=== PATIENT | female | born 1965 | race Caucasian/White ===

== ENCOUNTER → 2016-03-16 | Outpatient (REF) | payer MEDICARE, OTHER ==
[~2016-03-16] MED LIST: CIPR500T3 PO; PERC5TAB6 PO; TAMS0.4C2 PO
[2016-03-16 12:08] LABS: CONTROL LINE INT CTR LINE PRESENT; HIV SCRN NEGATIVE (NEGATIVE); HIV SCRN1 NEGATIVE (NEGATIVE)
== END ==
LOC: M SFHCLERA 10:07
PROVIDERS: ATTEND Physician Assistant
DX: D69.6 Thrombocytopenia, unspecified (principal)

== ENCOUNTER → 2016-05-01 | Outpatient (REF) | payer MEDICARE, OTHER ==
[2016-05-01 11:25] LABS: INR 1.13
[2016-05-01 11:29] LABS: ANION GAP 9 MEQ/L (8-16); BLOOD UREA NITROGEN 9 MG/DL (7-18); CALCIUM LEVEL 8.9 MG/DL (8.5-10.1); CARBON DIOXIDE LEVEL 28 MEQ/L (21-32); CHLORIDE LEVEL 107 MEQ/L (98-107); CREATININE FOR GFR 0.74 MG/DL (0.55-1.02); GLOMERULAR FILTRATION RATE > 60.0 (>51); GLUCOSE, FASTING 94 MG/DL (70-105); MEAN CORPUSCULAR HEMOGLOBIN 31.3 pg (27.0-33.0); MEAN CORPUSCULAR VOLUME 91.9 fl (80.0-96.0); RED CELL DISTRIBUTION WIDTH 12.9 % (11.5-14.5); SODIUM LEVEL 144 MEQ/L (136-145); WHITE BLOOD COUNT 4.4 K/mm3 (4.0-10.0)
== END ==
LOC: M LABSMT 08:30
PROVIDERS: ATTEND Nurse Practitioner Women's Health
DX: Z01.818 Encounter for other preprocedural examination (principal); N13.2 Hydronephrosis with renal and ureteral calculous obstruction; Z79.01 Long term (current) use of anticoagulants

== ENCOUNTER → 2016-07-30 | Outpatient (REF) | payer MEDICARE, OTHER ==
[2016-07-30 18:00] LABS: FOLATE > 24.0 NG/ML; VITAMIN B12 LEVEL 466 PG/ML
[2016-07-30 19:01] LABS: REASON FOR REVIEW COMPREHENSIVE REVIEW
[2016-08-01 10:46] LABS: HEPATITIS B SURFACE ANTIBODY NEGATIVE (POSITIVE)
== END ==
LOC: M LAB REF 16:52
PROVIDERS: ATTEND Internal Medicine Medical Oncology
DX: D69.6 Thrombocytopenia, unspecified (principal)

== ENCOUNTER → 2016-08-20 | Outpatient (CLI) | payer MEDICARE ==
[~2016-08-20] MED LIST changes: +ISOVUE-370 76% 100ML VIAL (Q9967) As Ordered ONE
--- NOTE | 2016-08-20 12:13 | REP ---
Clinical: Splenomegaly. Technique: Axial precontrast and contrast enhanced images of the abdomen using 100 ml Isovue 370 intravenous contrast material with coronal and sagittal re-formations. Comparison: 01/02/2016, 12/13/2015. Findings: Lung bases are clear. Visualized heart and pericardium normal. The liver and spleen are upper limits of normal in size but without focal hepatic or splenic lesion identified. The gallbladder is moderately distended and includes small gallstones without wall thickening or pericholecystic fluid to suggest acute cholecystitis. Pancreas and bilateral adrenal glands are normal. The kidneys demonstrate bilateral nonobstructing calculi measuring up to 5 mm without perinephric stranding, hydroureteronephrosis or obstructing ureteral calculi. Visualized enteric system without obstruction or acute inflammatory process. No ascites. Small fat containing periumbilical hernia noted. No free air. No intraperitoneal or retroperitoneal adenopathy. Atherosclerotic changes of the aorta noted without aneurysm. Musculoskeletal structures without focal osseous abnormality. Impression: 1. Liver and spleen are upper limits of normal in size without focal hepatic or splenic lesion identified. 2. Cholelithiasis without CT evidence for acute cholecystitis. 3. Bilateral nephrolithiasis up to 5 mm. Signed by Man Gross MD 08/20/2016 09:04 A
== END ==
LOC: M RAD 08:17
PROVIDERS: ATTEND Internal Medicine Medical Oncology
DX: R16.1 Splenomegaly, not elsewhere classified (principal); K80.10 Calculus of gallbladder with chronic cholecystitis without obstruction; N20.0 Calculus of kidney
CPT/HCPCS: 74170; Q9967

== ENCOUNTER → 2017-12-31 | Outpatient (REF) | payer MEDICARE, OTHER ==
[2017-12-31 11:20] LABS: HEMATOCRIT 35.8 % (36.0-47.0); MEAN CORPUSCULAR HEMOGLOBIN 31.9 pg (27.0-33.0); MEAN CORPUSCULAR HGB CONC 33.5 g/dl (32.0-36.5); MEAN CORPUSCULAR VOLUME 95.2 fl (80.0-96.0); RED BLOOD COUNT 3.76 10^6/uL (4.00-5.40); RED CELL DISTRIBUTION WIDTH 13.2 % (11.5-14.5); WHITE BLOOD COUNT 5.6 10^3/uL (4.0-10.0)
[2017-12-31 11:47] LABS: ESTIMATED AVERAGE GLUCOSE 123 MG/DL (60-110); HEMOGLOBIN A1c 5.9 %
[2017-12-31 11:49] LABS: PLATELET COUNT, AUTOMATED 102 10^3/uL (150-450); POS COUNT POS FLAG
[2017-12-31 13:07] LABS: ALBUMIN 3.5 GM/DL (3.2-5.2); ALKALINE PHOSPHATASE 98 U/L (45-117); ALT/SGPT 53 U/L (12-78); ANION GAP 11 MEQ/L (8-16); AST/SGOT 61 U/L (7-37); BILIRUBIN,TOTAL 0.6 MG/DL (0.2-1.0); BLOOD UREA NITROGEN 9 MG/DL (7-18); CALCIUM LEVEL 8.6 MG/DL (8.5-10.1); CARBON DIOXIDE LEVEL 24 MEQ/L (21-32); CHLORIDE LEVEL 107 MEQ/L (98-107); CHOLESTEROL LEVEL 162 MG/DL (<200); CHOLESTEROL RISK RATIO 5.586 (<5); CREATININE FOR GFR 0.82 MG/DL (0.55-1.30); GLOMERULAR FILTRATION RATE > 60.0 (>51); GLUCOSE, FASTING 86 MG/DL (70-100); HDL CHOLESTEROL 29 MG/DL (>40); LDL CHOLESTEROL 84 MG/DL (<100); NON-HDL-C 133 MG/DL; POTASSIUM SERUM 4.3 MEQ/L (3.5-5.1); SODIUM LEVEL 142 MEQ/L (136-145); TOTAL 25(OH) VITAMIN D 46.4 NG/ML (30.0-100.0); TOTAL PROTEIN 7.4 GM/DL (6.4-8.2); TRIGLYCERIDES LEVEL 247 MG/DL (<150)
== END ==
LOC: M SFHCLERA 09:18
DX: E78.2 Mixed hyperlipidemia (principal); E11.9 Type 2 diabetes mellitus without complications; D69.6 Thrombocytopenia, unspecified; E55.9 Vitamin D deficiency, unspecified; E66.9 Obesity, unspecified; Z68.30 Body mass index [BMI] 30.0-30.9, adult; Z23 Encounter for immunization
CPT/HCPCS: 80053

== ENCOUNTER → 2018-01-08 | Outpatient (CLI) | payer MEDICARE | LOC: M WHC 13:54 | DX: Z12.31 Encounter for screening mammogram for malignant neoplasm of breast (principal); Z80.3 Family history of malignant neoplasm of breast | CPT/HCPCS: 77067 ==

== ENCOUNTER 2018-10-15 17:52 | Emergency (ER) | payer MEDICARE, OTHER ==
[~2018-10-15] VITALS: Ht 160 cm; Wt 77.3 kg
[~2018-10-15 17:52] MED LIST changes: -ISOVUE-370 76% 100ML VIAL (Q9967) As Ordered ONE; +PERC5TAB12 PO; -PERC5TAB6 PO
[2018-10-15] MEDS ORDERED: CALC-190 PO (17:59)
[2018-10-15] MEDS ORDERED: MULTCAP PO (17:59)
[2018-10-15] MEDS ORDERED: ZINC1TAB2 PO (17:59)
[2018-10-15] MEDS ORDERED: VITA500C24 PO (17:59)
[2018-10-15] MEDS ORDERED: CHOL100029 PO (17:59)
[2018-10-15] MEDS ORDERED: METF500T13 PO (17:59)
[2018-10-15] MEDS ORDERED: ATOR1TAB21 PO (17:59)
[2018-10-15] MEDS ORDERED: GLIM1TAB PO (17:59)
[2018-10-15 18:57] LABS: BASO % 0.2 % (0.0-1.0); EOS # 0.1 10^3/uL (0.0-0.50); EOS % 2.7 % (0.0-3.0); HEMATOCRIT 34.9 % (36.0-47.0); LYMPH # 1.9 10^3/uL (1.5-4.5); LYMPH % 35.9 % (24.0-44.0); MEAN CORPUSCULAR HEMOGLOBIN 32.4 pg (27.0-33.0); MEAN CORPUSCULAR HGB CONC 34.4 g/dl (32.0-36.5); MEAN CORPUSCULAR VOLUME 94.3 fl (80.0-96.0); MONO # 0.3 10^3/uL (0.0-0.8); NEUTROPHILS # 2.8 10^3/uL (1.8-7.7); WHITE BLOOD COUNT 5.2 10^3/uL (4.0-10.0)
[2018-10-15 19:03] LABS: PLATELET COUNT, AUTOMATED 77 10^3/uL (150-450)
[2018-10-15 19:21] LABS: ALBUMIN 3.5 GM/DL (3.2-5.2); ALT/SGPT 51 U/L (12-78); BILIRUBIN,DIRECT 0.2 MG/DL (0.0-0.2); BILIRUBIN,TOTAL 0.7 MG/DL (0.2-1.0); BLOOD UREA NITROGEN 10 MG/DL (7-18); CALCIUM LEVEL 9.3 MG/DL (8.5-10.1); CARBON DIOXIDE LEVEL 26 MEQ/L (21-32); CHLORIDE LEVEL 107 MEQ/L (98-107); CREATININE FOR GFR 0.78 MG/DL (0.55-1.30); GLOMERULAR FILTRATION RATE > 60.0 (>51); GLUCOSE, FASTING 77 MG/DL (70-100); LIPASE 325 U/L (73-393); POTASSIUM SERUM 3.8 MEQ/L (3.5-5.1); SODIUM LEVEL 142 MEQ/L (136-145); TOTAL PROTEIN 7.4 GM/DL (6.4-8.2)
[2018-10-15] MEDS ORDERED: ONDANSETRON 4 MG ORAL DISINTEGRATING TAB (Q0162 PER 1MG) PO ONE (20:00)
--- NOTE | 2018-10-15 21:05 | REPVR ---
EXAM: CT Abdomen and Pelvis Without Contrast EXAM DATE/TIME: 10/15/2018 8:01 PM CLINICAL HISTORY: 53 years old, female; Abdominal pain; Flank; Right; Additional info: R flank pain, hematuria, HX stones TECHNIQUE: Imaging protocol: Computed tomography images of the abdomen and pelvis without contrast. Radiation optimization: All CT scans at this facility use at least one of these dose optimization techniques: automated exposure control; mA and/or kV adjustment per patient size (includes targeted exams where dose is matched to clinical indication); or iterative reconstruction. COMPARISON: CT ABD PELVIS W/O CONTRAST 01/02/2016 5:31 PM FINDINGS: Liver: Examination of the liver demonstrates a lobular surface contour, and enlargement of the left and caudate lobes, findings consistent with cirrhosis. Gallbladder and bile ducts: There are gallstones present. No evidence of cholecystitis demonstrated. Pancreas: Normal. No ductal dilation. Spleen: There is mild splenomegaly with a maximum span of 14 centimeters. No focal abnormalities demonstrated. Adrenals: Normal. No mass. Kidneys and ureters: Bilateral nonobstructive renal calculi measure up to 5 mm in the lower pole of the right kidney. There is an obstructive renal calculus demonstrated in the right renal pelvis associated with moderate dilatation of the renal pelvis and calyces. Also noted is increased thickening of the wall of the right renal pelvis, findings which can be associated with infection. No urinoma. There are several obstructive calculi measuring up to 6 mm extending craniocaudad for 10 mm located in the distal left ureter resulting in moderate proximal hydroureteronephrosis. There is no significant periureteral and perinephric stranding. No urinoma demonstrated. Stomach and bowel: Normal. No obstruction. No mucosal thickening. Appendix: No evidence of appendicitis. Intraperitoneal space: Normal. No free air. No significant fluid collection. Vasculature: Enlarged main portal vein measures 1.7 cm. Findings consistent with portal hypertension. The aorta demonstrates mild atherosclerotic calcification. Lymph nodes: Normal. No enlarged lymph nodes. Bladder: Mild thickening of the bladder wall likely related to incomplete distention although changes related to chronic bladder outlet obstruction not excluded. This study should also be excluded clinically. Reproductive: Unremarkable as visualized. Bones/joints: Age-indeterminate compression deformity of L2. Mild central spinal stenosis L4-5. Soft tissues: Unremarkable. IMPRESSION: 1. Examination of the liver demonstrates a lobular surface contour, and enlargement of the left and caudate lobes, findings consistent with cirrhosis. 2. There is mild splenomegaly with a maximum span of 14 centimeters. No focal abnormalities demonstrated. 3. There are gallstones present. No evidence of cholecystitis demonstrated. 4. There is an obstructive renal calculus demonstrated in the right renal pelvis associated with moderate dilatation of the renal pelvis and calyces. Also noted is increased thickening of the wall of the right renal pelvis, a finding which can be associated with infection. No urinoma. 5. There are several obstructive calculi measuring up to 6 mm located in the distal left ureter resulting in moderate proximal hydroureteronephrosis. There is no significant periureteral and perinephric stranding. No urinoma demonstrated. 6. Mild thickening of the bladder wall likely related to incomplete distention although changes related to chronic bladder outlet obstruction not excluded. This study should also be excluded clinically. Electronically signed by: Jesus Brenner On 10/15/2018 21:05:02 PM
[2018-10-15 22:14] VITALS: BP 129/60
[2018-10-15] MEDS ORDERED: CIPROFLOXACIN 500 MG TAB PO ONE ×2 (22:15→23:00)
--- NOTE | 2018-10-16 10:53 | ED PDOC ---
Post-Departure Follow-Up [facility] faxed formal report of ct abd/p for fu Dana Jurado MD Oct 16, 2018 10:53
[2018-11-06] MEDS ORDERED: COLA100C5 PO (13:14)
[2018-11-06] MEDS ORDERED: LORA-243 PO (13:14)
[2018-11-06] MEDS ORDERED: OXYC1TAB23 PO (13:14)
[2018-11-06] MEDS ORDERED: DITR5TAB PO (13:14)
== END 2018-10-15 22:20 | disposition home or self-care (01) ==
LOC: M ED 17:52
DX: N13.2 Hydronephrosis with renal and ureteral calculous obstruction (principal); E78.5 Hyperlipidemia, unspecified; E11.9 Type 2 diabetes mellitus without complications; R16.1 Splenomegaly, not elsewhere classified; F17.200 Nicotine dependence, unspecified, uncomplicated; Z79.84 Long term (current) use of oral hypoglycemic drugs; Z87.442 Personal history of urinary calculi; Z90.710 Acquired absence of both cervix and uterus
CPT/HCPCS: 74176; 80048; 80076; 81001; 83690; 85025; 85049; 85055; 87086; 99284; Q0162

== ENCOUNTER 2018-10-16 14:26 | Day surgery (SDC) | payer MEDICARE ==
[~2018-10-16] VITALS: Ht 160 cm; Wt 78.8 kg
[~2018-10-16 14:26] MED LIST changes: +ATOR1TAB21; +CALC-190 PO; +GLIM1TAB; +METF500T13; +MULTCAP PO; +VITA500C24 PO; +VITAD1000T PO; +ZINC1TAB2 PO
[2018-10-16] MEDS ORDERED: PROPOFOL 200 MG/20 ML VIAL As Ordered ONE (18:11)
[2018-10-16] MEDS ORDERED: MIDAZOLAM INJ 2 MG/2 ML VIAL (J2250) As Ordered ONE (18:11)
[2018-10-16] MEDS ORDERED: LIDOCAINE 2% INJ 100 MG/5 ML SDV (FOR ANES.) As Ordered ONE (18:12)
[2018-10-16] MEDS ORDERED: CONRAY-60 60% 50ML VIAL (Q9961) As Ordered ONE (18:14)
[2018-10-16] MEDS ORDERED: LIDOCAINE 2% 5ML JELLY UROJET As Ordered ONE (18:29)
[2018-10-16] MEDS ORDERED: ONDANSETRON 4MG/2ML VIAL (J2405) As Ordered ONE (18:30)
[2018-10-16] MEDS ORDERED: fentaNYL 100 MCG/2 ML INJECTION (J3010) As Ordered ONE (18:52)
--- NOTE | 2018-10-16 19:44 | REP ---
HISTORY: Placement of double pigtail stent. Five spot views of the abdomen and pelvis were obtained in my [place] using a portable C-Arm device during bilateral renal stent placement. Stents are seen in the renal collecting system bilaterally, the proximal portion of which is in the renal pelvis and the distal portion of which is in the urinary bladder. 28 seconds of fluoroscopy time was provided Dr. Roger Chang for the procedure. Electronically Signed by Sai Jean DO 10/16/2018 07:48 P
[2018-10-16 20:00] VITALS: BP 143/68
--- NOTE | 2018-10-19 10:51 | RO ---
DATE OF PROCEDURE: 10/16/2018 PREPROCEDURE DIAGNOSIS: Bilateral obstructing ureteral stones. POSTPROCEDURE DIAGNOSIS: Bilateral obstructing ureteral stones. PROCEDURE: Cystoscopy, bilateral retrograde pyelogram with intraoperative interpretation of images, bilateral ureteral stent placement. SURGEON: Dr. Roger Chang SENIOR ELECTRICAL PROJECT MANAGER: None. ANESTHESIA: Monitored anesthesia care (MAC). OPERATIVE INDICATIONS: This is a 53-year-old female who on CT scan yesterday was found to have a partially obstructing 1.2 cm right ureteropelvic junction stone, as well as obstructing distal left ureteral stone measuring up to 8 mm in size. She was brought to the operating room today for the above listed procedure. DESCRIPTION OF PROCEDURE: The patient was brought to the operating room and MAC anesthesia was administered. Prophylactic antibiotics were infused. She was then placed in the dorsal lithotomy position and prepped and draped in the usual sterile fashion. A rigid cystoscope was inserted into the urethral meatus and advanced into the bladder. A #5-[place] open-ended ureteral catheter was then advanced up the right collecting system and pass the ureteropelvic junction stone. At this point, a retrograde pyelogram was performed. It was notable for mild to moderate right hydronephrosis. No extravasation. I then advanced a wire up the right collecting system and removed the open-ended ureteral catheter. I then advanced a #7-[place] x 22-32 cm JJ ureteral stent up to the right collecting system. The wire was removed, and there were adequate curls of the stent in the right renal pelvis and in the bladder. I then advanced a #5-[place] open-ended ureteral catheter up the left collecting system. There was some difficulty getting it past the distal stones, but I was able to get it passed using the wire. Once the ureteral catheter was in the left renal pelvis, a retrograde pyelogram was performed, notable for mild to moderate left hydronephrosis. No extravasation. I then advanced the wire up, and then I removed the ureteral catheter. I then advanced a #7-[place] x 22-32 cm JJ ureteral stent into the left collecting system. The wire was removed, and there were adequate curls of the stent in the left renal pelvis and in the bladder. The bladder was then emptied of all fluids, and this marked the conclusion of the procedure. The patient was then taken out of the dorsal lithotomy position, awakened from anesthesia, and transported to the recovery room in stable condition. Estimated blood loss: 5 mL. Complications: None. Specimens: None. PLAN: We will have the patient followup in the clinic, and at that point, will get her set up for bilateral ureteroscopy with laser lithotripsy.
== END 2018-10-16 20:01 | disposition home or self-care (01) ==
LOC: M SDC 14:26
PROVIDERS: ATTEND Urology
DX: N20.0 Calculus of kidney (principal); E11.9 Type 2 diabetes mellitus without complications; Z79.84 Long term (current) use of oral hypoglycemic drugs; Z79.899 Other long term (current) drug therapy
CPT/HCPCS: 52332; 74420; C2617; J0690; J2250; J2405; J3010; Q9961

== ENCOUNTER → 2018-11-18 | Outpatient (REF) | payer MEDICARE, OTHER ==
[~2018-11-18] MED LIST changes: -ATOR1TAB21; +ATOR1TAB21 PO; +CHOL100029 PO; +COLA100C5 PO; +DITR5TAB PO; -GLIM1TAB; +GLIM1TAB PO; +LORA-243 PO; -METF500T13; +METF500T13 PO; +OXYC1TAB23 PO; -VITAD1000T PO
[2018-11-18 17:13] LABS: HEMOGLOBIN A1c 5.3 %
== END ==
LOC: M SFHCLERA 11:31
PROVIDERS: ATTEND Family Medicine
DX: Z01.818 Encounter for other preprocedural examination (principal)

== ENCOUNTER → 2018-11-20 | Outpatient (CLI) | payer MEDICARE, OTHER ==
[~2018-11-20] MED LIST changes: -GLIM1TAB PO; +GLIM1TAB4 PO
--- NOTE | 2018-11-20 12:56 | REP ---
PA and lateral chest: Comparison is 04/07/2013. The lung bhandari are clear. The cardiac size is normal. The facundo, mediastinum, and skeletal structures are unremarkable. Impression: Negative PA and lateral chest. There is no interval change. Electronically Signed by Bryan Greenwood MD 11/20/2018 12:48 P
== END ==
LOC: M LRY 11:30
PROVIDERS: ATTEND Nurse Practitioner Family
DX: Z01.818 Encounter for other preprocedural examination (principal); N20.0 Calculus of kidney; R79.1 Abnormal coagulation profile
CPT/HCPCS: 71046; 80048; 81001; 85027; 85049; 85055; 85610; 85730; 87086; 93005; G0463

== ENCOUNTER → 2018-11-20 | Outpatient (REF) | payer MEDICARE, OTHER ==
[~2018-11-20] MED LIST changes: +GLIM1TAB PO; -GLIM1TAB4 PO
[2018-11-20 15:44] LABS: HEMATOCRIT 35.7 % (36.0-47.0); HEMOGLOBIN 11.8 g/dl (12.0-15.5); MEAN CORPUSCULAR HEMOGLOBIN 31.9 pg (27.0-33.0); MEAN CORPUSCULAR HGB CONC 33.1 g/dl (32.0-36.5); MEAN CORPUSCULAR VOLUME 96.5 fl (80.0-96.0); WHITE BLOOD COUNT 5.6 10^3/uL (4.0-10.0)
[2018-11-20 15:47] LABS: APPEARANCE, URINE CLOUDY (CLEAR); BACTERIA, URINE AUTO NEGATIVE (NEGATIVE); BILIRUBIN, URINE AUTO NEGATIVE (NEGATIVE); BLOOD, URINE BLOOD 3+ (NEGATIVE); COLOR, URINE RED (YELLOW); GLUCOSE, URINE (UA) AUTO NEGATIVE (NEGATIVE); KETONE, URINE AUTO NEGATIVE (NEGATIVE); LEUKOCYTE ESTERASE, URINE AUTO 2+ (NEGATIVE); MUCUS, URINE SMALL (NEGATIVE); NITRITE, URINE AUTO NEGATIVE (NEGATIVE); PROTEIN, URINE AUTO 3+ mg/dL (NEGATIVE); RBC, URINE AUTO TNTC /HPF (0-3); SPECIFIC GRAVITY URINE AUTO 1.016 (1.002-1.035); SQUAMOUS EPITHELIAL CELL UR AU 5 /HPF (0-6); UROBILINOGEN, URINE AUTO 0.2 mg/dL (0.0-2.0); WBC, URINE AUTO TNTC /HPF (0-3)
[2018-11-20 15:48] LABS: BLOOD UREA NITROGEN 11 MG/DL (7-18); CALCIUM LEVEL 9.3 MG/DL (8.5-10.1); CARBON DIOXIDE LEVEL 30 MEQ/L (21-32); CHLORIDE LEVEL 104 MEQ/L (98-107); GLOMERULAR FILTRATION RATE > 60.0 (>51); GLUCOSE, FASTING 66 MG/DL (70-100); POTASSIUM SERUM 4.3 MEQ/L (3.5-5.1); SODIUM LEVEL 141 MEQ/L (136-145)
[2018-11-20 15:53] LABS: PLATELET COUNT, AUTOMATED 94 10^3/uL (150-450)
[2018-11-20 15:57] LABS: INR 1.19; PROTHROMBIN TIME 14.8 SECONDS (11.8-14.0)
== END ==
LOC: M LABSMT 11:20
PROVIDERS: ATTEND Nurse Practitioner Family
DX: Z01.818 Encounter for other preprocedural examination (principal); N20.0 Calculus of kidney; D69.6 Thrombocytopenia, unspecified

== ENCOUNTER → 2018-12-29 | Outpatient (REF) | payer MEDICARE, OTHER ==
[~2018-12-29] MED LIST changes: -GLIM1TAB PO; +GLIM1TAB2 PO
== END ==
LOC: M LABSMT 17:32
PROVIDERS: ATTEND Urology
DX: Z01.818 Encounter for other preprocedural examination (principal); N20.0 Calculus of kidney; N39.0 Urinary tract infection, site not specified

== ENCOUNTER 2019-01-02 06:09 | Day surgery (SDC) | payer MEDICARE ==
[~2019-01-02] VITALS: Ht 160 cm; Wt 74.8 kg
[2019-01-02] MEDS ORDERED: CONRAY-60 60% 50ML VIAL (Q9961) As Ordered ONE (06:58)
[2019-01-02] MEDS ORDERED: LR 1,000 ML IV ONE (07:00)
[2019-01-02] MEDS ORDERED: ceFAZolin SOD 2 GM in IV 1 EA IV ONE (07:00)
[2019-01-02] MEDS ORDERED: dexameTHASONE 4 MG/ML 1ML VIAL (J1100) As Ordered ONE (07:17)
[2019-01-02] MEDS ORDERED: PROPOFOL 200 MG/20 ML VIAL As Ordered ONE (07:17)
[2019-01-02] MEDS ORDERED: MIDAZOLAM INJ 2 MG/2 ML VIAL (J2250) As Ordered ONE (07:17)
[2019-01-02] MEDS ORDERED: fentaNYL 100 MCG/2 ML INJECTION (J3010) As Ordered ONE (07:17)
[2019-01-02] MEDS ORDERED: LIDOCAINE 2% INJ 100 MG/5 ML SDV (FOR ANES.) As Ordered ONE (07:17)
[2019-01-02] MEDS ORDERED: ONDANSETRON 4MG/2ML VIAL (J2405) As Ordered ONE ×2 (07:18→10:36)
[2019-01-02] MEDS ORDERED: oxyBUTYnin 5 MG TAB PO PRN (10:15)
[2019-01-02] MEDS ORDERED: PERCOCET 5MG/325MG TAB PO PRN (10:15)
[2019-01-02] MEDS ORDERED: ONDANSETRON 4MG/2ML VIAL (J2405) IV PRN (11:00)
[2019-01-02] MEDS ORDERED: METOCLOPRAMIDE INJ 10MG/2ML VIAL (J2765) IV PRN (11:00)
[2019-01-02] MEDS ORDERED: LR 1,000 ML IV SCH (11:00)
[2019-01-02] MEDS ORDERED: PROMETHAZINE INJ 25 MG/ML VIAL (J2550) IV PRN (11:00)
[2019-01-02] MEDS ORDERED: fentaNYL 100 MCG/2 ML INJECTION (J3010) IV PRN (11:00)
--- NOTE | 2019-01-02 12:04 | RO ---
DATE OF PROCEDURE: 01/02/2019 PREPROCEDURE DIAGNOSIS: Bilateral kidney stones. POSTPROCEDURE DIAGNOSIS: Bilateral kidney stones. PROCEDURE: Cystoscopy, bilateral ureteroscopy with laser lithotripsy and basket extraction of stones, bilateral retrograde pyelograms with intraoperative interpretation of images, bilateral ureteral stent exchange. SURGEON: Dr. Roger Chang. AIRCRAFT MAINTENANCE SUPERVISOR: None. ANESTHESIA: General. OPERATIVE INDICATIONS: This is a 53-year-old female who was brought to the operating room about 2 months ago for bilateral ureteral stent placement for obstructing mid left ureteral stones as well as an obstructing right ureteropelvic junction stone. She was brought to the operating today for treatment of her stones. DESCRIPTION OF PROCEDURE: The patient brought to the operative room and general anesthesia was induced. Prophylactic antibiotics infused. She was then placed in the dorsal lithotomy position and prepped and draped in the usual sterile fashion. A rigid cystoscope was then inserted into the urethral meatus and advanced into the bladder. Once inside the bladder, the previously placed stent on the left side was grasped and withdrawn until the distal end was seen protruding from the urethral meatus. I then advanced the guidewire up the stent and then removed the stent. I then utilized the wire to advance a ureteral access sheath up the left collecting system to the mid ureter. I then went up the access sheath with a flexible ureteroscope and within the mid ureter, two stones were seen. Both were about 8 mm in size. They were both fragmented into smaller pieces using the Excalibur laser fiber. All the fragments were then removed using a basket. I then examined the more proximal ureter and no additional stones sere seen. The kidneys were thoroughly examined and within the lower pole luis, two small stones each measuring 3-4 mm size were seen. They were both passed to the basket and withdrawn. A retrograde pyelogram was then performed and was notable for mild left hydronephrosis with no extravasation. I then withdrew the ureteroscope along with access sheath and no additional stones were seen within the ureter. I then utilized a wire to place the 6-Argentine x 22-32 cm JJ ureteral stent up the left collecting system. I then withdrew the previous placed right ureteral stent until the distal end was seen protruding beneath the urethral meatus. I advanced a guidewire up the right collecting system. I then removed the stent. I then advanced the access sheath over the wire. I went up the access sheath with a flexible ureteroscope and at the level of the right ureteropelvic junction, an approximately 1.2 cm stone was seen. This stone was fragmented into smaller pieces using the Excalibur laser fiber. Then a few fragments were removed. Due to the size of the stone, the decision was made to dust the remainder of the stone with the smaller pieces left to pass. Once done dusting the stone, I examined the rest of the kidney and no stones greater than 1 or 2 mm remained. At this point, a retrograde pyelogram was then performed and was notable for mild right hydronephrosis with no extravasation. I then withdrew the ureteroscope along with access sheath and no additional stones were seen within the ureter. I then utilized the wire to advanced a 6-Argentine x 22-32 cm JJ ureteral stent into the right collecting system. The wire was removed and there was adequate curl of the stent in the right renal pelvis and in the bladder. The bladder was then emptied of all fluid, and this marked the conclusion of the procedure. The patient was then taken out of the dorsal lithotomy position, awakened from anesthesia, and transported to the recovery room in stable condition. ESTIMATED BLOOD LOSS: 10 mL. COMPLICATIONS: None. SPECIMENS: Kidney stone fragments. PLAN: I will have the patient followup in the clinic in approximately 3-4 weeks with imaging prior to assess for residual stone burden. Assuming there is no large residual stones, particularly on the right, her stents will be removed at that time. RUBY
--- NOTE | 2019-01-02 12:42 | REP ---
RETROGRADE PYELOGRAM: FIVE VIEWS. HISTORY: Nephrolithiasis. 32 seconds of fluoroscopy time is reported. FINDINGS: A sequence of five last image hold fluoroscopically obtained spot radiographs of the abdomen document bilateral ureteral cannulation, contrast injection, and stent placement. Electronically Signed by Frandy Schwartz MD 01/02/2019 01:56 P
[2019-01-02 12:50] VITALS: BP 131/69
== END 2019-01-02 12:50 | disposition home or self-care (01) ==
LOC: M SDC 06:09
PROVIDERS: ATTEND Urology
DX: N20.0 Calculus of kidney (principal); E11.9 Type 2 diabetes mellitus without complications; E78.5 Hyperlipidemia, unspecified; Z79.899 Other long term (current) drug therapy; F17.218 Nicotine dependence, cigarettes, with other nicotine-induced disorders
CPT/HCPCS: 52356; 74420; 82360; 88300; C1769; C1894; C2617; J0690; J1100; J2250; J2405; J2765; J3010; Q9961

== ENCOUNTER → 2019-01-26 | Outpatient (CLI) | payer MEDICARE ==
--- NOTE | 2019-01-26 11:18 | REPPI ---
Clinical: Nephrolithiasis. Technique: Single supine view of the abdomen and pelvis. Findings: Bilateral ureteral stents in satisfactory position. Multiple small calcifications in the right upper quadrant measuring up to 3 mm may represent renal stones verses gallstones. Subtle calcifications overlying the left renal pelvis may represent small residual left renal calculi. No obvious ureteral calcifications or bladder calcifications identified. Bowel gas pattern is nonspecific. Skeletal structures are intact. Impression: Possible renal calcifications. Electronically Signed by Man Gross MD 01/26/2019 11:09 A
== END ==
LOC: M PLALAB 10:39
PROVIDERS: ATTEND Urology
DX: N20.0 Calculus of kidney (principal)

== ENCOUNTER 2020-03-15 21:01 | Emergency (ER) | payer MEDICARE, OTHER ==
[~2020-03-15] VITALS: Ht 160 cm; Wt 84.0 kg
[~2020-03-15 21:01] MED LIST changes: -GLIM1TAB2 PO; +GLIM1TAB4 PO
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
--- OUTSIDE RECORDS SUMMARY | 2020-03-15 21:10 | CCD ---
Author Author [facility] Organization [facility] Address Unknown Phone Unavailable Care Team Providers Care Radiology Administrator Name Role Phone Syeda Mares Unavailable PROBLEMS Type Condition ICD9-CM Code XOM43-TZ Code Onset Dates Condition S tatus SNOMED Code Notes Problem Type 2 diabetes mellitus without complication E11.9 Active 09505813 Problem Lumbar degenerative disc disease M51.36 Active 52912991 Problem Vitamin D deficiency E55.9 Active 70238118 Problem Tobacco abuse Z72.0 Active 14911063 Problem Mixed hyperlipidemia E78.2 Active 501267970 Problem Degenerative cervical disc M50.30 Active 65300 002 Problem Chronic pain G89.29 Active 05086242 Problem Hematuria R31.9 Active 40953341 Problem Thrombocytopenia D69.6 Active 016482087 Problem 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 Ac tive 90764796 Problem Anemia, unspecified type D64.9 Active 4243087 00 Problem Kidney stone N20.0 Active 83204785 Problem Ureteral stone with hydronephrosis N13.2 Activ e 335301725 Problem Psoriasis L40.9 Active 3674173 Problem History of renal calculi Z87.442 Active 8650610 08 Problem Elevated protime R79.1 Active 937152876 Problem Bilateral kidney stones N20.0 Active 11495864 Problem Preop testing Z01.818 Active 499203619 Problem UTI (urinary tract infection) N39.0 Active 68 884395 ALLERGIES Allergen (clinical drug ingredient) Drug/Non Drug Allergy do cumented on EMR Reaction Allergy Type Onset Date Status Seasonal itchy eyes, sneezing Non Drug Allergy Active ENCOUNTERS from 1965 to 2020-02-06 Encounter Location Date Provider Diagnosis [facility] [address] [address] [place] [address] Jan, Syeda Mares Type 2 diabetes mellitus without complic ation E11.9 ; Annual physical exam Z00.00 ; Encounter for immunization Z23 ; Mixed hyperlipidemia E78.2 ; Vitamin D deficiency E55.9 ; Screening mammogram, encounter for Z12.31 and Need for shingles vaccine Z23 IMMUNIZATIONS Vaccine Route Administration Date Status Influenza [...] Education Language: Question Answer Notes Languages spoken: Faroese Nondenominational: Question Answer Notes Nondenominational 33 None Drug and Alcohol Question Answer Notes Total Score: 0 Interpretation: No problems reported BMI Care Goal Follow-Up Question Answer Notes Above Normal BMI Follow-Up Dietary management educatio n, guidance, and counseling, Dietary needs education, Exercise promotion: strength training Tobacco Use: Question Answer Notes Are you a: former smoker August 31 2019 REASON FOR REFERRAL No Information VITAL SIGNS Weight 184.2 lbs Jan, Height 63 in Jan, BMI 32.63 kg/m2 Jan, MEDICATIONS Medication SIG (Take, Route, Frequency, Duration) Notes Start Da te End Date Status Vitamin C 500 MG 1 tablet OTC Orally Once a day Active FreeStyle Test Oxford Lite test strip use 1 test stri p In Vitro to test blood sugar twice daily (Dx: 250.00) for 30 day(s) June, Active Diflucan 150mg (1 tablet) 150 MG 1 tablet Orally Once a day for 1 day(s) Sep, Not-Taking Hydrocodone-Acetaminophen 5-325 MG 1tab Orally once daily Not-Taking Metformin HCl 500 MG 2 tablets Orally Twice a day for 90 days Active Amaryl 1 mg 1 tablet with breakfast or t he first main meal of the day Orally Once a day Not-Taking Lidocaine HCl Jelly ALF 2 % 5 ML1 application to affec janay area as needed Intravesically TIME AT CYSTOSCOPY for 1 dose(s) Sep, Not-Taking Vitamin D 1000 UNIT 3 tablets Orally Once a day Active Triamcinolone Acetonide 0.1 % 1 application Externally Twice a day for 14 days Jan, Active Atorvastatin Calcium 20 MG 1 tablet Orally Once a day for 90 days Active Embrace Blood Glucose Test - as directed (E11.9) In Vitro for 99 months Feb, Active BuPROPion HCl ER (SR) 150 MG 1 [...] MDD 4 for 7 day(s) Nov, Not-Taking Colace _ 2 capsule Orally Once a day Active Percocet 5-325 MG 1 tablet Orally every 6 hrs as needed for pain (MDD 4) Nov, Not-Taking Lyrica 150 MG 1 capsule Orally three times daily (Dr Kulkarni) Not-Taking Amaryl 1 MG 1 tablet with breakfast or t he first main meal of the day Orally Once a day for 90 days Active Triamcinolone Acetonide 0.1 % apply in thin layer to a ffected areas on lower legs Externally Twice a day x 14 days. Do not use for longer than 14 days continuously. for 30 day(s) Feb, Not- Taking Clotrimazole 1 % 1 application to affected [...] OTC Orally daily Active Lidocaine HCl Jelly ALF 2 % 5 ML1 application to affec janay area as needed Intravesically TIME AT CYSTOSCOPY for 1 dose(s) Sep, Not-Taking Cipro 500 MG 1 tablet Orally Twice a day for 3 days Sep Not-Taking Caltrate 600+D 600-400 MG-UNIT 1 tablet OTC Orally Once a day Active PROCEDURES from 1965 to 2020-02-06 Procedure Date Ordered Result Body Site Immunization: Flublok Quadrivalent (18 years & older) 0.5mL IM (Influenza) 2020-02-02 N/A Immunization: Shingrix 50mcg/0.5mL IM (Zoster) 2020-02-02 N /A RESULTS No Results REASON FOR VISIT annual wellness exam MEDICAL (GENERAL) HISTORY Type Description Date Medical [...] History Unspecified urinary calculus Surgical History Hysterectomy 1980 Surgical History Carpal tunnel 2006 Surgical History [...] Treatment Notes Treatm ent Clinical Notes Jan, Type 2 diabetes mellitus without complication (I CD-10 - E11.9) For your diabetes continue to follow low fat, low cholesterol, no added salt diet. Exercise at least 150min/week. Your eye screening is due, plans to schedule prior to near future. Your blood pressure is stable. Goal for Hemoglobin A1C is 7-7.5%. Labs ordered, pending disposition. Jan, Annual physical exam (ICD-10 - Z00.00) Jaciel appears to be doing well at this time. She is stable on current med regimen. Recommended screenings are UTD, mammo order given today. Labs ordered, pending disposition. Diet/lifestyle recommendations as above. Jan, Encounter for immunization (ICD-10 - Z23) Patient Educated with: FLU Vaccine, Inactivated [id number] (FLU Vaccine, Inactivated [id number]) Jan, Mixed hyperlipidemia (ICD-10 - E78.2) see notes above Jan, Vitamin D deficiency (ICD-10 - E55.9) see notes above Jan, Screening mammogram, encounter for (ICD-10 - Z12 .31) ordered Jan, Need for shingles vaccine (ICD-10 - Z23) Patient Educated with: Zoster (Recombinant) [id number] (Zoster (Recombinant) [id number].pdf) PLAN OF TREATMENT Treatment Notes Assessment Notes Clinical Notes Type 2 diabetes mellitus without complication For your diabetes continue to follow low fat, low cholesterol, no added salt diet. Exercise at least 150min/week. Your eye screening is due, plans to schedule prior to near future. Your blood pressure is stable. Goal for Hemoglobin A1C is 7-7.5%. Labs ordered, pending disposition. Annual physical exam Jaciel appears to b e doing well at this time. She is stable on current med regimen. Recommended screenings are UTD, mammo order given today. Labs ordered, pending disposition. Diet/lifestyle recommendations as above. Encounter for immunization Patient Educated with: FLU Vaccine, Inactivated [id number] (FLU Vaccine, Inactivated [id number]) Mixed hyperlipidemia see notes above Vitamin D deficiency see notes above Screening mammogram, encounter for order ed Need for shingles vaccine Patient Educated with: Maria Del Rosario nelson (Recombinant) [id number] (Zoster (Recombinant) [id number].pdf) Future Test Test Name Order Date HEMOGLOBIN A1c [id number] Comprehensive Metabolic Profile (CMP) [id number] LIPID PANEL (CARDIAC RISK) 32400110 VITAMIN D 25-HYDROXY 30765941 CBC with Differential 43181853 [facility] Vikas Screening Bilateral (Ultrasound if Indicated ) (3D Mammo) 65887416 Next Appt Details 1 Year (pending labs) Reason: Insurance Providers Payer Name Payer Address Payer Phone Insured Name Patient Relati onship to Insured Coverage Start Date Coverage End Date MEDICARE COMPLETE [facility] [address] [address] [facility] [phone] JACIEL FOX self
--- OUTSIDE RECORDS SUMMARY | 2020-03-15 21:10 | CCD ---
Author Author [facility] Organization [facility] Address Unknown Phone Unavailable Support Name Relationship Address Phone RE Next Of Kin Unknown Unavailable UE Next Of Kin Unknown Unavailable [place] [address] DISABLED Next Of Kin Unknown [place] [address] MICH FOX Next Of Kin [address] [facility] [address] [place], [place] [id number] [place] [address] Re-disclosure Warning The records that you are about to access may contain information from federally-assisted alcohol or drug abuse programs. If such information is present, then the following federally mandated warning applies: This information has been disclosed to you from records protected by federal confidentiality rules (42 CFR part 2). The federal rules prohibit you from making any further disclosure of this information unless further disclosure is expressly permitted by the written consent of the person to whom it pertains or as otherwise permitted by 42 CFR part 2. A general authorization for the release of medical or other information is NOT sufficient for this purpose. The Federal rules restrict any use of the information to criminally investigate or prosecute any alcohol or drug abuse patient.The records that you are about to access may contain highly sensitive health information, the redisclosure of which is protected by Article 27-F of the [facility] Public Health law. If you continue you may have access to information: Regarding HIV / AIDS; Provided by facilities licensed or operated by the [facility] Office of Mental Health; or Provided by the [facility] Office for People With Developmental Disabilities. If such information is present, then the following [facility] mandated warning applies: This information has been disclosed to you from confidential records which are protected by state law. State law prohibits you from making any further disclosure of this information without the specific written consent of the person to whom it pertains, or as otherwise permitted by law. Any unauthorized further disclosure in violation of state law may result in a fine or chcf sentence or both. A general authorization for the release of medical or other information is NOT sufficient authorization for further disc losure. Allergies and Adverse Reactions Type Description Substance Reaction Status Data Source(s ) Seasonal Seasonal Seasonal itchy eyes, sneezing Active eCW 1 ([facility]) Seasonal Seasonal Seasonal itchy eyes, sneezing Active eCW 1 ([facility]) Family History Family Member Name Family Member Gender Family Member Status Date o f Status Description Data Source(s) Unknown Unknown Problem MEDENT ([facility], ) Unknown Unknown Problem MEDENT ([facility], ) Unknown Unknown Problem MEDENT ([facility], ) Unknown Unknown Problem MEDENT ([facility], ) Unknown Unknown Problem MEDENT ([facility], ) Unknown Unknown Problem MEDENT ([facility], ) Unknown Unknown Problem MEDENT ([facility], ) Encounters Encounter Providers Location Date Indications Data Source(s ) Unknown [address] [facility] [address] 02/12/2020 12:00:00 AM EST eCW1 ([facility]) Outpatient [address] [facility] [address] 02/02/2020 12:00:00 AM EST eCW1 ([facility]) Unknown [address] [facility] [address] [address] 01/28/2020 12:00:00 AM EST eCW1 ([facility]) Unknown [address] [facility] [address] [address] 08/05/2019 12:00:00 AM EDT eCW1 ([facility]) [facility] Urology [address] [facility] [address] [address] 07/27/2019 12:00:00 AM EDT eCW1 ([facility]) [facility] Urology [address] [facility] [address] [address] 07/27/2019 12:00:00 AM EDT eCW1 ([facility]) [facility] [place] [address] [facility] [address] 06/30/2019 12:00:00 AM EDT eCW1 ([facility]) [facility] Urology Center [address] [place] [address] 02/12/2019 12:00:00 AM EST eCW1 ([facility]) [facility] Urology [address] [place] [address] 02/10/2019 12:00:00 AM EST eCW1 ([facility]) [facility] [place] [address] [place] [address] 02/03/2019 12:00:00 AM EST eCW1 ([facility]) [facility] Urology [address] [place] [address] 01/26/2019 12:00:00 AM EST eCW1 ([facility]) [facility] Urology Center [address] [place] [address] 01/21/2019 12:00:00 AM EST eCW1 ([facility]) Immunizations Vaccine Date Status Description Data Source(s) influenza, recombinant, quadrIvalent,injectable, prese rvative free 02/02/2020 11:44:00 AM EST completed eCW1 ([facility]) influenza, recombinant, quadrIvalent,injectable, prese rvative free 02/02/2020 11:44:00 AM EST completed eCW1 ([facility]) Zoster 50mcg/0.5mL (Shingrix) 02/02/2020 11:43:00 AM EST completed eCW1 ([facility]) Zoster 50mcg/0.5mL (Shingrix) 02/02/2020 11:43:00 AM EST completed eCW1 ([facility]) pneumococcal polysaccharide PPV23 02/03/2019 05:04:00 PM EST comple janay eCW1 ([facility]) pneumococcal polysaccharide PPV23 02/03/2019 05:04:00 PM EST comple janay eCW1 ([facility]) pneumococcal polysaccharide PPV23 02/03/2019 05:04:00 PM EST comple janay eCW1 ([facility]) pneumococcal polysaccharide PPV23 02/03/2019 05:04:00 PM EST comple janay eCW1 ([facility]) pneumococcal polysaccharide PPV23 02/03/2019 05:04:00 PM EST comple janay eCW1 ([facility]) influenza, recombinant, quadrIvalent,injectable, prese rvative free 02/03/2019 05:03:00 PM EST completed eCW1 ([facility]) influenza, recombinant, quadrIvalent,injectable, prese rvative free 02/03/2019 05:03:00 PM EST completed eCW1 ([facility]) influenza, recombinant, quadrIvalent,injectable, prese rvative free 02/03/2019 05:03:00 PM EST completed eCW1 ([facility]) influenza, recombinant, quadrIvalent,injectable, prese rvative free 02/03/2019 05:03:00 PM EST completed eCW1 ([facility]) influenza, recombinant, quadrIvalent,injectable, prese rvative free 02/03/2019 05:03:00 PM EST completed eCW1 ([facility]) Medications Medication Brand Name Start Date Product Form Dose Route Admi nistrative Instructions Pharmacy Instructions Status Indications Reaction Description Data Source(s) 12 HR Bupropion Hydrochloride 150 MG Ext ended Release Oral Tablet BuPROPion HCl ER (SR) 150 MG BuPROPion HCl ER (SR) 150 MG 02/03/2019 12:00:00 AM EST active 1 tablet daily x 3 days, the n 1 tablet twice daily eCW1 ([facility]) Triamcinolone Acetonide 1 MG/ML Topical Cream Triamcin olone Acetonide 0.1 % Triamcinolone Acetonide 0.1 % 02/03/2019 12:00:00 AM EST active 1 application eCW1 ([facility]) 12 HR Bupropion Hydrochloride 150 MG Ext ended Release Oral Tablet BuPROPion HCl ER (SR) 150 MG BuPROPion HCl ER (SR) 150 MG 02/03/2019 12:00:00 AM EST active BuPROPion HCl ER (SR) 150 MG eCW1 ([facility]) Triamcinolone Acetonide 1 MG/ML Topical Cream Triamcin olone Acetonide 0.1 % Triamcinolone Acetonide 0.1 % 02/03/2019 12:00:00 AM EST 1.0 {appli cation} active Triamcinolone Acetonide 0 .1 % eCW1 ([facility]) Triamcinolone Acetonide 1 MG/ML Topical Cream Triamcin olone Acetonide 0.1 % Triamcinolone Acetonide 0.1 % 02/03/2019 12:00:00 AM EST active 1 application eCW1 ([facility]) Triamcinolone Acetonide 1 MG/ML Topical Cream Triamcin olone Acetonide 0.1 % Triamcinolone Acetonide 0.1 % 02/03/2019 12:00:00 AM EST 1.0 {appli cation} active Triamcinolone Acetonide 0 .1 % eCW1 ([facility]) 12 HR Bupropion Hydrochloride 150 MG Ext ended Release Oral Tablet BuPROPion HCl ER (SR) 150 MG BuPROPion HCl ER (SR) 150 MG 02/03/2019 12:00:00 AM EST suspended BuPROPion HCl ER (SR) 150 MG eCW1 ([facility]) 12 HR Bupropion Hydrochloride 150 MG Ext ended Release Oral Tablet BuPROPion HCl ER (SR) 150 MG BuPROPion HCl ER (SR) 150 MG 02/03/2019 12:00:00 AM EST suspended BuPROPion HCl ER (SR) 150 MG eCW1 ([facility]) Triamcinolone Acetonide 1 MG/ML Topical Cream Triamcin olone Acetonide 0.1 % Triamcinolone Acetonide 0.1 % 02/03/2019 12:00:00 AM EST 1.0 {appli cation} active Triamcinolone Acetonide 0 .1 % eCW1 ([facility]) 12 HR Bupropion Hydrochloride 150 MG Ext ended Release Oral Tablet BuPROPion HCl ER (SR) 150 MG BuPROPion HCl ER (SR) 150 MG 02/03/2019 12:00:00 AM EST active BuPROPion HCl ER (SR) 150 MG eCW1 ([facility]) Triamcinolone Acetonide 1 MG/ML Topical Cream Triamcin olone Acetonide 0.1 % Triamcinolone Acetonide 0.1 % 02/03/2019 12:00:00 AM EST 1.0 {appli cation} active Triamcinolone Acetonide 0 .1 % eCW1 ([facility]) Insurance Providers Payer name Policy type / Coverage type Policy ID Covered constitution party ID Covered constitution party's relationship to murphy Policy Murphy Plan Information [facility] [id number] SP [id number] MEDICARE COMPLETE [id number] SP [id number] 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 SP NOT FOR TODAY'S VISIT MEDICARE COMPLETE [id number] SP [id number] [id number] S [id number] MEDICARE COMPLETE [id number] SP [id number] ANSI-Commercial [id number] ANSI-Medicare Part B [id number] ANSI-Commercial [id number] ANSI-Medicare Part B [id number] ANSI-Commercial [id number] ANSI-Medicare Part B [id number] ANSI-Commercial [id number] ANSI-Medicare Part B [id number] MEDICARE COMPLETE [id number] SP [id number] MEDICARE COMPLETE [id number] SP [id number] MEDICARE COMPLETE [id number] SP [id number] MEDICARE COMPLETE [id number] SP [id number] [facility] Medicare Commercial Self Medicare [facility] Medicare Primary Self Chart[employer] Commercial Self MEDICARE [id number] SP [id number] A CHARTIS W/C [id number] SP [phone] 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 [id number] SP [id number] 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 [id number] SP [id number] SELF PAY UNAVAILABLE SP UNAVAILA BLE [id number] Problems, Conditions, and Diagnoses Code Display Name Description Problem Type Effective Dates Data Source(s) L40.9 2504909 Psoriasis Problem 02/03/2019 12:00:00 AM ES T eCW1 ([facility]) L40.9 8272259 Psoriasis Problem 02/03/2019 12:00:00 AM ES T eCW1 ([facility]) Surgeries/Procedures Procedure Description Date Indications Data Source(s) Immunization: Flublok Quadrivalent (18 years & older) 0.5mL IM (Influenza) 02/02/2020 12:00:00 AM EST eCW1 ([facility]) RIV4 VACC RECOMBINANT DNA IM 02/03/2019 12:00:00 AM ES T eCW1 ([facility]) Administration of influenza virus vaccine 02/03/2019 1 2:00:00 AM EST eCW1 ([facility]) Pneumococcal Adult 0.5mL (Pneumovax 23) 02/03/2019 12: 00:00 AM EST eCW1 ([facility]) Administration of pneumococcal vaccine 02/03/2019 12:0 0:00 AM EST eCW1 ([facility]) Office Visit, Est Pt., Level 2 FC 02/03/2019 12:00:00 AM EST eCW1 ([facility]) Office Visit, Est Pt., Level 4 PC 02/03/2019 12:00:00 AM EST eCW1 ([facility]) CYSTOSCOPY AND TREATMENT 01/26/2019 12:00:00 AM EST eCW1 ([facility]) Social History Code Duration Value Status Description Data Source(s ) Smoking 02/02/2020 12:00:00 AM EST Former Smoker completed Former Smoker eCW1 ([facility]) Smoking 02/02/2020 12:00:00 AM EST Former Smoker completed Former Smoker eCW1 ([facility]) Smoking 02/03/2019 12:00:00 AM EST Current Smoker completed Curre nt Smoker eCW1 ([facility]) Smoking 02/03/2019 12:00:00 AM EST Current Smoker completed Curre nt Smoker eCW1 ([facility]) Vital Signs ID Date Data Source UNK Name Value Range Interpretation Code Description Data Source(s) Body mass index (BMI) [Ratio] 32.63 kg/m2 32.63 kg/m2 eCW1 ([facility]) Body height 63 [in_i] 63 [in_i] eCW1 ([facility]) Body weight 184.2 [lb_av] 184.2 [lb_av] eCW1 ([facility]) Diastolic blood pressure 61 mm[Hg] 61 mm[Hg] eCW1 ([facility]) Systolic blood pressure 135 mm[Hg] 135 mm[Hg] e CW1 ([facility]) Body temperature 97.5 [degF] 97.5 [degF] eCW1 ( [facility]) Respiratory rate 18 /min 18 /min eCW1 ([facility]) Heart rate 71 /min 71 /min eCW1 ([facility]) Body mass index (BMI) [Ratio] 29.58 kg/m2 29.58 kg/m2 W1 ([facility]) Body height 63 [in_us] 63 [in_us] eCW1 ([facility]) Body weight Measured 167 [lb_av] 167 [lb_av] eC W1 ([facility]) Diastolic blood pressure 66 mm[Hg] 66 mm[Hg] eCW1 ([facility]) Systolic blood pressure 122 mm[Hg] 122 mm[Hg] e CW1 ([facility]) Body temperature 97.2 [degF] 97.2 [degF] eCW1 ( [facility]) Respiratory rate 18 /min 18 /min eCW1 ([facility]) Heart rate 85 /min 85 /min eCW1 ([facility]) Body mass index (BMI) [Ratio] 29.37 kg/m2 29.37 kg/m2 eCW1 ([facility]) Body height 63 [in_us] 63 [in_us] eCW1 ([facility]) Body weight Measured 165.8 [lb_av] 165.8 [lb_av ] eCW1 ([facility]) Patient Treatment Plan of Care Planned Activity Planned Date Details Description Data Source (s) 12 HR Bupropion Hydrochloride 150 MG Extended Release Oral Tablet 02/03/2019 12:00:00 AM EST eCW1 ([facility]) Triamcinolone Acetonide 1 MG/ML Topical Cream 02/03/2019 12:00:00 A M EST eCW1 ([facility]) Triamcinolone Acetonide 1 MG/ML Topical Cream 02/03/2019 12:00:00 A M EST eCW1 ([facility]) 12 HR Bupropion Hydrochloride 150 MG Extended Release Oral Tablet 02/03/2019 12:00:00 AM EST eCW1 ([facility]) Triamcinolone Acetonide 1 MG/ML Topical Cream 02/03/2019 12:00:00 A M EST eCW1 ([facility]) 12 HR Bupropion Hydrochloride 150 MG Extended Release Oral Tablet 02/03/2019 12:00:00 AM EST eCW1 ([facility]) Triamcinolone Acetonide 1 MG/ML Topical Cream 02/03/2019 12:00:00 A M EST eCW1 ([facility]) Triamcinolone Acetonide 1 MG/ML Topical Cream 02/03/2019 12:00:00 A Mile ACEVEDO eCW1 ([facility])
--- OUTSIDE RECORDS SUMMARY | 2020-03-15 21:10 | CCD ---
Author Author [facility] ems Organization [facility] ems Address Unknown Phone Unavailable Care Team Providers Care Pipe Cutter Name Role Phone Syeda Mares Unavailable PROBLEMS Type Condition ICD9-CM Code RSA18-TQ Code Onset Dates Condition S tatus SNOMED Code Notes Problem Type 2 diabetes mellitus without complication E11.9 Active 91682221 Problem Lumbar degenerative disc disease M51.36 Active 42385297 Problem Vitamin D deficiency E55.9 Active 03617360 Problem Tobacco abuse Z72.0 Active 70038755 Problem Mixed hyperlipidemia E78.2 Active 940942301 Problem Degenerative cervical disc M50.30 Active 54386 002 Problem Chronic pain G89.29 Active 50993150 Problem Hematuria R31.9 Active 16971997 Problem Thrombocytopenia D69.6 Active 598830642 Problem 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 Ac tive 37199341 Problem Anemia, unspecified type D64.9 Active 6291241 00 Problem Kidney stone N20.0 Active 50212549 Problem Ureteral stone with hydronephrosis N13.2 Activ e 780564408 Problem Psoriasis L40.9 Active 4656776 Problem History of renal calculi Z87.442 Active 7671672 08 Problem Elevated protime R79.1 Active 535454399 Problem Bilateral kidney stones N20.0 Active 70340855 Problem Preop testing Z01.818 Active 206255572 Problem UTI (urinary tract infection) N39.0 Active 68 861001 ALLERGIES Allergen (clinical drug ingredient) Drug/Non Drug Allergy do cumented on EMR Reaction Allergy Type Onset Date Status Seasonal itchy eyes, sneezing Non Drug Allergy Active ENCOUNTERS from 1965 to 2020-01-30 Encounter Location Date Provider Diagnosis [facility] Joaquín [address] [place] [address] Jan, Syeda Mares IMMUNIZATIONS Vaccine Route Administration Date Status Influenza (18 yrs & older) Flublok IM Intramuscular Feb 03, 2019 Administered Influenza (18 yrs & older) Flublok IM Intramuscular Dec 31, 2017 Administered Pneumococcal Adult 0.5mL (Pneumovax 23) IM Intramuscular Feb 03, 2019 Administered Influenza (6mo & up) Fluzone IM Intramuscular Feb 01, 2016 Ad ministered Influenza (6mo & up) Fluzone Unknown May 30, 2015 Ref used Influenza (6mo & up) Fluzone Unknown May 16, 2015 Ref used Influenza (6mo & up) Fluzone IM Intramuscular Feb 15, 2014 Ad ministered Influenza (6mo & up) Fluzone IM Intramuscular Jan 11, 2012 Ad ministered SOCIAL HISTORY Tobacco Use: Social History Observation Description Date Details (start date - stop date) Current Smoker Sex Assigned At : Social History Observation Description Sex Assigned At Unknown Audit Question Answer Notes Total Score: 0 Interpretation: Alcohol Education Language: Question Answer Notes Languages spoken: Nepali Islam: Question Answer Notes Islam 33 None Drug and Alcohol Question Answer Notes Total Score: 0 Interpretation: No problems reported BMI Care Goal Follow-Up Question Answer Notes Above Normal BMI Follow-Up Dietary management educatio n, guidance, and counseling, Dietary needs education, Exercise promotion: strength training Tobacco Use: Question Answer Notes Are you a: current smoker 3/4 pack a day Smoking Cessation Information Given 11/20/2018 Patient counseled on the dangers of tobacco use and urged to quit: 02/01/2016 How many cigarettes a day do you smoke? 11-20 Are you interested in quitting? Not ready to quit Counseled the patient on smoking effects, education provided 11/20/2018 REASON FOR REFERRAL No Information VITAL SIGNS No information MEDICATIONS Medication SIG (Take, Route, Frequency, Duration) Notes Start Da te End Date Status Lidocaine HCl Jelly RESIDENTIAL 2 % 5 ML1 application to affec janay area as needed Intravesically TIME AT CYSTOSCOPY for 1 dose(s) Sep, Not-Taking Alcohol Prep Pad 70 % use 1 pad topically when stephanie ting blood glucose twice daily (Dx: 250.00) June, Active Cipro 500 MG 1 tablet Orally Twice a day for 3 days Sep Not-Taking Fenofibrate Micronized 67 MG 1 capsule with a meal Ora lly Once a day for high TG's for 90 day(s) Sep, Not-Taking Lidocaine HCl Jelly RESIDENTIAL 2 % 5 ML1 application to affec janay area as needed Intravesically TIME AT CYSTOSCOPY for 1 dose(s) Sep, Not-Taking Multivitamins 1 tab OTC Orally daily Active Diflucan 150mg (1 tablet) 150 MG 1 tablet Orally Once a day for 1 day(s) Sep, Not-Taking Caltrate 600+D 600-400 MG-UNIT 1 tablet OTC Orally Once a day Active Vitamin C 500 MG 1 tablet OTC Orally Once a day Active Lyrica 150 MG 1 capsule Orally three times daily (Dr Kulkarni) Not-Taking Claritin 10 MG 1 tablet OTC generic Orally Once a day Active Zinc 50 MG 1 capsule OTC Orally Once a day Active Amaryl 1 mg 1 tablet with breakfast or t he first main meal of the day Orally Once a day Active Triamcinolone Acetonide 0.1 % apply in thin layer to a ffected areas on lower legs Externally Twice a day x 14 days. Do not use for longer than 14 days continuously. for 30 day(s) Feb, Not- Taking Atorvastatin Calcium 20 MG 1 tablet Orally Once a day for 90 days Active Hydrocodone-Acetaminophen 5-325 MG 1tab Orally once daily Not-Taking Miralax 17 grams orally once daily for 30 day(s) Oct Not-Taking Vitamin D 1000 UNIT 3 tablets Orally Once a day Active Triamcinolone Acetonide 0.1 % 1 application Externally Twice a day for 14 days Jan, Active Hydrocodone-Acetaminophen 5-325 MG 1 tablet as needed Orally every 6 hrs, MDD 4 for 7 day(s) Nov, Not-Taking FreeStyle Lancets lancets use 1 lancet subcutaneously to test blood sugar twice daily (Dx: 250.00) June, Active BuPROPion HCl ER (SR) 150 MG 1 tablet daily x 3 days, then 1 tablet twice daily Orally twice daily for 90 day(s) Jan, Active FreeStyle Test Wilton Lite test strip use 1 test stri p In Vitro to test blood sugar twice daily (Dx: 250.00) for 30 day(s) June, Active Clotrimazole 1 % 1 application to affected ar ea vaginally Twice a day for 7 day(s) Sep, Not-Taking Colace _ 2 capsule Orally Once a day Active Metformin HCl 500 MG 2 tablets Orally Twice a day for 90 days Active Amaryl 1 MG 1 tablet with breakfast or t he first main meal of the day Orally Once a day for 90 days Active Embrace Blood Glucose Test - as directed (E11.9) In Vitro for 99 months Feb, Active Percocet 5-325 MG 1 tablet Orally every 6 hrs as needed for pain (MDD 4) Nov, Not-Taking Oxybutynin Chloride 5 MG 1 tablet Orally every 8 hour s as needed for bladder spasms or urinary frequency Sep, Not- Taking PROCEDURES No Information RESULTS No Results REASON FOR VISIT REFILL MEDICAL (GENERAL) HISTORY Type Description Date Medical [...] No Information FUNCTIONAL STATUS No Information ASSESSMENTS No Information PLAN OF TREATMENT Medication Medication Name Sig Start Date Stop Date Metformin HCl 500 MG 2 tablets Orally Twice a day for 90 days Amaryl 1 MG 1 tablet with breakfast or t he first main meal of the day Orally Once a day for 90 days Amaryl 1 mg 1 tablet with breakfast or t he first main meal of the day Orally Once a day Atorvastatin Calcium 20 MG 1 tablet Orally Once a day for 90 day s BuPROPion HCl ER (SR) 150 MG 1 tablet daily x 3 days, then 1 tablet twice daily Orally twice daily for 90 day(s) Jan, Triamcinolone Acetonide 0.1 % 1 application Externally Twice a day for 14 days Jan, Next Appt Details Provider Name:Syeda Mares, 10:30:00 AM, [address] [place], [address], Insurance Providers Payer Name Payer Address Payer Phone Insured Name Patient Relati onship to Insured Coverage Start Date Coverage End Date MEDICARE COMPLETE [facility] [address] [address] [facility] [address] JACIEL FOX self
[2020-03-15] MEDS ORDERED: ACETAMINOPHEN TAB 650MG DOSE (2X325MG) PO ONE (23:30)
--- OUTSIDE RECORDS SUMMARY | 2020-03-15 23:30 | CCD ---
Author Author [facility] Organization [facility] Address Unknown Phone Unavailable Support Name Relationship Address Phone RE Next Of Kin Unknown Unavailable UE Next Of Kin Unknown Unavailable [place] [address] DISABLED Next Of Kin Unknown NINO [place] [address] MICH FOX Next Of Kin [address] [facility] [address] [place], [place] [id number] [place] [address] [phone] Re-disclosure Warning The records that you are [...] is protected by Article 27-F of the [facility] Public Health law. If you continue you may have access to information: Regarding HIV / AIDS; Provided by facilities licensed or operated by the [facility] Office of Mental Health; or Provided by the [facility] Office for People With Developmental Disabilities. If such information is present, then the following [facility] mandated warning applies: This information [...] Seasonal itchy eyes, sneezing Active eCW 1 ([facility]) Seasonal Seasonal Seasonal itchy eyes, sneezing Active eCW 1 ([facility]) Family History Family Member Name Family Member Gender Family Member Status Date o f Status Description Data Source(s) Unknown Unknown Problem MEDENT ([facility], ) Unknown Unknown Problem MEDENT ([facility], ) Unknown Unknown Problem MEDENT ([facility], ) Unknown Unknown Problem MEDENT ([facility], ) Unknown Unknown Problem MEDENT ([facility], ) Unknown Unknown Problem MEDENT ([facility], ) Unknown Unknown Problem MEDENT ([facility], ) Encounters Encounter Providers Location Date Indications Data Source(s ) Unknown [address] [facility] [id number] 02/12/2020 12:00:00 AM EST eCW1 ([facility]) Outpatient [address] [facility] [address] 02/02/2020 12:00:00 AM EST eCW1 ([facility]) Unknown [address] [facility] [place] [address] 01/28/2020 12:00:00 AM EST eCW1 ([facility]) Unknown [address] [facility] [place] [address] 08/05/2019 12:00:00 AM EDT eCW1 ([facility]) [facility] [address] [facility] [address] 07/27/2019 12:00:00 AM EDT eCW1 ([facility]) [facility] [address] [facility] [address] 07/27/2019 12:00:00 AM EDT eCW1 ([facility]) [facility] [place] [address] [facility] [address] 06/30/2019 12:00:00 AM EDT eCW1 ([facility]) [facility] [address] [place] [address] 02/12/2019 12:00:00 AM EST eCW1 ([facility]) [facility] [address] [place] [address] 02/10/2019 12:00:00 AM EST eCW1 ([facility]) [facility] [place] [address] [place] [address] 02/03/2019 12:00:00 AM EST eCW1 ([facility]) [facility] [address] [place] [address] 01/26/2019 12:00:00 AM EST eCW1 ([facility]) [facility] [address] [place] [address] 01/21/2019 12:00:00 AM EST eCW1 ([facility]) Immunizations Vaccine Date Status Description Data Source(s) influenza, recombinant, quadrIvalent,injectable, prese rvative free 02/02/2020 11:44:00 AM EST completed eCW1 ([facility]) influenza, recombinant, quadrIvalent,injectable, prese rvative free 02/02/2020 11:44:00 AM EST completed eCW1 ([facility]) Zoster 50mcg/0.5mL (Shingrix) 02/02/2020 11:43:00 AM EST completed eCW1 ([facility]) Zoster 50mcg/0.5mL (Shingrix) 02/02/2020 11:43:00 AM EST completed eCW1 ([facility]) pneumococcal polysaccharide PPV23 02/03/2019 05:04:00 PM EST comple janay eCW1 ([facility]) pneumococcal polysaccharide PPV23 02/03/2019 05:04:00 PM EST comple janay eCW1 ([facility]) pneumococcal polysaccharide PPV23 02/03/2019 05:04:00 PM EST comple janay eCW1 ([facility]) pneumococcal polysaccharide PPV23 02/03/2019 05:04:00 PM EST comple janay eCW1 ([facility]) pneumococcal polysaccharide PPV23 02/03/2019 05:04:00 PM EST comple janay eCW1 ([facility]) influenza, recombinant, quadrIvalent,injectable, prese rvative free 02/03/2019 05:03:00 PM EST completed eCW1 ([facility]) influenza, recombinant, quadrIvalent,injectable, prese rvative free 02/03/2019 05:03:00 PM EST completed eCW1 ([facility]) influenza, recombinant, quadrIvalent,injectable, prese rvative free 02/03/2019 05:03:00 PM EST completed eCW1 ([facility]) influenza, recombinant, quadrIvalent,injectable, prese rvative free 02/03/2019 05:03:00 PM EST completed eCW1 ([facility]) influenza, recombinant, quadrIvalent,injectable, prese rvative free 02/03/2019 05:03:00 PM EST completed eCW1 ([facility]) Medications Medication Brand Name Start [...] the n 1 tablet twice daily eCW1 ([facility]) Triamcinolone Acetonide 1 MG/ML Topical Cream Triamcin olone Acetonide 0.1 % Triamcinolone Acetonide 0.1 % 02/03/2019 12:00:00 AM EST active 1 application eCW1 ([facility]) 12 HR Bupropion Hydrochloride 150 MG Ext ended Release Oral Tablet BuPROPion HCl ER (SR) 150 MG BuPROPion HCl ER (SR) 150 MG 02/03/2019 12:00:00 AM EST active BuPROPion HCl ER (SR) 150 MG eCW1 ([facility]) Triamcinolone Acetonide 1 MG/ML Topical Cream Triamcin olone Acetonide 0.1 % Triamcinolone Acetonide 0.1 % 02/03/2019 12:00:00 AM EST 1.0 {appli cation} active Triamcinolone Acetonide 0 .1 % eCW1 ([facility]) Triamcinolone Acetonide 1 MG/ML Topical Cream Triamcin olone Acetonide 0.1 % Triamcinolone Acetonide 0.1 % 02/03/2019 12:00:00 AM EST active 1 application eCW1 ([facility]) Triamcinolone Acetonide 1 MG/ML Topical Cream Triamcin olone Acetonide 0.1 % Triamcinolone Acetonide 0.1 % 02/03/2019 12:00:00 AM EST 1.0 {appli cation} active Triamcinolone Acetonide 0 .1 % eCW1 ([facility]) 12 HR Bupropion Hydrochloride 150 MG Ext ended Release Oral Tablet BuPROPion HCl ER (SR) 150 MG BuPROPion HCl ER (SR) 150 MG 02/03/2019 12:00:00 AM EST suspended BuPROPion HCl ER (SR) 150 MG eCW1 ([facility]) 12 HR Bupropion Hydrochloride 150 MG Ext ended Release Oral Tablet BuPROPion HCl ER (SR) 150 MG BuPROPion HCl ER (SR) 150 MG 02/03/2019 12:00:00 AM EST suspended BuPROPion HCl ER (SR) 150 MG eCW1 ([facility]) Triamcinolone Acetonide 1 MG/ML Topical Cream Triamcin olone Acetonide 0.1 % Triamcinolone Acetonide 0.1 % 02/03/2019 12:00:00 AM EST 1.0 {appli cation} active Triamcinolone Acetonide 0 .1 % eCW1 ([facility]) 12 HR Bupropion Hydrochloride 150 MG Ext ended Release Oral Tablet BuPROPion HCl ER (SR) 150 MG BuPROPion HCl ER (SR) 150 MG 02/03/2019 12:00:00 AM EST active BuPROPion HCl ER (SR) 150 MG eCW1 ([facility]) Triamcinolone Acetonide 1 MG/ML Topical Cream Triamcin olone Acetonide 0.1 % Triamcinolone Acetonide 0.1 % 02/03/2019 12:00:00 AM EST 1.0 {appli cation} active Triamcinolone Acetonide 0 .1 % eCW1 ([facility]) Insurance Providers Payer name Policy type / Coverage type Policy ID Covered constitution party ID Covered constitution party's relationship to murphy Policy Murphy Plan Information [facility] [id number] SP [id number] MEDICARE COMPLETE [id number] SP [id number] 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 SP NOT FOR TODAY'S VISIT MEDICARE COMPLETE [id number] SP [id number] [facility] [id number] S [id number] MEDICARE COMPLETE [id number] SP [id number] ANSI-Commercial [id number] ANSI-Medicare Part B [id number] ANSI-Commercial [id number] ANSI-Medicare Part B [id number] ANSI-Commercial [id number] ANSI-Medicare Part B [id number] ANSI-Commercial [id number] ANSI-Medicare Part B [id number] MEDICARE COMPLETE [id number] SP [id number] MEDICARE COMPLETE [id number] SP [id number] MEDICARE COMPLETE [id number] SP [id number] MEDICARE COMPLETE [id number] SP [id number] [facility] Medicare Commercial Self Medicare [place] Medicare Primary Self [employer] Commercial Self MEDICARE [id number] SP [id number] A CHARTIS W/C [id number] SP [phone] 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 [id number] SP [id number] 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 [id number] SP [id number] SELF PAY UNAVAILABLE SP UNAVAILA BLE [id number] Problems, Conditions, and Diagnoses Code Display Name Description Problem Type Effective Dates Data Source(s) L40.9 4979949 Psoriasis Problem 02/03/2019 12:00:00 AM ES T eCW1 ([facility]) L40.9 5701828 Psoriasis Problem 02/03/2019 12:00:00 AM ES T eCW1 ([facility]) Surgeries/Procedures Procedure Description Date Indications Data Source(s) Immunization: Flublok Quadrivalent (18 years & older) 0.5mL IM (Influenza) 02/02/2020 12:00:00 AM EST eCW1 ([facility]) RIV4 VACC RECOMBINANT DNA IM 02/03/2019 12:00:00 AM ES T eCW1 ([facility]) Administration of influenza virus vaccine 02/03/2019 1 2:00:00 AM EST eCW1 ([facility]) Pneumococcal Adult 0.5mL (Pneumovax 23) 02/03/2019 12: 00:00 AM EST eCW1 ([facility]) Administration of pneumococcal vaccine 02/03/2019 12:0 0:00 AM EST eCW1 ([facility]) Office Visit, Est Pt., Level 2 FC 02/03/2019 12:00:00 AM EST eCW1 ([facility]) Office Visit, Est Pt., Level 4 PC 02/03/2019 12:00:00 AM EST eCW1 ([facility]) CYSTOSCOPY AND TREATMENT 01/26/2019 12:00:00 AM EST eCW1 ([facility]) Social History Code Duration Value Status Description Data Source(s ) Smoking 02/02/2020 12:00:00 AM EST Former Smoker completed Former Smoker eCW1 ([facility]) Smoking 02/02/2020 12:00:00 AM EST Former Smoker completed Former Smoker eCW1 ([facility]) Smoking 02/03/2019 12:00:00 AM EST Current Smoker completed Curre nt Smoker eCW1 ([facility]) Smoking 02/03/2019 12:00:00 AM EST Current Smoker completed Curre nt Smoker eCW1 ([facility]) Vital Signs ID Date Data Source UNK Name Value Range Interpretation Code Description Data Source(s) Body mass index (BMI) [Ratio] 32.63 kg/m2 32.63 kg/m2 eCW1 ([facility]) Body height 63 [in_i] 63 [in_i] eCW1 ([facility]) Body weight 184.2 [lb_av] 184.2 [lb_av] eCW1 ([facility]) Diastolic blood pressure 61 mm[Hg] 61 mm[Hg] eCW1 ([facility]) Systolic blood pressure 135 mm[Hg] 135 mm[Hg] e CW1 ([facility]) Body temperature 97.5 [degF] 97.5 [degF] eCW1 ( [facility]) Respiratory rate 18 /min 18 /min eCW1 ([facility]) Heart rate 71 /min 71 /min eCW1 ([facility]) Body mass index (BMI) [Ratio] 29.58 kg/m2 29.58 kg/m2 W1 ([facility]) Body height 63 [in_us] 63 [in_us] eCW1 ([facility]) Body weight Measured 167 [lb_av] 167 [lb_av] eC W1 ([facility]) Diastolic blood pressure 66 mm[Hg] 66 mm[Hg] eCW1 ([facility]) Systolic blood pressure 122 mm[Hg] 122 mm[Hg] e CW1 ([facility]) Body temperature 97.2 [degF] 97.2 [degF] eCW1 ( [facility]) Respiratory rate 18 /min 18 /min eCW1 ([facility]) Heart rate 85 /min 85 /min eCW1 ([facility]) Body mass index (BMI) [Ratio] 29.37 kg/m2 29.37 kg/m2 eCW1 ([facility]) Body height 63 [in_us] 63 [in_us] eCW1 ([facility]) Body weight Measured 165.8 [lb_av] 165.8 [lb_av ] eCW1 ([facility]) Patient Treatment Plan of Care Planned Activity Planned Date Details Description Data Source (s) 12 HR Bupropion Hydrochloride 150 MG Extended Release Oral Tablet 02/03/2019 12:00:00 AM EST eCW1 ([facility]) Triamcinolone Acetonide 1 MG/ML Topical Cream 02/03/2019 12:00:00 A M EST eCW1 ([facility]) Triamcinolone Acetonide 1 MG/ML Topical Cream 02/03/2019 12:00:00 A M EST eCW1 ([facility]) 12 HR Bupropion Hydrochloride 150 MG Extended Release Oral Tablet 02/03/2019 12:00:00 AM EST eCW1 ([facility]) Triamcinolone Acetonide 1 MG/ML Topical Cream 02/03/2019 12:00:00 A M EST eCW1 ([facility]) 12 HR Bupropion Hydrochloride 150 MG Extended Release Oral Tablet 02/03/2019 12:00:00 AM EST eCW1 ([facility]) Triamcinolone Acetonide 1 MG/ML Topical Cream 02/03/2019 12:00:00 A M EST eCW1 ([facility]) Triamcinolone Acetonide 1 MG/ML Topical Cream 02/03/2019 12:00:00 A Mile ACEVEDO eCW1 ([facility])
[2020-03-16 00:01] LABS: PARTIAL THROMBOPLASTIN TIME 33.2 SECONDS (24.2-38.5)
[2020-03-16 00:04] LABS: D-DIMER QUANT 371.51 ng/ml (<500)
[2020-03-16 00:08] LABS: BASO % 0.3 % (0.0-1.0); EOS % 1.3 % (0.0-3.0); HEMATOCRIT 33.4 % (36.0-47.0); HEMOGLOBIN 11.1 g/dl (12.0-15.5); LYMPH # 1.3 10^3/uL (1.5-5.0); LYMPH % 41.5 % (24.0-44.0); MEAN CORPUSCULAR HEMOGLOBIN 29.8 pg (27.0-33.0); MEAN CORPUSCULAR HGB CONC 33.2 g/dl (32.0-36.5); MEAN CORPUSCULAR VOLUME 89.8 fl (80.0-96.0); MONO # 0.3 10^3/uL (0.0-0.8); MONO % 10.6 % (0.0-5.0); NEUTROPHILS # 1.4 10^3/uL (1.5-8.5); NEUTROPHILS % 45.7 % (36.0-66.0); RED BLOOD COUNT 3.72 10^6/uL (4.00-5.40); WHITE BLOOD COUNT 3.1 10^3/uL (4.0-10.0)
[2020-03-16 00:21] LABS: ALBUMIN 3.3 GM/DL (3.2-5.2); ALT/SGPT 59 U/L (12-78); BILIRUBIN,TOTAL 0.8 MG/DL (0.2-1.0); BLOOD UREA NITROGEN 9 MG/DL (7-18); CALCIUM LEVEL 9.1 MG/DL (8.5-10.1); CARBON DIOXIDE LEVEL 28 MEQ/L (21-32); CHLORIDE LEVEL 103 MEQ/L (98-107); CK-MB VALUE MASS < 1.0 NG/ML (<3.6); CPK CREATINE PHOSPHOKINASE 90 U/L (26-192); FERRITIN 148 NG/ML (8-252); GLOMERULAR FILTRATION RATE > 60.0 (>51); GLUCOSE, FASTING 120 MG/DL (70-100); LDH LACTATE DEHYDROGENASE 237 U/L (84-246); MB/CK RELATIVE INDEX 1.11 (< OR =4); POTASSIUM SERUM 4.1 MEQ/L (3.5-5.1); SODIUM LEVEL 135 MEQ/L (136-145); TOTAL PROTEIN 7.5 GM/DL (6.4-8.2); TROPONIN I < 0.02 NG/ML (< 0.10)
[2020-03-16 00:44] LABS: INR 1.07; PROTHROMBIN TIME 14.1 SECONDS (12.5-14.3)
[2020-03-16 00:49] LABS: PLATELET COUNT, AUTOMATED 57 10^3/uL (150-450)
--- NOTE | 2020-03-16 01:23 | REPVR ---
PROCEDURE INFORMATION: Exam: XR Chest, 1 View Exam date and time: 03/15/2020 11:44 PM Age: 54 years old Clinical indication: Cough TECHNIQUE: Imaging protocol: XR of the chest Views: 1 view. COMPARISON: CR ABDOMEN FLAT/UPRIGHT, PA CHEST 04/21/2015 4:59 PM FINDINGS: Lungs: Degree of lung inflation is normal. No evidence of pulmonary edema. No focal consolidation or parenchymal lung mass. Pleural space: No pleural effusion or pneumothorax. Heart/Mediastinum: Cardiac silhouette appears normal. No adenopathy or hilar mass. Bones/joints: Osseous structures show no concerning abnormality. IMPRESSION: No acute or focal cardiopulmonary process. Electronically signed by: Marlon Chatman On 03/16/2020 01:23:49 AM
[2020-03-16 02:30] VITALS: BP 114/70
== END 2020-03-16 02:42 | disposition home or self-care (01) ==
LOC: M ED 21:01
DX: U07.1 COVID-19 (principal); R50.9 Fever, unspecified; E11.9 Type 2 diabetes mellitus without complications; Z79.84 Long term (current) use of oral hypoglycemic drugs; Z79.899 Other long term (current) drug therapy

== ENCOUNTER → 2020-04-16 | Outpatient (CLI) | payer SELFPAY | LOC: M LABSMTC 09:29 | PROVIDERS: ATTEND Pediatrics | DX: Z20.822 Contact with and (suspected) exposure to COVID-19 (principal) ==

== ENCOUNTER → 2020-11-24 | Outpatient (REF) ==
[2020-11-24 14:16] LABS: PLATELET COUNT, AUTOMATED 66 10^3/uL (150-450)
== END ==
LOC: M LAB REF 14:08
PROVIDERS: ATTEND Nurse Practitioner Family
DX: D69.6 Thrombocytopenia, unspecified (principal)

== ENCOUNTER → 2021-02-02 | Outpatient (REF) | LOC: M LABSMTC 10:10 | PROVIDERS: ATTEND Pediatrics | DX: Z20.822 Contact with and (suspected) exposure to COVID-19 (principal) ==

== ENCOUNTER → 2021-03-06 | Outpatient (REF) | payer MEDICARE ==
[2021-03-07 13:32] LABS: APPEARANCE, URINE CLOUDY (CLEAR); BACTERIA, URINE AUTO 3+ (NEGATIVE); BILIRUBIN, URINE AUTO NEGATIVE (NEGATIVE); BLOOD, URINE BLOOD 3+ (NEGATIVE); CALCIUM OXALATE CRYSTALS LARGE; COLOR, URINE AMBER (YELLOW); GLUCOSE, URINE (UA) AUTO 3+ mg/dL (NEGATIVE); KETONE, URINE AUTO NEGATIVE (NEGATIVE); LEUKOCYTE ESTERASE, URINE AUTO 3+ (NEGATIVE); MUCUS, URINE SMALL (NEGATIVE); NITRITE, URINE AUTO NEGATIVE (NEGATIVE); PROTEIN, URINE AUTO 2+ mg/dL (NEGATIVE); RBC, URINE AUTO TNTC /HPF (0-3); SPECIFIC GRAVITY URINE AUTO 1.014 (1.002-1.035); SQUAMOUS EPITHELIAL CELL UR AU 2 /HPF (0-6); WBC, URINE AUTO TNTC /HPF (0-3)
== END ==
LOC: M SMT 12:57
PROVIDERS: ATTEND Nurse Practitioner Women's Health
DX: R30.0 Dysuria (principal)

== ENCOUNTER → 2021-04-01 | Outpatient (CLI) | payer MEDICARE ==
[~2021-04-01] MED LIST changes: +D31000TA2 PO; +VITMTA PO
== END ==
LOC: M LABSMTC 09:45
PROVIDERS: ATTEND Anesthesiology
DX: Z01.818 Encounter for other preprocedural examination (principal); Z11.52 Encounter for screening for COVID-19

== ENCOUNTER 2021-04-06 07:50 | Day surgery (SDC) | payer MEDICARE ==
[~2021-04-06] VITALS: Ht 160 cm; Wt 84.8 kg
[~2021-04-06 07:50] MED LIST changes: +LR 1,000 ML IV ONE; +ceFAZolin SOD 2 GM in IV 1 EA IV ONE
[2021-04-06] MEDS ORDERED: propofoL 200 MG/20 ML VIAL As Ordered ONE (08:37)
[2021-04-06] MEDS ORDERED: KETOROLAC 60MG 2ML VIAL As Ordered ONE (08:37)
[2021-04-06] MEDS ORDERED: LIDOCAINE 2% 100MG/5ML SDV (FOR ANES.) As Ordered ONE (08:37)
[2021-04-06] MEDS ORDERED: fentaNYL 100 MCG/2 ML INJECTION As Ordered ONE (08:38)
[2021-04-06] MEDS ORDERED: MIDAZOLAM INJ 2MG/2ML VIAL (J2250 PER 1MG) As Ordered ONE (08:38)
[2021-04-06] MEDS ORDERED: PERC5TAB12 PO (09:23)
[2021-04-06] MEDS ORDERED: FLOM0.4C39 PO (09:23)
[2021-04-06] MEDS ORDERED: PHENYLephrine 500MCG 5ML (100MCG/ML) SYRINGE As Ordered ONE (09:52)
[2021-04-06 10:15] VITALS: BP 133/86
== END 2021-04-06 10:35 | disposition home or self-care (01) ==
LOC: M SDC 07:50
PROVIDERS: ATTEND Urology
DX: N20.0 Calculus of kidney (principal); Z87.440 Personal history of urinary (tract) infections; R31.9 Hematuria, unspecified; E78.00 Pure hypercholesterolemia, unspecified; R94.31 Abnormal electrocardiogram [ECG] [EKG]; R01.1 Cardiac murmur, unspecified; E11.9 Type 2 diabetes mellitus without complications; D64.9 Anemia, unspecified; D75.9 Disease of blood and blood-forming organs, unspecified; M19.90 Unspecified osteoarthritis, unspecified site; M51.9 Unspecified thoracic, thoracolumbar and lumbosacral intervertebral disc disorder; J30.1 Allergic rhinitis due to pollen; Z79.899 Other long term (current) drug therapy; Z79.84 Long term (current) use of oral hypoglycemic drugs; Z87.891 Personal history of nicotine dependence
CPT/HCPCS: 50590; 74018; 93005; J0690; J1885; J2250; J2370; J3010

== ENCOUNTER → 2021-04-27 | Outpatient (REF) | payer MEDICARE ==
[~2021-04-27] MED LIST changes: -D31000TA2 PO; +FLOM0.4C39 PO; -LR 1,000 ML IV ONE; +VITA100093 PO; -ceFAZolin SOD 2 GM in IV 1 EA IV ONE
[2021-04-27 14:02] LABS: APPEARANCE, URINE CLOUDY (CLEAR); BACTERIA, URINE AUTO 3+ (NEGATIVE); BILIRUBIN, URINE AUTO NEGATIVE (NEGATIVE); BLOOD, URINE BLOOD 3+ (NEGATIVE); CALCIUM OXALATE CRYSTALS LARGE; COLOR, URINE AMBER (YELLOW); GLUCOSE, URINE (UA) AUTO 1+ mg/dL (NEGATIVE); KETONE, URINE AUTO NEGATIVE (NEGATIVE); LEUKOCYTE ESTERASE, URINE AUTO 3+ (NEGATIVE); NITRITE, URINE AUTO NEGATIVE (NEGATIVE); PROTEIN, URINE AUTO 1+ mg/dL (NEGATIVE); RBC, URINE AUTO TNTC /HPF (0-3); SPECIFIC GRAVITY URINE AUTO 1.016 (1.002-1.035); SQUAMOUS EPITHELIAL CELL UR AU 1 /HPF (0-6); WBC, URINE AUTO TNTC /HPF (0-3)
== END ==
LOC: M SMT 13:01
PROVIDERS: ATTEND Nurse Practitioner Women's Health
DX: N20.0 Calculus of kidney (principal)

== ENCOUNTER → 2021-05-24 | Outpatient (CLI) | payer MEDICARE ==
[~2021-05-24] MED LIST changes: +FERR325T3 PO; +LIDOCAINE 1% MDV 20ML VIAL As Ordered ONE; +NITR100C2 PO
[2021-05-24 12:59] LABS: BASO % 0.3 % (0.0-1.0); EOS # 0.1 10^3/uL (0.0-0.5); EOS % 3.1 % (0.0-3.0); HEMATOCRIT 33.5 % (36.0-47.0); HEMOGLOBIN 11.2 g/dl (12.0-15.5); LYMPH # 1.3 10^3/uL (1.5-5.0); LYMPH % 34.5 % (24.0-44.0); MEAN CORPUSCULAR HEMOGLOBIN 31.2 pg (27.0-33.0); MEAN CORPUSCULAR HGB CONC 33.4 g/dl (32.0-36.5); MEAN CORPUSCULAR VOLUME 93.3 fl (80.0-96.0); MONO # 0.3 10^3/uL (0.0-0.8); MONO % 7.6 % (2.0-8.0); NEUTROPHILS # 2.1 10^3/uL (1.5-8.5); NEUTROPHILS % 54.2 % (36.0-66.0); PLATELET COUNT, AUTOMATED 64 10^3/uL (150-450); RED BLOOD COUNT 3.59 10^6/uL (4.00-5.40); WHITE BLOOD COUNT 3.8 10^3/uL (4.0-10.0)
[2021-05-24 14:00] VITALS: BP 148/83
== END ==
LOC: M IRPRO 12:04
PROVIDERS: ATTEND Specialist
DX: D61.818 Other pancytopenia (principal)

== ENCOUNTER → 2021-07-10 | Outpatient (CLI) | payer MEDICARE ==
[~2021-07-10] MED LIST changes: +METH4TAB8 PO
[2021-07-10 11:46] VITALS: BP 172/84
[2021-07-10 12:10] LABS: BASO % 0.3 % (0.0-1.0); EOS % 0.8 % (0.0-3.0); HEMATOCRIT 29.9 % (36.0-47.0); HEMOGLOBIN 9.9 g/dl (12.0-15.5); LYMPH # 0.8 10^3/uL (1.5-5.0); MEAN CORPUSCULAR HEMOGLOBIN 32.2 pg (27.0-33.0); MEAN CORPUSCULAR HGB CONC 33.1 g/dl (32.0-36.5); MEAN CORPUSCULAR VOLUME 97.4 fl (80.0-96.0); MONO # 0.1 10^3/uL (0.0-0.8); MONO % 3.5 % (2.0-8.0); NEUTROPHILS % 75.1 % (36.0-66.0); RED BLOOD COUNT 3.07 10^6/uL (4.00-5.40)
[2021-07-10 12:12] LABS: PLATELET COUNT, AUTOMATED 60 10^3/uL (150-450)
== END ==
LOC: M IRPRO 10:52
PROVIDERS: ATTEND Internal Medicine Hematology & Oncology
DX: D61.818 Other pancytopenia (principal)

== ENCOUNTER 2021-08-11 10:00 | Inpatient (IN) | payer MEDICARE ==
[~2021-08-11] VITALS: Ht 160 cm; Wt 84.7 kg
[2021-08-11] MEDS: FERROUS SULFATE 325MG TAB PO SCH (09:00)
[2021-08-11] MEDS: ASCORBIC ACID 500 MG TAB PO SCH (09:00)
[2021-08-11] MEDS: LORATADINE 10 MG TAB PO SCH (09:00)
[2021-08-11] MEDS: ATORVASTATIN 20 MG TAB PO SCH (09:00)
[~2021-08-11 10:00] MED LIST changes: +CLOB5CR TOP; -LIDOCAINE 1% MDV 20ML VIAL As Ordered ONE
[2021-08-11] MEDS ORDERED: NS 500 ML IV ONE ×2 (10:40→11:45)
[2021-08-11] MEDS ORDERED: ACETAMINOPHEN 325 MG TAB PO ONE (10:50)
[2021-08-11 11:00] LABS: BASO % 0.2 % (0.0-1.0); HEMATOCRIT 32.5 % (36.0-47.0); HEMOGLOBIN 11.2 g/dl (12.0-15.5); LYMPH # 0.5 10^3/uL (1.5-5.0); LYMPH % 8.7 % (24.0-44.0); MEAN CORPUSCULAR HEMOGLOBIN 31.8 pg (27.0-33.0); MEAN CORPUSCULAR HGB CONC 34.5 g/dl (32.0-36.5); MEAN CORPUSCULAR VOLUME 92.3 fl (80.0-96.0); MONO # 0.3 10^3/uL (0.0-0.8); MONO % 4.4 % (2.0-8.0); NEUTROPHILS # 5.1 10^3/uL (1.5-8.5); NEUTROPHILS % 86.2 % (36.0-66.0); RED BLOOD COUNT 3.52 10^6/uL (4.00-5.40); WHITE BLOOD COUNT 5.9 10^3/uL (4.0-10.0)
[2021-08-11 11:02] LABS: PLATELET COUNT, AUTOMATED 52 10^3/uL (150-450)
[2021-08-11 11:09] LABS: INR 1.41; PROTHROMBIN TIME 17.7 SECONDS (12.7-14.5)
[2021-08-11] MEDS ORDERED: cefTRIAXone SOD 2 GM in D5W MINI-BAG PLUS 50 ML IV ONE (11:15)
[2021-08-11 11:24] LABS: OSMOLALITY SERUM 283 MOSM/KG (275-295)
[2021-08-11 11:33] LABS: ACETAMINOPHEN LEVEL < 2.0 UG/ML (10.0-30.0); ALBUMIN 2.8 GM/DL (3.2-5.2); ALT/SGPT 32 U/L (12-78); BILIRUBIN,DIRECT 1.6 MG/DL (0.0-0.2); BILIRUBIN,TOTAL 2.8 MG/DL (0.2-1.0); BLOOD UREA NITROGEN 26 MG/DL (7-18); CALCIUM LEVEL 8.3 MG/DL (8.5-10.1); CARBON DIOXIDE LEVEL 23 MEQ/L (21-32); CHLORIDE LEVEL 98 MEQ/L (98-107); CREATININE FOR GFR 1.46 MG/DL (0.55-1.30); ETHYL ALCOHOL (ETHANOL) 0.004 % (0.000-0.010); GLOMERULAR FILTRATION RATE 39.2 (>51); GLUCOSE, FASTING 187 MG/DL (70-100); POTASSIUM SERUM 3.7 MEQ/L (3.5-5.1); SALICYLATE LEVEL < 1.7 MG/DL (5.0-30.0); SODIUM LEVEL 133 MEQ/L (136-145); TOTAL PROTEIN 7.3 GM/DL (6.4-8.2)
[2021-08-11 11:39] LABS: AMPHETAMINES LEVEL URINE NEGATIVE (NEGATIVE); BARBITURATES URINE NEGATIVE (NEGATIVE); BENZODIAZEPINES URINE NEGATIVE (NEGATIVE); CANNABINOIDS URINE NEGATIVE (NEGATIVE); COCAINE METABOLITE URINE NEGATIVE (NEGATIVE); METHADONE URINE NEGATIVE (NEGATIVE); OPIATES URINE NEGATIVE (NEGATIVE); PHENCYCLIDINE URINE NEGATIVE (NEGATIVE)
[2021-08-11] MEDS ORDERED: NS 1,000 ML IV SCH (11:45)
[2021-08-11 11:46] LABS: CK-MB VALUE MASS < 1.0 NG/ML (<3.6); CPK CREATINE PHOSPHOKINASE 217 U/L (26-192); MB/CK RELATIVE INDEX 0.46 (< OR =4)
[2021-08-11] MEDS ORDERED: ISOVUE-370 76% 100ML VIAL As Ordered ONE (12:17)
[2021-08-11] MEDS ORDERED: FERR1TAB8 PO (13:47)
[2021-08-11] MEDS ORDERED: HOME MED LIST COMPLETE! XX SCH (13:50)
[2021-08-11] MEDS ORDERED: GLUCAGON INJ 1MG VIAL SC PRN (15:40)
[2021-08-11] MEDS ORDERED: GLUCOSE 4GM CHEW TABLET PO PRN (15:40)
[2021-08-11] MEDS ORDERED: DEXTROSE 50% 50 ML SYRINGE IV PRN (15:40)
[2021-08-11] MEDS: ACETAMINOPHEN TAB 650MG DOSE (2X325MG) PO PRN ×2 (16:04→23:51)
[2021-08-11] MEDS: MAG SULF 1GM/100ML (MAG RUN) 1 GM in IV 1 EA IV SCH ×2 (16:27→17:59)
[2021-08-11] MEDS: NS 1,000 ML IV SCH ×2 (16:28→20:38)
[2021-08-11] MEDS: INSULIN LISPRO (NovoLOG) PER UNIT SC SCH ×2 (18:09→20:32)
[2021-08-11] MEDS: valACYclovir HCL 500 MG TAB PO SCH ×2 (18:16→20:22)
[2021-08-11 18:30] VITALS: BP 113/56
[2021-08-11 20:00] VITALS: BP 136/68
[2021-08-11] MEDS: DOCUSATE SODIUM 100MG CAPSULE PO SCH (20:22)
[2021-08-11] MEDS: CLOBETASOL PROP 0.05% OINT 30 GM TOP SCH (20:23)
[2021-08-12] VITALS (7 sets, daily range): BP systolic 104–145; BP diastolic 58–71
[2021-08-12 05:17] LABS: HEMOGLOBIN 10.1 g/dl (12.0-15.5); MEAN CORPUSCULAR HEMOGLOBIN 31.3 pg (27.0-33.0); MEAN CORPUSCULAR HGB CONC 33.7 g/dl (32.0-36.5); MEAN CORPUSCULAR VOLUME 92.9 fl (80.0-96.0); RED BLOOD COUNT 3.23 10^6/uL (4.00-5.40); WHITE BLOOD COUNT 4.5 10^3/uL (4.0-10.0)
[2021-08-12 05:18] LABS: PLATELET COUNT, AUTOMATED 47 10^3/uL (150-450)
[2021-08-12 05:52] LABS: ALBUMIN 2.2 GM/DL (3.2-5.2); CALCIUM LEVEL 7.2 MG/DL (8.5-10.1); CREATININE FOR GFR 1.14 MG/DL (0.55-1.30); GLOMERULAR FILTRATION RATE 52.1 (>51); MAGNESIUM LEVEL 1.8 MG/DL (1.8-2.4); POTASSIUM SERUM 3.7 MEQ/L (3.5-5.1); TOTAL PROTEIN 6.4 GM/DL (6.4-8.2)
[2021-08-12] MEDS: INSULIN LISPRO (NovoLOG) PER UNIT SC SCH ×4 (07:30→20:07)
[2021-08-12] MEDS: NS 1,000 ML IV SCH ×2 (07:51→16:03)
[2021-08-12 07:59] LABS: C REACTIVE PROTEIN QUANTITATIV 16.3 MG/DL (0.00-0.30)
[2021-08-12] MEDS ORDERED: ISOVUE-370 76% 100ML VIAL As Ordered ONE (08:52)
[2021-08-12] MEDS: DOCUSATE SODIUM 100MG CAPSULE PO SCH ×2 (09:44→20:07)
[2021-08-12] MEDS: valACYclovir HCL 500 MG TAB PO SCH ×3 (09:44→20:06)
[2021-08-12] MEDS: LORATADINE 10 MG TAB PO SCH (09:44)
[2021-08-12] MEDS: ATORVASTATIN 20 MG TAB PO SCH (09:45)
[2021-08-12] MEDS: CLOBETASOL PROP 0.05% OINT 30 GM TOP SCH ×2 (09:45→20:08)
[2021-08-12] MEDS: ACETAMINOPHEN TAB 650MG DOSE (2X325MG) PO PRN ×2 (09:45→20:07)
[2021-08-12] MEDS: ASCORBIC ACID 500 MG TAB PO SCH (09:45)
[2021-08-12] MEDS: PIPERACILLIN/TAZOBACTAM SOD 3.375 GM in D5W MINI-BAG PLUS 50 ML IV SCH ×3 (11:32→23:45)
[2021-08-12] MEDS ORDERED: cefTRIAXone SOD 1 GM in D5W MINI-BAG PLUS 50 ML IV SCH (12:00)
[2021-08-13 03:58] VITALS: BP 125/68
[2021-08-13 05:40] LABS: HEMATOCRIT 29.7 % (36.0-47.0); HEMOGLOBIN 9.9 g/dl (12.0-15.5); MEAN CORPUSCULAR HEMOGLOBIN 31.2 pg (27.0-33.0); MEAN CORPUSCULAR HGB CONC 33.3 g/dl (32.0-36.5); MEAN CORPUSCULAR VOLUME 93.7 fl (80.0-96.0); RED BLOOD COUNT 3.17 10^6/uL (4.00-5.40); WHITE BLOOD COUNT 3.3 10^3/uL (4.0-10.0)
[2021-08-13 05:48] LABS: PLATELET COUNT, AUTOMATED 45 10^3/uL (150-450)
[2021-08-13] MEDS: PIPERACILLIN/TAZOBACTAM SOD 3.375 GM in D5W MINI-BAG PLUS 50 ML IV SCH ×4 (05:52→22:11)
[2021-08-13 06:01] LABS: ALT/SGPT 35 U/L (12-78); BILIRUBIN,TOTAL 1.9 MG/DL (0.2-1.0); BLOOD UREA NITROGEN 24 MG/DL (7-18); CALCIUM LEVEL 7.2 MG/DL (8.5-10.1); CARBON DIOXIDE LEVEL 25 MEQ/L (21-32); CHLORIDE LEVEL 107 MEQ/L (98-107); CREATININE FOR GFR 0.97 MG/DL (0.55-1.30); GLOMERULAR FILTRATION RATE > 60.0 (>51); GLUCOSE, FASTING 88 MG/DL (70-100); POTASSIUM SERUM 3.6 MEQ/L (3.5-5.1); SODIUM LEVEL 138 MEQ/L (136-145)
[2021-08-13 07:27] VITALS: BP 122/62
[2021-08-13] MEDS: INSULIN LISPRO (NovoLOG) PER UNIT SC SCH ×4 (07:30→20:47)
[2021-08-13] MEDS: ASCORBIC ACID 500 MG TAB PO SCH (09:23)
[2021-08-13] MEDS: ATORVASTATIN 20 MG TAB PO SCH (09:24)
[2021-08-13] MEDS: valACYclovir HCL 500 MG TAB PO SCH ×3 (09:24→20:41)
[2021-08-13] MEDS: CLOBETASOL PROP 0.05% OINT 30 GM TOP SCH ×2 (09:24→20:48)
[2021-08-13] MEDS: LORATADINE 10 MG TAB PO SCH (09:24)
[2021-08-13 11:33] VITALS: BP 118/61
[2021-08-13] MEDS: ACETAMINOPHEN TAB 650MG DOSE (2X325MG) PO PRN ×2 (12:00→20:45)
[2021-08-13 15:56] VITALS: BP 130/58
[2021-08-13 19:44] VITALS: BP 112/60
[2021-08-14 03:52] VITALS: BP 101/53
[2021-08-14] MEDS: PIPERACILLIN/TAZOBACTAM SOD 3.375 GM in D5W MINI-BAG PLUS 50 ML IV SCH (04:25)
[2021-08-14 05:49] LABS: HEMATOCRIT 27.8 % (36.0-47.0); HEMOGLOBIN 9.3 g/dl (12.0-15.5); MEAN CORPUSCULAR HEMOGLOBIN 31.4 pg (27.0-33.0); MEAN CORPUSCULAR HGB CONC 33.5 g/dl (32.0-36.5); MEAN CORPUSCULAR VOLUME 93.9 fl (80.0-96.0); RED BLOOD COUNT 2.96 10^6/uL (4.00-5.40); WHITE BLOOD COUNT 3.7 10^3/uL (4.0-10.0)
[2021-08-14 05:50] LABS: PLATELET COUNT, AUTOMATED 52 10^3/uL (150-450)
[2021-08-14 06:15] LABS: ALT/SGPT 39 U/L (12-78); BILIRUBIN,TOTAL 1.8 MG/DL (0.2-1.0); BLOOD UREA NITROGEN 18 MG/DL (7-18); CALCIUM LEVEL 7.6 MG/DL (8.5-10.1); CARBON DIOXIDE LEVEL 24 MEQ/L (21-32); CHLORIDE LEVEL 106 MEQ/L (98-107); CREATININE FOR GFR 0.91 MG/DL (0.55-1.30); GLOMERULAR FILTRATION RATE > 60.0 (>51); GLUCOSE, FASTING 88 MG/DL (70-100); MAGNESIUM LEVEL 1.8 MG/DL (1.8-2.4); POTASSIUM SERUM 3.3 MEQ/L (3.5-5.1); SODIUM LEVEL 140 MEQ/L (136-145); TOTAL PROTEIN 5.9 GM/DL (6.4-8.2)
[2021-08-14] MEDS ORDERED: POTASSIUM CHLORIDE 10MEQ SR TABLET PO ONE (07:00)
[2021-08-14 07:22] VITALS: BP 118/60
[2021-08-14] MEDS: INSULIN LISPRO (NovoLOG) PER UNIT SC SCH ×4 (07:30→20:03)
[2021-08-14] MEDS: ACETAMINOPHEN TAB 650MG DOSE (2X325MG) PO PRN (07:40)
[2021-08-14] MEDS: valACYclovir HCL 500 MG TAB PO SCH ×3 (07:40→20:03)
[2021-08-14] MEDS: ATORVASTATIN 20 MG TAB PO SCH (07:40)
[2021-08-14] MEDS: ASCORBIC ACID 500 MG TAB PO SCH (07:40)
[2021-08-14] MEDS: LORATADINE 10 MG TAB PO SCH (07:40)
[2021-08-14] MEDS: CLOBETASOL PROP 0.05% OINT 30 GM TOP SCH ×2 (07:42→20:03)
[2021-08-14] MEDS ORDERED: MAG SULF 1GM/100ML (MAG RUN) 1 GM in IV 1 EA IV ONE (09:00)
[2021-08-14] MEDS: CEFDINIR 300 MG CAP (OMNICEF) PO SCH ×2 (09:24→20:03)
[2021-08-14] MEDS: metroNIDAZOLE (FLAGYL) 500MG TABLET PO SCH ×3 (09:24→21:32)
[2021-08-14] MEDS: FERROUS SULFATE 325MG TAB PO SCH (09:24)
[2021-08-14] MEDS ORDERED: PILL CUTTER 1 EACH XX PRN (10:10)
[2021-08-14] MEDS: traMADol 50 MG TAB PO PRN ×2 (12:12→20:05)
[2021-08-14] MEDS: LACTOBACILLUS ACIDOPHILUS CAP (BACID) PO SCH (16:35)
[2021-08-14 16:55] VITALS: BP 113/61
[2021-08-14 20:00] VITALS: BP 113/59
[2021-08-14 21:59] VITALS: BP 133/73
[2021-08-15] MEDS: metroNIDAZOLE (FLAGYL) 500MG TABLET PO SCH (05:11)
[2021-08-15 05:44] VITALS: BP 111/57
[2021-08-15 06:15] LABS: HEMOGLOBIN 9.2 g/dl (12.0-15.5); MEAN CORPUSCULAR HEMOGLOBIN 31.1 pg (27.0-33.0); MEAN CORPUSCULAR HGB CONC 32.9 g/dl (32.0-36.5); MEAN CORPUSCULAR VOLUME 94.6 fl (80.0-96.0); RED BLOOD COUNT 2.96 10^6/uL (4.00-5.40)
[2021-08-15 06:18] LABS: PLATELET COUNT, AUTOMATED 57 10^3/uL (150-450)
[2021-08-15 06:44] LABS: ALBUMIN 2.2 GM/DL (3.2-5.2); ALT/SGPT 42 U/L (12-78); BILIRUBIN,TOTAL 1.5 MG/DL (0.2-1.0); BLOOD UREA NITROGEN 12 MG/DL (7-18); CALCIUM LEVEL 7.9 MG/DL (8.5-10.1); CARBON DIOXIDE LEVEL 24 MEQ/L (21-32); CHLORIDE LEVEL 107 MEQ/L (98-107); CREATININE FOR GFR 0.74 MG/DL (0.55-1.30); GLOMERULAR FILTRATION RATE > 60.0 (>51); GLUCOSE, FASTING 90 MG/DL (70-100); MAGNESIUM LEVEL 1.7 MG/DL (1.8-2.4); POTASSIUM SERUM 3.3 MEQ/L (3.5-5.1); SODIUM LEVEL 140 MEQ/L (136-145)
[2021-08-15] MEDS ORDERED: MAG SULF 1GM/100ML (MAG RUN) 1 GM in IV 1 EA IV ONE (07:15)
[2021-08-15] MEDS ORDERED: POTASSIUM CHLORIDE 10MEQ SR TABLET PO ONE (07:15)
[2021-08-15] MEDS: INSULIN LISPRO (NovoLOG) PER UNIT SC SCH ×2 (07:30→11:47)
[2021-08-15] MEDS: CEFDINIR 300 MG CAP (OMNICEF) PO SCH (08:03)
[2021-08-15] MEDS: LORATADINE 10 MG TAB PO SCH (08:03)
[2021-08-15] MEDS: LACTOBACILLUS ACIDOPHILUS CAP (BACID) PO SCH (08:03)
[2021-08-15] MEDS: ASCORBIC ACID 500 MG TAB PO SCH (08:03)
[2021-08-15] MEDS: valACYclovir HCL 500 MG TAB PO SCH (08:03)
[2021-08-15] MEDS: CLOBETASOL PROP 0.05% OINT 30 GM TOP SCH (08:04)
[2021-08-15] MEDS: ATORVASTATIN 20 MG TAB PO SCH (08:04)
[2021-08-15] MEDS ORDERED: VALA500T5 PO ×2 (09:45→11:06)
[2021-08-15] MEDS ORDERED: METR-265 PO (09:45)
[2021-08-15] MEDS ORDERED: CEFD300CAP PO (09:45)
[2021-08-15] MEDS ORDERED: RISATAB3 PO (09:45)
[2021-08-15 10:00] VITALS: BP 125/65
[2021-08-15] MEDS ORDERED: VALT1TAB PO (11:12)
[2021-08-15] MEDS ORDERED: POTA-151 PO (13:55)
== END 2021-08-15 12:05 | disposition home or self-care (01) | DRG 871 ==
LOC: M ED 10:00 → M ED INP 14:14 → ENRESERV 16:44 → M PCU 18:27 → M MSPAV 08-14 21:51
PROVIDERS: ADMIT Internal Medicine; ATTEND Internal Medicine
DX: A41.9 Sepsis, unspecified organism (principal); G93.41 Metabolic encephalopathy; E87.2 Acidosis; E72.20 Disorder of urea cycle metabolism, unspecified; N39.0 Urinary tract infection, site not specified; N17.9 Acute kidney failure, unspecified; E87.1 Hypo-osmolality and hyponatremia; D61.818 Other pancytopenia; K74.60 Unspecified cirrhosis of liver; E11.9 Type 2 diabetes mellitus without complications; M06.9 Rheumatoid arthritis, unspecified; E78.5 Hyperlipidemia, unspecified; L40.9 Psoriasis, unspecified; E83.42 Hypomagnesemia; R65.20 Severe sepsis without septic shock; K52.9 Noninfective gastroenteritis and colitis, unspecified; E87.6 Hypokalemia; B96.20 Unspecified Escherichia coli [E. coli] as the cause of diseases classified elsewhere; R16.1 Splenomegaly, not elsewhere classified; B02.9 Zoster without complications; Z79.899 Other long term (current) drug therapy; Z87.891 Personal history of nicotine dependence

== ENCOUNTER → 2021-08-30 | Outpatient (REF) | payer MEDICARE ==
[~2021-08-30] MED LIST changes: +CEFD300CAP PO; +FERR1TAB8 PO; +METR-265 PO; +POTA-151 PO; +RISATAB3 PO; +VALA500T5 PO; +VALT1TAB PO
[2021-08-30 18:42] LABS: APPEARANCE, URINE CLOUDY (CLEAR); BACTERIA, URINE AUTO NEGATIVE (NEGATIVE); BILIRUBIN, URINE AUTO NEGATIVE (NEGATIVE); BLOOD, URINE BLOOD NEGATIVE (NEGATIVE); CALCIUM OXALATE CRYSTALS LARGE; COLOR, URINE YELLOW (YELLOW); GLUCOSE, URINE (UA) AUTO 1+ mg/dL (NEGATIVE); KETONE, URINE AUTO NEGATIVE (NEGATIVE); LEUKOCYTE ESTERASE, URINE AUTO TRACE (NEGATIVE); NITRITE, URINE AUTO NEGATIVE (NEGATIVE); PROTEIN, URINE AUTO 1+ mg/dL (NEGATIVE); RBC, URINE AUTO 3 /HPF (0-3); SPECIFIC GRAVITY URINE AUTO 1.016 (1.002-1.035); SQUAMOUS EPITHELIAL CELL UR AU 1 /HPF (0-6); UROBILINOGEN, URINE AUTO 0.2 mg/dL (0.0-2.0); WBC, URINE AUTO 6 /HPF (0-3)
== END ==
LOC: M SMT 16:51
PROVIDERS: ATTEND Nurse Practitioner Women's Health
DX: N39.0 Urinary tract infection, site not specified (principal)

== ENCOUNTER → 2021-10-26 | Outpatient (REF) | payer MEDICARE ==
[~2021-10-26] MED LIST changes: +NITR-67
== END ==
LOC: M SFHCDERM 17:26
PROVIDERS: ATTEND Nurse Practitioner Family
DX: C44.319 Basal cell carcinoma of skin of other parts of face (principal)

== ENCOUNTER 2021-10-30 20:33 | Emergency (ER) | payer MEDICARE ==
[~2021-10-30] VITALS: Ht 160 cm; Wt 81.4 kg
[2021-10-30] MEDS ORDERED: NS 1,000 ML IV ONE ×2 (20:50→22:25)
[2021-10-30] MEDS ORDERED: PANTOPRAZOLE 40MG VIAL IV ONE ×2 (20:55→21:05)
[2021-10-30] MEDS ORDERED: cefTRIAXone SOD 1 GM in D5W MINI-BAG PLUS 50 ML IV ONE (21:05)
[2021-10-30 22:01] LABS: BASO % 0.2 % (0.0-1.0); EOS # 0.1 10^3/uL (0.0-0.5); EOS % 0.9 % (0.0-3.0); HEMATOCRIT 26.1 % (36.0-47.0); HEMOGLOBIN 8.7 g/dl (12.0-15.5); LYMPH # 2.3 10^3/uL (1.5-5.0); LYMPH % 22.4 % (24.0-44.0); MEAN CORPUSCULAR HEMOGLOBIN 32.8 pg (27.0-33.0); MEAN CORPUSCULAR HGB CONC 33.3 g/dl (32.0-36.5); MEAN CORPUSCULAR VOLUME 98.5 fl (80.0-96.0); MONO # 0.6 10^3/uL (0.0-0.8); MONO % 5.7 % (2.0-8.0); NEUTROPHILS # 7.3 10^3/uL (1.5-8.5); NEUTROPHILS % 70.5 % (36.0-66.0); RED BLOOD COUNT 2.65 10^6/uL (4.00-5.40); WHITE BLOOD COUNT 10.3 10^3/uL (4.0-10.0)
[2021-10-30 22:03] LABS: PLATELET COUNT, AUTOMATED 77 10^3/uL (150-450)
[2021-10-30 22:16] LABS: INR 1.51; PROTHROMBIN TIME 18.6 SECONDS (12.7-14.5)
[2021-10-30 22:17] LABS: PARTIAL THROMBOPLASTIN TIME 33.9 SECONDS (25.9-37.0)
[2021-10-30 22:28] LABS: ALBUMIN 2.4 GM/DL (3.2-5.2); ALT/SGPT 36 U/L (12-78); BILIRUBIN,DIRECT 0.7 MG/DL (0.0-0.2); BLOOD UREA NITROGEN 46 MG/DL (7-18); CALCIUM LEVEL 9.2 MG/DL (8.5-10.1); CARBON DIOXIDE LEVEL 24 MEQ/L (21-32); CHLORIDE LEVEL 103 MEQ/L (98-107); CREATININE FOR GFR 1.18 MG/DL (0.55-1.30); ETHYL ALCOHOL (ETHANOL) < 0.003 % (0.000-0.010); GLOMERULAR FILTRATION RATE 50.1 (>51); GLUCOSE, FASTING 198 MG/DL (70-100); LIPASE 175 U/L (73-393); POTASSIUM SERUM 5.6 MEQ/L (3.5-5.1); SODIUM LEVEL 138 MEQ/L (136-145); TOTAL PROTEIN 6.3 GM/DL (6.4-8.2)
[2021-10-30 22:29] LABS: RSV AMPLIFICATION NEGATIVE (NEGATIVE)
[2021-10-30 22:35] LABS: CK-MB VALUE MASS 2.6 NG/ML (<3.6); MB/CK RELATIVE INDEX 2.17 (< OR =4)
[2021-10-30 23:40] VITALS: BP 116/59
[2021-10-30 23:55] VITALS: BP 121/57
[2021-10-31 00:55] VITALS: BP 131/54
== END 2021-10-31 01:12 | disposition short-term general hospital (02) ==
LOC: M ED 20:33 → EDBD 20:33 → M ED 10-31 01:12
DX: K92.2 Gastrointestinal hemorrhage, unspecified (principal); D62 Acute posthemorrhagic anemia; R00.0 Tachycardia, unspecified; I45.10 Unspecified right bundle-branch block; I44.4 Left anterior fascicular block; E11.9 Type 2 diabetes mellitus without complications; M06.9 Rheumatoid arthritis, unspecified; Z87.891 Personal history of nicotine dependence; Z87.442 Personal history of urinary calculi; Z79.4 Long term (current) use of insulin; Z79.899 Other long term (current) drug therapy
CPT/HCPCS: 36430; 71045; 80053; 82077; 82248; 82550; 82553; 83605; 83690; 84484; 85025; 85049; 85055; 85610; 85730; 86850; 86900; 86901; 86920; 87631; 93005; 96365; 96375; 99285; C9113; J0696; P9016

== ENCOUNTER → 2021-11-05 | Outpatient (CLI) | payer MEDICARE ==
[2021-11-05 09:39] LABS: BASO % 0.3 % (0.0-1.0); EOS # 0.1 10^3/uL (0.0-0.5); EOS % 3.9 % (0.0-3.0); HEMATOCRIT 28.4 % (36.0-47.0); HEMOGLOBIN 9.6 g/dl (12.0-15.5); LYMPH # 1.2 10^3/uL (1.5-5.0); LYMPH % 34.5 % (24.0-44.0); MEAN CORPUSCULAR HGB CONC 33.8 g/dl (32.0-36.5); MEAN CORPUSCULAR VOLUME 94.7 fl (80.0-96.0); MONO # 0.2 10^3/uL (0.0-0.8); MONO % 6.3 % (2.0-8.0); NEUTROPHILS # 1.8 10^3/uL (1.5-8.5); WHITE BLOOD COUNT 3.3 10^3/uL (4.0-10.0)
[2021-11-05 09:51] LABS: PLATELET COUNT, AUTOMATED 61 10^3/uL (150-450)
[2021-11-05 10:10] LABS: BLOOD UREA NITROGEN 9 MG/DL (7-18); CALCIUM LEVEL 8.6 MG/DL (8.5-10.1); CARBON DIOXIDE LEVEL 29 MEQ/L (21-32); CHLORIDE LEVEL 107 MEQ/L (98-107); CREATININE FOR GFR 0.77 MG/DL (0.55-1.30); GLOMERULAR FILTRATION RATE > 60.0 (>51); GLUCOSE, FASTING 80 MG/DL (70-100); MAGNESIUM LEVEL 1.1 MG/DL (1.8-2.4); POTASSIUM SERUM 3.8 MEQ/L (3.5-5.1); SODIUM LEVEL 139 MEQ/L (136-145)
[2021-11-05 10:26] LABS: HEMOGLOBIN A1c 6.3 %
== END ==
LOC: M LAB 08:42
PROVIDERS: ATTEND Student in an Organized Health Care Education/Training Program
DX: D61.818 Other pancytopenia (principal); E83.42 Hypomagnesemia; E87.6 Hypokalemia; E11.9 Type 2 diabetes mellitus without complications

== ENCOUNTER → 2021-11-05 | Outpatient (CLI) | payer MEDICARE ==
[2021-11-05 09:49] LABS: INR 1.16; PROTHROMBIN TIME 15.2 SECONDS (12.7-14.5)
[2021-11-05 10:21] LABS: ALBUMIN 2.8 GM/DL (3.2-5.2); BILIRUBIN,DIRECT 0.5 MG/DL (0.0-0.2); BILIRUBIN,TOTAL 1.3 MG/DL (0.2-1.0); PERCENT SATURATION 15.4 % (13.2-45.0); TOTAL PROTEIN 6.8 GM/DL (6.4-8.2)
[2021-11-09 14:08] LABS: ANCA-ATYPICAL <1:20 titer (Neg:<1:20); ANTI-MITOCHONDRIAL ANTIBODY 64.3 Units (0.0-20.0); ANTINUCLEAR ANTIBODIES DIRECT Negative (Negative); CYTOPLASMIC NEUTROP AB ANCA-C 1:40 titer (Neg:<1:20); LIVER-KIDNEY MICROSOMAL ABY <20.1 Units (0.0-20.0); PERINUCLEAR AB ANCA-P <1:20 titer (Neg:<1:20)
== END ==
LOC: M LAB 08:47
PROVIDERS: ATTEND Internal Medicine Gastroenterology
DX: K74.60 Unspecified cirrhosis of liver (principal); Z79.899 Other long term (current) drug therapy

== ENCOUNTER → 2021-11-05 | Outpatient (CLI) | payer MEDICARE | LOC: M LABSMTC 09:33 | PROVIDERS: ATTEND Anesthesiology | DX: Z01.818 Encounter for other preprocedural examination (principal); Z11.52 Encounter for screening for COVID-19 ==

== ENCOUNTER → 2021-11-05 | Outpatient (CLI) | payer MEDICARE | LOC: M LAB 08:50 | PROVIDERS: ATTEND Nurse Practitioner Family | DX: L40.9 Psoriasis, unspecified (principal) ==

== ENCOUNTER → 2021-12-07 | Outpatient (REF) | payer MEDICARE ==
[2021-12-07 19:27] LABS: APPEARANCE, URINE MANUAL HAZY (CLEAR); COLOR, URINE MANUAL YELLOW (YELLOW); GLUCOSE, URINE (UA) MANUAL 2+(250 MG/DL) mg/dL (NEGATIVE); PROTEIN, URINE MANUAL NEGATIVE (NEGATIVE); SPECIFIC GRAVITY,URINE MANUAL 1.015 (1.002-1.035)
[2021-12-07 19:28] LABS: BILIRUBIN, URINE MANUAL NEGATIVE (NEGATIVE); BLOOD URINE MANUAL TRACE (NEGATIVE); KETONE, URINE MANUAL NEGATIVE (NEGATIVE); LEUKOCYTE ESTERASE, URINE MAN NEGATIVE (NEGATIVE); NITRITE, URINE MANUAL NEGATIVE (NEGATIVE); UROBILINOGEN, URINE MANUAL 1 MG mg/dl (NORMAL)
[2021-12-07 20:05] LABS: RBC, URINE 0-1 /hpf (0-3); SQUAMOUS EPITHELIAL CELL URINE SMALL AMOUNT /hpf (SMALL AMT); TRANSITIONAL EPI CELLS, URINE SMALL AMOUNT /hpf; WBC, URINE 0-1 /hpf (0-3)
[2021-12-07 20:06] LABS: AMORPHOUS SEDIMENT, URINE LARGE AMOUNT (NEGATIVE); BACTERIA, URINE SMALL AMOUNT
== END ==
LOC: M LAB REF 17:06
PROVIDERS: ATTEND Student in an Organized Health Care Education/Training Program
DX: R82.90 Unspecified abnormal findings in urine (principal)

== ENCOUNTER → 2021-12-18 | Outpatient (CLI) | payer MEDICARE ==
[2021-12-18 09:18] LABS: BASO % 0.3 % (0.0-1.0); EOS # 0.1 10^3/uL (0.0-0.5); EOS % 4.3 % (0.0-3.0); HEMATOCRIT 34.1 % (36.0-47.0); HEMOGLOBIN 11.1 g/dl (12.0-15.5); LYMPH % 33.8 % (24.0-44.0); MEAN CORPUSCULAR HEMOGLOBIN 31.5 pg (27.0-33.0); MEAN CORPUSCULAR HGB CONC 32.6 g/dl (32.0-36.5); MEAN CORPUSCULAR VOLUME 96.9 fl (80.0-96.0); MONO # 0.2 10^3/uL (0.0-0.8); NEUTROPHILS # 1.6 10^3/uL (1.5-8.5); NEUTROPHILS % 54.6 % (36.0-66.0); RED BLOOD COUNT 3.52 10^6/uL (4.00-5.40)
[2021-12-18 09:20] LABS: PLATELET COUNT, AUTOMATED 64 10^3/uL (150-450)
[2021-12-18 10:00] LABS: FREE T4 1.2 NG/DL (0.76-1.46); THYROID STIMULATING HORMONE 2.73 uIU/ML (0.358-3.740)
== END ==
LOC: M LAB 08:53
PROVIDERS: ATTEND Student in an Organized Health Care Education/Training Program
DX: D64.9 Anemia, unspecified (principal); L65.9 Nonscarring hair loss, unspecified

== ENCOUNTER → 2022-02-08 | Outpatient (CLI) | payer MEDICARE ==
[~2022-02-08] MED LIST changes: +AMLO1TAB24 PO; +BACTDSTA PO; +MAGN400T2 PO; -NITR-67; +NITR-67 PO; +PANT20TA6 PO; +TACR0.1O TOP; +ZINC100T3 PO
[2022-02-08 09:59] LABS: BASO % 0.4 % (0.0-1.0); EOS # 0.1 10^3/uL (0.0-0.5); EOS % 2.8 % (0.0-3.0); HEMATOCRIT 34.5 % (36.0-47.0); HEMOGLOBIN 11.3 g/dl (12.0-15.5); LYMPH # 0.8 10^3/uL (1.5-5.0); LYMPH % 31.1 % (24.0-44.0); MEAN CORPUSCULAR HEMOGLOBIN 31.5 pg (27.0-33.0); MEAN CORPUSCULAR HGB CONC 32.8 g/dl (32.0-36.5); MEAN CORPUSCULAR VOLUME 96.1 fl (80.0-96.0); MONO # 0.2 10^3/uL (0.0-0.8); MONO % 9.1 % (2.0-8.0); NEUTROPHILS # 1.4 10^3/uL (1.5-8.5); NEUTROPHILS % 56.6 % (36.0-66.0); RED BLOOD COUNT 3.59 10^6/uL (4.00-5.40); WHITE BLOOD COUNT 2.5 10^3/uL (4.0-10.0)
[2022-02-08 10:05] LABS: PLATELET COUNT, AUTOMATED 52 10^3/uL (150-450)
[2022-02-08 10:40] LABS: HEMOGLOBIN A1c 6.7 % (4.0-6.0)
== END ==
LOC: M LABSMTC 09:24
PROVIDERS: ATTEND Anesthesiology
DX: Z01.812 Encounter for preprocedural laboratory examination (principal); E11.9 Type 2 diabetes mellitus without complications; D64.9 Anemia, unspecified; Z11.52 Encounter for screening for COVID-19

== ENCOUNTER 2022-02-13 07:04 | Day surgery (SDC) | payer MEDICARE ==
[~2022-02-13] VITALS: Ht 160 cm; Wt 81.6 kg
[~2022-02-13 07:04] MED LIST changes: +NS 1,000 ML IV ONE
[2022-02-13] MEDS ORDERED: propofoL 200 MG/20 ML VIAL As Ordered ONE (08:45)
[2022-02-13 09:19] VITALS: BP 157/79
== END 2022-02-13 09:47 | disposition home or self-care (01) ==
LOC: M OPP 07:04
PROVIDERS: ATTEND Internal Medicine Gastroenterology
DX: K52.89 Other specified noninfective gastroenteritis and colitis (principal); K63.89 Other specified diseases of intestine; Z53.8 Procedure and treatment not carried out for other reasons; R93.3 Abnormal findings on diagnostic imaging of other parts of digestive tract; K31.811 Angiodysplasia of stomach and duodenum with bleeding; K76.6 Portal hypertension; K31.89 Other diseases of stomach and duodenum; I85.01 Esophageal varices with bleeding; Z79.02 Long term (current) use of antithrombotics/antiplatelets; Z79.84 Long term (current) use of oral hypoglycemic drugs; Z79.899 Other long term (current) drug therapy; D69.6 Thrombocytopenia, unspecified; E11.9 Type 2 diabetes mellitus without complications; I10 Essential (primary) hypertension; E78.00 Pure hypercholesterolemia, unspecified; K74.60 Unspecified cirrhosis of liver; Z80.1 Family history of malignant neoplasm of trachea, bronchus and lung; Z80.3 Family history of malignant neoplasm of breast; Z80.52 Family history of malignant neoplasm of bladder; Z80.7 Family history of other malignant neoplasms of lymphoid, hematopoietic and related tissues; Z80.8 Family history of malignant neoplasm of other organs or systems; Z86.14 Personal history of Methicillin resistant Staphylococcus aureus infection; Z87.891 Personal history of nicotine dependence

== ENCOUNTER → 2022-03-19 | Outpatient (REF) | payer MEDICARE ==
[~2022-03-19] MED LIST changes: -NS 1,000 ML IV ONE
== END ==
LOC: M SFHCDERM 17:14
PROVIDERS: ATTEND Nurse Practitioner Family
DX: L03.116 Cellulitis of left lower limb (principal)

== ENCOUNTER → 2022-04-06 | Outpatient (REF) | payer MEDICARE | LOC: M LAB REF 14:12 | PROVIDERS: ATTEND Nurse Practitioner Family | DX: L40.0 Psoriasis vulgaris (principal) ==

== ENCOUNTER → 2022-04-18 | Outpatient (REF) | payer MEDICARE | LOC: M SFHCDERM 17:12 | PROVIDERS: ATTEND Physician Assistant | DX: L03.116 Cellulitis of left lower limb (principal) ==

== ENCOUNTER → 2022-04-26 | Outpatient (CLI) | payer MEDICARE | LOC: M WHC 12:07 | PROVIDERS: ATTEND Nurse Practitioner | DX: Z12.31 Encounter for screening mammogram for malignant neoplasm of breast (principal) ==

== ENCOUNTER → 2022-05-04 | Outpatient (REF) | payer MEDICARE | LOC: M SFHCDERM 17:15 | PROVIDERS: ATTEND Nurse Practitioner Family | DX: L03.116 Cellulitis of left lower limb (principal) ==

== ENCOUNTER → 2022-05-14 | Outpatient (REF) | payer MEDICARE | LOC: M SFHCWOUN 18:07 | PROVIDERS: ATTEND Surgery | DX: L97.822 Non-pressure chronic ulcer of other part of left lower leg with fat layer exposed (principal) ==

== ENCOUNTER → 2022-05-24 | Outpatient (REF) | payer MEDICARE ==
[~2022-05-24] MED LIST changes: +ASCO500T PO; +CALC-356 PO; +OXYC-517 PO; +PRED20TA PO; +ZINC50TA14 PO
[2022-05-26 11:08] LABS: ANTINUCLEAR ANTIBODIES DIRECT Negative (Negative)
== END ==
LOC: M SFHCWOUN 17:19
PROVIDERS: ATTEND Surgery
DX: L97.822 Non-pressure chronic ulcer of other part of left lower leg with fat layer exposed (principal); L97.812 Non-pressure chronic ulcer of other part of right lower leg with fat layer exposed

== ENCOUNTER → 2022-05-25 | Outpatient (CLI) | payer MEDICARE | LOC: M LAB 12:19 | PROVIDERS: ATTEND Surgery | DX: L97.822 Non-pressure chronic ulcer of other part of left lower leg with fat layer exposed (principal) ==

== ENCOUNTER → 2022-06-01 | Outpatient (REF) | payer MEDICARE | LOC: M SFHCDERM 12:21 | PROVIDERS: ATTEND Dermatology | DX: L88 Pyoderma gangrenosum (principal); L97.812 Non-pressure chronic ulcer of other part of right lower leg with fat layer exposed; L97.822 Non-pressure chronic ulcer of other part of left lower leg with fat layer exposed ==

== ENCOUNTER → 2022-06-01 | Outpatient (CLI) | payer MEDICARE ==
[2022-06-01 14:24] LABS: BASO % 0.1 % (0.0-1.0); EOS % 0.1 % (0.0-3.0); HEMATOCRIT 30.8 % (36.0-47.0); HEMOGLOBIN 10.3 g/dl (12.0-15.5); LYMPH % 9.7 % (24.0-44.0); MEAN CORPUSCULAR HEMOGLOBIN 32.4 pg (27.0-33.0); MEAN CORPUSCULAR HGB CONC 33.4 g/dl (32.0-36.5); MEAN CORPUSCULAR VOLUME 96.9 fl (80.0-96.0); MONO # 0.3 10^3/uL (0.0-0.8); MONO % 3.2 % (2.0-8.0); NEUTROPHILS # 8.5 10^3/uL (1.5-8.5); NEUTROPHILS % 86.3 % (36.0-66.0); PLATELET COUNT, AUTOMATED 102 10^3/uL (150-450); RED BLOOD COUNT 3.18 10^6/uL (4.00-5.40); WHITE BLOOD COUNT 9.9 10^3/uL (4.0-10.0)
[2022-06-01 14:40] LABS: RHEUMATOID FACTOR QUANT < 3.5 IU/ML (<14)
[2022-06-01 14:52] LABS: HEPATITIS B SURFACE ANTIGEN NEGATIVE (NEGATIVE)
[2022-06-01 15:13] LABS: HEPATITIS C VIRUS ABY INDEX 0.1 INDEX (<0.8)
[2022-06-01 15:14] LABS: HEPATITIS B CORE ANTIBODY IGM NEGATIVE (NEGATIVE)
[2022-06-01 15:38] LABS: ALBUMIN 2.7 G/DL (3.2-5.2); ALKALINE PHOSPHATASE 99 U/L (46-116); ALT/SGPT 41 U/L (7.0-40); AST/SGOT 60 U/L (<34); BILIRUBIN,TOTAL 1.2 MG/DL (0.3-1.2); BLOOD UREA NITROGEN 18 MG/DL (9-23); CALCIUM LEVEL 7.7 MG/DL (8.5-10.1); CARBON DIOXIDE LEVEL 26 MMOL/L (20-31); CHLORIDE LEVEL 104 MMOL/L (98-107); CREATININE FOR GFR 0.66 MG/DL (0.55-1.30); GLOMERULAR FILTRATION RATE > 60.0 (>51); GLUCOSE, FASTING 196 MG/DL (60-100); SODIUM LEVEL 139 MMOL/L (136-145); TOTAL PROTEIN 6.8 G/DL (5.7-8.2)
== END ==
LOC: M LAB 12:40
PROVIDERS: ATTEND Dermatology
DX: L88 Pyoderma gangrenosum (principal); L97.812 Non-pressure chronic ulcer of other part of right lower leg with fat layer exposed; L97.822 Non-pressure chronic ulcer of other part of left lower leg with fat layer exposed

== ENCOUNTER → 2022-06-06 | Outpatient (CLI) | payer MEDICARE ==
[2022-06-06 11:27] LABS: BASO % 0.1 % (0.0-1.0); EOS # 0.1 10^3/uL (0.0-0.5); EOS % 1.1 % (0.0-3.0); HEMATOCRIT 34.5 % (36.0-47.0); HEMOGLOBIN 11.2 g/dl (12.0-15.5); LYMPH # 1.1 10^3/uL (1.5-5.0); MEAN CORPUSCULAR HEMOGLOBIN 31.9 pg (27.0-33.0); MEAN CORPUSCULAR HGB CONC 32.5 g/dl (32.0-36.5); MEAN CORPUSCULAR VOLUME 98.3 fl (80.0-96.0); MONO # 0.7 10^3/uL (0.0-0.8); MONO % 7.4 % (2.0-8.0); NEUTROPHILS # 6.8 10^3/uL (1.5-8.5); NEUTROPHILS % 77.9 % (36.0-66.0); RED BLOOD COUNT 3.51 10^6/uL (4.00-5.40); WHITE BLOOD COUNT 8.8 10^3/uL (4.0-10.0)
[2022-06-06 11:31] LABS: PLATELET COUNT, AUTOMATED 83 10^3/uL (150-450)
== END ==
LOC: M LAB 10:26
PROVIDERS: ATTEND Dermatology
DX: L88 Pyoderma gangrenosum (principal); L97.822 Non-pressure chronic ulcer of other part of left lower leg with fat layer exposed; L97.812 Non-pressure chronic ulcer of other part of right lower leg with fat layer exposed; Z87.891 Personal history of nicotine dependence
CPT/HCPCS: 36415; 85025; 85049; 85055; G0463

== ENCOUNTER → 2022-06-07 | Outpatient (REF) | payer MEDICARE | LOC: M SFHCDERM 12:24 | PROVIDERS: ATTEND Dermatology | DX: L88 Pyoderma gangrenosum (principal) ==

== ENCOUNTER → 2022-06-12 | Outpatient (REF) | payer MEDICARE | LOC: M SFHCDERM 17:09 | PROVIDERS: ATTEND Dermatology | DX: L88 Pyoderma gangrenosum (principal) ==

== ENCOUNTER → 2022-06-25 | Outpatient (CLI) | payer MEDICARE ==
[2022-06-25 11:58] LABS: HEMOGLOBIN A1c 6.8 % (4.0-6.0)
[2022-06-25 12:05] LABS: BLOOD UREA NITROGEN 20 MG/DL (9-23); CALCIUM LEVEL 8.7 MG/DL (8.5-10.1); CARBON DIOXIDE LEVEL 37 MMOL/L (20-31); CHLORIDE LEVEL 97 MMOL/L (98-107); CREATININE FOR GFR 0.85 MG/DL (0.55-1.30); GLOMERULAR FILTRATION RATE > 60.0 (>51); GLUCOSE, FASTING 151 MG/DL (60-100); POTASSIUM SERUM 3.2 MMOL/L (3.5-5.1); SODIUM LEVEL 140 MMOL/L (136-145)
== END ==
LOC: M LAB 10:29
PROVIDERS: ATTEND Student in an Organized Health Care Education/Training Program
DX: R60.0 Localized edema (principal); E11.9 Type 2 diabetes mellitus without complications

== ENCOUNTER → 2022-06-25 | Outpatient (CLI) | payer MEDICARE | LOC: M RAD 10:25 | PROVIDERS: ATTEND Surgery | DX: L97.822 Non-pressure chronic ulcer of other part of left lower leg with fat layer exposed (principal); L97.812 Non-pressure chronic ulcer of other part of right lower leg with fat layer exposed ==

== ENCOUNTER → 2022-07-05 | Outpatient (REF) | payer MEDICARE ==
[~2022-07-05] MED LIST changes: +FURO20TA2 PO; +FURO40TA2 PO; +LEVO1TAB39 PO; +POTA-298 PO; +PROA1AER2 INH
== END ==
LOC: M SFHCDERM 18:01
PROVIDERS: ATTEND Dermatology
DX: L08.0 Pyoderma (principal)

== ENCOUNTER → 2022-07-11 | Outpatient (CLI) | payer MEDICARE ==
[~2022-07-11] MED LIST changes: -FURO20TA2 PO; -FURO40TA2 PO; -LEVO1TAB39 PO; -POTA-298 PO; -PROA1AER2 INH
[2022-07-11 12:24] LABS: BLOOD UREA NITROGEN 14 MG/DL (9-23); CALCIUM LEVEL 7.8 MG/DL (8.5-10.1); CARBON DIOXIDE LEVEL 32 MMOL/L (20-31); CHLORIDE LEVEL 98 MMOL/L (98-107); CREATININE FOR GFR 0.75 MG/DL (0.55-1.30); GLOMERULAR FILTRATION RATE > 60.0 (>51); GLUCOSE, FASTING 346 MG/DL (60-100); POTASSIUM SERUM 3.3 MMOL/L (3.5-5.1); SODIUM LEVEL 137 MMOL/L (136-145)
== END ==
LOC: M CARPUL 10:41
PROVIDERS: ATTEND Student in an Organized Health Care Education/Training Program
DX: R60.0 Localized edema (principal); L08.0 Pyoderma

== ENCOUNTER → 2022-08-07 | Outpatient (CLI) | payer MEDICARE ==
[~2022-08-07] MED LIST changes: +FURO20TA2 PO; +FURO40TA2 PO; +LEVO1TAB39 PO; +POTA-298 PO; +PROA1AER2 INH
[2022-08-07 15:19] LABS: BLOOD UREA NITROGEN 11 MG/DL (9-23); CARBON DIOXIDE LEVEL 28 MMOL/L (20-31); CHLORIDE LEVEL 99 MMOL/L (98-107); CREATININE FOR GFR 0.72 MG/DL (0.55-1.30); GLOMERULAR FILTRATION RATE > 60.0 (>51); GLUCOSE, FASTING 357 MG/DL (60-100); POTASSIUM SERUM 3.5 MMOL/L (3.5-5.1); SODIUM LEVEL 136 MMOL/L (136-145)
== END ==
LOC: M LAB 13:44
PROVIDERS: ATTEND Student in an Organized Health Care Education/Training Program
DX: E87.6 Hypokalemia (principal)

== ENCOUNTER 2022-09-24 18:00 | Emergency (ER) | payer MEDICARE ==
[~2022-09-24] VITALS: Ht 160 cm; Wt 82.9 kg
[2022-09-24 21:54] VITALS: BP 172/84; TEMP 98.1; O2SAT 95
== END 2022-09-24 22:10 | disposition left against medical advice (07) ==
LOC: M ED 18:00
DX: Z53.21 Procedure and treatment not carried out due to patient leaving prior to being seen by health care provider (principal)

== ENCOUNTER → 2022-10-15 | Outpatient (CLI) | payer MEDICARE ==
[~2022-10-15] MED LIST changes: +FERR325T19 PO
[2022-10-15 08:33] LABS: BLOOD UREA NITROGEN 11 MG/DL (9-23); CALCIUM LEVEL 9.2 MG/DL (8.5-10.1); CARBON DIOXIDE LEVEL 28 MMOL/L (20-31); CHLORIDE LEVEL 104 MMOL/L (98-107); CREATININE FOR GFR 0.76 MG/DL (0.55-1.30); GLOMERULAR FILTRATION RATE > 60.0 (>51); GLUCOSE, FASTING 110 MG/DL (60-100); POTASSIUM SERUM 3.6 MMOL/L (3.5-5.1); SODIUM LEVEL 141 MMOL/L (136-145)
== END ==
LOC: M LAB 07:19
PROVIDERS: ATTEND Student in an Organized Health Care Education/Training Program
DX: E11.9 Type 2 diabetes mellitus without complications (principal)

== ENCOUNTER 2022-10-25 06:35 | Day surgery (SDC) | payer MEDICARE ==
[~2022-10-25] VITALS: Ht 160 cm; Wt 81.7 kg
[~2022-10-25 06:35] MED LIST changes: +NS 1,000 ML IV ONE
[2022-10-25] MEDS ORDERED: fentaNYL 100 MCG/2 ML INJECTION As Ordered ONE (07:30)
[2022-10-25] MEDS ORDERED: propofoL 200 MG/20 ML VIAL As Ordered ONE ×3 (07:30→08:01)
[2022-10-25 08:12] VITALS: TEMP 97.6
[2022-10-25 08:26] VITALS: BP 127/85; O2SAT 94
== END 2022-10-25 08:26 | disposition home or self-care (01) ==
LOC: M OPP 06:35
PROVIDERS: ATTEND Internal Medicine Gastroenterology
DX: D12.5 Benign neoplasm of sigmoid colon (principal); K64.8 Other hemorrhoids; K63.89 Other specified diseases of intestine; K74.60 Unspecified cirrhosis of liver; K31.89 Other diseases of stomach and duodenum; K76.6 Portal hypertension; I85.10 Secondary esophageal varices without bleeding; Z79.02 Long term (current) use of antithrombotics/antiplatelets; Z79.52 Long term (current) use of systemic steroids; Z79.84 Long term (current) use of oral hypoglycemic drugs; Z79.899 Other long term (current) drug therapy; Z79.891 Long term (current) use of opiate analgesic
CPT/HCPCS: 43235; 45380; 45385; 88305; J3010

== ENCOUNTER → 2022-11-02 | Outpatient (REF) | payer MEDICARE ==
[~2022-11-02] MED LIST changes: +MUPI2OI TOP; -NS 1,000 ML IV ONE
== END ==
LOC: M SFHCDERM 12:55
PROVIDERS: ATTEND Nurse Practitioner Family
DX: L08.0 Pyoderma (principal)

== ENCOUNTER 2022-11-07 14:36 | Inpatient (IN) | payer MEDICARE ==
[~2022-11-07] VITALS: Ht 160 cm; Wt 83.1 kg
[~2022-11-07 14:36] MED LIST changes: -MUPI2OI TOP
[2022-11-07] MEDS ORDERED: LEVO1TAB39 PO (14:45)
[2022-11-07 16:02] LABS: HEMATOCRIT 36.1 % (36.0-47.0); HEMOGLOBIN 12.2 g/dl (12.0-15.5); MEAN CORPUSCULAR HEMOGLOBIN 30.1 pg (27.0-33.0); MEAN CORPUSCULAR HGB CONC 33.8 g/dl (32.0-36.5); MEAN CORPUSCULAR VOLUME 89.1 fl (80.0-96.0); RED BLOOD COUNT 4.05 10^6/uL (4.00-5.40); WHITE BLOOD COUNT 3.9 10^3/uL (4.0-10.0)
[2022-11-07 16:03] LABS: BASO % 0.3 % (0.0-1.0); EOS # 0.1 10^3/uL (0.0-0.5); EOS % 1.5 % (0.0-3.0); LYMPH # 0.9 10^3/uL (1.5-5.0); LYMPH % 22.7 % (24.0-44.0); MONO # 0.4 10^3/uL (0.0-0.8); MONO % 9.3 % (2.0-8.0); NEUTROPHILS # 2.6 10^3/uL (1.5-8.5); NEUTROPHILS % 65.9 % (36.0-66.0)
[2022-11-07] MEDS ORDERED: ONDANSETRON 4MG 2ML VIAL IV ONE (16:10)
[2022-11-07 16:22] LABS: PLATELET COUNT, AUTOMATED 70 10^3/uL (150-450)
[2022-11-07 16:31] LABS: ALBUMIN 2.8 G/DL (3.2-5.2); ALKALINE PHOSPHATASE 103 U/L (46-116); ALT/SGPT 25 U/L (7.0-40); AST/SGOT 40 U/L (<34); BILIRUBIN,DIRECT 0.9 MG/DL (<0.4); BILIRUBIN,TOTAL 1.8 MG/DL (0.3-1.2); BLOOD UREA NITROGEN 15 MG/DL (9-23); CALCIUM LEVEL 8.2 MG/DL (8.5-10.1); CARBON DIOXIDE LEVEL 27 MMOL/L (20-31); CHLORIDE LEVEL 96 MMOL/L (98-107); CREATININE FOR GFR 0.93 MG/DL (0.55-1.30); GLOMERULAR FILTRATION RATE > 60.0 (>51); GLUCOSE, FASTING 292 MG/DL (60-100); POTASSIUM SERUM 3.2 MMOL/L (3.5-5.1); SODIUM LEVEL 137 MMOL/L (136-145); TOTAL PROTEIN 7.4 G/DL (5.7-8.2)
[2022-11-07 16:40] LABS: ERYTHROCYTE SEDIMENTATION RATE 56 mm/hr (0-30)
[2022-11-07] MEDS ORDERED: POTASSIUM CHLORIDE 10MEQ SR TABLET PO ONE (16:40)
[2022-11-07] MEDS: MORPHINE 4 MG/ML 1ML VIAL IV PRN (17:16)
[2022-11-07] MEDS ORDERED: MED REC IN PROGRESS XX SCH ×2 (17:50→18:50)
[2022-11-07] MEDS ORDERED: NS 2,450 ML in IV 1 EA IV ONE (18:05)
[2022-11-07] MEDS ORDERED: NS 1,000 ML IV SCH (18:35)
[2022-11-07] MEDS ORDERED: GLUCOSE 4GM CHEW TABLET PO PRN (18:40)
[2022-11-07] MEDS ORDERED: ISOVUE-370 76% 100ML VIAL As Ordered ONE (18:40)
[2022-11-07] MEDS ORDERED: GLUCAGON INJ 1MG VIAL SC PRN (18:40)
[2022-11-07] MEDS ORDERED: DEXTROSE 50% 50ML SYRINGE IV PRN (18:40)
[2022-11-07] MEDS: PIPERACILLIN/TAZOBACTAM SOD 3.375 GM in D5W MINI-BAG PLUS 50 ML IV SCH (19:19)
[2022-11-07] MEDS ORDERED: MUPI2OI TOP (20:12)
[2022-11-07] MEDS ORDERED: OXYC-517 PO (20:12)
[2022-11-07] MEDS: INSULIN LISPRO (NovoLOG) PER UNIT SC SCH (21:00)
[2022-11-07] MEDS ORDERED: CLINDAMYCIN 900 MG in IV 1 EA IV SCH (21:00)
[2022-11-07] MEDS ORDERED: HOME MED LIST COMPLETE! XX SCH (21:25)
[2022-11-07] MEDS ORDERED: ALBUTEROL 90 MCG/ACT 8GM HFA INHALER INH PRN (21:30)
[2022-11-07] MEDS: CLINDAMYCIN 900 MG in IV 1 EA IV SCH (22:07)
[2022-11-07] MEDS: SILVER SULFADIAZINE 1% CR 50 GM JAR TOP SCH (22:19)
[2022-11-08] MEDS: PIPERACILLIN/TAZOBACTAM SOD 3.375 GM in D5W MINI-BAG PLUS 50 ML IV SCH ×4 (00:53→18:48)
[2022-11-08] MEDS: MORPHINE 4 MG/ML 1ML VIAL IV PRN (00:54)
[2022-11-08] MEDS ORDERED: VANCOMYCIN HCL 1,000 MG, VIAL MATE ADAPTER 1 EACH in D5W 250 ML IV ONE (02:00)
[2022-11-08 02:27] VITALS: BP 147/88; TEMP 97.7; O2SAT 96
[2022-11-08] MEDS: PERCOCET 5MG/325MG TAB PO PRN ×3 (02:46→21:07)
[2022-11-08] MEDS ORDERED: VANCOMYCIN HCL 750 MG, VIAL MATE ADAPTER 1 EACH in D5W 250 ML IV ONE (03:00)
[2022-11-08 03:22] LABS: HEMATOCRIT 32.3 % (36.0-47.0); MEAN CORPUSCULAR HEMOGLOBIN 30.6 pg (27.0-33.0); MEAN CORPUSCULAR HGB CONC 34.1 g/dl (32.0-36.5); MEAN CORPUSCULAR VOLUME 89.7 fl (80.0-96.0); WHITE BLOOD COUNT 4.2 10^3/uL (4.0-10.0)
[2022-11-08 03:49] LABS: PLATELET COUNT, AUTOMATED 59 10^3/uL (150-450)
[2022-11-08 04:07] LABS: ALBUMIN 2.6 G/DL (3.2-5.2); ALKALINE PHOSPHATASE 90 U/L (46-116); ALT/SGPT 22 U/L (7.0-40); AST/SGOT 36 U/L (<34); BILIRUBIN,TOTAL 1.6 MG/DL (0.3-1.2); BLOOD UREA NITROGEN 12 MG/DL (9-23); CALCIUM LEVEL 7.2 MG/DL (8.5-10.1); CARBON DIOXIDE LEVEL 26 MMOL/L (20-31); CHLORIDE LEVEL 101 MMOL/L (98-107); CREATININE FOR GFR 0.98 MG/DL (0.55-1.30); GLOMERULAR FILTRATION RATE > 60.0 (>51); GLUCOSE, FASTING 135 MG/DL (60-100); POTASSIUM SERUM 3.2 MMOL/L (3.5-5.1); SODIUM LEVEL 140 MMOL/L (136-145); TOTAL PROTEIN 6.7 G/DL (5.7-8.2)
[2022-11-08] MEDS: MORPHINE 2 MG/ML 1ML VIAL IV PRN ×4 (05:34→18:53)
[2022-11-08] MEDS: CLINDAMYCIN 900 MG in IV 1 EA IV SCH (05:34)
[2022-11-08 08:00] VITALS: BP 109/60; TEMP 97.2; O2SAT 93
[2022-11-08] MEDS: amLODIPine 5 MG TAB PO SCH (08:06)
[2022-11-08] MEDS: INSULIN LISPRO (NovoLOG) PER UNIT SC SCH ×4 (08:19→20:58)
[2022-11-08] MEDS: POTASSIUM CHLORIDE 10MEQ SR TABLET PO SCH (08:19)
[2022-11-08] MEDS: PANTOPRAZOLE 20 MG TAB PO SCH (08:19)
[2022-11-08] MEDS: DOCUSATE SODIUM 100MG CAPSULE PO SCH ×2 (08:20→21:04)
[2022-11-08] MEDS: LORATADINE 10 MG TAB PO SCH (08:20)
[2022-11-08] MEDS: SILVER SULFADIAZINE 1% CR 50 GM JAR TOP SCH (08:21)
[2022-11-08] MEDS: KCL 10MEQ/100ML SWI (KRUN) 10 MEQ in IV 1 EA IV SCH ×2 (08:21→15:59)
[2022-11-08 08:57] LABS: PROCALCITONIN 0.25 ng/ml
[2022-11-08] MEDS ORDERED: MAGNESIUM OXIDE 400MG TAB (MAG-OX) PO SCH (09:00)
[2022-11-08 09:10] LABS: MAGNESIUM LEVEL 0.8 MG/DL (1.8-2.4)
[2022-11-08] MEDS: MAG SULF 1GM/100ML (MAG RUN) 1 GM in IV 1 EA IV SCH ×4 (09:53→18:48)
[2022-11-08] MEDS ORDERED: VANCOMYCIN HCL 1,000 MG, VIAL MATE ADAPTER 1 EACH in D5W 250 ML IV SCH (10:00)
[2022-11-08 12:00] VITALS: BP 137/64; TEMP 97.6; O2SAT 94
[2022-11-08] MEDS ORDERED: KCL 10MEQ IN STERILE WATER 100ML As Ordered ONE (15:52)
[2022-11-08 16:00] VITALS: BP 133/67; TEMP 97.9; O2SAT 96
[2022-11-08] MEDS ORDERED: MAGNESIUM SULFATE 1GM/100ML D5W BAG (10MG/ML) As Ordered ONE ×2 (17:33→18:42)
[2022-11-08] MEDS: MUPIROCIN 2% OINT 22 GM TUBE TOP SCH (17:47)
[2022-11-08] MEDS ORDERED: methylPREDNISolone 125MG 2ML VIAL IV ONE (19:45)
[2022-11-08 20:11] VITALS: BP 109/64; TEMP 98.3; O2SAT 95
[2022-11-08] MEDS: ATORVASTATIN 20 MG TAB PO SCH (21:04)
[2022-11-08] MEDS: MAGNESIUM OXIDE 400MG TAB (MAG-OX) PO SCH (21:04)
[2022-11-09 00:07] VITALS: BP 136/86; TEMP 97.8; O2SAT 94
[2022-11-09] MEDS: MORPHINE 2 MG/ML 1ML VIAL IV PRN ×3 (00:34→21:30)
[2022-11-09] MEDS: PIPERACILLIN/TAZOBACTAM SOD 3.375 GM in D5W MINI-BAG PLUS 50 ML IV SCH ×4 (00:49→18:35)
[2022-11-09 04:08] VITALS: BP 132/82; TEMP 97.4; O2SAT 94
[2022-11-09] MEDS: PERCOCET 5MG/325MG TAB PO PRN ×2 (06:02→12:15)
[2022-11-09 06:10] LABS: EOS % 0.3 % (0.0-3.0); HEMATOCRIT 31.5 % (36.0-47.0); LYMPH # 0.4 10^3/uL (1.5-5.0); MEAN CORPUSCULAR HEMOGLOBIN 30.8 pg (27.0-33.0); MEAN CORPUSCULAR HGB CONC 34.9 g/dl (32.0-36.5); MEAN CORPUSCULAR VOLUME 88.2 fl (80.0-96.0); MONO # 0.1 10^3/uL (0.0-0.8); MONO % 2.4 % (2.0-8.0); NEUTROPHILS # 2.8 10^3/uL (1.5-8.5); NEUTROPHILS % 83.7 % (36.0-66.0); RED BLOOD COUNT 3.57 10^6/uL (4.00-5.40); WHITE BLOOD COUNT 3.4 10^3/uL (4.0-10.0)
[2022-11-09 06:11] LABS: PLATELET COUNT, AUTOMATED 48 10^3/uL (150-450)
[2022-11-09 06:31] LABS: BLOOD UREA NITROGEN 10 MG/DL (9-23); CALCIUM LEVEL 7.7 MG/DL (8.5-10.1); CARBON DIOXIDE LEVEL 28 MMOL/L (20-31); CHLORIDE LEVEL 100 MMOL/L (98-107); CREATININE FOR GFR 0.78 MG/DL (0.55-1.30); GLOMERULAR FILTRATION RATE > 60.0 (>51); GLUCOSE, FASTING 320 MG/DL (60-100); MAGNESIUM LEVEL 1.6 MG/DL (1.8-2.4); POTASSIUM SERUM 3.6 MMOL/L (3.5-5.1); SODIUM LEVEL 135 MMOL/L (136-145)
[2022-11-09] MEDS: MAG SULF 1GM/100ML (MAG RUN) 1 GM in IV 1 EA IV SCH ×2 (07:57→09:27)
[2022-11-09] MEDS: MAGNESIUM OXIDE 400MG TAB (MAG-OX) PO SCH ×2 (07:58→21:27)
[2022-11-09] MEDS: INSULIN LISPRO (NovoLOG) PER UNIT SC SCH ×4 (07:58→21:26)
[2022-11-09] MEDS: PANTOPRAZOLE 20 MG TAB PO SCH (07:59)
[2022-11-09] MEDS: LORATADINE 10 MG TAB PO SCH (07:59)
[2022-11-09] MEDS: POTASSIUM CHLORIDE 10MEQ SR TABLET PO SCH (07:59)
[2022-11-09] MEDS: DOCUSATE SODIUM 100MG CAPSULE PO SCH ×2 (07:59→21:27)
[2022-11-09] MEDS: MUPIROCIN 2% OINT 22 GM TUBE TOP SCH (08:00)
[2022-11-09] MEDS: amLODIPine 5 MG TAB PO SCH (08:02)
[2022-11-09 08:15] VITALS: BP 155/83; TEMP 98.2; O2SAT 93
[2022-11-09 11:47] VITALS: BP 138/76; TEMP 98.5; O2SAT 97
[2022-11-09] MEDS: FUROSEMIDE 40 MG TAB PO SCH (12:15)
[2022-11-09] MEDS: predniSONE 20 MG TAB PO SCH (12:15)
[2022-11-09 16:09] VITALS: BP 148/70; TEMP 98.1; O2SAT 95
[2022-11-09 20:00] VITALS: BP 137/72; TEMP 98.3; O2SAT 97
[2022-11-09] MEDS: ATORVASTATIN 20 MG TAB PO SCH (21:27)
[2022-11-10] VITALS: BP 122/58; TEMP 97.7; O2SAT 99
[2022-11-10] MEDS: PIPERACILLIN/TAZOBACTAM SOD 3.375 GM in D5W MINI-BAG PLUS 50 ML IV SCH ×2 (00:41→06:50)
[2022-11-10 04:00] VITALS: BP 120/67; TEMP 98.3; O2SAT 96
[2022-11-10 06:38] LABS: EOS % 0.8 % (0.0-3.0); HEMATOCRIT 28.7 % (36.0-47.0); HEMOGLOBIN 9.9 g/dl (12.0-15.5); LYMPH # 0.7 10^3/uL (1.5-5.0); LYMPH % 14.1 % (24.0-44.0); MEAN CORPUSCULAR HEMOGLOBIN 30.7 pg (27.0-33.0); MEAN CORPUSCULAR HGB CONC 34.5 g/dl (32.0-36.5); MEAN CORPUSCULAR VOLUME 89.1 fl (80.0-96.0); MONO # 0.4 10^3/uL (0.0-0.8); MONO % 7.2 % (2.0-8.0); NEUTROPHILS % 77.5 % (36.0-66.0); RED BLOOD COUNT 3.22 10^6/uL (4.00-5.40); WHITE BLOOD COUNT 5.1 10^3/uL (4.0-10.0)
[2022-11-10 06:39] LABS: PLATELET COUNT, AUTOMATED 48 10^3/uL (150-450)
[2022-11-10 07:16] LABS: BLOOD UREA NITROGEN 13 MG/DL (9-23); CALCIUM LEVEL 7.3 MG/DL (8.5-10.1); CARBON DIOXIDE LEVEL 29 MMOL/L (20-31); CHLORIDE LEVEL 103 MMOL/L (98-107); CREATININE FOR GFR 0.73 MG/DL (0.55-1.30); GLOMERULAR FILTRATION RATE > 60.0 (>51); GLUCOSE, FASTING 282 MG/DL (60-100); POTASSIUM SERUM 3.4 MMOL/L (3.5-5.1); SODIUM LEVEL 138 MMOL/L (136-145)
[2022-11-10] MEDS ORDERED: POTASSIUM CHLORIDE 10MEQ SR TABLET PO ONE ×2 (07:40→09:00)
[2022-11-10 07:42] LABS: MAGNESIUM LEVEL 1.5 MG/DL (1.8-2.4)
[2022-11-10 08:03] VITALS: BP 127/65; TEMP 97.5; O2SAT 98
[2022-11-10] MEDS: INSULIN LISPRO (NovoLOG) PER UNIT SC SCH ×5 (08:37→20:44)
[2022-11-10] MEDS: POTASSIUM CHLORIDE 10MEQ SR TABLET PO SCH (08:38)
[2022-11-10] MEDS: PANTOPRAZOLE 20 MG TAB PO SCH (08:38)
[2022-11-10] MEDS: LORATADINE 10 MG TAB PO SCH (08:38)
[2022-11-10] MEDS: predniSONE 20 MG TAB PO SCH (08:38)
[2022-11-10] MEDS: FUROSEMIDE 40 MG TAB PO SCH (08:39)
[2022-11-10] MEDS: DOCUSATE SODIUM 100MG CAPSULE PO SCH ×2 (08:39→20:44)
[2022-11-10] MEDS: MAGNESIUM OXIDE 400MG TAB (MAG-OX) PO SCH ×2 (08:39→20:44)
[2022-11-10] MEDS: amLODIPine 5 MG TAB PO SCH ×2 (08:39→08:42)
[2022-11-10] MEDS: MUPIROCIN 2% OINT 22 GM TUBE TOP SCH (08:40)
[2022-11-10 10:48] LABS: HEMOGLOBIN A1c 6.6 % (4.0-6.0)
[2022-11-10] MEDS: MAG SULF 1GM/100ML (MAG RUN) 1 GM in IV 1 EA IV SCH ×2 (11:21→13:56)
[2022-11-10] MEDS: LevoFLOXacin 750 MG TABLET PO SCH (11:21)
[2022-11-10 15:33] VITALS: BP 149/72; TEMP 97.2; O2SAT 96
[2022-11-10] MEDS: PERCOCET 5MG/325MG TAB PO PRN ×2 (17:27→23:22)
[2022-11-10 19:33] VITALS: BP 142/73; TEMP 98.6; O2SAT 95
[2022-11-10] MEDS: LEVEMIR (INSULIN DETEMIR) 1 UNITS/0.01ML SC SCH (20:43)
[2022-11-10] MEDS: ATORVASTATIN 20 MG TAB PO SCH (20:44)
[2022-11-11] MEDS: PERCOCET 5MG/325MG TAB PO PRN ×5 (04:02→23:59)
[2022-11-11 04:08] VITALS: BP 136/73; TEMP 97.7; O2SAT 95
[2022-11-11] MEDS: LevoFLOXacin 750 MG TABLET PO SCH (05:31)
[2022-11-11] MEDS: INSULIN LISPRO (NovoLOG) PER UNIT SC SCH ×5 (07:30→21:47)
[2022-11-11 08:43] LABS: BASO % 0.1 % (0.0-1.0); EOS # 0.2 10^3/uL (0.0-0.5); EOS % 3.2 % (0.0-3.0); HEMATOCRIT 32.2 % (36.0-47.0); LYMPH # 2.2 10^3/uL (1.5-5.0); LYMPH % 29.9 % (24.0-44.0); MEAN CORPUSCULAR HEMOGLOBIN 30.5 pg (27.0-33.0); MEAN CORPUSCULAR HGB CONC 34.2 g/dl (32.0-36.5); MEAN CORPUSCULAR VOLUME 89.2 fl (80.0-96.0); MONO # 0.7 10^3/uL (0.0-0.8); MONO % 9.1 % (2.0-8.0); NEUTROPHILS # 4.3 10^3/uL (1.5-8.5); NEUTROPHILS % 57.3 % (36.0-66.0); RED BLOOD COUNT 3.61 10^6/uL (4.00-5.40); WHITE BLOOD COUNT 7.5 10^3/uL (4.0-10.0)
[2022-11-11 08:45] LABS: PLATELET COUNT, AUTOMATED 73 10^3/uL (150-450)
[2022-11-11 09:06] LABS: BLOOD UREA NITROGEN 10 MG/DL (9-23); CALCIUM LEVEL 7.5 MG/DL (8.5-10.1); CARBON DIOXIDE LEVEL 32 MMOL/L (20-31); CHLORIDE LEVEL 101 MMOL/L (98-107); GLOMERULAR FILTRATION RATE > 60.0 (>51); GLUCOSE, FASTING 79 MG/DL (60-100); MAGNESIUM LEVEL 1.4 MG/DL (1.8-2.4); POTASSIUM SERUM 3.1 MMOL/L (3.5-5.1); SODIUM LEVEL 140 MMOL/L (136-145)
[2022-11-11] MEDS: DOCUSATE SODIUM 100MG CAPSULE PO SCH ×2 (09:07→21:46)
[2022-11-11] MEDS: MAGNESIUM OXIDE 400MG TAB (MAG-OX) PO SCH ×2 (09:09→21:46)
[2022-11-11] MEDS: PANTOPRAZOLE 20 MG TAB PO SCH (09:09)
[2022-11-11] MEDS: POTASSIUM CHLORIDE 10MEQ SR TABLET PO SCH (09:11)
[2022-11-11] MEDS: FUROSEMIDE 40 MG TAB PO SCH (09:11)
[2022-11-11] MEDS: LORATADINE 10 MG TAB PO SCH (09:12)
[2022-11-11] MEDS: amLODIPine 5 MG TAB PO SCH (09:12)
[2022-11-11] MEDS: predniSONE 20 MG TAB PO SCH (09:21)
[2022-11-11] MEDS: MUPIROCIN 2% OINT 22 GM TUBE TOP SCH (09:21)
[2022-11-11 11:43] VITALS: BP 119/66; TEMP 97.6; O2SAT 93
[2022-11-11] MEDS ORDERED: LIDOCAINE 4% CREAM 5GM (LMX4) TOP PRN (11:55)
[2022-11-11] MEDS: MAG SULF 1GM/100ML (MAG RUN) 1 GM in IV 1 EA IV SCH ×3 (12:23→14:36)
[2022-11-11] MEDS: KCL 10MEQ/100ML SWI (KRUN) 10 MEQ in IV 1 EA IV SCH ×4 (15:49→19:32)
[2022-11-11 19:08] VITALS: BP 125/69; TEMP 98.2; O2SAT 96
[2022-11-11] MEDS: ATORVASTATIN 20 MG TAB PO SCH (21:46)
[2022-11-11] MEDS: LEVEMIR (INSULIN DETEMIR) 1 UNITS/0.01ML SC SCH (21:47)
[2022-11-12 03:42] VITALS: BP 138/73; TEMP 97.2; O2SAT 97
[2022-11-12 05:35] LABS: BASO % 0.4 % (0.0-1.0); EOS # 0.2 10^3/uL (0.0-0.5); EOS % 3.1 % (0.0-3.0); HEMATOCRIT 30.4 % (36.0-47.0); HEMOGLOBIN 10.3 g/dl (12.0-15.5); LYMPH # 1.5 10^3/uL (1.5-5.0); LYMPH % 28.3 % (24.0-44.0); MEAN CORPUSCULAR HEMOGLOBIN 30.3 pg (27.0-33.0); MEAN CORPUSCULAR HGB CONC 33.9 g/dl (32.0-36.5); MEAN CORPUSCULAR VOLUME 89.4 fl (80.0-96.0); MONO # 0.5 10^3/uL (0.0-0.8); MONO % 9.4 % (2.0-8.0); NEUTROPHILS # 3.2 10^3/uL (1.5-8.5); NEUTROPHILS % 58.2 % (36.0-66.0); WHITE BLOOD COUNT 5.4 10^3/uL (4.0-10.0)
[2022-11-12 05:36] LABS: PLATELET COUNT, AUTOMATED 61 10^3/uL (150-450)
[2022-11-12 05:57] LABS: BLOOD UREA NITROGEN 13 MG/DL (9-23); CALCIUM LEVEL 7.6 MG/DL (8.5-10.1); CARBON DIOXIDE LEVEL 30 MMOL/L (20-31); CHLORIDE LEVEL 99 MMOL/L (98-107); CREATININE FOR GFR 0.69 MG/DL (0.55-1.30); GLOMERULAR FILTRATION RATE > 60.0 (>51); GLUCOSE, FASTING 217 MG/DL (60-100); POTASSIUM SERUM 3.5 MMOL/L (3.5-5.1); SODIUM LEVEL 135 MMOL/L (136-145)
[2022-11-12] MEDS: LevoFLOXacin 750 MG TABLET PO SCH (06:02)
[2022-11-12] MEDS: PERCOCET 5MG/325MG TAB PO PRN ×2 (06:02→12:23)
[2022-11-12 07:18] VITALS: BP 143/72; TEMP 97.8; O2SAT 93
[2022-11-12 07:36] LABS: MAGNESIUM LEVEL 1.5 MG/DL (1.8-2.4)
[2022-11-12] MEDS: INSULIN LISPRO (NovoLOG) PER UNIT SC SCH ×2 (08:14→12:23)
[2022-11-12] MEDS: predniSONE 20 MG TAB PO SCH (08:14)
[2022-11-12] MEDS: POTASSIUM CHLORIDE 10MEQ SR TABLET PO SCH (08:14)
[2022-11-12 08:15] VITALS: BP 143/72
[2022-11-12] MEDS: MAGNESIUM OXIDE 400MG TAB (MAG-OX) PO SCH (08:15)
[2022-11-12] MEDS: DOCUSATE SODIUM 100MG CAPSULE PO SCH (08:15)
[2022-11-12] MEDS: PANTOPRAZOLE 20 MG TAB PO SCH (08:15)
[2022-11-12] MEDS: amLODIPine 5 MG TAB PO SCH (08:15)
[2022-11-12] MEDS: LORATADINE 10 MG TAB PO SCH (08:15)
[2022-11-12] MEDS: MUPIROCIN 2% OINT 22 GM TUBE TOP SCH (08:15)
[2022-11-12] MEDS: FUROSEMIDE 40 MG TAB PO SCH (08:15)
[2022-11-12] MEDS: MAG SULF 1GM/100ML (MAG RUN) 1 GM in IV 1 EA IV SCH ×3 (08:30→11:12)
[2022-11-12] MEDS ORDERED: PERCOCET PO ×2 (11:25→12:27)
[2022-11-12] MEDS ORDERED: ALCO1MED31 TP (11:25)
[2022-11-12] MEDS ORDERED: MAGN400T2 PO (11:25)
[2022-11-12] MEDS ORDERED: GLUC1TES2 XX (11:25)
[2022-11-12] MEDS ORDERED: PRED20TA PO ×2 (11:25→12:27)
[2022-11-12] MEDS ORDERED: INSU1MIS20 SC (11:25)
[2022-11-12] MEDS ORDERED: INSUDET SC (11:25)
[2022-11-12] MEDS ORDERED: LEVO1TAB40 PO (11:25)
[2022-11-12] MEDS ORDERED: LANC30MI XX (11:25)
[2022-11-12] MEDS ORDERED: PEN1MIS21 SC ×2 (11:25→12:27)
[2022-11-12] MEDS ORDERED: FURO40TA2 PO ×2 (11:25→12:27)
[2022-11-12] MEDS ORDERED: LANTINJ4 SC (12:27)
[2022-11-12] MEDS ORDERED: MUPI2OI TOP (12:33)
[2022-11-12] MEDS ORDERED: LIDO5OIN19 TOP (12:33)
[2022-11-14] MEDS ORDERED: GLUC1TES2 XX (06:28)
== END 2022-11-12 17:42 | disposition home health service (06) | DRG 872 ==
LOC: M ED 14:36 → M ED INP 18:10 → EEVIPCON 18:10 → ENRESERV 11-08 01:21 → M PCU 11-08 02:20
PROVIDERS: ADMIT Internal Medicine; ATTEND Internal Medicine
DX: A41.9 Sepsis, unspecified organism (principal); L97.229 Non-pressure chronic ulcer of left calf with unspecified severity; I85.10 Secondary esophageal varices without bleeding; D61.818 Other pancytopenia; L03.116 Cellulitis of left lower limb; I50.32 Chronic diastolic (congestive) heart failure; F19.20 Other psychoactive substance dependence, uncomplicated; E87.20 Acidosis, unspecified; E78.5 Hyperlipidemia, unspecified; E11.9 Type 2 diabetes mellitus without complications; I11.0 Hypertensive heart disease with heart failure; E87.6 Hypokalemia; I87.2 Venous insufficiency (chronic) (peripheral); R16.1 Splenomegaly, not elsewhere classified; I89.0 Lymphedema, not elsewhere classified; K74.3 Primary biliary cirrhosis; E83.42 Hypomagnesemia; K21.9 Gastro-esophageal reflux disease without esophagitis; Z79.52 Long term (current) use of systemic steroids; L40.8 Other psoriasis; Z79.899 Other long term (current) drug therapy; D69.6 Thrombocytopenia, unspecified

== ENCOUNTER → 2022-11-28 | Outpatient (CLI) | payer MEDICARE ==
[~2022-11-28] MED LIST changes: +ALCO1MED31 TP; +GLUC1TES2 XX; +INSU1MIS20 SC; +INSUDET SC; +LANC30MI XX; +LANTINJ4 SC; +LEVO1TAB40 PO; +LIDO5OIN19 TOP; +MUPI2OI TOP; +PEN1MIS21 SC; +PERCOCET PO
== END ==
LOC: M RAD 08:42
PROVIDERS: ATTEND Internal Medicine Gastroenterology
DX: K80.20 Calculus of gallbladder without cholecystitis without obstruction (principal); K74.3 Primary biliary cirrhosis; K76.6 Portal hypertension

== ENCOUNTER → 2022-12-05 | Outpatient (REF) | payer MEDICARE ==
[~2022-12-05] MED LIST changes: +PEN-308 SC; -PEN1MIS21 SC
== END ==
LOC: M SFHCDERM 17:55 → EEVIPCON 17:55
PROVIDERS: ATTEND Dermatology
DX: L08.0 Pyoderma (principal)

== ENCOUNTER → 2022-12-11 | Outpatient (CLI) | payer MEDICARE ==
[2022-12-11 16:33] LABS: EOS % 0.1 % (0.0-3.0); HEMATOCRIT 36.1 % (36.0-47.0); HEMOGLOBIN 11.6 g/dl (12.0-15.5); LYMPH # 0.5 10^3/uL (1.5-5.0); LYMPH % 5.4 % (24.0-44.0); MEAN CORPUSCULAR HGB CONC 32.1 g/dl (32.0-36.5); MEAN CORPUSCULAR VOLUME 93.3 fl (80.0-96.0); MONO # 0.2 10^3/uL (0.0-0.8); MONO % 2.5 % (2.0-8.0); NEUTROPHILS # 8.1 10^3/uL (1.5-8.5); NEUTROPHILS % 91.5 % (36.0-66.0); PLATELET COUNT, AUTOMATED 61 10^3/uL (150-450); RED BLOOD COUNT 3.87 10^6/uL (4.00-5.40); WHITE BLOOD COUNT 8.9 10^3/uL (4.0-10.0)
[2022-12-11 17:08] LABS: ALBUMIN 2.8 G/DL (3.2-5.2); ALKALINE PHOSPHATASE 100 U/L (46-116); ALT/SGPT 53 U/L (7.0-40); AST/SGOT 52 U/L (<34); BILIRUBIN,TOTAL 1.9 MG/DL (0.3-1.2); BLOOD UREA NITROGEN 23 MG/DL (9-23); CALCIUM LEVEL 8.8 MG/DL (8.5-10.1); CARBON DIOXIDE LEVEL 29 MMOL/L (20-31); CHLORIDE LEVEL 95 MMOL/L (98-107); CREATININE FOR GFR 0.89 MG/DL (0.55-1.30); GLOMERULAR FILTRATION RATE > 60.0 (>51); GLUCOSE, FASTING 495 MG/DL (60-100); SODIUM LEVEL 135 MMOL/L (136-145)
== END ==
LOC: M LAB 16:00
PROVIDERS: ATTEND Dermatology
DX: L08.0 Pyoderma (principal)

== ENCOUNTER → 2022-12-26 | Outpatient (REF) | payer MEDICARE | LOC: M SFHCDERM 07:10 | PROVIDERS: ATTEND Dermatology | DX: Z53.9 Procedure and treatment not carried out, unspecified reason (principal); L08.0 Pyoderma ==

== ENCOUNTER → 2023-01-01 | Outpatient (CLI) | payer MEDICARE ==
[~2023-01-01] MED LIST changes: +BACI1CAP PO; +LACT10SO3 PO; +LINE1TAB6 PO; +SENO8.6T10 PO; +TEMO0.0517 TOP; +ZYVO1TAB PO
[2023-01-01 08:50] LABS: INR 1.42; PROTHROMBIN TIME 16.9 SECONDS (12.5-14.5)
[2023-01-01 09:04] LABS: ALBUMIN 2.6 G/DL (3.2-5.2); BILIRUBIN,DIRECT 0.8 MG/DL (<0.4); BILIRUBIN,TOTAL 1.8 MG/DL (0.3-1.2); TOTAL PROTEIN 6.1 G/DL (5.7-8.2)
== END ==
LOC: M LAB 07:34
PROVIDERS: ATTEND Internal Medicine Gastroenterology
DX: K76.6 Portal hypertension (principal); L08.0 Pyoderma; K74.60 Unspecified cirrhosis of liver

== ENCOUNTER → 2023-01-01 | Outpatient (CLI) | payer MEDICARE ==
[2023-01-01 09:03] LABS: RHEUMATOID FACTOR QUANT < 3.5 IU/ML (<14)
[2023-01-01 09:37] LABS: HEPATITIS C VIRUS ABY INDEX 0.08 INDEX (<0.8)
[2023-01-01 09:38] LABS: HEPATITIS B CORE ANTIBODY IGM NEGATIVE (NEGATIVE)
[2023-01-08 18:09] LABS: ANA (HEP2) Negative (.)
== END ==
LOC: M LAB 07:32
PROVIDERS: ATTEND Dermatology
DX: L08.0 Pyoderma (principal)

== ENCOUNTER 2023-01-07 07:51 | Inpatient (IN) | payer MEDICARE ==
[~2023-01-07] VITALS: Ht 160 cm; Wt 96.8 kg
[~2023-01-07 07:51] MED LIST changes: -BACI1CAP PO; -LACT10SO3 PO; -LINE1TAB6 PO; -SENO8.6T10 PO; -TEMO0.0517 TOP; -ZYVO1TAB PO
[2023-01-07] MEDS ORDERED: ACETAMINOPHEN TAB 650MG DOSE (2X325MG) PO ONE (08:15)
[2023-01-07] MEDS ORDERED: NS 500 ML IV ONE (08:35)
[2023-01-07 08:46] LABS: BASO % 0.2 % (0.0-1.0); EOS % 0.1 % (0.0-3.0); HEMATOCRIT 30.6 % (36.0-47.0); HEMOGLOBIN 9.7 g/dl (12.0-15.5); LYMPH # 1.5 10^3/uL (1.5-5.0); LYMPH % 7.3 % (24.0-44.0); MEAN CORPUSCULAR HGB CONC 31.7 g/dl (32.0-36.5); MEAN CORPUSCULAR VOLUME 91.6 fl (80.0-96.0); MONO # 1.3 10^3/uL (0.0-0.8); MONO % 6.3 % (2.0-8.0); NEUTROPHILS # 17.9 10^3/uL (1.5-8.5); NEUTROPHILS % 85.1 % (36.0-66.0); PLATELET COUNT, AUTOMATED 172 10^3/uL (150-450); RED BLOOD COUNT 3.34 10^6/uL (4.00-5.40); WHITE BLOOD COUNT 21.1 10^3/uL (4.0-10.0)
[2023-01-07] MEDS ORDERED: PIPERACILLIN/TAZOBACTAM SOD 4.5 GM in D5W MINI-BAG PLUS 50 ML IV ONE (08:50)
[2023-01-07] MEDS ORDERED: NS 2,100 ML in IV 1 EA IV ONE (08:50)
[2023-01-07 09:10] LABS: CPK CREATINE PHOSPHOKINASE 74 U/L (34-145)
[2023-01-07] MEDS ORDERED: MED REC IN PROGRESS XX SCH (09:10)
[2023-01-07 09:13] LABS: ALBUMIN 2.5 G/DL (3.2-5.2); ALKALINE PHOSPHATASE 106 U/L (46-116); ALT/SGPT 51 U/L (7.0-40); AST/SGOT 35 U/L (<34); BILIRUBIN,DIRECT 1.4 MG/DL (<0.4); BILIRUBIN,TOTAL 2.9 MG/DL (0.3-1.2); BLOOD UREA NITROGEN 20 MG/DL (9-23); CALCIUM LEVEL 7.8 MG/DL (8.5-10.1); CARBON DIOXIDE LEVEL 22 MMOL/L (20-31); CHLORIDE LEVEL 98 MMOL/L (98-107); CK-MB VALUE MASS < 1.0 NG/ML (<3.6); CREATININE FOR GFR 0.97 MG/DL (0.55-1.30); GLOMERULAR FILTRATION RATE > 60.0 (>51); GLUCOSE, FASTING 115 MG/DL (60-100); MAGNESIUM LEVEL 1.2 MG/DL (1.8-2.4); MB/CK RELATIVE INDEX 1.35 (< OR =4); POTASSIUM SERUM 3.8 MMOL/L (3.5-5.1); SODIUM LEVEL 137 MMOL/L (136-145); THYROID STIMULATING HORMONE 1.105 uIU/ML (0.55-4.78); TOTAL PROTEIN 6.9 G/DL (5.7-8.2)
[2023-01-07 09:14] LABS: AMYLASE 245 U/L (30-118)
[2023-01-07 09:14] LABS: ABG BASE EXCESS 1.3 (-2.0-2.0); ABG O2 SATURATION 97.1 % (95.0-99.0); ABG PARTIAL PRESSURE O2 89.7 mmHg (75.0-100.0); ABG STANDARD HCO3 25.6 MMOL/L. (22.0-26.0); ABG TOTAL CO2 23.9 MMOL/L (22.0-29.0); ABG pH (ARTERIAL) 7.549 UNITS (7.350-7.450)
[2023-01-07 09:21] LABS: INR 1.77
[2023-01-07 09:26] LABS: PROCALCITONIN 0.45 ng/ml
[2023-01-07] MEDS ORDERED: ISOVUE-370 76% 100ML VIAL As Ordered ONE ×2 (09:32→09:48)
[2023-01-07 10:14] LABS: CK-MB VALUE MASS < 1.0 NG/ML (<3.6)
[2023-01-07 10:15] LABS: CPK CREATINE PHOSPHOKINASE 66 U/L (34-145); MB/CK RELATIVE INDEX 1.51 (< OR =4)
[2023-01-07] MEDS ORDERED: ONDANSETRON 4MG 2ML VIAL IV PRN (11:20)
[2023-01-07] MEDS ORDERED: NS 1,000 ML IV SCH (11:20)
[2023-01-07] MEDS ORDERED: TEMO0.0517 TOP (11:20)
[2023-01-07] MEDS ORDERED: HOME MED LIST COMPLETE! XX SCH (11:45)
[2023-01-07] MEDS: MAG SULF 1GM/100ML (MAG RUN) 1 GM in IV 1 EA IV SCH ×2 (13:36→16:17)
[2023-01-07] MEDS ORDERED: GLUCAGON INJ 1MG VIAL SC PRN (14:15)
[2023-01-07] MEDS ORDERED: DEXTROSE 50% 50ML SYRINGE IV PRN (14:15)
[2023-01-07] MEDS ORDERED: PERCOCET 5MG/325MG TAB PO PRN (14:15)
[2023-01-07] MEDS ORDERED: GLUCOSE 4GM CHEW TABLET PO PRN (14:15)
[2023-01-07 15:45] VITALS: BP 143/67; TEMP 99; O2SAT 94
[2023-01-07 16:33] LABS: CK-MB VALUE MASS < 1.0 NG/ML (<3.6); CPK CREATINE PHOSPHOKINASE 88 U/L (34-145); MB/CK RELATIVE INDEX 1.13 (< OR =4)
[2023-01-07] MEDS: INSULIN LISPRO (NovoLOG) PER UNIT SC SCH ×2 (17:30→22:21)
[2023-01-07] MEDS: PIPERACILLIN/TAZOBACTAM SOD 4.5 GM in D5W MINI-BAG PLUS 50 ML IV SCH ×2 (17:44→22:21)
[2023-01-07] MEDS ORDERED: LR 1,000 ML IV SCH (20:15)
[2023-01-07] MEDS ORDERED: IPRATROPIUM 0.5MG/ALBUTEROL 2.5MG INH SOL UD 3ML (DUONEB) NEB PRN (20:15)
[2023-01-07] MEDS ORDERED: ACETAMINOPHEN *IV* 1,000 MG in IV 1 EA IV ONE (20:35)
[2023-01-07 20:51] VITALS: TEMP 103.5; O2SAT 90
[2023-01-07] MEDS ORDERED: ATORVASTATIN 20 MG TAB PO SCH (21:00)
[2023-01-07] MEDS: PANTOPRAZOLE 40MG VIAL IV SCH (22:21)
[2023-01-07] MEDS: LEVEMIR (INSULIN DETEMIR) 1 UNITS/0.01ML SC SCH (22:21)
[2023-01-07 22:24] VITALS: TEMP 101
[2023-01-07] MEDS: guaiFENesin ER TABLET 600 MG TAB PO SCH (22:32)
[2023-01-07] MEDS: CLOBETASOL PROP 0.05% OINT 30 GM TOP SCH (22:32)
[2023-01-07] MEDS: DOCUSATE SODIUM 100MG CAPSULE PO SCH (22:32)
[2023-01-07] MEDS: MAGNESIUM OXIDE 400MG TAB (MAG-OX) PO SCH (22:32)
[2023-01-08] MEDS ORDERED: VANCOMYCIN HCL 750 MG, VIAL MATE ADAPTER 1 EACH in D5W 250 ML IV ONE ×3
[2023-01-08] MEDS ORDERED: VANCOMYCIN HCL 1,000 MG, VIAL MATE ADAPTER 1 EACH in D5W 250 ML IV ONE ×3
[2023-01-08] MEDS ORDERED: IPRATROPIUM 0.5MG/ALBUTEROL 2.5MG INH SOL UD 3ML (DUONEB) NEB SCH (02:00)
[2023-01-08] MEDS: PIPERACILLIN/TAZOBACTAM SOD 4.5 GM in D5W MINI-BAG PLUS 50 ML IV SCH ×3 (04:36→16:00)
[2023-01-08 06:32] LABS: HEMATOCRIT 25.3 % (36.0-47.0); MEAN CORPUSCULAR HGB CONC 31.6 g/dl (32.0-36.5); MEAN CORPUSCULAR VOLUME 91.7 fl (80.0-96.0); RED BLOOD COUNT 2.76 10^6/uL (4.00-5.40); WHITE BLOOD COUNT 10.2 10^3/uL (4.0-10.0)
[2023-01-08 06:37] LABS: PLATELET COUNT, AUTOMATED 73 10^3/uL (150-450)
[2023-01-08 06:57] LABS: ALBUMIN 1.9 G/DL (3.2-5.2); ALKALINE PHOSPHATASE 80 U/L (46-116); ALT/SGPT 36 U/L (7.0-40); AST/SGOT 38 U/L (<34); BILIRUBIN,TOTAL 2.3 MG/DL (0.3-1.2); BLOOD UREA NITROGEN 18 MG/DL (9-23); CALCIUM LEVEL 6.6 MG/DL (8.5-10.1); CARBON DIOXIDE LEVEL 27 MMOL/L (20-31); CHLORIDE LEVEL 103 MMOL/L (98-107); CREATININE FOR GFR 0.93 MG/DL (0.55-1.30); GLOMERULAR FILTRATION RATE > 60.0 (>51); GLUCOSE, FASTING 140 MG/DL (60-100); POTASSIUM SERUM 3.7 MMOL/L (3.5-5.1); SODIUM LEVEL 139 MMOL/L (136-145); TOTAL PROTEIN 5.5 G/DL (5.7-8.2)
[2023-01-08 07:30] LABS: EOSINOPHILS 1 % (0-3); LYMPHOCYTES 7 % (16-44); MONOCYTES 4 % (0-5); NEUTROPHILS 86 % (28-66); PLATELET ESTIMATE DECREASED (NORMAL); POLYCHROMASIA 1+
[2023-01-08] MEDS ORDERED: LEVALBUTEROL 1.25MG 0.5ML CONCENTRATE NEB NEB ONE (07:30)
[2023-01-08] MEDS: INSULIN LISPRO (NovoLOG) PER UNIT SC SCH ×4 (07:30→22:25)
[2023-01-08 07:31] LABS: ANISOCYTOSIS 2+; POIKILOCYTOSIS 1+
[2023-01-08 07:35] LABS: ABG BASE EXCESS 1.1 (-2.0-2.0); ABG HCO3 23.8 MMOL/L (22.0-26.0); ABG O2 SATURATION 95.6 % (95.0-99.0); ABG PARTIAL PRESSURE CO2 30.5 mmHg (35.0-45.0); ABG PARTIAL PRESSURE O2 77.4 mmHg (75.0-100.0); ABG STANDARD HCO3 25.4 MMOL/L. (22.0-26.0); ABG TOTAL CO2 24.7 MMOL/L (22.0-29.0)
[2023-01-08] MEDS: IPRATROPIUM 0.02% SOLN 0.5MG 2.5ML NEB INH SCH ×4 (08:00→23:59)
[2023-01-08] MEDS: LEVALBUTEROL 1.25MG 0.5ML CONCENTRATE NEB INH SCH ×3 (08:00→20:57)
[2023-01-08] MEDS: guaiFENesin ER TABLET 600 MG TAB PO SCH ×2 (09:00→21:00)
[2023-01-08] MEDS ORDERED: LORATADINE 10 MG TAB PO SCH (09:00)
[2023-01-08] MEDS ORDERED: MULTIVITAMINS/MINERALS THERAP 1 TAB PO SCH (09:00)
[2023-01-08] MEDS ORDERED: POTASSIUM CHLORIDE 10MEQ SR TABLET PO SCH (09:00)
[2023-01-08] MEDS ORDERED: VITAMIN D 1,000 INTERNATIONAL UNITS TABLET PO SCH (09:00)
[2023-01-08] MEDS ORDERED: VANCOMYCIN HCL 1,000 MG, VIAL MATE ADAPTER 1 EACH in D5W 250 ML IV SCH (09:00)
[2023-01-08] MEDS: DOCUSATE SODIUM 100MG CAPSULE PO SCH ×2 (09:00→21:00)
[2023-01-08] MEDS ORDERED: ASCORBIC ACID 500 MG TAB PO SCH (09:00)
[2023-01-08] MEDS: MAGNESIUM OXIDE 400MG TAB (MAG-OX) PO SCH (09:00)
[2023-01-08] MEDS ORDERED: amLODIPine 5 MG TAB PO SCH (09:00)
[2023-01-08 09:15] LABS: PROCALCITONIN 1.16 ng/ml
[2023-01-08] MEDS: PANTOPRAZOLE 40MG VIAL IV SCH ×2 (10:13→22:19)
[2023-01-08] MEDS: CLOBETASOL PROP 0.05% OINT 30 GM TOP SCH ×2 (10:22→22:25)
[2023-01-08] MEDS: D5W/0.45% SODIUM CHLORIDE 1,000 ML IV SCH (14:00)
[2023-01-08] MEDS ORDERED: LACTULOSE 20GM/30ML SYRUP UDC PR ONE (15:00)
[2023-01-08] MEDS ORDERED: cefTRIAXone SOD 2GM VIAL IM SCH ×2 (19:05→21:00)
[2023-01-08 20:45] VITALS: BP 124/74; TEMP 100.4; O2SAT 95
[2023-01-08] MEDS ORDERED: LIDOCAINE 1% MDV 20ML VIAL IM ONE (21:00)
[2023-01-08] MEDS: LEVEMIR (INSULIN DETEMIR) 1 UNITS/0.01ML SC SCH (23:43)
[2023-01-09] VITALS (14 sets, daily range): BP systolic 127–159; BP diastolic 72–89; TEMP 97.9–99.5; O2SAT 90–96
[2023-01-09] MEDS: LEVALBUTEROL 1.25MG 0.5ML CONCENTRATE NEB INH SCH ×7 (04:48→23:18)
[2023-01-09] MEDS: IPRATROPIUM 0.02% SOLN 0.5MG 2.5ML NEB INH SCH ×6 (04:48→23:18)
[2023-01-09 05:03] LABS: ABG BASE EXCESS 2.5 (-2.0-2.0); ABG HCO3 24.7 MMOL/L (22.0-26.0); ABG O2 SATURATION 99.4 % (95.0-99.0); ABG PARTIAL PRESSURE CO2 28.5 mmHg (35.0-45.0); ABG PARTIAL PRESSURE O2 213.9 mmHg (75.0-100.0); ABG STANDARD HCO3 26.7 MMOL/L. (22.0-26.0); ABG TOTAL CO2 25.5 MMOL/L (22.0-29.0); ABG pH (ARTERIAL) 7.555 UNITS (7.350-7.450)
[2023-01-09 05:50] LABS: BASO % 0.1 % (0.0-1.0); EOS % 0.3 % (0.0-3.0); HEMATOCRIT 23.3 % (36.0-47.0); HEMOGLOBIN 7.4 g/dl (12.0-15.5); LYMPH # 0.8 10^3/uL (1.5-5.0); MEAN CORPUSCULAR HEMOGLOBIN 29.2 pg (27.0-33.0); MEAN CORPUSCULAR HGB CONC 31.8 g/dl (32.0-36.5); MEAN CORPUSCULAR VOLUME 92.1 fl (80.0-96.0); MONO # 0.4 10^3/uL (0.0-0.8); MONO % 4.1 % (2.0-8.0); NEUTROPHILS # 8.5 10^3/uL (1.5-8.5); RED BLOOD COUNT 2.53 10^6/uL (4.00-5.40); WHITE BLOOD COUNT 9.8 10^3/uL (4.0-10.0)
[2023-01-09] MEDS: D5W/0.45% SODIUM CHLORIDE 1,000 ML IV SCH (05:59)
[2023-01-09 06:02] LABS: PLATELET COUNT, AUTOMATED 66 10^3/uL (150-450)
[2023-01-09 06:09] LABS: ALBUMIN 1.7 G/DL (3.2-5.2); ALKALINE PHOSPHATASE 83 U/L (46-116); ALT/SGPT 35 U/L (7.0-40); AST/SGOT 48 U/L (<34); BILIRUBIN,TOTAL 2.2 MG/DL (0.3-1.2); BLOOD UREA NITROGEN 17 MG/DL (9-23); CALCIUM LEVEL 6.6 MG/DL (8.5-10.1); CARBON DIOXIDE LEVEL 26 MMOL/L (20-31); CHLORIDE LEVEL 105 MMOL/L (98-107); CREATININE FOR GFR 0.97 MG/DL (0.55-1.30); GLOMERULAR FILTRATION RATE > 60.0 (>51); GLUCOSE, FASTING 87 MG/DL (60-100); POTASSIUM SERUM 3.3 MMOL/L (3.5-5.1); SODIUM LEVEL 140 MMOL/L (136-145); TOTAL PROTEIN 5.3 G/DL (5.7-8.2)
[2023-01-09] MEDS ORDERED: NS 1,000 ML IV ONE (07:15)
[2023-01-09] MEDS: DOCUSATE SODIUM 100MG CAPSULE PO SCH ×2 (08:17→21:57)
[2023-01-09] MEDS: guaiFENesin ER TABLET 600 MG TAB PO SCH ×2 (08:18→21:57)
[2023-01-09] MEDS: FERROUS SULFATE 325MG TAB PO SCH (08:18)
[2023-01-09] MEDS: PANTOPRAZOLE 40MG VIAL IV SCH ×2 (08:34→21:55)
[2023-01-09] MEDS ORDERED: LACTULOSE 20GM/30ML SYRUP UDC PR SCH (09:00)
[2023-01-09] MEDS ORDERED: cefTRIAXone SOD 2GM VIAL IM ONE ×2 (09:00→11:00)
[2023-01-09 09:42] LABS: HEMATOCRIT 22.4 % (36.0-47.0); HEMOGLOBIN 7.2 g/dl (12.0-15.5)
[2023-01-09] MEDS ORDERED: LIDOCAINE 1% SDV 5ML VIAL DILUENT ONE (11:00)
[2023-01-09 13:34] LABS: HEMATOCRIT 24.5 % (36.0-47.0); HEMOGLOBIN 7.8 g/dl (12.0-15.5)
[2023-01-09] MEDS: PIPERACILLIN/TAZOBACTAM SOD 4.5 GM in D5W MINI-BAG PLUS 50 ML IV SCH ×2 (16:46→21:56)
[2023-01-09] MEDS: VANCOMYCIN HCL 1,000 MG, VIAL MATE ADAPTER 1 EACH in D5W 250 ML IV SCH (17:35)
[2023-01-09] MEDS ORDERED: POTASSIUM CHLORIDE 10MEQ SR TABLET PO ONE (17:55)
[2023-01-09 18:49] LABS: HEMATOCRIT 24.2 % (36.0-47.0); HEMOGLOBIN 7.6 g/dl (12.0-15.5)
[2023-01-09] MEDS: LEVEMIR (INSULIN DETEMIR) 1 UNITS/0.01ML SC SCH (21:55)
[2023-01-10 00:09] VITALS: BP 157/83; TEMP 98.8; O2SAT 91
[2023-01-10] MEDS: D5W/0.45% SODIUM CHLORIDE 1,000 ML IV SCH (00:30)
[2023-01-10 01:57] LABS: HEMATOCRIT 27.5 % (36.0-47.0); HEMOGLOBIN 9.2 g/dl (12.0-15.5)
[2023-01-10] MEDS: LEVALBUTEROL 1.25MG 0.5ML CONCENTRATE NEB INH SCH ×5 (02:55→20:01)
[2023-01-10] MEDS: IPRATROPIUM 0.02% SOLN 0.5MG 2.5ML NEB INH SCH ×5 (02:55→20:01)
[2023-01-10] MEDS: VANCOMYCIN HCL 1,000 MG, VIAL MATE ADAPTER 1 EACH in D5W 250 ML IV SCH ×2 (05:10→17:28)
[2023-01-10] MEDS: PIPERACILLIN/TAZOBACTAM SOD 4.5 GM in D5W MINI-BAG PLUS 50 ML IV SCH ×4 (05:10→21:30)
[2023-01-10 06:11] LABS: BASO % 0.1 % (0.0-1.0); EOS % 0.3 % (0.0-3.0); HEMATOCRIT 29.3 % (36.0-47.0); HEMOGLOBIN 9.4 g/dl (12.0-15.5); LYMPH # 0.9 10^3/uL (1.5-5.0); LYMPH % 6.6 % (24.0-44.0); MEAN CORPUSCULAR HEMOGLOBIN 28.7 pg (27.0-33.0); MEAN CORPUSCULAR HGB CONC 32.1 g/dl (32.0-36.5); MEAN CORPUSCULAR VOLUME 89.6 fl (80.0-96.0); MONO # 0.5 10^3/uL (0.0-0.8); MONO % 3.2 % (2.0-8.0); NEUTROPHILS # 12.6 10^3/uL (1.5-8.5); RED BLOOD COUNT 3.27 10^6/uL (4.00-5.40); WHITE BLOOD COUNT 14.2 10^3/uL (4.0-10.0)
[2023-01-10 06:15] VITALS: BP 159/81; TEMP 98.8; O2SAT 92
[2023-01-10 06:16] LABS: PLATELET COUNT, AUTOMATED 83 10^3/uL (150-450)
[2023-01-10 06:48] LABS: ALBUMIN 1.8 G/DL (3.2-5.2); ALKALINE PHOSPHATASE 101 U/L (46-116); ALT/SGPT 39 U/L (7.0-40); AST/SGOT 51 U/L (<34); BILIRUBIN,TOTAL 4.8 MG/DL (0.3-1.2); BLOOD UREA NITROGEN 18 MG/DL (9-23); CALCIUM LEVEL 6.6 MG/DL (8.5-10.1); CARBON DIOXIDE LEVEL 24 MMOL/L (20-31); CHLORIDE LEVEL 102 MMOL/L (98-107); CREATININE FOR GFR 0.94 MG/DL (0.55-1.30); GLOMERULAR FILTRATION RATE > 60.0 (>51); GLUCOSE, FASTING 183 MG/DL (60-100); POTASSIUM SERUM 3.4 MMOL/L (3.5-5.1); SODIUM LEVEL 135 MMOL/L (136-145); TOTAL PROTEIN 5.8 G/DL (5.7-8.2)
[2023-01-10] MEDS ORDERED: POTASSIUM CHLORIDE 10MEQ SR TABLET PO SCH (09:00)
[2023-01-10] MEDS ORDERED: LACTULOSE 20GM/30ML SYRUP UDC PO SCH (09:00)
[2023-01-10 09:25] VITALS: BP 140/62; TEMP 98.1; O2SAT 91
[2023-01-10] MEDS: DOCUSATE SODIUM 100MG CAPSULE PO SCH ×2 (10:19→21:31)
[2023-01-10] MEDS: guaiFENesin ER TABLET 600 MG TAB PO SCH ×2 (10:19→21:31)
[2023-01-10] MEDS: PANTOPRAZOLE 40MG VIAL IV SCH ×2 (10:23→21:30)
[2023-01-10] MEDS ORDERED: LIDOCAINE 1% MDV 20ML VIAL As Ordered ONE (11:41)
[2023-01-10 12:07] LABS: HEPATITIS B CORE ANTIBODY IGM NEGATIVE (NEGATIVE); HEPATITIS C VIRUS ABY INDEX 0.11 INDEX (<0.8)
[2023-01-10 14:00] VITALS: BP 156/79; TEMP 98.6; O2SAT 94
[2023-01-10] MEDS: LACTULOSE 20GM/30ML SYRUP UDC PO SCH ×3 (14:29→15:38)
[2023-01-10 15:13] LABS: INR 1.85; PROTHROMBIN TIME 20.7 SECONDS (12.5-14.5)
[2023-01-10 16:33] VITALS: BP 149/83
[2023-01-10] MEDS: SODIUM CHLORIDE 0.9% INJ 10 ML SYR IV SCH (18:46)
[2023-01-10 20:55] VITALS: BP 150/83; TEMP 97.3; O2SAT 90
[2023-01-10] MEDS: LEVEMIR (INSULIN DETEMIR) 1 UNITS/0.01ML SC SCH (21:30)
[2023-01-11] MEDS: IPRATROPIUM 0.02% SOLN 0.5MG 2.5ML NEB INH SCH ×7 (00:09→23:33)
[2023-01-11] MEDS: LEVALBUTEROL 1.25MG 0.5ML CONCENTRATE NEB INH SCH ×7 (00:09→23:33)
[2023-01-11] MEDS: PIPERACILLIN/TAZOBACTAM SOD 4.5 GM in D5W MINI-BAG PLUS 50 ML IV SCH (03:52)
[2023-01-11] MEDS: VANCOMYCIN HCL 1,000 MG, VIAL MATE ADAPTER 1 EACH in D5W 250 ML IV SCH (05:07)
[2023-01-11] MEDS: SODIUM CHLORIDE 0.9% INJ 10 ML SYR IV SCH ×2 (05:08→18:04)
[2023-01-11 05:32] LABS: BASO % 0.1 % (0.0-1.0); EOS # 0.1 10^3/uL (0.0-0.5); EOS % 0.6 % (0.0-3.0); HEMATOCRIT 25.5 % (36.0-47.0); HEMOGLOBIN 8.5 g/dl (12.0-15.5); LYMPH # 1.1 10^3/uL (1.5-5.0); LYMPH % 7.7 % (24.0-44.0); MEAN CORPUSCULAR HEMOGLOBIN 29.2 pg (27.0-33.0); MEAN CORPUSCULAR HGB CONC 33.3 g/dl (32.0-36.5); MEAN CORPUSCULAR VOLUME 87.6 fl (80.0-96.0); MONO # 0.6 10^3/uL (0.0-0.8); MONO % 4.3 % (2.0-8.0); NEUTROPHILS # 12.1 10^3/uL (1.5-8.5); NEUTROPHILS % 86.4 % (36.0-66.0); RED BLOOD COUNT 2.91 10^6/uL (4.00-5.40)
[2023-01-11 05:34] LABS: PLATELET COUNT, AUTOMATED 72 10^3/uL (150-450)
[2023-01-11 06:03] LABS: ALBUMIN 1.5 G/DL (3.2-5.2); ALKALINE PHOSPHATASE 120 U/L (46-116); ALT/SGPT 37 U/L (7.0-40); AST/SGOT 59 U/L (<34); BILIRUBIN,TOTAL 4.5 MG/DL (0.3-1.2); BLOOD UREA NITROGEN 18 MG/DL (9-23); CALCIUM LEVEL 6.9 MG/DL (8.5-10.1); CARBON DIOXIDE LEVEL 24 MMOL/L (20-31); CHLORIDE LEVEL 101 MMOL/L (98-107); CREATININE FOR GFR 0.91 MG/DL (0.55-1.30); GLOMERULAR FILTRATION RATE > 60.0 (>51); GLUCOSE, FASTING 112 MG/DL (60-100); POTASSIUM SERUM 3.3 MMOL/L (3.5-5.1); SODIUM LEVEL 134 MMOL/L (136-145); TOTAL PROTEIN 5.4 G/DL (5.7-8.2)
[2023-01-11 06:35] VITALS: BP 145/83; TEMP 99; O2SAT 92
[2023-01-11] MEDS ORDERED: ZYVO1TAB PO (07:30)
[2023-01-11] MEDS ORDERED: POTA-298 PO (07:33)
[2023-01-11] MEDS ORDERED: LACT10SO3 PO (07:33)
[2023-01-11] MEDS ORDERED: SENO8.6T10 PO (07:33)
[2023-01-11] MEDS ORDERED: LEVO1TAB40 PO (07:33)
[2023-01-11] MEDS ORDERED: BACI1CAP PO (07:33)
[2023-01-11] MEDS ORDERED: FERR325T3 PO (07:33)
[2023-01-11 07:58] VITALS: BP 139/82; TEMP 99; O2SAT 93
[2023-01-11] MEDS: LevoFLOXacin 750 MG TABLET PO SCH (08:54)
[2023-01-11] MEDS: guaiFENesin ER TABLET 600 MG TAB PO SCH ×2 (08:55→20:58)
[2023-01-11] MEDS: DOCUSATE SODIUM 100MG CAPSULE PO SCH ×2 (08:58→20:58)
[2023-01-11] MEDS: POTASSIUM CHLORIDE 10MEQ SR TABLET PO SCH ×2 (09:03→20:59)
[2023-01-11] MEDS: PANTOPRAZOLE 40MG VIAL IV SCH ×2 (09:31→20:58)
[2023-01-11] MEDS: LACTULOSE 20GM/30ML SYRUP UDC PO SCH ×3 (10:00→10:59)
[2023-01-11] MEDS: FERROUS SULFATE 325MG TAB PO SCH (10:56)
[2023-01-11] MEDS ORDERED: LACTULOSE 20GM/30ML SYRUP UDC PO ONE (15:00)
[2023-01-11 16:09] LABS: BODY FLUID CULTURE Not indicated. (.); LEGIONELLA ANTIGEN URINE Negative (Negative); ORGANISM ID Not indicated. (.); SPECIMEN SOURCE Urine (.); URINE STREP PNEUMONIAE ANTIGEN Negative (Negative)
[2023-01-11] MEDS: LEVEMIR (INSULIN DETEMIR) 1 UNITS/0.01ML SC SCH (20:58)
[2023-01-11] MEDS: LINEZOLID 600MG TABLET (ZYVOX) PO SCH (20:58)
[2023-01-11 22:00] VITALS: BP 144/81; TEMP 98.6; O2SAT 92
[2023-01-12] MEDS: IPRATROPIUM 0.02% SOLN 0.5MG 2.5ML NEB INH SCH ×2 (03:32→07:39)
[2023-01-12] MEDS: LEVALBUTEROL 1.25MG 0.5ML CONCENTRATE NEB INH SCH ×2 (03:32→07:39)
[2023-01-12 06:00] VITALS: BP 142/80; TEMP 97.7; O2SAT 90
[2023-01-12] MEDS: SODIUM CHLORIDE 0.9% INJ 10 ML SYR IV SCH ×2 (06:10→17:16)
[2023-01-12] MEDS: LevoFLOXacin 750 MG TABLET PO SCH (06:10)
[2023-01-12 07:02] LABS: BASO % 0.2 % (0.0-1.0); EOS # 0.1 10^3/uL (0.0-0.5); EOS % 0.8 % (0.0-3.0); HEMATOCRIT 24.9 % (36.0-47.0); HEMOGLOBIN 8.1 g/dl (12.0-15.5); LYMPH # 0.8 10^3/uL (1.5-5.0); LYMPH % 7.4 % (24.0-44.0); MEAN CORPUSCULAR HEMOGLOBIN 28.7 pg (27.0-33.0); MEAN CORPUSCULAR HGB CONC 32.5 g/dl (32.0-36.5); MEAN CORPUSCULAR VOLUME 88.3 fl (80.0-96.0); MONO # 0.6 10^3/uL (0.0-0.8); MONO % 4.9 % (2.0-8.0); NEUTROPHILS # 9.6 10^3/uL (1.5-8.5); NEUTROPHILS % 85.3 % (36.0-66.0); RED BLOOD COUNT 2.82 10^6/uL (4.00-5.40); WHITE BLOOD COUNT 11.2 10^3/uL (4.0-10.0)
[2023-01-12 07:06] LABS: PLATELET COUNT, AUTOMATED 65 10^3/uL (150-450)
[2023-01-12 07:30] LABS: ALBUMIN 1.4 G/DL (3.2-5.2); ALKALINE PHOSPHATASE 129 U/L (46-116); ALT/SGPT 34 U/L (7.0-40); AST/SGOT 66 U/L (<34); BILIRUBIN,TOTAL 4.2 MG/DL (0.3-1.2); BLOOD UREA NITROGEN 21 MG/DL (9-23); CALCIUM LEVEL 7.6 MG/DL (8.5-10.1); CARBON DIOXIDE LEVEL 22 MMOL/L (20-31); CHLORIDE LEVEL 102 MMOL/L (98-107); CREATININE FOR GFR 0.83 MG/DL (0.55-1.30); GLOMERULAR FILTRATION RATE > 60.0 (>51); GLUCOSE, FASTING 101 MG/DL (60-100); POTASSIUM SERUM 3.7 MMOL/L (3.5-5.1); SODIUM LEVEL 132 MMOL/L (136-145); TOTAL PROTEIN 5.4 G/DL (5.7-8.2)
[2023-01-12] MEDS: LINEZOLID 600MG TABLET (ZYVOX) PO SCH ×2 (09:16→20:41)
[2023-01-12] MEDS: guaiFENesin ER TABLET 600 MG TAB PO SCH ×2 (09:17→20:40)
[2023-01-12] MEDS: DOCUSATE SODIUM 100MG CAPSULE PO SCH ×2 (09:17→20:41)
[2023-01-12] MEDS: POTASSIUM CHLORIDE 10MEQ SR TABLET PO SCH ×2 (09:18→20:41)
[2023-01-12] MEDS: PANTOPRAZOLE 40MG VIAL IV SCH ×2 (09:18→20:41)
[2023-01-12] MEDS ORDERED: LEVALBUTEROL 1.25MG 0.5ML CONCENTRATE NEB INH PRN (10:30)
[2023-01-12] MEDS ORDERED: DIGOXIN 0.25 MG TAB PO ONE (12:00)
[2023-01-12 14:00] VITALS: BP 135/72; TEMP 97.9; O2SAT 91
[2023-01-12] MEDS: LEVEMIR (INSULIN DETEMIR) 1 UNITS/0.01ML SC SCH (20:41)
[2023-01-12 21:40] VITALS: BP 134/76; TEMP 98.6; O2SAT 90
[2023-01-13] MEDS: LevoFLOXacin 750 MG TABLET PO SCH (05:07)
[2023-01-13] MEDS: SODIUM CHLORIDE 0.9% INJ 10 ML SYR IV SCH ×2 (05:11→18:30)
[2023-01-13 05:35] LABS: BASO % 0.2 % (0.0-1.0); EOS # 0.1 10^3/uL (0.0-0.5); EOS % 0.8 % (0.0-3.0); HEMOGLOBIN 8.3 g/dl (12.0-15.5); LYMPH # 1.1 10^3/uL (1.5-5.0); MEAN CORPUSCULAR HGB CONC 31.9 g/dl (32.0-36.5); MEAN CORPUSCULAR VOLUME 90.9 fl (80.0-96.0); MONO # 0.5 10^3/uL (0.0-0.8); NEUTROPHILS # 11.2 10^3/uL (1.5-8.5); NEUTROPHILS % 85.6 % (36.0-66.0); RED BLOOD COUNT 2.86 10^6/uL (4.00-5.40); WHITE BLOOD COUNT 13.1 10^3/uL (4.0-10.0)
[2023-01-13 05:41] LABS: PLATELET COUNT, AUTOMATED 73 10^3/uL (150-450)
[2023-01-13 05:47] VITALS: BP 130/70; TEMP 97.9; O2SAT 93
[2023-01-13 06:09] LABS: ALBUMIN 1.4 G/DL (3.2-5.2); ALKALINE PHOSPHATASE 165 U/L (46-116); ALT/SGPT 40 U/L (7.0-40); AST/SGOT 82 U/L (<34); BILIRUBIN,TOTAL 3.7 MG/DL (0.3-1.2); BLOOD UREA NITROGEN 23 MG/DL (9-23); CALCIUM LEVEL 7.9 MG/DL (8.5-10.1); CARBON DIOXIDE LEVEL 22 MMOL/L (20-31); CHLORIDE LEVEL 106 MMOL/L (98-107); GLOMERULAR FILTRATION RATE > 60.0 (>51); GLUCOSE, FASTING 138 MG/DL (60-100); POTASSIUM SERUM 4.2 MMOL/L (3.5-5.1); SODIUM LEVEL 136 MMOL/L (136-145); TOTAL PROTEIN 5.8 G/DL (5.7-8.2)
[2023-01-13] MEDS: POTASSIUM CHLORIDE 10MEQ SR TABLET PO SCH ×2 (08:02→21:28)
[2023-01-13] MEDS: PANTOPRAZOLE 40MG VIAL IV SCH ×2 (08:02→21:29)
[2023-01-13] MEDS: DOCUSATE SODIUM 100MG CAPSULE PO SCH ×2 (08:03→21:28)
[2023-01-13] MEDS: guaiFENesin ER TABLET 600 MG TAB PO SCH ×2 (08:03→21:28)
[2023-01-13] MEDS: LINEZOLID 600MG TABLET (ZYVOX) PO SCH ×2 (08:03→21:28)
[2023-01-13] MEDS ORDERED: FUROSEMIDE 40MG/4ML VIAL IV ONE (09:25)
[2023-01-13 09:36] LABS: ERYTHROCYTE SEDIMENTATION RATE 63 mm/hr (0-30)
[2023-01-13 09:52] LABS: PROCALCITONIN 0.51 ng/ml
[2023-01-13] MEDS: LACTULOSE 20GM/30ML SYRUP UDC PO SCH ×2 (10:43→11:40)
[2023-01-13] MEDS: MIDODRINE 5 MG TAB PO SCH ×2 (11:27→16:00)
[2023-01-13] MEDS: LIDOCAINE 5% (LIDODERM) PATCH TD SCH ×2 (11:45)
[2023-01-13] MEDS ORDERED: KETOROLAC 30 MG/ML 1ML VIAL IV ONE (12:00)
[2023-01-13 14:00] VITALS: BP 120/67; TEMP 97.2; O2SAT 94
[2023-01-13 16:00] VITALS: BP 133/69
[2023-01-13] MEDS: INSULIN LISPRO (NovoLOG) PER UNIT SC SCH (21:00)
[2023-01-13 21:13] VITALS: BP 118/61; TEMP 97.5; O2SAT 96
[2023-01-13] MEDS: LEVEMIR (INSULIN DETEMIR) 1 UNITS/0.01ML SC SCH (21:29)
[2023-01-14] MEDS: SODIUM CHLORIDE 0.9% INJ 10 ML SYR IV SCH ×2 (05:02→17:00)
[2023-01-14] MEDS: LevoFLOXacin 750 MG TABLET PO SCH (05:02)
[2023-01-14 05:31] LABS: BASO % 0.1 % (0.0-1.0); EOS # 0.1 10^3/uL (0.0-0.5); HEMATOCRIT 26.8 % (36.0-47.0); HEMOGLOBIN 8.6 g/dl (12.0-15.5); LYMPH # 1.1 10^3/uL (1.5-5.0); LYMPH % 11.2 % (24.0-44.0); MEAN CORPUSCULAR HEMOGLOBIN 29.5 pg (27.0-33.0); MEAN CORPUSCULAR HGB CONC 32.1 g/dl (32.0-36.5); MEAN CORPUSCULAR VOLUME 91.8 fl (80.0-96.0); MONO # 0.4 10^3/uL (0.0-0.8); MONO % 3.7 % (2.0-8.0); NEUTROPHILS # 8.1 10^3/uL (1.5-8.5); RED BLOOD COUNT 2.92 10^6/uL (4.00-5.40); WHITE BLOOD COUNT 9.7 10^3/uL (4.0-10.0)
[2023-01-14 05:32] LABS: PLATELET COUNT, AUTOMATED 71 10^3/uL (150-450)
[2023-01-14 05:45] LABS: ERYTHROCYTE SEDIMENTATION RATE 83 mm/hr (0-30)
[2023-01-14 05:54] LABS: ALBUMIN 1.4 G/DL (3.2-5.2); ALKALINE PHOSPHATASE 166 U/L (46-116); ALT/SGPT 39 U/L (7.0-40); AST/SGOT 76 U/L (<34); BILIRUBIN,TOTAL 3.5 MG/DL (0.3-1.2); BLOOD UREA NITROGEN 24 MG/DL (9-23); CALCIUM LEVEL 8.2 MG/DL (8.5-10.1); CARBON DIOXIDE LEVEL 21 MMOL/L (20-31); CHLORIDE LEVEL 107 MMOL/L (98-107); CREATININE FOR GFR 0.91 MG/DL (0.55-1.30); GLOMERULAR FILTRATION RATE > 60.0 (>51); GLUCOSE, FASTING 53 MG/DL (60-100); POTASSIUM SERUM 4.5 MMOL/L (3.5-5.1); SODIUM LEVEL 136 MMOL/L (136-145); TOTAL PROTEIN 5.9 G/DL (5.7-8.2)
[2023-01-14 06:00] VITALS: BP 123/64; TEMP 97.9; O2SAT 92
[2023-01-14 06:06] LABS: PROCALCITONIN 0.48 ng/ml
[2023-01-14] MEDS: MIDODRINE 5 MG TAB PO SCH ×3 (08:57→17:04)
[2023-01-14] MEDS: PANTOPRAZOLE 40MG VIAL IV SCH ×2 (08:57→20:30)
[2023-01-14] MEDS: DOCUSATE SODIUM 100MG CAPSULE PO SCH ×2 (08:58→20:32)
[2023-01-14] MEDS: FERROUS SULFATE 325MG TAB PO SCH (08:58)
[2023-01-14] MEDS: guaiFENesin ER TABLET 600 MG TAB PO SCH ×2 (08:58→20:31)
[2023-01-14] MEDS: POTASSIUM CHLORIDE 10MEQ SR TABLET PO SCH ×2 (08:58→20:31)
[2023-01-14] MEDS: LINEZOLID 600MG TABLET (ZYVOX) PO SCH ×2 (08:59→20:31)
[2023-01-14] MEDS: LIDOCAINE 5% (LIDODERM) PATCH TD SCH ×2 (09:00)
[2023-01-14] MEDS ORDERED: LACTULOSE 20GM/30ML SYRUP UDC PO SCH (09:00)
[2023-01-14 14:00] VITALS: BP 123/82; TEMP 97; O2SAT 94
[2023-01-14 16:30] VITALS: BP 126/61
[2023-01-14] MEDS: LEVEMIR (INSULIN DETEMIR) 1 UNITS/0.01ML SC SCH (20:31)
[2023-01-14] MEDS: INSULIN LISPRO (NovoLOG) PER UNIT SC SCH (21:00)
[2023-01-14 21:40] VITALS: BP 141/70; TEMP 97.2; O2SAT 91
[2023-01-15] MEDS: LevoFLOXacin 750 MG TABLET PO SCH (05:10)
[2023-01-15] MEDS ORDERED: SODIUM CHLORIDE 0.9% INJ 10 ML SYR IV PRN (05:10)
[2023-01-15] MEDS: SODIUM CHLORIDE 0.9% INJ 10 ML SYR IV SCH ×2 (05:13→16:16)
[2023-01-15 05:58] VITALS: BP 122/58; TEMP 96.6; O2SAT 89
[2023-01-15 08:00] VITALS: BP 116/65; TEMP 97.2; O2SAT 90
[2023-01-15] MEDS: LIDOCAINE 5% (LIDODERM) PATCH TD SCH ×2 (09:00→09:36)
[2023-01-15] MEDS: POTASSIUM CHLORIDE 10MEQ SR TABLET PO SCH ×2 (09:00→20:43)
[2023-01-15] MEDS: LINEZOLID 600MG TABLET (ZYVOX) PO SCH ×2 (09:28→20:43)
[2023-01-15] MEDS: guaiFENesin ER TABLET 600 MG TAB PO SCH ×2 (09:29→20:43)
[2023-01-15] MEDS: DOCUSATE SODIUM 100MG CAPSULE PO SCH ×2 (09:31→20:43)
[2023-01-15] MEDS: MIDODRINE 5 MG TAB PO SCH ×3 (09:32→16:16)
[2023-01-15] MEDS: CLOBETASOL PROP 0.05% OINT 30 GM TOP SCH ×2 (09:34→20:42)
[2023-01-15] MEDS: PANTOPRAZOLE 40MG VIAL IV SCH ×2 (10:39→20:42)
[2023-01-15 12:55] VITALS: BP 143/72
[2023-01-15 14:00] VITALS: BP 119/57; TEMP 97.7; O2SAT 94
[2023-01-15 20:07] VITALS: BP 142/66; TEMP 97.5; O2SAT 92
[2023-01-15] MEDS: INSULIN LISPRO (NovoLOG) PER UNIT SC SCH (20:26)
[2023-01-15] MEDS: LEVEMIR (INSULIN DETEMIR) 1 UNITS/0.01ML SC SCH (20:42)
[2023-01-16 05:00] VITALS: BP 145/68; TEMP 97.2; O2SAT 91
[2023-01-16] MEDS: LevoFLOXacin 750 MG TABLET PO SCH (05:33)
[2023-01-16] MEDS: SODIUM CHLORIDE 0.9% INJ 10 ML SYR IV SCH (05:33)
[2023-01-16] MEDS: MIDODRINE 5 MG TAB PO SCH ×2 (08:00→13:19)
[2023-01-16] MEDS: LIDOCAINE 5% (LIDODERM) PATCH TD SCH ×2 (09:00→09:04)
[2023-01-16] MEDS: PANTOPRAZOLE 40MG VIAL IV SCH (09:04)
[2023-01-16] MEDS: LINEZOLID 600MG TABLET (ZYVOX) PO SCH (09:05)
[2023-01-16] MEDS: DOCUSATE SODIUM 100MG CAPSULE PO SCH (09:05)
[2023-01-16] MEDS: guaiFENesin ER TABLET 600 MG TAB PO SCH (09:05)
[2023-01-16] MEDS: POTASSIUM CHLORIDE 10MEQ SR TABLET PO SCH (09:05)
[2023-01-16] MEDS: CLOBETASOL PROP 0.05% OINT 30 GM TOP SCH (09:05)
[2023-01-16] MEDS: FERROUS SULFATE 325MG TAB PO SCH (09:12)
[2023-01-16 10:16] LABS: HEMATOCRIT 26.7 % (36.0-47.0); HEMOGLOBIN 8.3 g/dl (12.0-15.5)
[2023-01-16] MEDS ORDERED: LEVO1TAB40 PO (13:16)
[2023-01-16] MEDS ORDERED: LINE1TAB6 PO (13:19)
== END 2023-01-16 14:55 | disposition home or self-care (01) | DRG 871 ==
LOC: M ED 07:51 → M ED INP 11:15 → M MS5PR 15:30
PROVIDERS: ADMIT General Practice; ATTEND Student in an Organized Health Care Education/Training Program
PROC: 30233N1 Transfusion of Nonautologous Red Blood Cells into Peripheral Vein, Percutaneous Approach (ICD-10-PCS; principal; 2023-01-09)
PROC: 02HV33Z Insertion of Infusion Device into Superior Vena Cava, Percutaneous Approach (ICD-10-PCS; 2023-01-10)
DX: A41.9 Sepsis, unspecified organism (principal); G93.41 Metabolic encephalopathy; J15.69 Pneumonia due to other Gram-negative bacteria; J69.0 Pneumonitis due to inhalation of food and vomit; I50.33 Acute on chronic diastolic (congestive) heart failure; J96.01 Acute respiratory failure with hypoxia; N34.0 Urethral abscess; D62 Acute posthemorrhagic anemia; E87.20 Acidosis, unspecified; R18.8 Other ascites; J44.1 Chronic obstructive pulmonary disease with (acute) exacerbation; J44.0 Chronic obstructive pulmonary disease with (acute) lower respiratory infection; L88 Pyoderma gangrenosum; D61.818 Other pancytopenia; I11.0 Hypertensive heart disease with heart failure; K74.60 Unspecified cirrhosis of liver; I16.0 Hypertensive urgency; K74.3 Primary biliary cirrhosis; L40.9 Psoriasis, unspecified; E78.5 Hyperlipidemia, unspecified; L08.9 Local infection of the skin and subcutaneous tissue, unspecified; N95.0 Postmenopausal bleeding; K76.82 Hepatic encephalopathy; E11.649 Type 2 diabetes mellitus with hypoglycemia without coma; R13.10 Dysphagia, unspecified; N93.9 Abnormal uterine and vaginal bleeding, unspecified; B96.29 Other Escherichia coli [E. coli] as the cause of diseases classified elsewhere; Z79.52 Long term (current) use of systemic steroids; B95.62 Methicillin resistant Staphylococcus aureus infection as the cause of diseases classified elsewhere; Z79.899 Other long term (current) drug therapy; Z79.4 Long term (current) use of insulin; R19.7 Diarrhea, unspecified

== ENCOUNTER → 2023-01-23 | Outpatient (CLI) | payer MEDICARE ==
[~2023-01-23] MED LIST changes: +BACI1CAP PO; +BACI1CAP4 PO; +LACT10SO3 PO; +LACT20EL PO; +LINE1TAB6 PO; +RISA150S2 SQ; +SENO8.6T10 PO; +TEMO0.0517 TOP; +ZYVO1TAB PO
[2023-01-23 17:38] LABS: BLOOD UREA NITROGEN 42 MG/DL (9-23); CALCIUM LEVEL 7.9 MG/DL (8.5-10.1); CARBON DIOXIDE LEVEL 14 MMOL/L (20-31); CHLORIDE LEVEL 107 MMOL/L (98-107); CREATININE FOR GFR 0.98 MG/DL (0.55-1.30); GLOMERULAR FILTRATION RATE > 60.0 (>51); GLUCOSE, FASTING 161 MG/DL (60-100); POTASSIUM SERUM 4.6 MMOL/L (3.5-5.1); SODIUM LEVEL 138 MMOL/L (136-145)
[2023-01-23 17:55] LABS: HEMATOCRIT 28.4 % (36.0-47.0); HEMOGLOBIN 8.7 g/dl (12.0-15.5); MEAN CORPUSCULAR HEMOGLOBIN 29.8 pg (27.0-33.0); MEAN CORPUSCULAR HGB CONC 30.6 g/dl (32.0-36.5); MEAN CORPUSCULAR VOLUME 97.3 fl (80.0-96.0); RED BLOOD COUNT 2.92 10^6/uL (4.00-5.40); WHITE BLOOD COUNT 11.7 10^3/uL (4.0-10.0)
[2023-01-23 18:11] LABS: PLATELET COUNT, AUTOMATED 67 10^3/uL (150-450)
[2023-01-23 18:47] LABS: APPEARANCE, URINE CLOUDY (CLEAR); BACTERIA, URINE AUTO 1+ (NEGATIVE); BILIRUBIN, URINE AUTO NEGATIVE (NEGATIVE); BLOOD, URINE BLOOD 2+ (NEGATIVE); CALCIUM OXALATE CRYSTALS MODERATE; COLOR, URINE YELLOW (YELLOW); GLUCOSE, URINE (UA) AUTO NEGATIVE (NEGATIVE); KETONE, URINE AUTO NEGATIVE (NEGATIVE); LEUKOCYTE ESTERASE, URINE AUTO 2+ (NEGATIVE); MUCUS, URINE SMALL (NEGATIVE); NITRITE, URINE AUTO NEGATIVE (NEGATIVE); PROTEIN, URINE AUTO 1+ mg/dL (NEGATIVE); RBC, URINE AUTO 38 /HPF (0-3); SPECIFIC GRAVITY URINE AUTO 1.013 (1.002-1.035); SQUAMOUS EPITHELIAL CELL UR AU 8 /HPF (0-6); UROBILINOGEN, URINE AUTO 0.2 mg/dL (0.0-2.0); WBC, URINE AUTO 72 /HPF (0-3)
== END ==
LOC: M PLALAB 15:28
PROVIDERS: ATTEND Specialist
DX: Z01.818 Encounter for other preprocedural examination (principal); N36.2 Urethral caruncle; Z79.899 Other long term (current) drug therapy

== ENCOUNTER → 2023-01-24 | Outpatient (REF) | payer MEDICARE | LOC: M SFHCDERM 17:38 | PROVIDERS: ATTEND Dermatology | DX: L08.0 Pyoderma (principal) ==

== ENCOUNTER 2023-01-25 10:28 | Inpatient (IN) | payer MEDICARE ==
[~2023-01-25] VITALS: Ht 160 cm; Wt 92.5 kg
[~2023-01-25 10:28] MED LIST changes: -BACI1CAP4 PO; -LACT20EL PO
[2023-01-25 12:34] LABS: VENOUS BASE EXCESS -9.4 (-2.0-2.0); VENOUS HCO3 16.5 MMOL/L (23.0-27.0); VENOUS O2 SATURATION 77.5 % (60.0-80.0); VENOUS PARTIAL PRESSURE CO2 35.7 mmHg (38.0-50.0); VENOUS PARTIAL PRESSURE O2 46.9 mmHg (30.0-50.0); VENOUS PH 7.282 UNITS (7.330-7.430); VENOUS STANDARD HCO3 16.6 MMOL/L; VENOUS TOTAL CO2 17.6 MMOL/L (24.0-28.0)
[2023-01-25 13:04] LABS: BASO % 0.1 % (0.0-1.0); EOS # 0.1 10^3/uL (0.0-0.5); EOS % 0.8 % (0.0-3.0); HEMATOCRIT 26.2 % (36.0-47.0); HEMOGLOBIN 8.2 g/dl (12.0-15.5); LYMPH # 1.6 10^3/uL (1.5-5.0); LYMPH % 12.2 % (24.0-44.0); MEAN CORPUSCULAR HEMOGLOBIN 29.6 pg (27.0-33.0); MEAN CORPUSCULAR HGB CONC 31.3 g/dl (32.0-36.5); MEAN CORPUSCULAR VOLUME 94.6 fl (80.0-96.0); MONO # 0.9 10^3/uL (0.0-0.8); MONO % 6.8 % (2.0-8.0); NEUTROPHILS # 10.6 10^3/uL (1.5-8.5); NEUTROPHILS % 79.6 % (36.0-66.0); RED BLOOD COUNT 2.77 10^6/uL (4.00-5.40); WHITE BLOOD COUNT 13.3 10^3/uL (4.0-10.0)
[2023-01-25 13:09] LABS: PLATELET COUNT, AUTOMATED 50 10^3/uL (150-450)
[2023-01-25 13:13] LABS: INR 2.18; PROTHROMBIN TIME 23.5 SECONDS (12.5-14.5)
[2023-01-25 13:21] LABS: BILIRUBIN,DIRECT 1.2 MG/DL (<0.4); CALCIUM LEVEL 8.1 MG/DL (8.5-10.1); CREATININE FOR GFR 1.05 MG/DL (0.55-1.30); GLOMERULAR FILTRATION RATE 57.1 (>51); POTASSIUM SERUM 4.1 MMOL/L (3.5-5.1); TOTAL PROTEIN 6.3 G/DL (5.7-8.2)
[2023-01-25 13:22] LABS: THYROXINE (T4) 4.6 UG/DL (4.5-10.9)
[2023-01-25 13:23] LABS: THYROID STIMULATING HORMONE 5.621 uIU/ML (0.55-4.78)
[2023-01-25] MEDS ORDERED: NS 2,520 ML in IV 1 EA IV ONE (13:25)
[2023-01-25] MEDS ORDERED: cefTRIAXone SOD 2 GM in D5W MINI-BAG PLUS 50 ML IV ONE (13:45)
[2023-01-25 13:52] LABS: ABG BASE EXCESS -9.3 (-2.0-2.0); ABG HCO3 15.2 MMOL/L (22.0-26.0); ABG O2 SATURATION 95.4 % (95.0-99.0); ABG PARTIAL PRESSURE CO2 28.1 mmHg (35.0-45.0); ABG PARTIAL PRESSURE O2 87.4 mmHg (75.0-100.0); ABG STANDARD HCO3 16.8 MMOL/L. (22.0-26.0)
[2023-01-25] MEDS ORDERED: ISOVUE-370 76% 100ML VIAL As Ordered ONE (14:29)
[2023-01-25] MEDS ORDERED: SODIUM BICARBONATE 325 MG TAB PO ONE (16:30)
[2023-01-25] MEDS ORDERED: MED REC IN PROGRESS XX SCH ×2 (16:50→18:30)
[2023-01-25] MEDS ORDERED: BACI1CAP4 PO (18:10)
[2023-01-25] MEDS ORDERED: FURO40TA2 PO (18:12)
[2023-01-25] MEDS ORDERED: LACT20EL PO (18:14)
[2023-01-25] MEDS ORDERED: LINE1TAB6 PO (18:17)
[2023-01-25] MEDS ORDERED: MAGN400T2 PO (18:18)
[2023-01-25] MEDS ORDERED: PERC5TAB12 PO (18:20)
[2023-01-25 18:27] VITALS: BP 139/76; TEMP 96; O2SAT 97
[2023-01-25 18:43] VITALS: BP 140/60; TEMP 97.6; O2SAT 96
[2023-01-25 18:48] LABS: CALCIUM LEVEL 7.2 MG/DL (8.5-10.1); CREATININE FOR GFR 1.01 MG/DL (0.55-1.30); GLOMERULAR FILTRATION RATE 59.7 (>51); POTASSIUM SERUM 3.8 MMOL/L (3.5-5.1)
[2023-01-25 18:50] LABS: FERRITIN 617.5 NG/ML (7.3-270.7)
[2023-01-25] MEDS ORDERED: HOME MED LIST COMPLETE! XX SCH (19:55)
[2023-01-25] MEDS: LACTULOSE 20GM/30ML SYRUP UDC PO SCH (21:24)
[2023-01-25 21:35] VITALS: BP 140/68; TEMP 97.3; O2SAT 95
[2023-01-25] MEDS ORDERED: GLUCOSE 4GM CHEW TABLET PO PRN (23:35)
[2023-01-25] MEDS ORDERED: GLUCAGON INJ 1MG VIAL SC PRN (23:35)
[2023-01-25] MEDS ORDERED: DEXTROSE 50% 50ML SYRINGE IV PRN (23:35)
[2023-01-26] MEDS ORDERED: KETOROLAC 30 MG/ML 1ML VIAL IV ONE
[2023-01-26] MEDS: FUROSEMIDE 40MG/4ML VIAL IV SCH ×2 (01:13→09:24)
[2023-01-26] MEDS: ATORVASTATIN 20 MG TAB PO SCH ×2 (01:13→19:51)
[2023-01-26] MEDS: MAGNESIUM OXIDE 400MG TAB (MAG-OX) PO SCH ×3 (01:13→19:51)
[2023-01-26 06:00] VITALS: BP 153/69; TEMP 97.4; O2SAT 95
[2023-01-26 07:03] LABS: EOS # 0.2 10^3/uL (0.0-0.5); EOS % 2.4 % (0.0-3.0); HEMATOCRIT 24.7 % (36.0-47.0); HEMOGLOBIN 7.8 g/dl (12.0-15.5); LYMPH # 1.5 10^3/uL (1.5-5.0); MEAN CORPUSCULAR HEMOGLOBIN 29.3 pg (27.0-33.0); MEAN CORPUSCULAR HGB CONC 31.6 g/dl (32.0-36.5); MEAN CORPUSCULAR VOLUME 92.9 fl (80.0-96.0); MONO # 0.6 10^3/uL (0.0-0.8); MONO % 6.6 % (2.0-8.0); NEUTROPHILS # 6.6 10^3/uL (1.5-8.5); NEUTROPHILS % 73.8 % (36.0-66.0); RED BLOOD COUNT 2.66 10^6/uL (4.00-5.40)
[2023-01-26 07:28] LABS: CALCIUM LEVEL 7.5 MG/DL (8.5-10.1); CREATININE FOR GFR 1.07 MG/DL (0.55-1.30); GLOMERULAR FILTRATION RATE 55.9 (>51); POTASSIUM SERUM 3.2 MMOL/L (3.5-5.1)
[2023-01-26] MEDS: INSULIN LISPRO (NovoLOG) PER UNIT SC SCH ×4 (07:30→21:00)
[2023-01-26 07:51] LABS: PLATELET COUNT, AUTOMATED 33 10^3/uL (150-450)
[2023-01-26] MEDS ORDERED: SODIUM BICARBONATE 325 MG TAB PO SCH (09:00)
[2023-01-26] MEDS ORDERED: ENOXAPARIN 40MG/0.4ML SYRINGE (J1650 PER 10MG) SC SCH (09:00)
[2023-01-26] MEDS ORDERED: PANTOPRAZOLE 20 MG TAB PO SCH (09:00)
[2023-01-26] MEDS ORDERED: POTASSIUM CHLORIDE 10MEQ SR TABLET PO SCH (09:00)
[2023-01-26] MEDS: POTASSIUM CHLORIDE 10MEQ SR TABLET PO SCH ×2 (09:22→19:51)
[2023-01-26] MEDS: LACTULOSE 20GM/30ML SYRUP UDC PO SCH (09:23)
[2023-01-26] MEDS: FAMOTIDINE 40MG/5ML ORAL SUSPENSON 50ML BOTTLE PO SCH ×2 (10:00→19:52)
[2023-01-26 14:19] LABS: IONIZED CALCIUM 4.4 MG/DL (4.5-5.3)
[2023-01-26 14:23] LABS: HEMATOCRIT 26.3 % (36.0-47.0); HEMOGLOBIN 8.4 g/dl (12.0-15.5)
[2023-01-26 14:57] LABS: CALCIUM LEVEL 7.4 MG/DL (8.5-10.1); CREATININE FOR GFR 1.09 MG/DL (0.55-1.30); GLOMERULAR FILTRATION RATE 54.7 (>51); MAGNESIUM LEVEL 1.4 MG/DL (1.8-2.4); POTASSIUM SERUM 3.5 MMOL/L (3.5-5.1)
[2023-01-26 15:06] VITALS: BP 142/68; TEMP 97.7; O2SAT 99
[2023-01-26] MEDS: cefTRIAXone SOD 2 GM in D5W MINI-BAG PLUS 50 ML IV SCH (15:40)
[2023-01-26] MEDS ORDERED: POTASSIUM CHLORIDE 10MEQ SR TABLET PO ONE (15:45)
[2023-01-26] MEDS ORDERED: NS 1,000 ML IV ONE ×3 (15:50→18:55)
[2023-01-26] MEDS ORDERED: CALCIUM GLUCONATE 1,000 MG in D5W MINI-BAG PLUS 100 ML IV ONE ×2 (16:00→18:45)
[2023-01-26] MEDS ORDERED: MAG SULF 1GM/100ML (MAG RUN) 1 GM in IV 1 EA IV ONE (16:00)
[2023-01-26] MEDS: SODIUM BICARBONATE 325 MG TAB PO SCH ×2 (16:51→19:52)
[2023-01-26 17:07] LABS: IONIZED CALCIUM 4.4 MG/DL (4.5-5.3)
[2023-01-26 17:26] LABS: HEMOGLOBIN A1c 6.6 % (4.0-6.0)
[2023-01-26 18:00] VITALS: BP 139/67; TEMP 97.5; O2SAT 95
[2023-01-26] MEDS ORDERED: THIAMINE 200MG 2ML VIAL IV ONE (18:00)
[2023-01-26 18:31] VITALS: BP 136/67; TEMP 97.5; O2SAT 95
[2023-01-26] MEDS: CALCIUM/VITAMIN D 500 MG TAB PO SCH (19:52)
[2023-01-26 20:02] LABS: CALCIUM LEVEL 7.3 MG/DL (8.5-10.1); CREATININE FOR GFR 1.06 MG/DL (0.55-1.30); GLOMERULAR FILTRATION RATE 56.5 (>51); MAGNESIUM LEVEL 1.4 MG/DL (1.8-2.4); POTASSIUM SERUM 3.3 MMOL/L (3.5-5.1)
[2023-01-26 22:00] VITALS: BP 118/70; TEMP 97.3; O2SAT 94
[2023-01-27] VITALS (23 sets, daily range): BP systolic 113–146; BP diastolic 55–80; TEMP 97.2–98.1; O2SAT 92–96
[2023-01-27] MEDS: LACTULOSE 20GM/30ML SYRUP UDC PO SCH ×2 (06:13→20:26)
[2023-01-27 06:56] LABS: EOS # 0.2 10^3/uL (0.0-0.5); EOS % 2.7 % (0.0-3.0); HEMATOCRIT 22.5 % (36.0-47.0); HEMOGLOBIN 7.2 g/dl (12.0-15.5); LYMPH # 1.4 10^3/uL (1.5-5.0); LYMPH % 17.8 % (24.0-44.0); MEAN CORPUSCULAR HEMOGLOBIN 29.4 pg (27.0-33.0); MEAN CORPUSCULAR VOLUME 91.8 fl (80.0-96.0); MONO # 0.5 10^3/uL (0.0-0.8); MONO % 6.8 % (2.0-8.0); NEUTROPHILS # 5.5 10^3/uL (1.5-8.5); NEUTROPHILS % 72.4 % (36.0-66.0); RED BLOOD COUNT 2.45 10^6/uL (4.00-5.40); WHITE BLOOD COUNT 7.6 10^3/uL (4.0-10.0)
[2023-01-27 07:00] LABS: PLATELET COUNT, AUTOMATED 21 10^3/uL (150-450)
[2023-01-27 07:13] LABS: BLOOD UREA NITROGEN 34 MG/DL (9-23); CALCIUM LEVEL 7.5 MG/DL (8.5-10.1); CARBON DIOXIDE LEVEL 19 MMOL/L (20-31); CHLORIDE LEVEL 112 MMOL/L (98-107); CREATININE FOR GFR 0.97 MG/DL (0.55-1.30); GLOMERULAR FILTRATION RATE > 60.0 (>51); GLUCOSE, FASTING 86 MG/DL (60-100); POTASSIUM SERUM 3.6 MMOL/L (3.5-5.1); SODIUM LEVEL 142 MMOL/L (136-145)
[2023-01-27] MEDS ORDERED: NS 1,000 ML IV ONE (07:15)
[2023-01-27] MEDS: INSULIN LISPRO (NovoLOG) PER UNIT SC SCH ×4 (07:30→20:27)
[2023-01-27] MEDS: MAGNESIUM OXIDE 400MG TAB (MAG-OX) PO SCH ×2 (08:15→20:25)
[2023-01-27] MEDS: SODIUM BICARBONATE 325 MG TAB PO SCH ×4 (08:15→20:25)
[2023-01-27] MEDS: THIAMINE 100 MG TAB PO SCH (08:16)
[2023-01-27] MEDS: POTASSIUM CHLORIDE 10MEQ SR TABLET PO SCH ×2 (08:16→20:26)
[2023-01-27] MEDS: CALCIUM/VITAMIN D 500 MG TAB PO SCH ×3 (08:17→20:26)
[2023-01-27] MEDS: FAMOTIDINE 40MG/5ML ORAL SUSPENSON 50ML BOTTLE PO SCH ×2 (08:17→20:25)
[2023-01-27] MEDS: cefTRIAXone SOD 2 GM in D5W MINI-BAG PLUS 50 ML IV SCH (14:57)
[2023-01-27] MEDS: ATORVASTATIN 20 MG TAB PO SCH (20:26)
[2023-01-27] MEDS: NYSTATIN 100,000 UNITS/GM TOPICAL PWD 15GM TOP SCH (21:00)
[2023-01-28] VITALS (16 sets, daily range): BP systolic 14–148; BP diastolic 55–77; TEMP 96.4–98.1; O2SAT 92–96
[2023-01-28 00:14] LABS: EOS # 0.2 10^3/uL (0.0-0.5); EOS % 2.2 % (0.0-3.0); HEMATOCRIT 26.9 % (36.0-47.0); LYMPH # 1.6 10^3/uL (1.5-5.0); LYMPH % 16.7 % (24.0-44.0); MEAN CORPUSCULAR HEMOGLOBIN 30.2 pg (27.0-33.0); MEAN CORPUSCULAR HGB CONC 33.5 g/dl (32.0-36.5); MEAN CORPUSCULAR VOLUME 90.3 fl (80.0-96.0); MONO # 0.7 10^3/uL (0.0-0.8); MONO % 7.5 % (2.0-8.0); NEUTROPHILS # 6.9 10^3/uL (1.5-8.5); NEUTROPHILS % 73.2 % (36.0-66.0); RED BLOOD COUNT 2.98 10^6/uL (4.00-5.40); WHITE BLOOD COUNT 9.4 10^3/uL (4.0-10.0)
[2023-01-28 00:35] LABS: PLATELET COUNT, AUTOMATED 30 10^3/uL (150-450)
[2023-01-28 04:02] LABS: BASO % 0.1 % (0.0-1.0); EOS # 0.1 10^3/uL (0.0-0.5); EOS % 1.9 % (0.0-3.0); HEMATOCRIT 25.5 % (36.0-47.0); HEMOGLOBIN 8.5 g/dl (12.0-15.5); LYMPH # 1.2 10^3/uL (1.5-5.0); LYMPH % 16.8 % (24.0-44.0); MEAN CORPUSCULAR HEMOGLOBIN 29.7 pg (27.0-33.0); MEAN CORPUSCULAR HGB CONC 33.3 g/dl (32.0-36.5); MEAN CORPUSCULAR VOLUME 89.2 fl (80.0-96.0); MONO # 0.5 10^3/uL (0.0-0.8); MONO % 7.4 % (2.0-8.0); NEUTROPHILS # 5.3 10^3/uL (1.5-8.5); NEUTROPHILS % 73.4 % (36.0-66.0); RED BLOOD COUNT 2.86 10^6/uL (4.00-5.40); WHITE BLOOD COUNT 7.3 10^3/uL (4.0-10.0)
[2023-01-28 04:16] LABS: PLATELET COUNT, AUTOMATED 24 10^3/uL (150-450)
[2023-01-28 04:27] LABS: BLOOD UREA NITROGEN 27 MG/DL (9-23); CALCIUM LEVEL 8.2 MG/DL (8.5-10.1); CARBON DIOXIDE LEVEL 20 MMOL/L (20-31); CHLORIDE LEVEL 112 MMOL/L (98-107); CREATININE FOR GFR 0.86 MG/DL (0.55-1.30); GLOMERULAR FILTRATION RATE > 60.0 (>51); GLUCOSE, FASTING 118 MG/DL (60-100); POTASSIUM SERUM 4.3 MMOL/L (3.5-5.1); SODIUM LEVEL 142 MMOL/L (136-145)
[2023-01-28] MEDS ORDERED: FUROSEMIDE 40MG/4ML VIAL IV ONE ×2 (07:20→12:00)
[2023-01-28] MEDS ORDERED: metOLazone 5 MG TAB PO ONE (07:25)
[2023-01-28] MEDS: SODIUM BICARBONATE 325 MG TAB PO SCH ×4 (08:10→20:48)
[2023-01-28] MEDS: MAGNESIUM OXIDE 400MG TAB (MAG-OX) PO SCH ×2 (08:10→20:49)
[2023-01-28] MEDS: CALCIUM/VITAMIN D 500 MG TAB PO SCH ×3 (08:10→20:49)
[2023-01-28] MEDS: THIAMINE 100 MG TAB PO SCH (08:11)
[2023-01-28] MEDS: POTASSIUM CHLORIDE 10MEQ SR TABLET PO SCH ×2 (08:11→20:48)
[2023-01-28] MEDS: INSULIN LISPRO (NovoLOG) PER UNIT SC SCH ×4 (08:12→20:50)
[2023-01-28] MEDS: NYSTATIN 100,000 UNITS/GM TOPICAL PWD 15GM TOP SCH ×2 (08:12→20:51)
[2023-01-28] MEDS: FAMOTIDINE 40MG/5ML ORAL SUSPENSON 50ML BOTTLE PO SCH ×2 (08:12→20:49)
[2023-01-28] MEDS: LACTULOSE 20GM/30ML SYRUP UDC PO SCH ×2 (08:12→20:50)
[2023-01-28] MEDS: PHYTONADIONE 5 MG TAB PO SCH (09:39)
[2023-01-28] MEDS: cefTRIAXone SOD 2 GM in D5W MINI-BAG PLUS 50 ML IV SCH (12:26)
[2023-01-28 12:29] LABS: MEAN CORPUSCULAR HEMOGLOBIN 29.7 pg (27.0-33.0); MEAN CORPUSCULAR HGB CONC 33.3 g/dl (32.0-36.5); MEAN CORPUSCULAR VOLUME 89.1 fl (80.0-96.0); RED BLOOD COUNT 3.03 10^6/uL (4.00-5.40); WHITE BLOOD COUNT 9.6 10^3/uL (4.0-10.0)
[2023-01-28 12:30] LABS: PLATELET COUNT, AUTOMATED 37 10^3/uL (150-450)
[2023-01-28] MEDS: ATORVASTATIN 20 MG TAB PO SCH (20:49)
[2023-01-28 22:27] LABS: HEMATOCRIT 25.2 % (36.0-47.0); HEMOGLOBIN 8.5 g/dl (12.0-15.5); MEAN CORPUSCULAR HEMOGLOBIN 29.7 pg (27.0-33.0); MEAN CORPUSCULAR HGB CONC 33.7 g/dl (32.0-36.5); MEAN CORPUSCULAR VOLUME 88.1 fl (80.0-96.0); RED BLOOD COUNT 2.86 10^6/uL (4.00-5.40); WHITE BLOOD COUNT 7.4 10^3/uL (4.0-10.0)
[2023-01-28 22:30] LABS: PLATELET COUNT, AUTOMATED 24 10^3/uL (150-450)
[2023-01-28 22:39] LABS: INR 1.87; PARTIAL THROMBOPLASTIN TIME 31.7 SECONDS (24.8-34.2); PROTHROMBIN TIME 20.9 SECONDS (12.5-14.5)
[2023-01-29 05:20] VITALS: BP 138/65; TEMP 95.2; O2SAT 93
[2023-01-29 07:14] LABS: EOS # 0.2 10^3/uL (0.0-0.5); EOS % 2.7 % (0.0-3.0); HEMATOCRIT 27.7 % (36.0-47.0); HEMOGLOBIN 9.2 g/dl (12.0-15.5); LYMPH # 1.1 10^3/uL (1.5-5.0); LYMPH % 18.4 % (24.0-44.0); MEAN CORPUSCULAR HEMOGLOBIN 29.9 pg (27.0-33.0); MEAN CORPUSCULAR HGB CONC 33.2 g/dl (32.0-36.5); MEAN CORPUSCULAR VOLUME 89.9 fl (80.0-96.0); MONO # 0.6 10^3/uL (0.0-0.8); MONO % 10.8 % (2.0-8.0); NEUTROPHILS % 67.9 % (36.0-66.0); RED BLOOD COUNT 3.08 10^6/uL (4.00-5.40); WHITE BLOOD COUNT 5.9 10^3/uL (4.0-10.0)
[2023-01-29 07:15] LABS: PLATELET COUNT, AUTOMATED 22 10^3/uL (150-450)
[2023-01-29 07:24] LABS: INR 1.73; PROTHROMBIN TIME 19.6 SECONDS (12.5-14.5)
[2023-01-29] MEDS: INSULIN LISPRO (NovoLOG) PER UNIT SC SCH ×4 (07:38→21:00)
[2023-01-29] MEDS: LACTULOSE 20GM/30ML SYRUP UDC PO SCH ×2 (07:39→19:56)
[2023-01-29] MEDS: FAMOTIDINE 40MG/5ML ORAL SUSPENSON 50ML BOTTLE PO SCH ×2 (07:39→19:55)
[2023-01-29] MEDS: SODIUM BICARBONATE 325 MG TAB PO SCH ×2 (07:40→13:24)
[2023-01-29] MEDS: POTASSIUM CHLORIDE 10MEQ SR TABLET PO SCH ×2 (07:40→19:54)
[2023-01-29] MEDS: PHYTONADIONE 5 MG TAB PO SCH (07:40)
[2023-01-29] MEDS: CALCIUM/VITAMIN D 500 MG TAB PO SCH ×3 (07:40→19:55)
[2023-01-29] MEDS: NYSTATIN 100,000 UNITS/GM TOPICAL PWD 15GM TOP SCH ×2 (07:41→19:56)
[2023-01-29] MEDS: THIAMINE 100 MG TAB PO SCH (07:41)
[2023-01-29] MEDS: MAGNESIUM OXIDE 400MG TAB (MAG-OX) PO SCH ×2 (07:41→19:54)
[2023-01-29 08:00] VITALS: BP 136/65; TEMP 97.7; O2SAT 92
[2023-01-29] MEDS: FUROSEMIDE 40MG/4ML VIAL IV SCH ×2 (09:26→14:36)
[2023-01-29 10:04] LABS: ALBUMIN 2.5 G/DL (3.2-5.2); ALKALINE PHOSPHATASE 90 U/L (46-116); ALT/SGPT 24 U/L (7.0-40); AST/SGOT 31 U/L (<34); BILIRUBIN,TOTAL 1.6 MG/DL (0.3-1.2); BLOOD UREA NITROGEN 22 MG/DL (9-23); CALCIUM LEVEL 8.4 MG/DL (8.5-10.1); CARBON DIOXIDE LEVEL 23 MMOL/L (20-31); CHLORIDE LEVEL 107 MMOL/L (98-107); CREATININE FOR GFR 0.83 MG/DL (0.55-1.30); GLOMERULAR FILTRATION RATE > 60.0 (>51); GLUCOSE, FASTING 122 MG/DL (60-100); POTASSIUM SERUM 3.5 MMOL/L (3.5-5.1); SODIUM LEVEL 140 MMOL/L (136-145); TOTAL PROTEIN 5.4 G/DL (5.7-8.2)
[2023-01-29 10:16] VITALS: BP 127/70; TEMP 98; O2SAT 92
[2023-01-29] MEDS ORDERED: LIDOCAINE 1% MDV 20ML VIAL As Ordered ONE (10:57)
[2023-01-29 14:00] VITALS: BP 134/60; TEMP 97.7; O2SAT 94
[2023-01-29] MEDS: cefTRIAXone SOD 2 GM in D5W MINI-BAG PLUS 50 ML IV SCH (14:37)
[2023-01-29] MEDS: FUROSEMIDE injection 250 MG in D5W 225 ML IV SCH (18:17)
[2023-01-29] MEDS: ATORVASTATIN 20 MG TAB PO SCH (19:56)
[2023-01-29 20:00] VITALS: BP 134/61; TEMP 96.6; O2SAT 95
[2023-01-29] MEDS ORDERED: SODIUM BICARBONATE 325 MG TAB PO SCH (21:00)
[2023-01-30 05:34] VITALS: BP 129/61; TEMP 94.3; O2SAT 94
[2023-01-30 05:51] LABS: EOS # 0.2 10^3/uL (0.0-0.5); EOS % 2.6 % (0.0-3.0); HEMATOCRIT 27.1 % (36.0-47.0); HEMOGLOBIN 9.1 g/dl (12.0-15.5); LYMPH # 1.2 10^3/uL (1.5-5.0); LYMPH % 17.9 % (24.0-44.0); MEAN CORPUSCULAR HEMOGLOBIN 29.4 pg (27.0-33.0); MEAN CORPUSCULAR HGB CONC 33.6 g/dl (32.0-36.5); MEAN CORPUSCULAR VOLUME 87.4 fl (80.0-96.0); MONO % 15.1 % (2.0-8.0); NEUTROPHILS # 4.1 10^3/uL (1.5-8.5); NEUTROPHILS % 64.1 % (36.0-66.0); WHITE BLOOD COUNT 6.5 10^3/uL (4.0-10.0)
[2023-01-30 06:04] LABS: PLATELET COUNT, AUTOMATED 21 10^3/uL (150-450)
[2023-01-30 06:14] LABS: INR 1.59; PROTHROMBIN TIME 18.4 SECONDS (12.5-14.5)
[2023-01-30 06:37] LABS: BLOOD UREA NITROGEN 18 MG/DL (9-23); CARBON DIOXIDE LEVEL 32 MMOL/L (20-31); CHLORIDE LEVEL 98 MMOL/L (98-107); CREATININE FOR GFR 0.82 MG/DL (0.55-1.30); GLOMERULAR FILTRATION RATE > 60.0 (>51); GLUCOSE, FASTING 147 MG/DL (60-100); POTASSIUM SERUM 2.8 MMOL/L (3.5-5.1); SODIUM LEVEL 139 MMOL/L (136-145)
[2023-01-30] MEDS ORDERED: POTASSIUM CHLORIDE 10MEQ SR TABLET PO ONE ×2 (06:45→14:45)
[2023-01-30 07:00] LABS: MAGNESIUM LEVEL 1.3 MG/DL (1.8-2.4)
[2023-01-30] MEDS: KCL 10MEQ/100ML SWI (KRUN) 100 ML IV SCH ×4 (07:05→11:45)
[2023-01-30] MEDS: FAMOTIDINE 40MG/5ML ORAL SUSPENSON 50ML BOTTLE PO SCH ×2 (08:45→21:23)
[2023-01-30] MEDS: THIAMINE 100 MG TAB PO SCH (08:45)
[2023-01-30] MEDS: LACTULOSE 20GM/30ML SYRUP UDC PO SCH ×2 (08:45→21:23)
[2023-01-30] MEDS: CALCIUM/VITAMIN D 500 MG TAB PO SCH ×3 (08:45→21:24)
[2023-01-30] MEDS: PHYTONADIONE 5 MG TAB PO SCH (08:45)
[2023-01-30] MEDS: MAGNESIUM OXIDE 400MG TAB (MAG-OX) PO SCH ×2 (08:46→21:24)
[2023-01-30] MEDS: INSULIN LISPRO (NovoLOG) PER UNIT SC SCH ×4 (08:46→21:00)
[2023-01-30] MEDS ORDERED: POTASSIUM CHLORIDE 10MEQ SR TABLET PO SCH ×2 (09:00→21:00)
[2023-01-30] MEDS: NYSTATIN 100,000 UNITS/GM TOPICAL PWD 15GM TOP SCH ×2 (10:09→21:24)
[2023-01-30] MEDS: MAG SULF 1GM/100ML (MAG RUN) 1 GM in IV 1 EA IV SCH ×3 (13:13→16:35)
[2023-01-30 14:00] VITALS: BP 119/67; TEMP 97.9; O2SAT 97
[2023-01-30] MEDS: KCL 10MEQ/100ML SWI (KRUN) 10 MEQ in IV 1 EA IV SCH ×2 (18:28→19:57)
[2023-01-30] MEDS ORDERED: KCL 10MEQ/100ML SWI (KRUN) 10 MEQ in IV 1 EA IV SCH (20:00)
[2023-01-30 20:24] VITALS: BP 124/68; TEMP 96.8; O2SAT 90
[2023-01-30] MEDS: ATORVASTATIN 20 MG TAB PO SCH (21:24)
[2023-01-30 23:36] VITALS: BP 108/67
[2023-01-30] MEDS: FUROSEMIDE injection 250 MG in D5W 225 ML IV SCH (23:36)
[2023-01-31 02:00] VITALS: BP 123/70; TEMP 96.6; O2SAT 96
[2023-01-31 05:24] VITALS: BP 148/76; TEMP 97.9; O2SAT 98
[2023-01-31 06:16] LABS: BASO % 0.1 % (0.0-1.0); EOS # 0.3 10^3/uL (0.0-0.5); EOS % 3.3 % (0.0-3.0); HEMATOCRIT 27.5 % (36.0-47.0); HEMOGLOBIN 9.5 g/dl (12.0-15.5); LYMPH # 1.6 10^3/uL (1.5-5.0); LYMPH % 18.5 % (24.0-44.0); MEAN CORPUSCULAR HEMOGLOBIN 30.4 pg (27.0-33.0); MEAN CORPUSCULAR HGB CONC 34.5 g/dl (32.0-36.5); MEAN CORPUSCULAR VOLUME 88.1 fl (80.0-96.0); MONO # 1.4 10^3/uL (0.0-0.8); MONO % 15.4 % (2.0-8.0); NEUTROPHILS # 5.4 10^3/uL (1.5-8.5); NEUTROPHILS % 61.5 % (36.0-66.0); RED BLOOD COUNT 3.12 10^6/uL (4.00-5.40); WHITE BLOOD COUNT 8.8 10^3/uL (4.0-10.0)
[2023-01-31 06:21] LABS: PLATELET COUNT, AUTOMATED 26 10^3/uL (150-450)
[2023-01-31 06:28] LABS: INR 1.48; PROTHROMBIN TIME 17.4 SECONDS (12.5-14.5)
[2023-01-31 07:00] LABS: BLOOD UREA NITROGEN 16 MG/DL (9-23); CALCIUM LEVEL 9.3 MG/DL (8.5-10.1); CARBON DIOXIDE LEVEL 35 MMOL/L (20-31); CHLORIDE LEVEL 94 MMOL/L (98-107); GLOMERULAR FILTRATION RATE > 60.0 (>51); GLUCOSE, FASTING 156 MG/DL (60-100); MAGNESIUM LEVEL 1.5 MG/DL (1.8-2.4); POTASSIUM SERUM 2.9 MMOL/L (3.5-5.1); SODIUM LEVEL 135 MMOL/L (136-145)
[2023-01-31 07:40] VITALS: BP 144/75; TEMP 97.9; O2SAT 96
[2023-01-31] MEDS: THIAMINE 100 MG TAB PO SCH (08:39)
[2023-01-31] MEDS: MAGNESIUM OXIDE 400MG TAB (MAG-OX) PO SCH ×2 (08:39→21:28)
[2023-01-31] MEDS: INSULIN LISPRO (NovoLOG) PER UNIT SC SCH ×4 (08:39→21:00)
[2023-01-31] MEDS: CALCIUM/VITAMIN D 500 MG TAB PO SCH ×3 (08:40→21:28)
[2023-01-31] MEDS: SPIRONOLACTONE 25 MG TAB PO SCH ×2 (08:40→16:37)
[2023-01-31] MEDS: CEFDINIR 300 MG CAP (OMNICEF) PO SCH ×2 (08:40→21:28)
[2023-01-31] MEDS: LACTULOSE 20GM/30ML SYRUP UDC PO SCH ×2 (08:41→21:00)
[2023-01-31] MEDS: FAMOTIDINE 40MG/5ML ORAL SUSPENSON 50ML BOTTLE PO SCH ×2 (08:41→21:27)
[2023-01-31] MEDS: MAG SULF 1GM/100ML (MAG RUN) 1 GM in IV 1 EA IV SCH ×2 (08:43→10:32)
[2023-01-31] MEDS: POTASSIUM CHLORIDE 10MEQ SR TABLET PO SCH ×3 (08:43→21:27)
[2023-01-31] MEDS: NYSTATIN 100,000 UNITS/GM TOPICAL PWD 15GM TOP SCH ×2 (08:45→21:33)
[2023-01-31] MEDS: FLUCONAZOLE 50MG TABLET PO SCH (09:00)
[2023-01-31] MEDS: KCL 10MEQ/100ML SWI (KRUN) 10 MEQ in IV 1 EA IV SCH ×4 (12:03→15:00)
[2023-01-31] MEDS: PHYTONADIONE 5 MG TAB PO SCH (12:04)
[2023-01-31] MEDS ORDERED: POTASSIUM CHLORIDE 10MEQ SR TABLET PO ONE (13:00)
[2023-01-31] MEDS: CLOTRIMAZOLE 1% TOPICAL CREAM 30GM TOP SCH ×2 (13:38→21:33)
[2023-01-31 13:47] VITALS: BP 117/58; TEMP 97.7; O2SAT 97
[2023-01-31 16:29] LABS: MAGNESIUM LEVEL 1.6 MG/DL (1.8-2.4); POTASSIUM SERUM 3.8 MMOL/L (3.5-5.1)
[2023-01-31] MEDS ORDERED: KCL 10MEQ/100ML SWI (KRUN) 10 MEQ in IV 1 EA IV SCH (16:30)
[2023-01-31 19:56] VITALS: BP 139/65; TEMP 97.9; O2SAT 95
[2023-01-31] MEDS: ATORVASTATIN 20 MG TAB PO SCH (21:28)
[2023-01-31] MEDS: FUROSEMIDE injection 250 MG in D5W 225 ML IV SCH (23:48)
[2023-01-31 23:51] VITALS: BP 122/64
[2023-02-01 02:00] VITALS: BP 124/64; TEMP 98.2; O2SAT 94
[2023-02-01 05:21] VITALS: BP 124/62; TEMP 97.2; O2SAT 92
[2023-02-01 05:38] LABS: BASO % 0.2 % (0.0-1.0); EOS # 0.3 10^3/uL (0.0-0.5); EOS % 2.8 % (0.0-3.0); HEMATOCRIT 25.3 % (36.0-47.0); HEMOGLOBIN 8.5 g/dl (12.0-15.5); LYMPH # 1.7 10^3/uL (1.5-5.0); LYMPH % 17.9 % (24.0-44.0); MEAN CORPUSCULAR HGB CONC 33.6 g/dl (32.0-36.5); MEAN CORPUSCULAR VOLUME 89.4 fl (80.0-96.0); MONO # 1.4 10^3/uL (0.0-0.8); MONO % 14.9 % (2.0-8.0); NEUTROPHILS # 5.7 10^3/uL (1.5-8.5); NEUTROPHILS % 61.4 % (36.0-66.0); RED BLOOD COUNT 2.83 10^6/uL (4.00-5.40); WHITE BLOOD COUNT 9.3 10^3/uL (4.0-10.0)
[2023-02-01 05:41] LABS: PLATELET COUNT, AUTOMATED 34 10^3/uL (150-450)
[2023-02-01 05:54] LABS: INR 1.57; PROTHROMBIN TIME 18.2 SECONDS (12.5-14.5)
[2023-02-01 06:05] LABS: BLOOD UREA NITROGEN 12 MG/DL (9-23); CALCIUM LEVEL 9.2 MG/DL (8.5-10.1); CARBON DIOXIDE LEVEL 36 MMOL/L (20-31); CHLORIDE LEVEL 95 MMOL/L (98-107); CREATININE FOR GFR 0.76 MG/DL (0.55-1.30); GLOMERULAR FILTRATION RATE > 60.0 (>51); GLUCOSE, FASTING 182 MG/DL (60-100); MAGNESIUM LEVEL 1.4 MG/DL (1.8-2.4); POTASSIUM SERUM 3.8 MMOL/L (3.5-5.1); SODIUM LEVEL 134 MMOL/L (136-145)
[2023-02-01] MEDS: LACTULOSE 20GM/30ML SYRUP UDC PO SCH ×2 (09:14→20:25)
[2023-02-01] MEDS: FAMOTIDINE 40MG/5ML ORAL SUSPENSON 50ML BOTTLE PO SCH ×2 (09:14→21:34)
[2023-02-01] MEDS: INSULIN LISPRO (NovoLOG) PER UNIT SC SCH ×4 (09:15→21:34)
[2023-02-01] MEDS: CEFDINIR 300 MG CAP (OMNICEF) PO SCH ×2 (09:15→21:35)
[2023-02-01] MEDS: PHYTONADIONE 5 MG TAB PO SCH (09:15)
[2023-02-01] MEDS: POTASSIUM CHLORIDE 10MEQ SR TABLET PO SCH ×3 (09:16→21:35)
[2023-02-01] MEDS: THIAMINE 100 MG TAB PO SCH (09:16)
[2023-02-01] MEDS: SPIRONOLACTONE 25 MG TAB PO SCH ×2 (09:16→15:45)
[2023-02-01] MEDS: CALCIUM/VITAMIN D 500 MG TAB PO SCH ×3 (09:17→21:35)
[2023-02-01] MEDS: MAGNESIUM OXIDE 400MG TAB (MAG-OX) PO SCH ×3 (09:17→21:35)
[2023-02-01] MEDS: CLOTRIMAZOLE 1% TOPICAL CREAM 30GM TOP SCH ×2 (09:18→21:36)
[2023-02-01] MEDS: MAG SULF 1GM/100ML (MAG RUN) 1 GM in IV 1 EA IV SCH ×5 (09:18→20:45)
[2023-02-01] MEDS: NYSTATIN 100,000 UNITS/GM TOPICAL PWD 15GM TOP SCH ×2 (09:19→21:36)
[2023-02-01] MEDS: KCL 10MEQ/100ML SWI (KRUN) 10 MEQ in IV 1 EA IV SCH ×2 (12:56→15:44)
[2023-02-01 13:50] VITALS: BP 124/62; TEMP 97.2; O2SAT 94
[2023-02-01 14:05] VITALS: BP 122/90; TEMP 97.9; O2SAT 93
[2023-02-01 14:15] VITALS: BP 128/85; TEMP 98.1; O2SAT 93
[2023-02-01] MEDS: FUROSEMIDE injection 250 MG in D5W 225 ML IV SCH (15:46)
[2023-02-01 17:51] LABS: MAGNESIUM LEVEL 1.6 MG/DL (1.8-2.4); POTASSIUM SERUM 3.7 MMOL/L (3.5-5.1)
[2023-02-01] MEDS: ATORVASTATIN 20 MG TAB PO SCH (21:35)
[2023-02-01 22:00] VITALS: BP 129/65; TEMP 97.9; O2SAT 95
[2023-02-02 01:47] VITALS: BP 128/64; TEMP 98.2; O2SAT 92
[2023-02-02 01:48] VITALS: BP 128/64; TEMP 98.2; O2SAT 92
[2023-02-02 02:29] VITALS: BP 127/63; TEMP 98.2; O2SAT 94
[2023-02-02 06:00] VITALS: BP 126/62; TEMP 98.4; O2SAT 92
[2023-02-02 07:58] LABS: ALBUMIN 2.7 G/DL (3.2-5.2); BLOOD UREA NITROGEN 11 MG/DL (9-23); CALCIUM LEVEL 9.8 MG/DL (8.5-10.1); CARBON DIOXIDE LEVEL 38 MMOL/L (20-31); CHLORIDE LEVEL 92 MMOL/L (98-107); CREATININE FOR GFR 0.79 MG/DL (0.55-1.30); GLOMERULAR FILTRATION RATE > 60.0 (>51); GLUCOSE, FASTING 165 MG/DL (60-100); MAGNESIUM LEVEL 1.6 MG/DL (1.8-2.4); POTASSIUM SERUM 3.8 MMOL/L (3.5-5.1); SODIUM LEVEL 135 MMOL/L (136-145)
[2023-02-02 07:59] LABS: BASO % 0.4 % (0.0-1.0); EOS # 0.3 10^3/uL (0.0-0.5); HEMATOCRIT 24.3 % (36.0-47.0); HEMOGLOBIN 7.8 g/dl (12.0-15.5); LYMPH # 1.6 10^3/uL (1.5-5.0); LYMPH % 19.2 % (24.0-44.0); MEAN CORPUSCULAR HEMOGLOBIN 28.9 pg (27.0-33.0); MEAN CORPUSCULAR HGB CONC 32.1 g/dl (32.0-36.5); MONO # 1.2 10^3/uL (0.0-0.8); NEUTROPHILS # 5.1 10^3/uL (1.5-8.5); NEUTROPHILS % 60.7 % (36.0-66.0); WHITE BLOOD COUNT 8.4 10^3/uL (4.0-10.0)
[2023-02-02 08:04] LABS: PLATELET COUNT, AUTOMATED 45 10^3/uL (150-450)
[2023-02-02] MEDS: INSULIN LISPRO (NovoLOG) PER UNIT SC SCH ×4 (08:16→20:25)
[2023-02-02] MEDS: CALCIUM/VITAMIN D 500 MG TAB PO SCH ×3 (08:16→20:25)
[2023-02-02] MEDS: MAGNESIUM OXIDE 400MG TAB (MAG-OX) PO SCH ×3 (08:17→20:25)
[2023-02-02] MEDS: SPIRONOLACTONE 25 MG TAB PO SCH ×2 (08:17→18:08)
[2023-02-02] MEDS: THIAMINE 100 MG TAB PO SCH (08:17)
[2023-02-02] MEDS: LACTULOSE 20GM/30ML SYRUP UDC PO SCH ×2 (08:17→20:25)
[2023-02-02] MEDS: CEFDINIR 300 MG CAP (OMNICEF) PO SCH ×2 (08:17→20:25)
[2023-02-02] MEDS: PHYTONADIONE 5 MG TAB PO SCH (08:17)
[2023-02-02] MEDS: POTASSIUM CHLORIDE 10MEQ SR TABLET PO SCH ×3 (08:17→20:25)
[2023-02-02] MEDS: FAMOTIDINE 40MG/5ML ORAL SUSPENSON 50ML BOTTLE PO SCH ×2 (08:18→20:25)
[2023-02-02] MEDS: NYSTATIN 100,000 UNITS/GM TOPICAL PWD 15GM TOP SCH ×2 (08:19→20:26)
[2023-02-02] MEDS: CLOTRIMAZOLE 1% TOPICAL CREAM 30GM TOP SCH ×2 (08:19→20:26)
[2023-02-02 08:20] LABS: INR 1.51; PROTHROMBIN TIME 17.7 SECONDS (12.5-14.5)
[2023-02-02] MEDS: MAG SULF 1GM/100ML (MAG RUN) 1 GM in IV 1 EA IV SCH ×2 (09:34→09:37)
[2023-02-02 14:00] VITALS: BP 125/58; TEMP 98.6; O2SAT 86
[2023-02-02] MEDS: FUROSEMIDE injection 250 MG in D5W 225 ML IV SCH (18:07)
[2023-02-02] MEDS: ATORVASTATIN 20 MG TAB PO SCH (20:24)
[2023-02-02 22:00] VITALS: BP 104/53; TEMP 98.4; O2SAT 93
[2023-02-03] MEDS: FUROSEMIDE 40MG/4ML VIAL IV SCH ×4 (00:30→19:47)
[2023-02-03] MEDS: SODIUM CHLORIDE 0.9% INJ 10 ML SYR IV SCH ×2 (05:33→17:45)
[2023-02-03 06:00] VITALS: BP 107/54; TEMP 98.4; O2SAT 94
[2023-02-03 07:49] LABS: BASO % 0.1 % (0.0-1.0); EOS # 0.2 10^3/uL (0.0-0.5); EOS % 2.8 % (0.0-3.0); HEMATOCRIT 23.9 % (36.0-47.0); HEMOGLOBIN 7.7 g/dl (12.0-15.5); LYMPH # 1.4 10^3/uL (1.5-5.0); MEAN CORPUSCULAR HEMOGLOBIN 29.8 pg (27.0-33.0); MEAN CORPUSCULAR HGB CONC 32.2 g/dl (32.0-36.5); MEAN CORPUSCULAR VOLUME 92.6 fl (80.0-96.0); MONO # 0.9 10^3/uL (0.0-0.8); MONO % 12.7 % (2.0-8.0); NEUTROPHILS # 4.3 10^3/uL (1.5-8.5); NEUTROPHILS % 62.1 % (36.0-66.0); RED BLOOD COUNT 2.58 10^6/uL (4.00-5.40); WHITE BLOOD COUNT 6.9 10^3/uL (4.0-10.0)
[2023-02-03 07:52] LABS: PLATELET COUNT, AUTOMATED 50 10^3/uL (150-450)
[2023-02-03 08:02] LABS: BLOOD UREA NITROGEN 12 MG/DL (9-23); CALCIUM LEVEL 9.6 MG/DL (8.5-10.1); CARBON DIOXIDE LEVEL 38 MMOL/L (20-31); CHLORIDE LEVEL 93 MMOL/L (98-107); CREATININE FOR GFR 0.86 MG/DL (0.55-1.30); GLOMERULAR FILTRATION RATE > 60.0 (>51); GLUCOSE, FASTING 157 MG/DL (60-100); MAGNESIUM LEVEL 1.5 MG/DL (1.8-2.4); SODIUM LEVEL 135 MMOL/L (136-145)
[2023-02-03] MEDS: INSULIN LISPRO (NovoLOG) PER UNIT SC SCH ×4 (08:19→20:14)
[2023-02-03] MEDS: FLUCONAZOLE 50MG TABLET PO SCH (08:20)
[2023-02-03] MEDS: POTASSIUM CHLORIDE 10MEQ SR TABLET PO SCH ×2 (08:20→20:15)
[2023-02-03] MEDS: FAMOTIDINE 40MG/5ML ORAL SUSPENSON 50ML BOTTLE PO SCH ×2 (08:20→20:11)
[2023-02-03] MEDS: MAGNESIUM OXIDE 400MG TAB (MAG-OX) PO SCH ×3 (08:21→20:14)
[2023-02-03] MEDS: PHYTONADIONE 5 MG TAB PO SCH (08:21)
[2023-02-03] MEDS: SPIRONOLACTONE 25 MG TAB PO SCH ×2 (08:21→17:44)
[2023-02-03] MEDS: CALCIUM/VITAMIN D 500 MG TAB PO SCH ×3 (08:22→20:15)
[2023-02-03] MEDS: CEFDINIR 300 MG CAP (OMNICEF) PO SCH ×2 (08:22→20:14)
[2023-02-03] MEDS: THIAMINE 100 MG TAB PO SCH (08:22)
[2023-02-03] MEDS: LACTULOSE 20GM/30ML SYRUP UDC PO SCH ×2 (08:22→20:11)
[2023-02-03] MEDS: CLOTRIMAZOLE 1% TOPICAL CREAM 30GM TOP SCH ×2 (08:23→20:16)
[2023-02-03] MEDS: NYSTATIN 100,000 UNITS/GM TOPICAL PWD 15GM TOP SCH ×2 (08:24→20:15)
[2023-02-03] MEDS: MAG SULF 1GM/100ML (MAG RUN) 1 GM in IV 1 EA IV SCH ×3 (10:28→12:39)
[2023-02-03] MEDS: LEVEMIR (INSULIN DETEMIR) 1 UNITS/0.01ML SC SCH (13:23)
[2023-02-03 15:09] VITALS: BP 124/64; TEMP 98.4; O2SAT 92
[2023-02-03 15:37] VITALS: BP 126/64; TEMP 98.2
[2023-02-03 16:09] VITALS: BP 125/65; TEMP 98.4; O2SAT 1
[2023-02-03 17:06] VITALS: BP 123/63; TEMP 98.1; O2SAT 92
[2023-02-03] MEDS: ATORVASTATIN 20 MG TAB PO SCH (20:14)
[2023-02-03 22:00] VITALS: BP 133/61; TEMP 98.6; O2SAT 91
[2023-02-04] MEDS: FUROSEMIDE 40MG/4ML VIAL IV SCH ×4 (02:50→20:41)
[2023-02-04] MEDS: SODIUM CHLORIDE 0.9% INJ 10 ML SYR IV SCH ×2 (06:15→17:04)
[2023-02-04 06:20] VITALS: BP 124/58; TEMP 97.9; O2SAT 95
[2023-02-04 06:50] LABS: BASO % 0.1 % (0.0-1.0); EOS # 0.2 10^3/uL (0.0-0.5); EOS % 2.8 % (0.0-3.0); HEMATOCRIT 28.6 % (36.0-47.0); HEMOGLOBIN 9.3 g/dl (12.0-15.5); LYMPH # 1.5 10^3/uL (1.5-5.0); LYMPH % 20.7 % (24.0-44.0); MEAN CORPUSCULAR HEMOGLOBIN 29.2 pg (27.0-33.0); MEAN CORPUSCULAR HGB CONC 32.5 g/dl (32.0-36.5); MEAN CORPUSCULAR VOLUME 89.7 fl (80.0-96.0); MONO # 0.8 10^3/uL (0.0-0.8); MONO % 10.4 % (2.0-8.0); NEUTROPHILS # 4.9 10^3/uL (1.5-8.5); NEUTROPHILS % 65.3 % (36.0-66.0); RED BLOOD COUNT 3.19 10^6/uL (4.00-5.40); WHITE BLOOD COUNT 7.4 10^3/uL (4.0-10.0)
[2023-02-04 06:51] LABS: PLATELET COUNT, AUTOMATED 62 10^3/uL (150-450)
[2023-02-04 07:19] LABS: ALBUMIN 2.5 G/DL (3.2-5.2); BLOOD UREA NITROGEN 12 MG/DL (9-23); CALCIUM LEVEL 9.1 MG/DL (8.5-10.1); CARBON DIOXIDE LEVEL 38 MMOL/L (20-31); CHLORIDE LEVEL 91 MMOL/L (98-107); CREATININE FOR GFR 0.96 MG/DL (0.55-1.30); GLOMERULAR FILTRATION RATE > 60.0 (>51); GLUCOSE, FASTING 147 MG/DL (60-100); MAGNESIUM LEVEL 1.5 MG/DL (1.8-2.4); SODIUM LEVEL 132 MMOL/L (136-145)
[2023-02-04] MEDS: PHYTONADIONE 5 MG TAB PO SCH (08:19)
[2023-02-04] MEDS: THIAMINE 100 MG TAB PO SCH (08:20)
[2023-02-04] MEDS: LEVEMIR (INSULIN DETEMIR) 1 UNITS/0.01ML SC SCH (08:20)
[2023-02-04] MEDS: INSULIN LISPRO (NovoLOG) PER UNIT SC SCH ×4 (08:20→20:43)
[2023-02-04] MEDS: MAGNESIUM OXIDE 400MG TAB (MAG-OX) PO SCH ×3 (08:21→20:40)
[2023-02-04] MEDS: CEFDINIR 300 MG CAP (OMNICEF) PO SCH ×2 (08:21→20:41)
[2023-02-04] MEDS: FAMOTIDINE 40MG/5ML ORAL SUSPENSON 50ML BOTTLE PO SCH ×2 (08:21→20:39)
[2023-02-04] MEDS: CALCIUM/VITAMIN D 500 MG TAB PO SCH ×3 (08:21→20:41)
[2023-02-04] MEDS: LACTULOSE 20GM/30ML SYRUP UDC PO SCH ×2 (08:21→20:42)
[2023-02-04] MEDS: POTASSIUM CHLORIDE 10MEQ SR TABLET PO SCH ×2 (08:22→20:41)
[2023-02-04] MEDS: SPIRONOLACTONE 25 MG TAB PO SCH ×2 (08:22→17:03)
[2023-02-04] MEDS: CLOTRIMAZOLE 1% TOPICAL CREAM 30GM TOP SCH ×2 (08:23→20:44)
[2023-02-04] MEDS: NYSTATIN 100,000 UNITS/GM TOPICAL PWD 15GM TOP SCH ×2 (08:23→20:43)
[2023-02-04] MEDS: GLIMEPIRIDE 1 MG TABLET PO SCH (12:25)
[2023-02-04 14:00] VITALS: BP 124/59; TEMP 97.7; O2SAT 94
[2023-02-04] MEDS ORDERED: metOLazone 5 MG TAB PO ONE (14:00)
[2023-02-04 19:41] VITALS: BP 126/64; TEMP 98.2; O2SAT 91
[2023-02-04] MEDS: ATORVASTATIN 20 MG TAB PO SCH (20:41)
[2023-02-05] MEDS: FUROSEMIDE 40MG/4ML VIAL IV SCH ×4 (03:14→19:35)
[2023-02-05 05:17] VITALS: BP 125/65; TEMP 97.9; O2SAT 93
[2023-02-05] MEDS: SODIUM CHLORIDE 0.9% INJ 10 ML SYR IV SCH ×2 (05:53→17:53)
[2023-02-05 06:20] LABS: BASO % 0.4 % (0.0-1.0); EOS # 0.2 10^3/uL (0.0-0.5); EOS % 3.2 % (0.0-3.0); HEMATOCRIT 27.4 % (36.0-47.0); HEMOGLOBIN 8.8 g/dl (12.0-15.5); LYMPH # 1.3 10^3/uL (1.5-5.0); LYMPH % 17.9 % (24.0-44.0); MEAN CORPUSCULAR HEMOGLOBIN 28.9 pg (27.0-33.0); MEAN CORPUSCULAR HGB CONC 32.1 g/dl (32.0-36.5); MEAN CORPUSCULAR VOLUME 89.8 fl (80.0-96.0); MONO # 0.8 10^3/uL (0.0-0.8); MONO % 10.6 % (2.0-8.0); NEUTROPHILS # 4.8 10^3/uL (1.5-8.5); NEUTROPHILS % 67.3 % (36.0-66.0); RED BLOOD COUNT 3.05 10^6/uL (4.00-5.40); WHITE BLOOD COUNT 7.1 10^3/uL (4.0-10.0)
[2023-02-05 06:26] LABS: PLATELET COUNT, AUTOMATED 68 10^3/uL (150-450)
[2023-02-05 06:41] LABS: BLOOD UREA NITROGEN 15 MG/DL (9-23); CALCIUM LEVEL 9.7 MG/DL (8.5-10.1); CARBON DIOXIDE LEVEL 38 MMOL/L (20-31); CHLORIDE LEVEL 89 MMOL/L (98-107); CREATININE FOR GFR 0.94 MG/DL (0.55-1.30); GLOMERULAR FILTRATION RATE > 60.0 (>51); GLUCOSE, FASTING 99 MG/DL (60-100); MAGNESIUM LEVEL 1.3 MG/DL (1.8-2.4); SODIUM LEVEL 131 MMOL/L (136-145)
[2023-02-05] MEDS: MAG SULF 1GM/100ML (MAG RUN) 1 GM in IV 1 EA IV SCH ×3 (07:03→10:22)
[2023-02-05] MEDS: INSULIN LISPRO (NovoLOG) PER UNIT SC SCH ×4 (07:30→20:22)
[2023-02-05] MEDS: MAGNESIUM OXIDE 400MG TAB (MAG-OX) PO SCH ×3 (08:53→20:22)
[2023-02-05] MEDS: PHYTONADIONE 5 MG TAB PO SCH (08:54)
[2023-02-05] MEDS: SPIRONOLACTONE 25 MG TAB PO SCH ×2 (08:54→17:11)
[2023-02-05] MEDS: POTASSIUM CHLORIDE 10MEQ SR TABLET PO SCH ×2 (08:54→20:22)
[2023-02-05] MEDS: GLIMEPIRIDE 1 MG TABLET PO SCH (08:55)
[2023-02-05] MEDS: FAMOTIDINE 40MG/5ML ORAL SUSPENSON 50ML BOTTLE PO SCH ×2 (08:55→20:21)
[2023-02-05] MEDS: CALCIUM/VITAMIN D 500 MG TAB PO SCH ×3 (08:55→20:21)
[2023-02-05] MEDS: THIAMINE 100 MG TAB PO SCH (08:55)
[2023-02-05] MEDS: LEVEMIR (INSULIN DETEMIR) 1 UNITS/0.01ML SC SCH (08:57)
[2023-02-05] MEDS: CLOTRIMAZOLE 1% TOPICAL CREAM 30GM TOP SCH ×2 (08:59→20:23)
[2023-02-05] MEDS: NYSTATIN 100,000 UNITS/GM TOPICAL PWD 15GM TOP SCH ×2 (08:59→20:23)
[2023-02-05] MEDS ORDERED: LEVEMIR (INSULIN DETEMIR) 1 UNITS/0.01ML SC SCH (09:00)
[2023-02-05] MEDS: LACTULOSE 20GM/30ML SYRUP UDC PO SCH ×2 (09:00→20:21)
[2023-02-05] MEDS: SODIUM CHLORIDE 0.9% INJ 10 ML SYR IV PRN ×2 (11:37→15:02)
[2023-02-05 14:15] VITALS: BP 124/59; TEMP 98.1; O2SAT 93
[2023-02-05] MEDS: metOLazone 5 MG TAB PO SCH (14:49)
[2023-02-05] MEDS: ATORVASTATIN 20 MG TAB PO SCH (20:21)
[2023-02-05 20:53] VITALS: BP 107/56; TEMP 97.9; O2SAT 93
[2023-02-06] MEDS: FUROSEMIDE 40MG/4ML VIAL IV SCH (02:42)
[2023-02-06] MEDS: SODIUM CHLORIDE 0.9% INJ 10 ML SYR IV SCH ×2 (05:23→17:23)
[2023-02-06 05:48] LABS: BASO % 0.3 % (0.0-1.0); EOS # 0.2 10^3/uL (0.0-0.5); EOS % 3.4 % (0.0-3.0); HEMATOCRIT 25.3 % (36.0-47.0); HEMOGLOBIN 8.2 g/dl (12.0-15.5); LYMPH # 1.2 10^3/uL (1.5-5.0); LYMPH % 19.1 % (24.0-44.0); MEAN CORPUSCULAR HEMOGLOBIN 29.4 pg (27.0-33.0); MEAN CORPUSCULAR HGB CONC 32.4 g/dl (32.0-36.5); MEAN CORPUSCULAR VOLUME 90.7 fl (80.0-96.0); MONO # 0.6 10^3/uL (0.0-0.8); NEUTROPHILS # 4.1 10^3/uL (1.5-8.5); NEUTROPHILS % 66.9 % (36.0-66.0); RED BLOOD COUNT 2.79 10^6/uL (4.00-5.40); WHITE BLOOD COUNT 6.2 10^3/uL (4.0-10.0)
[2023-02-06 05:50] LABS: PLATELET COUNT, AUTOMATED 64 10^3/uL (150-450)
[2023-02-06 06:13] LABS: CALCIUM LEVEL 9.3 MG/DL (8.5-10.1); CREATININE FOR GFR 1.11 MG/DL (0.55-1.30); GLOMERULAR FILTRATION RATE 53.6 (>51)
[2023-02-06 06:53] VITALS: BP 108/56; O2SAT 89
[2023-02-06 06:54] VITALS: BP 18/56; TEMP 97.9; O2SAT 89
[2023-02-06 07:21] LABS: MAGNESIUM LEVEL 1.5 MG/DL (1.8-2.4)
[2023-02-06] MEDS: LACTULOSE 20GM/30ML SYRUP UDC PO SCH ×2 (09:00→20:40)
[2023-02-06] MEDS: TORSEMIDE 20 MG TAB PO SCH ×2 (09:08→17:22)
[2023-02-06] MEDS: FAMOTIDINE 40MG/5ML ORAL SUSPENSON 50ML BOTTLE PO SCH ×2 (09:08→20:39)
[2023-02-06] MEDS: CALCIUM/VITAMIN D 500 MG TAB PO SCH ×3 (09:08→20:39)
[2023-02-06] MEDS: THIAMINE 100 MG TAB PO SCH (09:08)
[2023-02-06] MEDS: MAGNESIUM OXIDE 400MG TAB (MAG-OX) PO SCH ×3 (09:09→20:40)
[2023-02-06] MEDS: metOLazone 5 MG TAB PO SCH (09:09)
[2023-02-06] MEDS: PHYTONADIONE 5 MG TAB PO SCH (09:09)
[2023-02-06] MEDS: GLIMEPIRIDE 1 MG TABLET PO SCH (09:09)
[2023-02-06] MEDS: SPIRONOLACTONE 25 MG TAB PO SCH ×2 (09:09→17:22)
[2023-02-06] MEDS: POTASSIUM CHLORIDE 10MEQ SR TABLET PO SCH ×2 (09:10→20:40)
[2023-02-06] MEDS: CLOTRIMAZOLE 1% TOPICAL CREAM 30GM TOP SCH ×2 (09:10→20:41)
[2023-02-06] MEDS: NYSTATIN 100,000 UNITS/GM TOPICAL PWD 15GM TOP SCH ×2 (09:11→20:41)
[2023-02-06] MEDS: LEVEMIR (INSULIN DETEMIR) 1 UNITS/0.01ML SC SCH (09:45)
[2023-02-06] MEDS: INSULIN LISPRO (NovoLOG) PER UNIT SC SCH ×4 (09:45→20:40)
[2023-02-06 14:15] VITALS: BP 112/63; TEMP 98.1; O2SAT 19
[2023-02-06 19:53] VITALS: BP 107/51; TEMP 97.9; O2SAT 88
[2023-02-06] MEDS: ATORVASTATIN 20 MG TAB PO SCH (20:40)
[2023-02-07] MEDS: SODIUM CHLORIDE 0.9% INJ 10 ML SYR IV SCH (06:10)
[2023-02-07 06:14] VITALS: BP 113/54; TEMP 97.7; O2SAT 94
[2023-02-07 06:24] LABS: BASO % 0.4 % (0.0-1.0); EOS # 0.2 10^3/uL (0.0-0.5); EOS % 3.5 % (0.0-3.0); HEMATOCRIT 25.8 % (36.0-47.0); HEMOGLOBIN 8.4 g/dl (12.0-15.5); LYMPH # 1.1 10^3/uL (1.5-5.0); MEAN CORPUSCULAR HEMOGLOBIN 29.6 pg (27.0-33.0); MEAN CORPUSCULAR HGB CONC 32.6 g/dl (32.0-36.5); MEAN CORPUSCULAR VOLUME 90.8 fl (80.0-96.0); MONO # 0.5 10^3/uL (0.0-0.8); MONO % 9.7 % (2.0-8.0); NEUTROPHILS # 3.6 10^3/uL (1.5-8.5); RED BLOOD COUNT 2.84 10^6/uL (4.00-5.40); WHITE BLOOD COUNT 5.5 10^3/uL (4.0-10.0)
[2023-02-07 06:29] LABS: PLATELET COUNT, AUTOMATED 63 10^3/uL (150-450)
[2023-02-07] MEDS: INSULIN LISPRO (NovoLOG) PER UNIT SC SCH ×2 (07:30→12:00)
[2023-02-07 07:44] LABS: BLOOD UREA NITROGEN 16 MG/DL (9-23); CALCIUM LEVEL 9.4 MG/DL (8.5-10.1); CARBON DIOXIDE LEVEL > 40.0 MMOL/L (20-31); CHLORIDE LEVEL 88 MMOL/L (98-107); CREATININE FOR GFR 1.28 MG/DL (0.55-1.30); GLOMERULAR FILTRATION RATE 45.4 (>51); GLUCOSE, FASTING 106 MG/DL (60-100); MAGNESIUM LEVEL 1.3 MG/DL (1.8-2.4); POTASSIUM SERUM 3.7 MMOL/L (3.5-5.1); SODIUM LEVEL 134 MMOL/L (136-145)
[2023-02-07] MEDS: PHYTONADIONE 5 MG TAB PO SCH (07:52)
[2023-02-07] MEDS: LEVEMIR (INSULIN DETEMIR) 1 UNITS/0.01ML SC SCH (07:52)
[2023-02-07] MEDS: THIAMINE 100 MG TAB PO SCH (07:53)
[2023-02-07] MEDS: GLIMEPIRIDE 1 MG TABLET PO SCH (07:53)
[2023-02-07] MEDS: FAMOTIDINE 40MG/5ML ORAL SUSPENSON 50ML BOTTLE PO SCH (07:53)
[2023-02-07] MEDS: metOLazone 5 MG TAB PO SCH (07:53)
[2023-02-07] MEDS: POTASSIUM CHLORIDE 10MEQ SR TABLET PO SCH (07:53)
[2023-02-07] MEDS: MAGNESIUM OXIDE 400MG TAB (MAG-OX) PO SCH (07:54)
[2023-02-07] MEDS: SPIRONOLACTONE 25 MG TAB PO SCH (07:54)
[2023-02-07] MEDS: CLOTRIMAZOLE 1% TOPICAL CREAM 30GM TOP SCH (07:54)
[2023-02-07] MEDS: CALCIUM/VITAMIN D 500 MG TAB PO SCH (07:54)
[2023-02-07] MEDS: TORSEMIDE 20 MG TAB PO SCH (07:54)
[2023-02-07] MEDS: NYSTATIN 100,000 UNITS/GM TOPICAL PWD 15GM TOP SCH (07:55)
[2023-02-07] MEDS: LACTULOSE 20GM/30ML SYRUP UDC PO SCH (08:39)
[2023-02-07] MEDS ORDERED: POTA-298 PO (13:43)
[2023-02-07] MEDS ORDERED: CLOTR1CR TOP (13:43)
[2023-02-07] MEDS ORDERED: GLIM2TAB4 PO (13:43)
[2023-02-07] MEDS ORDERED: TORS20TA2 PO (13:43)
[2023-02-07] MEDS ORDERED: FLUC1TAB21 PO (13:43)
[2023-02-07] MEDS ORDERED: MAGN400T2 PO (13:43)
[2023-02-07] MEDS ORDERED: SPIR50TA4 PO (13:43)
[2023-02-07] MEDS: MAG SULF 1GM/100ML (MAG RUN) 1 GM in IV 1 EA IV SCH ×2 (13:54→14:59)
[2023-02-07 14:27] VITALS: BP 109/52; TEMP 98.4; O2SAT 88
[2023-02-08] MEDS ORDERED: SPIRONOLACTONE 25 MG TAB PO SCH (09:00)
[2023-02-08] MEDS ORDERED: TORSEMIDE 20 MG TAB PO SCH (09:00)
[2023-02-10] MEDS ORDERED: FLUCONAZOLE 50MG TABLET PO SCH (09:00)
== END 2023-02-07 19:05 | disposition home or self-care (01) | DRG 441 ==
LOC: M ED 10:28 → M ED INP 16:05 → M MS5PR 21:36
PROVIDERS: ADMIT General Practice; ATTEND Internal Medicine Nephrology
PROC: 0W9G3ZZ Drainage of Peritoneal Cavity, Percutaneous Approach (ICD-10-PCS; 2023-01-25)
PROC: 30233N1 Transfusion of Nonautologous Red Blood Cells into Peripheral Vein, Percutaneous Approach (ICD-10-PCS; principal; 2023-01-27)
PROC: 30233R1 Transfusion of Nonautologous Platelets into Peripheral Vein, Percutaneous Approach (ICD-10-PCS; 2023-01-27)
PROC: 30233K1 Transfusion of Nonautologous Frozen Plasma into Peripheral Vein, Percutaneous Approach (ICD-10-PCS; 2023-01-28)
PROC: 02HV33Z Insertion of Infusion Device into Superior Vena Cava, Percutaneous Approach (ICD-10-PCS; 2023-01-29)
DX: K75.81 Nonalcoholic steatohepatitis (NASH) (principal); J18.9 Pneumonia, unspecified organism; A41.9 Sepsis, unspecified organism; N13.2 Hydronephrosis with renal and ureteral calculous obstruction; D61.818 Other pancytopenia; L88 Pyoderma gangrenosum; R18.8 Other ascites; E87.21 Acute metabolic acidosis; D62 Acute posthemorrhagic anemia; I50.32 Chronic diastolic (congestive) heart failure; D68.9 Coagulation defect, unspecified; G90.50 Complex regional pain syndrome I, unspecified; I11.0 Hypertensive heart disease with heart failure; K76.82 Hepatic encephalopathy; K72.90 Hepatic failure, unspecified without coma; D69.6 Thrombocytopenia, unspecified; E87.6 Hypokalemia; E83.42 Hypomagnesemia; L40.8 Other psoriasis; Z79.52 Long term (current) use of systemic steroids; M06.9 Rheumatoid arthritis, unspecified; Z79.899 Other long term (current) drug therapy; E11.9 Type 2 diabetes mellitus without complications; Z79.4 Long term (current) use of insulin; K74.60 Unspecified cirrhosis of liver

== ENCOUNTER 2023-02-27 11:54 | Emergency (ER) | payer MEDICARE ==
[~2023-02-27] VITALS: Ht 160 cm; Wt 79.5 kg
[~2023-02-27 11:54] MED LIST changes: -SLOWTAB2 PO
[2023-02-27] MEDS ORDERED: MAG SULF 1GM/100ML (MAG RUN) 1 GM in IV 1 EA IV ONE ×2 (17:55→20:40)
[2023-02-27] MEDS ORDERED: KCL 10MEQ/100ML SWI (KRUN) 10 MEQ in IV 1 EA IV ONE (18:00)
[2023-02-27 18:55] LABS: BASO % 0.3 % (0.0-1.0); EOS # 0.1 10^3/uL (0.0-0.5); EOS % 1.3 % (0.0-3.0); HEMATOCRIT 26.2 % (36.0-47.0); HEMOGLOBIN 8.8 g/dl (12.0-15.5); LYMPH # 1.1 10^3/uL (1.5-5.0); LYMPH % 16.2 % (24.0-44.0); MEAN CORPUSCULAR HEMOGLOBIN 29.9 pg (27.0-33.0); MEAN CORPUSCULAR HGB CONC 33.6 g/dl (32.0-36.5); MEAN CORPUSCULAR VOLUME 89.1 fl (80.0-96.0); MONO # 0.5 10^3/uL (0.0-0.8); MONO % 7.6 % (2.0-8.0); NEUTROPHILS # 5.2 10^3/uL (1.5-8.5); NEUTROPHILS % 74.3 % (36.0-66.0); RED BLOOD COUNT 2.94 10^6/uL (4.00-5.40)
[2023-02-27 19:14] LABS: INR 1.54
[2023-02-27 19:15] LABS: PARTIAL THROMBOPLASTIN TIME 31.6 SECONDS (24.8-34.2)
[2023-02-27 19:23] LABS: CK-MB VALUE MASS < 1.0 NG/ML (<3.6)
[2023-02-27 19:24] LABS: LIPASE 64 U/L (12-53); OSMOLALITY SERUM 284 MOSM/KG (275-295)
[2023-02-27 19:25] LABS: CPK CREATINE PHOSPHOKINASE 66 U/L (34-145); MB/CK RELATIVE INDEX 1.51 (< OR =4)
[2023-02-27 19:28] LABS: ALBUMIN 2.1 G/DL (3.2-5.2); ALKALINE PHOSPHATASE 142 U/L (46-116); ALT/SGPT 20 U/L (7.0-40); AST/SGOT 34 U/L (<34); BILIRUBIN,DIRECT 1.1 MG/DL (<0.4); BILIRUBIN,TOTAL 1.9 MG/DL (0.3-1.2); BLOOD UREA NITROGEN 11 MG/DL (9-23); CALCIUM LEVEL 6.4 MG/DL (8.5-10.1); CARBON DIOXIDE LEVEL 27 MMOL/L (20-31); CHLORIDE LEVEL 96 MMOL/L (98-107); CREATININE FOR GFR 1.02 MG/DL (0.55-1.30); FREE T4 1.03 NG/DL (0.89-1.76); GLUCOSE, FASTING 316 MG/DL (60-100); POTASSIUM SERUM 3.2 MMOL/L (3.5-5.1); SODIUM LEVEL 130 MMOL/L (136-145); THYROID STIMULATING HORMONE 4.434 uIU/ML (0.55-4.78); TOTAL PROTEIN 5.9 G/DL (5.7-8.2)
[2023-02-27 19:41] LABS: PLATELET COUNT, AUTOMATED 88 10^3/uL (150-450)
[2023-02-27 20:27] LABS: MAGNESIUM LEVEL 0.8 MG/DL (1.8-2.4)
[2023-02-27] MEDS ORDERED: NS 1,000 ML IV ONE (20:40)
[2023-02-27] MEDS: POTASSIUM CHLORIDE 10% LIQ 20MEQ/15ML UDC PO ONE ×2 (20:40→21:14)
[2023-02-27 22:15] VITALS: TEMP 98.5
[2023-02-27 23:30] VITALS: BP 114/58; O2SAT 95
[2023-02-27] MEDS ORDERED: SLOWTAB2 PO (23:39)
== END 2023-02-27 23:57 | disposition home or self-care (01) ==
LOC: M ED 11:54
DX: E83.42 Hypomagnesemia (principal); E87.1 Hypo-osmolality and hyponatremia; E87.6 Hypokalemia; I44.4 Left anterior fascicular block; R00.0 Tachycardia, unspecified; I49.3 Ventricular premature depolarization; E11.9 Type 2 diabetes mellitus without complications; E78.5 Hyperlipidemia, unspecified; I10 Essential (primary) hypertension; M54.50 Low back pain, unspecified; Z79.02 Long term (current) use of antithrombotics/antiplatelets; Z79.82 Long term (current) use of aspirin; Z79.899 Other long term (current) drug therapy
CPT/HCPCS: 71046; 80047; 80048; 80076; 82140; 82550; 82553; 83605; 83690; 83735; 83880; 83930; 84439; 84443; 84484; 85025; 85049; 85055; 85610; 85730; 87040; 93005; 93041; 94760; 96365; 96366; 99285; J3475

== ENCOUNTER → 2023-02-27 | Outpatient (CLI) | payer MEDICARE ==
[~2023-02-27] MED LIST changes: +BACI1CAP4 PO; +CLOTR1CR TOP; +FLUC1TAB21 PO; +GLIM2TAB4 PO; +LACT20EL PO; +SLOWTAB2 PO; +SPIR50TA4 PO; +TORS20TA2 PO
[2023-02-27 08:13] LABS: HEMATOCRIT 29.5 % (36.0-47.0); HEMOGLOBIN 9.7 g/dl (12.0-15.5); MEAN CORPUSCULAR HEMOGLOBIN 30.1 pg (27.0-33.0); MEAN CORPUSCULAR HGB CONC 32.9 g/dl (32.0-36.5); MEAN CORPUSCULAR VOLUME 91.6 fl (80.0-96.0); PLATELET COUNT, AUTOMATED 100 10^3/uL (150-450); RED BLOOD COUNT 3.22 10^6/uL (4.00-5.40)
[2023-02-27 08:54] LABS: CALCIUM LEVEL 6.9 MG/DL (8.5-10.1); CREATININE FOR GFR 1.05 MG/DL (0.55-1.30); GLOMERULAR FILTRATION RATE 57.1 (>51); MAGNESIUM LEVEL 0.9 MG/DL (1.8-2.4); POTASSIUM SERUM 3.3 MMOL/L (3.5-5.1)
== END ==
LOC: M LAB 07:42
PROVIDERS: ATTEND Internal Medicine Nephrology
DX: K74.60 Unspecified cirrhosis of liver (principal)

== ENCOUNTER → 2023-02-27 | Outpatient (CLI) | payer MEDICARE ==
[2023-02-27 08:13] LABS: BASO % 0.3 % (0.0-1.0); EOS # 0.1 10^3/uL (0.0-0.5); EOS % 1.8 % (0.0-3.0); HEMATOCRIT 30.1 % (36.0-47.0); HEMOGLOBIN 9.7 g/dl (12.0-15.5); LYMPH # 1.3 10^3/uL (1.5-5.0); LYMPH % 18.6 % (24.0-44.0); MEAN CORPUSCULAR HEMOGLOBIN 29.6 pg (27.0-33.0); MEAN CORPUSCULAR HGB CONC 32.2 g/dl (32.0-36.5); MEAN CORPUSCULAR VOLUME 91.8 fl (80.0-96.0); MONO # 0.5 10^3/uL (0.0-0.8); MONO % 6.9 % (2.0-8.0); NEUTROPHILS # 4.9 10^3/uL (1.5-8.5); NEUTROPHILS % 72.3 % (36.0-66.0); PLATELET COUNT, AUTOMATED 103 10^3/uL (150-450); RED BLOOD COUNT 3.28 10^6/uL (4.00-5.40); WHITE BLOOD COUNT 6.8 10^3/uL (4.0-10.0)
[2023-02-27 08:30] LABS: HEMOGLOBIN A1c 6.4 % (4.0-6.0)
[2023-02-27 08:40] LABS: THYROID STIMULATING HORMONE 6.922 uIU/ML (0.55-4.78); TOTAL 25(OH) VITAMIN D 63.9 NG/ML (20.0-100.0)
[2023-02-27 08:52] LABS: ALBUMIN 2.3 G/DL (3.2-5.2); BILIRUBIN,TOTAL 2.4 MG/DL (0.3-1.2); CALCIUM LEVEL 7.2 MG/DL (8.5-10.1); CHOLESTEROL RISK RATIO 2.5 (<5); CREATININE FOR GFR 1.05 MG/DL (0.55-1.30); GLOMERULAR FILTRATION RATE 57.1 (>51); HDL CHOLESTEROL 38.3 MG/DL (>40); LDL CHOLESTEROL 42.3 MG/DL (<100); NON-HDL-C 57.7 MG/DL; POTASSIUM SERUM 3.2 MMOL/L (3.5-5.1); TOTAL PROTEIN 6.4 G/DL (5.7-8.2)
== END ==
LOC: M LAB 07:48
PROVIDERS: ATTEND Physician Assistant
DX: Z00.00 Encounter for general adult medical examination without abnormal findings (principal); E83.42 Hypomagnesemia; E11.622 Type 2 diabetes mellitus with other skin ulcer; Z79.899 Other long term (current) drug therapy

== ENCOUNTER → 2023-03-05 | Outpatient (CLI) | payer MEDICARE ==
[~2023-03-05] MED LIST changes: +SLOWTAB2 PO
[2023-03-05 09:24] LABS: CALCIUM LEVEL 7.5 MG/DL (8.5-10.1); CREATININE FOR GFR 1.03 MG/DL (0.55-1.30); GLOMERULAR FILTRATION RATE 58.4 (>51); MAGNESIUM LEVEL 0.9 MG/DL (1.8-2.4); POTASSIUM SERUM 3.3 MMOL/L (3.5-5.1)
== END ==
LOC: M LAB 08:03
PROVIDERS: ATTEND Physician Assistant
DX: E87.6 Hypokalemia (principal); E87.1 Hypo-osmolality and hyponatremia; E83.42 Hypomagnesemia

== ENCOUNTER 2023-03-06 13:52 | Emergency (ER) | payer MEDICARE ==
[~2023-03-06] VITALS: Ht 160 cm; Wt 77.6 kg
[2023-03-06 13:54] VITALS: TEMP 97.2
[2023-03-06] MEDS ORDERED: MAG SULF 1GM/100ML (MAG RUN) 1 GM in IV 1 EA IV ONE ×2 (14:40→16:35)
[2023-03-06 15:08] LABS: BASO % 0.2 % (0.0-1.0); EOS # 0.1 10^3/uL (0.0-0.5); EOS % 1.5 % (0.0-3.0); HEMATOCRIT 28.3 % (36.0-47.0); HEMOGLOBIN 9.3 g/dl (12.0-15.5); LYMPH # 0.6 10^3/uL (1.5-5.0); LYMPH % 12.7 % (24.0-44.0); MEAN CORPUSCULAR HEMOGLOBIN 29.9 pg (27.0-33.0); MEAN CORPUSCULAR HGB CONC 32.9 g/dl (32.0-36.5); MONO # 0.4 10^3/uL (0.0-0.8); MONO % 9.2 % (2.0-8.0); NEUTROPHILS # 3.5 10^3/uL (1.5-8.5); NEUTROPHILS % 76.2 % (36.0-66.0); RED BLOOD COUNT 3.11 10^6/uL (4.00-5.40); WHITE BLOOD COUNT 4.6 10^3/uL (4.0-10.0)
[2023-03-06 15:18] LABS: PLATELET COUNT, AUTOMATED 74 10^3/uL (150-450)
[2023-03-06 15:38] LABS: RSV AMPLIFICATION NEGATIVE (NEGATIVE)
[2023-03-06 15:46] LABS: ALKALINE PHOSPHATASE 137 U/L (46-116); ALT/SGPT 21 U/L (7.0-40); AST/SGOT 45 U/L (<34); BILIRUBIN,TOTAL 1.6 MG/DL (0.3-1.2); BLOOD UREA NITROGEN 14 MG/DL (9-23); CALCIUM LEVEL 7.4 MG/DL (8.5-10.1); CARBON DIOXIDE LEVEL 26 MMOL/L (20-31); CHLORIDE LEVEL 94 MMOL/L (98-107); GLOMERULAR FILTRATION RATE > 60.0 (>51); GLUCOSE, FASTING 553 MG/DL (60-100); POTASSIUM SERUM 3.6 MMOL/L (3.5-5.1); SODIUM LEVEL 127 MMOL/L (136-145); TOTAL PROTEIN 6.3 G/DL (5.7-8.2)
[2023-03-06] MEDS ORDERED: HumuLIN R (REGULAR) INSULIN (NovoLIN R) **100U/ML** PER UNIT IV ONE (15:50)
[2023-03-06 18:00] VITALS: BP 152/65
[2023-03-06 18:07] VITALS: O2SAT 97
[2023-03-06 19:09] LABS: BLOOD UREA NITROGEN 13 MG/DL (9-23); CALCIUM LEVEL 7.1 MG/DL (8.5-10.1); CARBON DIOXIDE LEVEL 25 MMOL/L (20-31); CHLORIDE LEVEL 97 MMOL/L (98-107); CREATININE FOR GFR 0.97 MG/DL (0.55-1.30); GLOMERULAR FILTRATION RATE > 60.0 (>51); GLUCOSE, FASTING 438 MG/DL (60-100); MAGNESIUM LEVEL 1.5 MG/DL (1.8-2.4); POTASSIUM SERUM 3.5 MMOL/L (3.5-5.1); SODIUM LEVEL 127 MMOL/L (136-145)
== END 2023-03-06 19:52 | disposition home or self-care (01) ==
LOC: M ED 13:52
DX: E11.65 Type 2 diabetes mellitus with hyperglycemia (principal); E83.42 Hypomagnesemia; I49.3 Ventricular premature depolarization; I44.4 Left anterior fascicular block; I25.2 Old myocardial infarction; I45.81 Long QT syndrome; I10 Essential (primary) hypertension; K21.9 Gastro-esophageal reflux disease without esophagitis; E78.5 Hyperlipidemia, unspecified; Z87.442 Personal history of urinary calculi; Z91.048 Other nonmedicinal substance allergy status; Z79.02 Long term (current) use of antithrombotics/antiplatelets; Z79.811 Long term (current) use of aromatase inhibitors; Z79.899 Other long term (current) drug therapy; Z79.4 Long term (current) use of insulin
CPT/HCPCS: 80048; 80053; 83735; 85025; 85049; 85055; 87631; 93005; 93041; 94760; 96365; 96366; 96375; 99285; J1815; J3475

== ENCOUNTER 2023-03-21 13:05 | Emergency (ER) | payer MEDICARE ==
[~2023-03-21] VITALS: Ht 160 cm; Wt 78.9 kg
[2023-03-21 17:24] LABS: BASO % 0.2 % (0.0-1.0); EOS # 0.1 10^3/uL (0.0-0.5); EOS % 1.8 % (0.0-3.0); HEMATOCRIT 25.9 % (36.0-47.0); HEMOGLOBIN 8.3 g/dl (12.0-15.5); LYMPH # 0.6 10^3/uL (1.5-5.0); LYMPH % 13.6 % (24.0-44.0); MEAN CORPUSCULAR HEMOGLOBIN 29.6 pg (27.0-33.0); MEAN CORPUSCULAR VOLUME 92.5 fl (80.0-96.0); MONO # 0.4 10^3/uL (0.0-0.8); MONO % 8.1 % (2.0-8.0); NEUTROPHILS # 3.3 10^3/uL (1.5-8.5); NEUTROPHILS % 75.8 % (36.0-66.0); WHITE BLOOD COUNT 4.3 10^3/uL (4.0-10.0)
[2023-03-21 17:27] LABS: PLATELET COUNT, AUTOMATED 99 10^3/uL (150-450)
[2023-03-21 17:49] LABS: BLOOD UREA NITROGEN 12 MG/DL (9-23); CARBON DIOXIDE LEVEL 23 MMOL/L (20-31); CHLORIDE LEVEL 106 MMOL/L (98-107); CREATININE FOR GFR 0.74 MG/DL (0.55-1.30); GLOMERULAR FILTRATION RATE > 60.0 (>51); GLUCOSE, FASTING 251 MG/DL (60-100); MAGNESIUM LEVEL 0.9 MG/DL (1.8-2.4); POTASSIUM SERUM 4.6 MMOL/L (3.5-5.1); SODIUM LEVEL 135 MMOL/L (136-145)
[2023-03-21] MEDS ORDERED: MAG SULF 1GM/100ML (MAG RUN) 1 GM in IV 1 EA IV ONE ×2 (18:15→19:15)
[2023-03-21 22:03] VITALS: BP 147/65; TEMP 97.3; O2SAT 97
== END 2023-03-21 22:09 | disposition home or self-care (01) ==
LOC: M ED 13:05
DX: E83.42 Hypomagnesemia (principal); E11.65 Type 2 diabetes mellitus with hyperglycemia; I44.4 Left anterior fascicular block; I45.10 Unspecified right bundle-branch block; I25.2 Old myocardial infarction; I10 Essential (primary) hypertension; K74.60 Unspecified cirrhosis of liver; Z87.442 Personal history of urinary calculi; Z79.02 Long term (current) use of antithrombotics/antiplatelets; Z79.811 Long term (current) use of aromatase inhibitors; Z79.899 Other long term (current) drug therapy
CPT/HCPCS: 80048; 83735; 85025; 85049; 85055; 93005; 93041; 96365; 96366; 99284; J3475

== ENCOUNTER → 2023-03-21 | Outpatient (CLI) | payer MEDICARE ==
[~2023-03-21] MED LIST changes: +THERTAB52 PO
[2023-03-21 07:56] LABS: IONIZED CALCIUM 4.9 MG/DL (4.5-5.3)
[2023-03-21 08:06] LABS: BASO % 0.6 % (0.0-1.0); EOS # 0.1 10^3/uL (0.0-0.5); EOS % 2.4 % (0.0-3.0); HEMATOCRIT 27.2 % (36.0-47.0); HEMOGLOBIN 8.9 g/dl (12.0-15.5); LYMPH # 0.8 10^3/uL (1.5-5.0); LYMPH % 16.5 % (24.0-44.0); MEAN CORPUSCULAR HEMOGLOBIN 29.9 pg (27.0-33.0); MEAN CORPUSCULAR HGB CONC 32.7 g/dl (32.0-36.5); MEAN CORPUSCULAR VOLUME 91.3 fl (80.0-96.0); MONO # 0.4 10^3/uL (0.0-0.8); MONO % 7.6 % (2.0-8.0); NEUTROPHILS # 3.7 10^3/uL (1.5-8.5); NEUTROPHILS % 72.7 % (36.0-66.0); PLATELET COUNT, AUTOMATED 105 10^3/uL (150-450); RED BLOOD COUNT 2.98 10^6/uL (4.00-5.40)
[2023-03-21 08:26] LABS: IRON (FE) 52 UG/DL (50-170); PERCENT SATURATION 24.5 % (13.2-45.0); TOTAL IRON BINDING CAPACITY 212 UG/DL (250-425)
[2023-03-21 08:28] LABS: FREE T4 1.08 NG/DL (0.89-1.76); THYROID STIMULATING HORMONE 3.623 uIU/ML (0.55-4.78)
[2023-03-21 08:29] LABS: FERRITIN 202.3 NG/ML (7.3-270.7)
[2023-03-21 08:58] LABS: ALBUMIN 1.9 G/DL (3.2-5.2); ALKALINE PHOSPHATASE 97 U/L (46-116); ALT/SGPT 25 U/L (7.0-40); AST/SGOT 42 U/L (<34); BILIRUBIN,TOTAL 1.9 MG/DL (0.3-1.2); BLOOD UREA NITROGEN 10 MG/DL (9-23); CALCIUM LEVEL 8.6 MG/DL (8.5-10.1); CARBON DIOXIDE LEVEL 22 MMOL/L (20-31); CHLORIDE LEVEL 106 MMOL/L (98-107); CREATININE FOR GFR 0.75 MG/DL (0.55-1.30); GLOMERULAR FILTRATION RATE > 60.0 (>51); GLUCOSE, FASTING 119 MG/DL (60-100); MAGNESIUM LEVEL 0.9 MG/DL (1.8-2.4); POTASSIUM SERUM 4.6 MMOL/L (3.5-5.1); PTH INTACT 8.7 PG/ML (18.5-88.0); SODIUM LEVEL 135 MMOL/L (136-145); TOTAL PROTEIN 6.9 G/DL (5.7-8.2)
== END ==
LOC: M LAB 07:16
PROVIDERS: ATTEND Physician Assistant
DX: E83.51 Hypocalcemia (principal); E83.42 Hypomagnesemia; E87.6 Hypokalemia; R79.89 Other specified abnormal findings of blood chemistry

== ENCOUNTER → 2023-03-29 | Outpatient (CLI) | payer MEDICARE ==
[2023-03-29 09:13] LABS: ALBUMIN 1.9 G/DL (3.2-5.2); ALKALINE PHOSPHATASE 97 U/L (46-116); ALT/SGPT 20 U/L (7.0-40); AST/SGOT 39 U/L (<34); BILIRUBIN,TOTAL 2.2 MG/DL (0.3-1.2); BLOOD UREA NITROGEN 11 MG/DL (9-23); CALCIUM LEVEL 8.6 MG/DL (8.5-10.1); CARBON DIOXIDE LEVEL 24 MMOL/L (20-31); CHLORIDE LEVEL 100 MMOL/L (98-107); CREATININE FOR GFR 0.77 MG/DL (0.55-1.30); GLOMERULAR FILTRATION RATE > 60.0 (>51); GLUCOSE, FASTING 105 MG/DL (60-100); POTASSIUM SERUM 4.1 MMOL/L (3.5-5.1); SODIUM LEVEL 132 MMOL/L (136-145); TOTAL PROTEIN 7.2 G/DL (5.7-8.2)
== END ==
LOC: M LAB 07:28
PROVIDERS: ATTEND Physician Assistant
DX: E83.42 Hypomagnesemia (principal)

== ENCOUNTER → 2023-04-05 | Outpatient (CLI) | payer MEDICARE ==
[~2023-04-05] MED LIST changes: +LANTINJ4 SQ
[2023-04-05 08:05] LABS: BASO % 0.5 % (0.0-1.0); EOS # 0.1 10^3/uL (0.0-0.5); EOS % 3.2 % (0.0-3.0); HEMATOCRIT 27.9 % (36.0-47.0); LYMPH # 0.6 10^3/uL (1.5-5.0); LYMPH % 16.8 % (24.0-44.0); MEAN CORPUSCULAR HEMOGLOBIN 29.6 pg (27.0-33.0); MEAN CORPUSCULAR HGB CONC 32.3 g/dl (32.0-36.5); MEAN CORPUSCULAR VOLUME 91.8 fl (80.0-96.0); MONO # 0.4 10^3/uL (0.0-0.8); MONO % 10.5 % (2.0-8.0); NEUTROPHILS # 2.5 10^3/uL (1.5-8.5); NEUTROPHILS % 68.2 % (36.0-66.0); PLATELET COUNT, AUTOMATED 100 10^3/uL (150-450); RED BLOOD COUNT 3.04 10^6/uL (4.00-5.40); WHITE BLOOD COUNT 3.7 10^3/uL (4.0-10.0)
[2023-04-05 08:25] LABS: ALBUMIN 1.8 G/DL (3.2-5.2); ALKALINE PHOSPHATASE 106 U/L (46-116); ALT/SGPT 25 U/L (7.0-40); AST/SGOT 42 U/L (<34); BILIRUBIN,TOTAL 1.9 MG/DL (0.3-1.2); BLOOD UREA NITROGEN 8 MG/DL (9-23); CALCIUM LEVEL 7.4 MG/DL (8.5-10.1); CARBON DIOXIDE LEVEL 25 MMOL/L (20-31); CHLORIDE LEVEL 105 MMOL/L (98-107); CREATININE FOR GFR 0.75 MG/DL (0.55-1.30); GLOMERULAR FILTRATION RATE > 60.0 (>51); GLUCOSE, FASTING 140 MG/DL (60-100); MAGNESIUM LEVEL 1.2 MG/DL (1.8-2.4); POTASSIUM SERUM 4.1 MMOL/L (3.5-5.1); SODIUM LEVEL 136 MMOL/L (136-145); TOTAL PROTEIN 6.6 G/DL (5.7-8.2)
== END ==
LOC: M LAB 07:01
PROVIDERS: ATTEND Physician Assistant
DX: E83.42 Hypomagnesemia (principal)

== ENCOUNTER → 2023-04-16 | Outpatient (CLI) | payer MEDICARE ==
[2023-04-16 08:57] LABS: APPEARANCE, URINE CLEAR (CLEAR); BACTERIA, URINE AUTO NEGATIVE (NEGATIVE); BILIRUBIN, URINE AUTO NEGATIVE (NEGATIVE); BLOOD, URINE BLOOD 1+ (NEGATIVE); COLOR, URINE YELLOW (YELLOW); GLUCOSE, URINE (UA) AUTO NEGATIVE (NEGATIVE); KETONE, URINE AUTO NEGATIVE (NEGATIVE); LEUKOCYTE ESTERASE, URINE AUTO NEGATIVE (NEGATIVE); MUCUS, URINE SMALL (NEGATIVE); NITRITE, URINE AUTO NEGATIVE (NEGATIVE); PROTEIN, URINE AUTO NEGATIVE (NEGATIVE); RBC, URINE AUTO 34 /HPF (0-3); SQUAMOUS EPITHELIAL CELL UR AU 8 /HPF (0-6); UROBILINOGEN, URINE AUTO 0.2 mg/dL (0.0-2.0); WBC, URINE AUTO 1 /HPF (0-3)
[2023-04-16 09:43] LABS: BLOOD UREA NITROGEN 11 MG/DL (9-23); CARBON DIOXIDE LEVEL 26 MMOL/L (20-31); CHLORIDE LEVEL 103 MMOL/L (98-107); CREATININE FOR GFR 0.89 MG/DL (0.55-1.30); GLOMERULAR FILTRATION RATE > 60.0 (>51); GLUCOSE, FASTING 98 MG/DL (60-100); POTASSIUM SERUM 3.6 MMOL/L (3.5-5.1); SODIUM LEVEL 136 MMOL/L (136-145)
== END ==
LOC: M EKG 07:24
PROVIDERS: ATTEND Specialist
DX: Z01.818 Encounter for other preprocedural examination (principal)

== ENCOUNTER 2023-04-23 06:00 | Day surgery (SDC) | payer MEDICARE ==
[~2023-04-23] VITALS: Ht 160 cm; Wt 77.3 kg
[~2023-04-23 06:00] MED LIST changes: +ceFAZolin SOD 2 GM in IV 1 EA IV ONE
[2023-04-23] MEDS ORDERED: GLUCAGON INJ 1MG VIAL SC PRN (06:20)
[2023-04-23] MEDS ORDERED: DEXTROSE 50% 50ML SYRINGE IV PRN (06:20)
[2023-04-23] MEDS ORDERED: INSULIN LISPRO (NovoLOG) PER UNIT SC PRN (06:20)
[2023-04-23] MEDS ORDERED: GLUCOSE 4GM CHEW TABLET PO PRN (06:20)
[2023-04-23 06:58] LABS: ALKALINE PHOSPHATASE 106 U/L (46-116); ALT/SGPT 21 U/L (7.0-40); AST/SGOT 37 U/L (<34); BILIRUBIN,TOTAL 1.6 MG/DL (0.3-1.2); BLOOD UREA NITROGEN 12 MG/DL (9-23); CALCIUM LEVEL 8.1 MG/DL (8.3-10.6); CARBON DIOXIDE LEVEL 25 MMOL/L (20-31); CHLORIDE LEVEL 108 MMOL/L (98-107); CREATININE FOR GFR 0.84 MG/DL (0.55-1.30); GLOMERULAR FILTRATION RATE > 60.0 (>45); GLUCOSE, FASTING 129 MG/DL (74-106); SODIUM LEVEL 137 MMOL/L (136-145); TOTAL PROTEIN 7.1 G/DL (5.7-8.2)
[2023-04-23] MEDS: LR 1,000 ML IV SCH (07:08)
[2023-04-23] MEDS ORDERED: fentaNYL 100 MCG/2 ML INJECTION As Ordered ONE (07:14)
[2023-04-23] MEDS ORDERED: MIDAZOLAM INJ 2MG/2ML VIAL As Ordered ONE (07:14)
[2023-04-23] MEDS ORDERED: LIDOCAINE 2% 100MG/5ML SDV (FOR ANES.) As Ordered ONE (07:14)
[2023-04-23] MEDS ORDERED: ONDANSETRON 4MG 2ML VIAL As Ordered ONE (07:14)
[2023-04-23] MEDS ORDERED: propofoL 200 MG/20 ML VIAL As Ordered ONE (07:14)
[2023-04-23] MEDS ORDERED: ESTROGENS VAGINAL CREAM 30GM As Ordered ONE (07:18)
[2023-04-23] MEDS ORDERED: METHYLENE BLUE 0.5% (5MG/ML) 10 ML AMP (PROVAYBLUE) As Ordered ONE (07:18)
[2023-04-23] MEDS ORDERED: HYDROMORPHONE HCL 0.5 MG/ 0.5 ML SYRINGE IV PRN (08:15)
[2023-04-23] MEDS ORDERED: NALBUPHINE HCL 1MG/0.1ML (100MG/10ML) MDV IV PRN (08:15)
[2023-04-23] MEDS ORDERED: LR 1,000 ML IV SCH (08:15)
[2023-04-23] MEDS ORDERED: oxyCODONE 5MG TAB PO PRN (08:15)
[2023-04-23] MEDS ORDERED: METOCLOPRAMIDE INJ 10MG/2ML VIAL IV PRN (08:15)
[2023-04-23] MEDS ORDERED: MEPERIDINE 25 MG/ML 1ML VIAL IV PRN (08:15)
[2023-04-23] MEDS ORDERED: fentaNYL 100 MCG/2 ML INJECTION IV PRN (08:15)
[2023-04-23] MEDS ORDERED: ONDANSETRON 4MG 2ML VIAL IV PRN (08:15)
[2023-04-23] MEDS ORDERED: flumazeniL 0.5MG/5ML VIAL As Ordered ONE (08:21)
[2023-04-23 10:00] VITALS: BP 138/68; TEMP 97.9; O2SAT 96
== END 2023-04-23 10:09 | disposition home or self-care (01) ==
LOC: M SDC 06:00
PROVIDERS: ATTEND Specialist
DX: N36.2 Urethral caruncle (principal); I10 Essential (primary) hypertension; E78.5 Hyperlipidemia, unspecified; R60.0 Localized edema; E11.9 Type 2 diabetes mellitus without complications; D64.9 Anemia, unspecified; J30.2 Other seasonal allergic rhinitis; Z79.899 Other long term (current) drug therapy; L40.9 Psoriasis, unspecified
CPT/HCPCS: 36415; 53230; 80053; 88305; J1100; J2250; J2405; J3010; Q9968

== ENCOUNTER → 2023-04-23 | Outpatient (REF) | payer MEDICARE | LOC: M SFHCLERA 11:55 | PROVIDERS: ATTEND Physician Assistant | DX: E87.6 Hypokalemia (principal) ==

== ENCOUNTER → 2023-05-07 | Outpatient (CLI) | payer MEDICARE ==
[~2023-05-07] MED LIST changes: -ceFAZolin SOD 2 GM in IV 1 EA IV ONE
[2023-05-07 10:09] LABS: ALBUMIN 2.2 G/DL (3.2-5.2); ALKALINE PHOSPHATASE 110 U/L (46-116); ALT/SGPT 29 U/L (7.0-40); AST/SGOT 43 U/L (<34); BILIRUBIN,TOTAL 1.7 MG/DL (0.3-1.2); BLOOD UREA NITROGEN 14 MG/DL (9-23); CALCIUM LEVEL 8.2 MG/DL (8.3-10.6); CARBON DIOXIDE LEVEL 27 MMOL/L (20-31); CHLORIDE LEVEL 102 MMOL/L (98-107); CREATININE FOR GFR 0.84 MG/DL (0.55-1.30); GLOMERULAR FILTRATION RATE > 60.0 (>45); GLUCOSE, FASTING 201 MG/DL (74-106); MAGNESIUM LEVEL 1.2 MG/DL (1.8-2.4); POTASSIUM SERUM 4.5 MMOL/L (3.5-5.1); SODIUM LEVEL 134 MMOL/L (136-145); TOTAL PROTEIN 7.1 G/DL (5.7-8.2)
== END ==
LOC: M LAB 08:37
PROVIDERS: ATTEND Physician Assistant
DX: E83.42 Hypomagnesemia (principal)

== ENCOUNTER → 2023-05-29 | Outpatient (CLI) | payer MEDICARE | LOC: M WHC 09:07 | PROVIDERS: ATTEND Physician Assistant | DX: Z12.31 Encounter for screening mammogram for malignant neoplasm of breast (principal) ==

== ENCOUNTER → 2023-06-27 | Outpatient (REF) | payer MEDICARE ==
[~2023-06-27] MED LIST changes: -GLIM1TAB4 PO; +GLIM1TAB84 PO
[2023-06-27 11:11] LABS: APPEARANCE, URINE CLEAR (CLEAR); BACTERIA, URINE AUTO NEGATIVE (NEGATIVE); BILIRUBIN, URINE AUTO NEGATIVE (NEGATIVE); BLOOD, URINE BLOOD 2+ (NEGATIVE); COLOR, URINE YELLOW (YELLOW); GLUCOSE, URINE (UA) AUTO NEGATIVE (NEGATIVE); KETONE, URINE AUTO NEGATIVE (NEGATIVE); LEUKOCYTE ESTERASE, URINE AUTO NEGATIVE (NEGATIVE); MUCUS, URINE SMALL (NEGATIVE); NITRITE, URINE AUTO NEGATIVE (NEGATIVE); PROTEIN, URINE AUTO NEGATIVE (NEGATIVE); RBC, URINE AUTO 76 /HPF (0-3); SPECIFIC GRAVITY URINE AUTO 1.013 (1.002-1.035); SQUAMOUS EPITHELIAL CELL UR AU 2 /HPF (0-6); UROBILINOGEN, URINE AUTO 0.2 mg/dL (0.0-2.0); WBC, URINE AUTO 4 /HPF (0-3)
== END ==
LOC: M SMT 09:47
PROVIDERS: ATTEND Nurse Practitioner Family
DX: R82.90 Unspecified abnormal findings in urine (principal)

== ENCOUNTER 2023-06-29 10:28 | Inpatient (IN) | payer MEDICARE ==
[~2023-06-29] VITALS: Ht 162.6 cm; Wt 68.1 kg
[2023-06-29 10:56] LABS: BASO % 0.3 % (0.0-1.0); EOS % 0.4 % (0.0-3.0); HEMATOCRIT 29.7 % (36.0-47.0); LYMPH # 0.8 10^3/uL (1.5-5.0); MEAN CORPUSCULAR HEMOGLOBIN 29.5 pg (27.0-33.0); MEAN CORPUSCULAR HGB CONC 33.7 g/dl (32.0-36.5); MEAN CORPUSCULAR VOLUME 87.6 fl (80.0-96.0); MONO # 0.6 10^3/uL (0.0-0.8); MONO % 7.3 % (2.0-8.0); NEUTROPHILS # 6.5 10^3/uL (1.5-8.5); NEUTROPHILS % 81.7 % (36.0-66.0); PLATELET COUNT, AUTOMATED 108 10^3/uL (150-450); RED BLOOD COUNT 3.39 10^6/uL (4.00-5.40); WHITE BLOOD COUNT 7.9 10^3/uL (4.0-10.0)
[2023-06-29] MEDS: NS 500 ML IV ONE (11:00)
[2023-06-29 11:10] LABS: INR 1.33; PROTHROMBIN TIME 16.1 SECONDS (12.5-14.5)
[2023-06-29 11:23] LABS: ALBUMIN 2.8 G/DL (3.2-5.2); BILIRUBIN,DIRECT 0.8 MG/DL (<0.4); CALCIUM LEVEL 8.8 MG/DL (8.3-10.6); CREATININE FOR GFR 1.05 MG/DL (0.55-1.30); GLOMERULAR FILTRATION RATE 56.9 (>45); MAGNESIUM LEVEL 1.8 MG/DL (1.8-2.4); POTASSIUM SERUM 5.9 MMOL/L (3.5-5.1); TOTAL PROTEIN 7.8 G/DL (5.7-8.2)
[2023-06-29] MEDS: LACTULOSE 20GM/30ML SYRUP UDC PR ONE (11:50)
[2023-06-29] MEDS: CALCIUM CHLORIDE 10% 1 GM in D5W 100 ML IV ONE (11:51)
[2023-06-29] MEDS ORDERED: HOME MED LIST COMPLETE! XX SCH (12:15)
[2023-06-29] MEDS ORDERED: GLUCOSE 4 GM CHEW PO PRN (13:10)
[2023-06-29] MEDS ORDERED: DEXTROSE 50% 50ML SYRINGE IV PRN (13:10)
[2023-06-29] MEDS ORDERED: GLUCAGON INJ 1MG VIAL SC PRN (13:10)
[2023-06-29] MEDS: DEXTROSE 50% 50ML SYRINGE IV STA (13:19)
[2023-06-29] MEDS: HumuLIN R (REGULAR) INSULIN (NovoLIN R) **100U/ML** PER UNIT IV STA (13:20)
[2023-06-29 14:06] LABS: VENOUS HCO3 21.3 MMOL/L (23.0-27.0); VENOUS PARTIAL PRESSURE CO2 31.4 mmHg (38.0-50.0); VENOUS PARTIAL PRESSURE O2 149.2 mmHg (30.0-50.0); VENOUS STANDARD HCO3 22.8 MMOL/L; VENOUS TOTAL CO2 22.3 MMOL/L (24.0-28.0)
[2023-06-29] MEDS: FUROSEMIDE 40MG/4ML VIAL IV ONE (14:20)
[2023-06-29] MEDS: PANTOPRAZOLE 40MG VIAL IV SCH (14:20)
[2023-06-29 14:42] LABS: PROCALCITONIN 0.35 ng/ml
[2023-06-29 15:12] VITALS: BP 134/63; TEMP 98.9; O2SAT 92
[2023-06-29] MEDS: ALBUTEROL SULFATE 2.5MG/0.5ML INH NEB SOLN NEB STA (15:44)
[2023-06-29 16:02] LABS: CALCIUM LEVEL 9.6 MG/DL (8.3-10.6); CREATININE FOR GFR 1.02 MG/DL (0.55-1.30); GLOMERULAR FILTRATION RATE 58.8 (>45); POTASSIUM SERUM 4.1 MMOL/L (3.5-5.1)
[2023-06-29] MEDS: LACTULOSE 20GM/30ML SYRUP UDC PR SCH (16:10)
[2023-06-29] MEDS: INSULIN LISPRO (NovoLOG) PER UNIT SC SCH (18:34)
[2023-06-29 20:09] VITALS: BP 125/63; TEMP 98.1; O2SAT 97
[2023-06-29] MEDS: HEPARIN SOD (PORCINE) 5000UNITS/ML 1ML VIAL/SYRINGE SC SCH (21:48)
[2023-06-30] VITALS: BP 117/58; TEMP 97.9; O2SAT 96
[2023-06-30 03:35] VITALS: BP 134/66; TEMP 98.4; O2SAT 95
[2023-06-30 05:26] LABS: BASO % 0.5 % (0.0-1.0); EOS # 0.1 10^3/uL (0.0-0.5); EOS % 1.5 % (0.0-3.0); HEMATOCRIT 27.9 % (36.0-47.0); HEMOGLOBIN 9.2 g/dl (12.0-15.5); LYMPH # 1.2 10^3/uL (1.5-5.0); LYMPH % 18.8 % (24.0-44.0); MEAN CORPUSCULAR HEMOGLOBIN 28.9 pg (27.0-33.0); MEAN CORPUSCULAR VOLUME 87.7 fl (80.0-96.0); MONO # 0.6 10^3/uL (0.0-0.8); MONO % 8.8 % (2.0-8.0); NEUTROPHILS # 4.6 10^3/uL (1.5-8.5); NEUTROPHILS % 69.9 % (36.0-66.0); RED BLOOD COUNT 3.18 10^6/uL (4.00-5.40); WHITE BLOOD COUNT 6.6 10^3/uL (4.0-10.0)
[2023-06-30 05:33] LABS: PLATELET COUNT, AUTOMATED 94 10^3/uL (150-450)
[2023-06-30 06:03] LABS: ALBUMIN 2.6 G/DL (3.2-5.2); BILIRUBIN,DIRECT 1.1 MG/DL (<0.4); BILIRUBIN,TOTAL 2.3 MG/DL (0.3-1.2); CALCIUM LEVEL 8.9 MG/DL (8.3-10.6); CREATININE FOR GFR 1.31 MG/DL (0.55-1.30); GLOMERULAR FILTRATION RATE 44.1 (>45); POTASSIUM SERUM 4.5 MMOL/L (3.5-5.1); TOTAL PROTEIN 6.8 G/DL (5.7-8.2)
[2023-06-30] MEDS ORDERED: D5W/LR 1,000 ML IV SCH (07:00)
[2023-06-30 08:18] VITALS: BP 112/57; TEMP 97.6; O2SAT 95
[2023-06-30] MEDS: ASCORBIC ACID 500 MG TAB PO SCH (09:20)
[2023-06-30 09:21] VITALS: BP 112/57
[2023-06-30] MEDS: POTASSIUM CHLORIDE 10MEQ SR TABLET PO SCH (09:21)
[2023-06-30] MEDS: PANTOPRAZOLE 20 MG TAB PO SCH (09:21)
[2023-06-30] MEDS: MAGNESIUM OXIDE 400MG TAB (MAG-OX) PO SCH (09:21)
[2023-06-30] MEDS: amLODIPine 5 MG TAB PO SCH (09:21)
[2023-06-30] MEDS: LACTULOSE 20GM/30ML SYRUP UDC PO SCH (09:22)
[2023-06-30] MEDS: LORATADINE 10 MG TAB PO SCH (09:22)
[2023-06-30] MEDS: VITAMIN D 1,000 INTERNATIONAL UNITS TABLET PO SCH (09:28)
[2023-06-30 10:20] LABS: HEMOGLOBIN A1c 6.6 % (4.0-6.0)
[2023-06-30] MEDS ORDERED: LACT20EL PO (11:35)
[2023-06-30 12:19] VITALS: BP 125/58; TEMP 97.4; O2SAT 97
[2023-06-30] MEDS ORDERED: SPIR50TA4 PO (12:36)
[2023-06-30] MEDS ORDERED: ATORVASTATIN 20 MG TAB PO SCH (21:00)
== END 2023-06-30 13:57 | disposition home or self-care (01) | DRG 433 ==
LOC: M ED 10:28 → EDBD 10:28 → M ED INP 12:47 → M PCU 14:46
PROVIDERS: ADMIT Student in an Organized Health Care Education/Training Program; ATTEND Student in an Organized Health Care Education/Training Program
DX: K74.60 Unspecified cirrhosis of liver (principal); E87.20 Acidosis, unspecified; L88 Pyoderma gangrenosum; I50.32 Chronic diastolic (congestive) heart failure; I13.0 Hypertensive heart and chronic kidney disease with heart failure and stage 1 through stage 4 chronic kidney disease, or unspecified chronic kidney disease; E87.5 Hyperkalemia; E11.65 Type 2 diabetes mellitus with hyperglycemia; L40.8 Other psoriasis; K76.82 Hepatic encephalopathy; M06.9 Rheumatoid arthritis, unspecified; Z79.899 Other long term (current) drug therapy; Z79.52 Long term (current) use of systemic steroids; Z87.891 Personal history of nicotine dependence; E78.5 Hyperlipidemia, unspecified; N18.31 Chronic kidney disease, stage 3a; Z87.442 Personal history of urinary calculi

== ENCOUNTER 2023-07-04 16:51 | Inpatient (IN) | payer MEDICARE ==
[~2023-07-04] VITALS: Ht 157.5 cm; Wt 82.2 kg
[~2023-07-04 16:51] MED LIST changes: -CONS10SO3 PO
[2023-07-04] MEDS: NS 1,000 ML IV SCH (17:15)
[2023-07-04 17:40] LABS: HEMATOCRIT 26.4 % (36.0-47.0); HEMOGLOBIN 8.9 g/dl (12.0-15.5); MEAN CORPUSCULAR HEMOGLOBIN 29.8 pg (27.0-33.0); MEAN CORPUSCULAR HGB CONC 33.7 g/dl (32.0-36.5); MEAN CORPUSCULAR VOLUME 88.3 fl (80.0-96.0); RED BLOOD COUNT 2.99 10^6/uL (4.00-5.40)
[2023-07-04 17:41] LABS: VENOUS BASE EXCESS -5.7 (-2.0-2.0); VENOUS HCO3 19.2 MMOL/L (23.0-27.0); VENOUS O2 SATURATION 58.4 % (60.0-80.0); VENOUS PARTIAL PRESSURE CO2 35.4 mmHg (38.0-50.0); VENOUS PARTIAL PRESSURE O2 33.6 mmHg (30.0-50.0); VENOUS PH 7.353 UNITS (7.330-7.430); VENOUS STANDARD HCO3 19.2 MMOL/L; VENOUS TOTAL CO2 20.3 MMOL/L (24.0-28.0)
[2023-07-04 17:50] LABS: PLATELET COUNT, AUTOMATED 70 10^3/uL (150-450)
[2023-07-04 18:10] LABS: ANISOCYTOSIS 1+; ETHYL ALCOHOL (ETHANOL) < 0.003 % (0.000-0.010); LYMPHOCYTES 10 % (16-44); MONOCYTES 1 % (0-5); NEUTROPHILS 87 % (28-66); PLATELET ESTIMATE DECREASED (NORMAL)
[2023-07-04 18:12] LABS: ALBUMIN 2.4 G/DL (3.2-5.2); ALKALINE PHOSPHATASE 112 U/L (46-116); ALT/SGPT 48 U/L (7.0-40); AST/SGOT 291 U/L (<34); BILIRUBIN,DIRECT 1.6 MG/DL (<0.4); BILIRUBIN,TOTAL 2.9 MG/DL (0.3-1.2); BLOOD UREA NITROGEN 39 MG/DL (9-23); CALCIUM LEVEL 8.6 MG/DL (8.3-10.6); CARBON DIOXIDE LEVEL 20 MMOL/L (20-31); CHLORIDE LEVEL 96 MMOL/L (98-107); CREATININE FOR GFR 1.78 MG/DL (0.55-1.30); GLUCOSE, FASTING 158 MG/DL (74-106); POTASSIUM SERUM 5.1 MMOL/L (3.5-5.1); SALICYLATE LEVEL < 3.0 MG/DL (<30); SODIUM LEVEL 124 MMOL/L (136-145); TOTAL PROTEIN 6.7 G/DL (5.7-8.2)
[2023-07-04 18:14] LABS: THYROID STIMULATING HORMONE 3.077 uIU/ML (0.55-4.78)
[2023-07-04] MEDS: cefTRIAXone SOD 1 GM in D5W MINI-BAG PLUS 50 ML IV ONE (18:15)
[2023-07-04 19:09] LABS: OSMOLALITY SERUM 281 MOSM/KG (275-295)
[2023-07-04] MEDS ORDERED: CONS10SO3 PO (20:27)
[2023-07-04] MEDS ORDERED: HOME MED LIST COMPLETE! XX SCH (20:30)
[2023-07-04] MEDS: ATORVASTATIN 20 MG TAB PO SCH (21:00)
[2023-07-04] MEDS: SODIUM CHLORIDE 0.9% 1000ML IV STA (21:52)
[2023-07-04] MEDS ORDERED: GLUCAGON INJ 1MG VIAL SC PRN (22:10)
[2023-07-04] MEDS ORDERED: DEXTROSE 50% 50ML SYRINGE IV PRN (22:10)
[2023-07-04] MEDS ORDERED: GLUCOSE 4 GM CHEW PO PRN (22:10)
[2023-07-04 22:38] LABS: MAGNESIUM LEVEL 1.5 MG/DL (1.8-2.4)
[2023-07-05] VITALS (7 sets, daily range): BP systolic 103–143; BP diastolic 57–63; TEMP 99–102.5; O2SAT 95–98
[2023-07-05] MEDS: LACTULOSE 20GM/30ML SYRUP UDC PO ONE (02:04)
[2023-07-05] MEDS: PIPERACILLIN/TAZOBACTAM SOD 4.5 GM in D5W MINI-BAG PLUS 50 ML IV SCH (02:04)
[2023-07-05] MEDS: INSULIN LISPRO (NovoLOG) PER UNIT SC SCH ×4 (02:05→21:00)
[2023-07-05] MEDS: MAG SULF 1GM/100ML (MAG RUN) 1 GM in IV 1 EA IV SCH (02:06)
[2023-07-05] MEDS: HEPARIN SOD (PORCINE) 5000UNITS/ML 1ML VIAL/SYRINGE SC SCH (05:44)
[2023-07-05 06:30] LABS: HEMATOCRIT 24.5 % (36.0-47.0); HEMOGLOBIN 8.3 g/dl (12.0-15.5); MEAN CORPUSCULAR HEMOGLOBIN 30.1 pg (27.0-33.0); MEAN CORPUSCULAR HGB CONC 33.9 g/dl (32.0-36.5); MEAN CORPUSCULAR VOLUME 88.8 fl (80.0-96.0); RED BLOOD COUNT 2.76 10^6/uL (4.00-5.40); WHITE BLOOD COUNT 9.3 10^3/uL (4.0-10.0)
[2023-07-05 06:38] LABS: PLATELET COUNT, AUTOMATED 47 10^3/uL (150-450)
[2023-07-05 07:04] LABS: ALBUMIN 1.8 G/DL (3.2-5.2); CALCIUM LEVEL 7.9 MG/DL (8.3-10.6); CREATININE FOR GFR 1.64 MG/DL (0.55-1.30); MAGNESIUM LEVEL 2.1 MG/DL (1.8-2.4); POTASSIUM SERUM 5.2 MMOL/L (3.5-5.1); TOTAL PROTEIN 5.8 G/DL (5.7-8.2)
[2023-07-05] MEDS ORDERED: INSULIN LISPRO (NovoLOG) PER UNIT SC SCH (07:30)
[2023-07-05] MEDS ORDERED: PANTOPRAZOLE 20 MG TAB PO SCH (09:00)
[2023-07-05 09:12] LABS: C REACTIVE PROTEIN QUANTITATIV 13.3 MG/DL (<1.0)
[2023-07-05 09:21] LABS: PROCALCITONIN 5.65 ng/ml
[2023-07-05] MEDS: NS 1,000 ML IV SCH (09:51)
[2023-07-05] MEDS: LACTULOSE 20GM/30ML SYRUP UDC PR ONE (10:11)
[2023-07-05 10:18] LABS: AMPHETAMINES LEVEL URINE NEGATIVE (NEGATIVE); BARBITURATES URINE NEGATIVE (NEGATIVE); BENZODIAZEPINES URINE NEGATIVE (NEGATIVE); CANNABINOIDS URINE NEGATIVE (NEGATIVE); COCAINE METABOLITE URINE NEGATIVE (NEGATIVE); METHADONE URINE NEGATIVE (NEGATIVE); OPIATES URINE NEGATIVE (NEGATIVE); PHENCYCLIDINE URINE NEGATIVE (NEGATIVE)
[2023-07-05 10:21] LABS: CREATININE,RANDOM URINE 60.2 MG/DL
[2023-07-05] MEDS: ALBUTEROL SULFATE 2.5MG/0.5ML INH NEB SOLN NEB ONE (11:49)
[2023-07-05] MEDS: PANTOPRAZOLE 40MG VIAL IV SCH (13:57)
[2023-07-05] MEDS: LACTULOSE 20GM/30ML SYRUP UDC PO SCH (17:43)
[2023-07-05] MEDS: ACETAMINOPHEN TAB 650MG DOSE (2X325MG) PO PRN (17:44)
[2023-07-06] VITALS (9 sets, daily range): BP systolic 106–171; BP diastolic 56–90; TEMP 97.6–102.9; O2SAT 94–100
[2023-07-06] MEDS: ACETAMINOPHEN *IV* 1,000 MG in IV 1 EA IV ONE (01:06)
[2023-07-06 07:50] LABS: BASO % 0.2 % (0.0-1.0); EOS % 0.4 % (0.0-3.0); HEMATOCRIT 25.7 % (36.0-47.0); HEMOGLOBIN 8.3 g/dl (12.0-15.5); LYMPH # 0.4 10^3/uL (1.5-5.0); LYMPH % 7.2 % (24.0-44.0); MEAN CORPUSCULAR HEMOGLOBIN 29.1 pg (27.0-33.0); MEAN CORPUSCULAR HGB CONC 32.3 g/dl (32.0-36.5); MEAN CORPUSCULAR VOLUME 90.2 fl (80.0-96.0); MONO # 0.6 10^3/uL (0.0-0.8); MONO % 11.8 % (2.0-8.0); NEUTROPHILS # 4.3 10^3/uL (1.5-8.5); RED BLOOD COUNT 2.85 10^6/uL (4.00-5.40); WHITE BLOOD COUNT 5.4 10^3/uL (4.0-10.0)
[2023-07-06 07:54] LABS: PLATELET COUNT, AUTOMATED 48 10^3/uL (150-450)
[2023-07-06 08:20] LABS: ALBUMIN 1.9 G/DL (3.2-5.2); BILIRUBIN,TOTAL 2.2 MG/DL (0.3-1.2); CALCIUM LEVEL 7.7 MG/DL (8.3-10.6); CREATININE FOR GFR 1.6 MG/DL (0.55-1.30); POTASSIUM SERUM 3.9 MMOL/L (3.5-5.1); TOTAL PROTEIN 5.8 G/DL (5.7-8.2)
[2023-07-06] MEDS ORDERED: PILL CUTTER 1 EACH XX ONE (11:16)
[2023-07-06] MEDS: rifAXIMin 550 MG TAB (XIFAXAN) PO SCH (11:27)
[2023-07-06] MEDS: cefTRIAXone SOD 2 GM in D5W MINI-BAG PLUS 50 ML IV SCH (18:19)
[2023-07-06] MEDS: LEVALBUTEROL 1.25MG 0.5ML CONCENTRATE NEB NEB STA (19:13)
[2023-07-06] MEDS: FUROSEMIDE 40MG/4ML VIAL IV STA (19:29)
[2023-07-06] MEDS: ACETAMINOPHEN *IV* 1,000 MG in IV 1 EA IV STA (19:57)
[2023-07-06 19:59] LABS: ABG O2 SATURATION 92.1 % (95.0-99.0); ABG PARTIAL PRESSURE CO2 24.1 mmHg (35.0-45.0); ABG PARTIAL PRESSURE O2 62.5 mmHg (75.0-100.0); ABG STANDARD HCO3 18.6 MMOL/L. (22.0-26.0); ABG TOTAL CO2 16.8 MMOL/L (23.0-31.0); ABG pH (ARTERIAL) 7.441 UNITS (7.350-7.450)
[2023-07-06 20:35] LABS: CALCIUM LEVEL 7.3 MG/DL (8.3-10.6); CREATININE FOR GFR 1.5 MG/DL (0.55-1.30); GLOMERULAR FILTRATION RATE 37.7 (>45); POTASSIUM SERUM 3.8 MMOL/L (3.5-5.1)
[2023-07-06] MEDS: PIPERACILLIN/TAZOBACTAM SOD 4.5 GM in D5W MINI-BAG PLUS 50 ML IV SCH (21:22)
[2023-07-07] VITALS (14 sets, daily range): BP systolic 108–156; BP diastolic 55–78; TEMP 96.8–101.6; O2SAT 87–100
[2023-07-07 07:43] LABS: BASO % 0.2 % (0.0-1.0); EOS # 0.1 10^3/uL (0.0-0.5); EOS % 2.2 % (0.0-3.0); HEMATOCRIT 22.5 % (36.0-47.0); HEMOGLOBIN 7.6 g/dl (12.0-15.5); LYMPH # 0.4 10^3/uL (1.5-5.0); LYMPH % 6.9 % (24.0-44.0); MEAN CORPUSCULAR HEMOGLOBIN 29.8 pg (27.0-33.0); MEAN CORPUSCULAR HGB CONC 33.8 g/dl (32.0-36.5); MEAN CORPUSCULAR VOLUME 88.2 fl (80.0-96.0); MONO # 0.5 10^3/uL (0.0-0.8); MONO % 9.9 % (2.0-8.0); NEUTROPHILS # 4.1 10^3/uL (1.5-8.5); NEUTROPHILS % 80.2 % (36.0-66.0); PLATELET COUNT, AUTOMATED 38 10^3/uL (150-450); RED BLOOD COUNT 2.55 10^6/uL (4.00-5.40); WHITE BLOOD COUNT 5.1 10^3/uL (4.0-10.0)
[2023-07-07 08:13] LABS: CALCIUM LEVEL 7.2 MG/DL (8.3-10.6); CREATININE FOR GFR 1.55 MG/DL (0.55-1.30); GLOMERULAR FILTRATION RATE 36.3 (>45); POTASSIUM SERUM 3.3 MMOL/L (3.5-5.1)
[2023-07-07] MEDS: ATORVASTATIN 20 MG TAB PO SCH (09:08)
[2023-07-07] MEDS: POTASSIUM CHLORIDE 10MEQ SR TABLET PO ONE (09:50)
[2023-07-07 10:05] LABS: PROCALCITONIN 4.43 ng/ml
[2023-07-07] MEDS: SPIRONOLACTONE 50 MG TAB PO ONE (12:53)
[2023-07-07] MEDS: LACTULOSE 20GM/30ML SYRUP UDC PO SCH (14:00)
[2023-07-07 16:21] LABS: HEMOGLOBIN 9.1 g/dl (12.0-15.5); MEAN CORPUSCULAR HEMOGLOBIN 28.9 pg (27.0-33.0); MEAN CORPUSCULAR HGB CONC 32.5 g/dl (32.0-36.5); MEAN CORPUSCULAR VOLUME 88.9 fl (80.0-96.0); RED BLOOD COUNT 3.15 10^6/uL (4.00-5.40); WHITE BLOOD COUNT 6.1 10^3/uL (4.0-10.0)
[2023-07-07 16:22] LABS: PLATELET COUNT, AUTOMATED 44 10^3/uL (150-450)
[2023-07-07 16:50] LABS: BILIRUBIN,TOTAL 2.3 MG/DL (0.3-1.2); CALCIUM LEVEL 7.7 MG/DL (8.3-10.6); CREATININE FOR GFR 1.54 MG/DL (0.55-1.30); GLOMERULAR FILTRATION RATE 36.6 (>45); TOTAL PROTEIN 6.4 G/DL (5.7-8.2)
[2023-07-07] MEDS: LINEZOLID 600MG TABLET (ZYVOX) PO SCH (18:45)
[2023-07-08] VITALS (7 sets, daily range): BP systolic 118–157; BP diastolic 57–68; TEMP 96.9–98.9; O2SAT 91–97
[2023-07-08 06:27] LABS: HEMATOCRIT 23.9 % (36.0-47.0); MEAN CORPUSCULAR HEMOGLOBIN 29.3 pg (27.0-33.0); MEAN CORPUSCULAR HGB CONC 33.5 g/dl (32.0-36.5); MEAN CORPUSCULAR VOLUME 87.5 fl (80.0-96.0); RED BLOOD COUNT 2.73 10^6/uL (4.00-5.40); WHITE BLOOD COUNT 5.4 10^3/uL (4.0-10.0)
[2023-07-08 06:30] LABS: PLATELET COUNT, AUTOMATED 42 10^3/uL (150-450)
[2023-07-08 06:51] LABS: CALCIUM LEVEL 7.1 MG/DL (8.3-10.6); CREATININE FOR GFR 1.57 MG/DL (0.55-1.30); GLOMERULAR FILTRATION RATE 35.8 (>45); POTASSIUM SERUM 3.5 MMOL/L (3.5-5.1)
[2023-07-08 06:55] LABS: EOSINOPHILS 4 % (0-3); LYMPHOCYTES 5 % (16-44); MONOCYTES 7 % (0-5); NEUTROPHILS 79 % (28-66)
[2023-07-08 06:56] LABS: ANISOCYTOSIS 2+; HYPOCHROMASIA 1+; PLATELET ESTIMATE MARKED DECREASE (NORMAL); POIKILOCYTOSIS 1+; POLYCHROMASIA 1+
[2023-07-08 06:57] LABS: BURR CELLS 1+; OVALOCYTES 2+
[2023-07-08] MEDS: POTASSIUM CHLORIDE 10MEQ SR TABLET PO ONE (12:23)
[2023-07-08] MEDS: cefTRIAXone SOD 2 GM in D5W MINI-BAG PLUS 50 ML IV SCH (13:49)
[2023-07-08] MEDS: LACTULOSE 20GM/30ML SYRUP UDC PO SCH (17:23)
[2023-07-09 03:55] VITALS: BP 99/51; TEMP 98.5; O2SAT 93
[2023-07-09 06:15] LABS: HEMATOCRIT 22.5 % (36.0-47.0); HEMOGLOBIN 7.4 g/dl (12.0-15.5); MEAN CORPUSCULAR HEMOGLOBIN 29.8 pg (27.0-33.0); MEAN CORPUSCULAR HGB CONC 32.9 g/dl (32.0-36.5); MEAN CORPUSCULAR VOLUME 90.7 fl (80.0-96.0); RED BLOOD COUNT 2.48 10^6/uL (4.00-5.40); WHITE BLOOD COUNT 5.5 10^3/uL (4.0-10.0)
[2023-07-09 06:17] LABS: CREATININE FOR GFR 1.76 MG/DL (0.55-1.30); GLOMERULAR FILTRATION RATE 31.4 (>45); POTASSIUM SERUM 3.6 MMOL/L (3.5-5.1)
[2023-07-09 06:31] LABS: PLATELET COUNT, AUTOMATED 42 10^3/uL (150-450)
[2023-07-09 06:54] LABS: ATYPICAL LYMPH 3 % (0-5); EOSINOPHILS 6 % (0-3); LYMPHOCYTES 20 % (16-44); MONOCYTES 5 % (0-5); NEUTROPHILS 66 % (28-66)
[2023-07-09 06:55] LABS: PLATELET ESTIMATE MARKED DECREASE (NORMAL)
[2023-07-09 06:56] LABS: HYPOCHROMASIA 2+
[2023-07-09 06:57] LABS: OVALOCYTES 1+; POIKILOCYTOSIS 2+
[2023-07-09 06:58] LABS: ANISOCYTOSIS 1+; BURR CELLS 1+; TEAR DROP CELLS 1+
[2023-07-09 07:14] VITALS: BP 108/53; TEMP 96.9; O2SAT 95
[2023-07-09] MEDS: NS 1,000 ML IV ONE (11:20)
[2023-07-09 12:24] VITALS: BP 120/58; TEMP 97.6; O2SAT 93
[2023-07-09 16:18] VITALS: BP 121/58; TEMP 98; O2SAT 93
[2023-07-09 19:01] VITALS: BP 120/58; TEMP 97; O2SAT 90
[2023-07-09 23:48] VITALS: BP 119/57; TEMP 97.1; O2SAT 90
[2023-07-10] VITALS (12 sets, daily range): BP systolic 109–128; BP diastolic 54–65; TEMP 97–98.6; O2SAT 92–96
[2023-07-10 05:45] LABS: HEMATOCRIT 23.4 % (36.0-47.0); HEMOGLOBIN 7.5 g/dl (12.0-15.5); MEAN CORPUSCULAR HGB CONC 32.1 g/dl (32.0-36.5); MEAN CORPUSCULAR VOLUME 90.3 fl (80.0-96.0); RED BLOOD COUNT 2.59 10^6/uL (4.00-5.40); WHITE BLOOD COUNT 8.2 10^3/uL (4.0-10.0)
[2023-07-10 05:47] LABS: PLATELET COUNT, AUTOMATED 53 10^3/uL (150-450)
[2023-07-10 06:09] LABS: CALCIUM LEVEL 6.9 MG/DL (8.3-10.6); CREATININE FOR GFR 1.59 MG/DL (0.55-1.30); GLOMERULAR FILTRATION RATE 35.3 (>45); POTASSIUM SERUM 3.3 MMOL/L (3.5-5.1)
[2023-07-10] MEDS: POTASSIUM CHLORIDE 10MEQ SR TABLET PO ONE (08:18)
[2023-07-10 08:33] LABS: MAGNESIUM LEVEL 1.5 MG/DL (1.8-2.4)
[2023-07-10] MEDS: KCL 20MEQ in NS 1000ML 1,000 ML IV SCH (11:12)
[2023-07-10] MEDS: MAG SULF 1GM/100ML (MAG RUN) 1 GM in IV 1 EA IV SCH (11:12)
[2023-07-10 12:18] LABS: TOTAL PROTEIN 5.5 G/DL (5.7-8.2)
[2023-07-10] MEDS: PIPERACILLIN/TAZOBACTAM SOD 3.375 GM in D5W MINI-BAG PLUS 50 ML IV SCH (15:11)
[2023-07-10 16:33] LABS: PH BODY FLUID 7.645 UNITS (NOT ESTABLISHED); SOURCE, BODY FLUID pH PLEURAL
[2023-07-10 16:51] LABS: SOURCE, BODY FLUID ALBUMIN PLEURAL
[2023-07-10 16:56] LABS: SOURCE, BODY FLUID GLUCOSE PLEURAL; SOURCE, BODY FLUID TRIG PLEURAL; TRIGLYCERIDE, BODY FLUID 52 MG/DL (NOT ESTABLISHED)
[2023-07-10 16:57] LABS: LDH, BODY FLUID 59 U/L (NOT ESTABLISHED); SOURCE, BODY FLUID LDH PLEURAL
[2023-07-10 16:58] LABS: AMYLASE, BODY FLUID 33 U/L (NOT ESTABLISHED); CHOLESTEROL, BODY FLUID < 25 MG/DL (NOT ESTABLISHED); SOURCE, BODY FLUID AMYLASE PLEURAL; SOURCE, BODY FLUID CHOL PLEURAL; SOURCE, BODY FLUID TOT PROTEIN PLEURAL; TOTAL PROTEIN, BODY FLUID < 2.0 G/DL (NOT ESTABLISHED)
[2023-07-10 17:22] LABS: APPEARANCE, BODY FLUID HAZY (CLEAR); PLEURAL FL COLOR PALE YELLOW (COLORLESS); SOURCE, BODY FLUID PLEURAL
[2023-07-11] VITALS (32 sets, daily range): BP systolic 113–138; BP diastolic 54–66; TEMP 97.2–98.8; O2SAT 89–98
[2023-07-11 11:18] LABS: MEAN CORPUSCULAR HEMOGLOBIN 28.9 pg (27.0-33.0); MEAN CORPUSCULAR HGB CONC 31.5 g/dl (32.0-36.5); MEAN CORPUSCULAR VOLUME 91.7 fl (80.0-96.0); RED BLOOD COUNT 2.18 10^6/uL (4.00-5.40); WHITE BLOOD COUNT 7.7 10^3/uL (4.0-10.0)
[2023-07-11 11:27] LABS: PLATELET COUNT, AUTOMATED 51 10^3/uL (150-450)
[2023-07-11 11:28] LABS: HEMOGLOBIN 6.3 g/dl (12.0-15.5)
[2023-07-11] MEDS ORDERED: VANCOMYCIN HCL 1,000 MG, VIAL MATE ADAPTER 1 EACH in D5W 250 ML IV SCH (11:45)
[2023-07-11 11:49] LABS: CALCIUM LEVEL 6.6 MG/DL (8.3-10.6); CREATININE FOR GFR 1.72 MG/DL (0.55-1.30); GLOMERULAR FILTRATION RATE 32.2 (>45); POTASSIUM SERUM 4.6 MMOL/L (3.5-5.1)
[2023-07-11] MEDS: MEROPENEM INJ 1 GM in IV 1 EA IV SCH (12:15)
[2023-07-11] MEDS: VANCOMYCIN HCL 750 MG, VIAL MATE ADAPTER 1 EACH in D5W 250 ML IV ONE ×2 (13:29→14:49)
[2023-07-11 14:30] LABS: HEMATOCRIT 21.9 % (36.0-47.0); MEAN CORPUSCULAR HEMOGLOBIN 29.3 pg (27.0-33.0); MEAN CORPUSCULAR HGB CONC 31.1 g/dl (32.0-36.5); MEAN CORPUSCULAR VOLUME 94.4 fl (80.0-96.0); RED BLOOD COUNT 2.32 10^6/uL (4.00-5.40); WHITE BLOOD COUNT 7.9 10^3/uL (4.0-10.0)
[2023-07-11 14:37] LABS: PLATELET COUNT, AUTOMATED 55 10^3/uL (150-450)
[2023-07-11 14:38] LABS: HEMOGLOBIN 6.8 g/dl (12.0-15.5)
[2023-07-11 14:56] LABS: PROCALCITONIN 1.96 ng/ml
[2023-07-11 15:01] LABS: EOSINOPHILS 3 % (0-3); LYMPHOCYTES 6 % (16-44); MONOCYTES 1 % (0-5); NEUTROPHILS 89 % (28-66)
[2023-07-11 15:02] LABS: PLATELET ESTIMATE DECREASED (NORMAL); POIKILOCYTOSIS 2+
[2023-07-11 15:03] LABS: OVALOCYTES 2+
[2023-07-11 19:56] LABS: HEMATOCRIT 23.3 % (36.0-47.0); HEMOGLOBIN 7.5 g/dl (12.0-15.5); MEAN CORPUSCULAR HEMOGLOBIN 29.1 pg (27.0-33.0); MEAN CORPUSCULAR HGB CONC 32.2 g/dl (32.0-36.5); MEAN CORPUSCULAR VOLUME 90.3 fl (80.0-96.0); RED BLOOD COUNT 2.58 10^6/uL (4.00-5.40)
[2023-07-11 19:58] LABS: PLATELET COUNT, AUTOMATED 67 10^3/uL (150-450)
[2023-07-12] VITALS (25 sets, daily range): BP systolic 117–134; BP diastolic 56–61; TEMP 97–98; O2SAT 89–96
[2023-07-12 07:05] LABS: HEMATOCRIT 22.8 % (36.0-47.0); HEMOGLOBIN 7.6 g/dl (12.0-15.5); MEAN CORPUSCULAR HEMOGLOBIN 29.6 pg (27.0-33.0); MEAN CORPUSCULAR HGB CONC 33.3 g/dl (32.0-36.5); MEAN CORPUSCULAR VOLUME 88.7 fl (80.0-96.0); RED BLOOD COUNT 2.57 10^6/uL (4.00-5.40); WHITE BLOOD COUNT 8.4 10^3/uL (4.0-10.0)
[2023-07-12 07:08] LABS: PLATELET COUNT, AUTOMATED 64 10^3/uL (150-450)
[2023-07-12 07:27] LABS: CREATININE FOR GFR 1.62 MG/DL (0.55-1.30); GLOMERULAR FILTRATION RATE 34.5 (>45); POTASSIUM SERUM 4.1 MMOL/L (3.5-5.1)
[2023-07-12 07:58] LABS: FOLATE 5.43 NG/ML (>5.4)
[2023-07-12] MEDS: VANCOMYCIN HCL 1,000 MG, VIAL MATE ADAPTER 1 EACH in D5W 250 ML IV SCH (08:33)
[2023-07-12 08:55] LABS: VENOUS BASE EXCESS -8.6 (-2.0-2.0); VENOUS HCO3 14.7 MMOL/L (23.0-27.0); VENOUS O2 SATURATION 99.2 % (60.0-80.0); VENOUS PARTIAL PRESSURE CO2 23.6 mmHg (38.0-50.0); VENOUS PARTIAL PRESSURE O2 221.7 mmHg (30.0-50.0); VENOUS PH 7.413 UNITS (7.330-7.430); VENOUS STANDARD HCO3 17.5 MMOL/L; VENOUS TOTAL CO2 15.4 MMOL/L (24.0-28.0)
[2023-07-12] MEDS: FUROSEMIDE 40MG/4ML VIAL IV ONE (10:56)
[2023-07-13] VITALS (13 sets, daily range): BP systolic 126–149; BP diastolic 59–70; TEMP 96.9–98.3; O2SAT 91–95
[2023-07-13 08:41] LABS: MEAN CORPUSCULAR HEMOGLOBIN 29.1 pg (27.0-33.0); MEAN CORPUSCULAR HGB CONC 33.3 g/dl (32.0-36.5); MEAN CORPUSCULAR VOLUME 87.3 fl (80.0-96.0); RED BLOOD COUNT 2.75 10^6/uL (4.00-5.40)
[2023-07-13 08:43] LABS: PLATELET COUNT, AUTOMATED 70 10^3/uL (150-450)
[2023-07-13 09:09] LABS: CALCIUM LEVEL 7.3 MG/DL (8.3-10.6); CREATININE FOR GFR 1.3 MG/DL (0.55-1.30); GLOMERULAR FILTRATION RATE 44.5 (>45); MAGNESIUM LEVEL 1.7 MG/DL (1.8-2.4)
[2023-07-13] MEDS: FUROSEMIDE 40MG/4ML VIAL IV ONE (12:00)
[2023-07-13] MEDS: MAG SULF 1GM/100ML (MAG RUN) 1 GM in IV 1 EA IV ONE (12:00)
[2023-07-13] MEDS: POTASSIUM CHLORIDE 10MEQ SR TABLET PO ONE (12:01)
[2023-07-13] MEDS: guaiFENesin ER TABLET 600 MG TAB PO SCH (12:16)
[2023-07-13 12:35] LABS: ABG BASE EXCESS -7.7 (-2.0-2.0); ABG HCO3 16.4 MMOL/L (22.0-26.0); ABG O2 SATURATION 93.8 % (95.0-99.0); ABG PARTIAL PRESSURE CO2 28.2 mmHg (35.0-45.0); ABG PARTIAL PRESSURE O2 70.7 mmHg (75.0-100.0); ABG STANDARD HCO3 18.1 MMOL/L. (22.0-26.0); ABG TOTAL CO2 17.2 MMOL/L (23.0-31.0); ABG pH (ARTERIAL) 7.382 UNITS (7.350-7.450)
[2023-07-13 15:07] LABS: MYCOPLASMA PNEUMONIAE IgG 492 U/mL (0-99); MYCOPLASMA PNEUMONIAE IgM <770 U/mL (0-769)
[2023-07-13] MEDS: MAGNESIUM OXIDE 400MG TAB (MAG-OX) PO ONE (17:30)
[2023-07-13] MEDS: HEPARIN SOD (PORCINE) 5000UNITS/ML 1ML VIAL/SYRINGE SQ SCH (20:55)
[2023-07-14 01:31] VITALS: O2SAT 87
[2023-07-14 01:33] VITALS: O2SAT 91
[2023-07-14 02:00] VITALS: BP 111/52; TEMP 98.2; O2SAT 92
[2023-07-14 05:53] VITALS: BP 133/54; TEMP 97.9; O2SAT 91
[2023-07-14 08:33] LABS: HEMATOCRIT 24.2 % (36.0-47.0); HEMOGLOBIN 8.1 g/dl (12.0-15.5); MEAN CORPUSCULAR HEMOGLOBIN 29.7 pg (27.0-33.0); MEAN CORPUSCULAR HGB CONC 33.5 g/dl (32.0-36.5); MEAN CORPUSCULAR VOLUME 88.6 fl (80.0-96.0); RED BLOOD COUNT 2.73 10^6/uL (4.00-5.40); WHITE BLOOD COUNT 8.6 10^3/uL (4.0-10.0)
[2023-07-14 08:34] LABS: PLATELET COUNT, AUTOMATED 60 10^3/uL (150-450)
[2023-07-14 08:52] LABS: CALCIUM LEVEL 7.7 MG/DL (8.3-10.6); CREATININE FOR GFR 1.17 MG/DL (0.55-1.30); GLOMERULAR FILTRATION RATE 50.2 (>45); MAGNESIUM LEVEL 1.8 MG/DL (1.8-2.4); POTASSIUM SERUM 4.5 MMOL/L (3.5-5.1)
[2023-07-14] MEDS: FUROSEMIDE 40MG/4ML VIAL IV ONE (12:35)
[2023-07-14 15:16] VITALS: BP 133/55; TEMP 98.2; O2SAT 91
[2023-07-14 20:05] VITALS: BP 135/56; TEMP 98.1; O2SAT 94
[2023-07-15] VITALS (8 sets, daily range): BP systolic 128–147; BP diastolic 56–68; TEMP 97.2–98.4; O2SAT 93–96
[2023-07-15 06:14] LABS: HEMATOCRIT 21.5 % (36.0-47.0); MEAN CORPUSCULAR HEMOGLOBIN 29.2 pg (27.0-33.0); MEAN CORPUSCULAR HGB CONC 32.6 g/dl (32.0-36.5); MEAN CORPUSCULAR VOLUME 89.6 fl (80.0-96.0)
[2023-07-15 06:20] LABS: PLATELET COUNT, AUTOMATED 65 10^3/uL (150-450)
[2023-07-15 06:43] LABS: CALCIUM LEVEL 7.6 MG/DL (8.3-10.6); CREATININE FOR GFR 1.07 MG/DL (0.55-1.30); GLOMERULAR FILTRATION RATE 55.7 (>45); MAGNESIUM LEVEL 1.6 MG/DL (1.8-2.4); POTASSIUM SERUM 4.4 MMOL/L (3.5-5.1)
[2023-07-15] MEDS: MAG SULF 1GM/100ML (MAG RUN) 1 GM in IV 1 EA IV ONE (08:41)
[2023-07-15] MEDS: MAGNESIUM OXIDE 400MG TAB (MAG-OX) PO ONE ×2 (08:42→17:49)
[2023-07-15] MEDS ORDERED: LIDOCAINE 4% CREAM 5GM (LMX4) TOP PRN (10:40)
[2023-07-15 12:04] LABS: HEMOGLOBIN 7.5 g/dl (12.0-15.5)
[2023-07-15] MEDS: SPIRONOLACTONE 25 MG TAB PO SCH (12:32)
[2023-07-15] MEDS: NYSTATIN 500,000U/5ML SUSP UDC SS SCH (12:32)
[2023-07-15] MEDS: ESTROGENS VAGINAL CREAM 30GM PV SCH (12:35)
[2023-07-15] MEDS: LACTULOSE 20GM/30ML SYRUP UDC PO SCH (12:36)
[2023-07-15 16:53] LABS: BODY FLUID CULTURE Not indicated. (.); LEGIONELLA ANTIGEN URINE Negative (Negative); ORGANISM ID Not indicated. (.); SPECIMEN SOURCE Urine (.); URINE STREP PNEUMONIAE ANTIGEN Negative (Negative)
[2023-07-15] MEDS: FUROSEMIDE 40 MG TAB PO SCH (17:53)
[2023-07-16 02:00] VITALS: BP 141/67; TEMP 98.2; O2SAT 93
[2023-07-16 07:14] LABS: BASO % 0.1 % (0.0-1.0); EOS # 0.1 10^3/uL (0.0-0.5); EOS % 1.7 % (0.0-3.0); HEMATOCRIT 24.1 % (36.0-47.0); HEMOGLOBIN 8.1 g/dl (12.0-15.5); LYMPH % 12.4 % (24.0-44.0); MEAN CORPUSCULAR HEMOGLOBIN 29.7 pg (27.0-33.0); MEAN CORPUSCULAR HGB CONC 33.6 g/dl (32.0-36.5); MEAN CORPUSCULAR VOLUME 88.3 fl (80.0-96.0); MONO # 0.6 10^3/uL (0.0-0.8); MONO % 7.5 % (2.0-8.0); NEUTROPHILS % 76.9 % (36.0-66.0); RED BLOOD COUNT 2.73 10^6/uL (4.00-5.40); WHITE BLOOD COUNT 7.8 10^3/uL (4.0-10.0)
[2023-07-16 07:18] LABS: PLATELET COUNT, AUTOMATED 65 10^3/uL (150-450)
[2023-07-16 07:26] LABS: INR 1.56; PROTHROMBIN TIME 18.1 SECONDS (12.5-14.5)
[2023-07-16 07:42] LABS: ALBUMIN 1.5 G/DL (3.2-5.2); BILIRUBIN,DIRECT 2.2 MG/DL (<0.4); BILIRUBIN,TOTAL 3.8 MG/DL (0.3-1.2); CREATININE FOR GFR 1.08 MG/DL (0.55-1.30); GLOMERULAR FILTRATION RATE 55.1 (>45); MAGNESIUM LEVEL 1.6 MG/DL (1.8-2.4); TOTAL PROTEIN 6.1 G/DL (5.7-8.2)
[2023-07-16 10:00] VITALS: BP 139/67; TEMP 97.9; O2SAT 96
[2023-07-16] MEDS: FUROSEMIDE 40MG/4ML VIAL IV SCH (12:14)
[2023-07-16 14:00] VITALS: BP 139/67; TEMP 98.1; O2SAT 96
[2023-07-16] MEDS: POTASSIUM CHLORIDE 10MEQ SR TABLET PO SCH (14:41)
[2023-07-16] MEDS: MAGNESIUM OXIDE 400MG TAB (MAG-OX) PO SCH (14:41)
[2023-07-16 18:53] LABS: CALCIUM LEVEL 7.9 MG/DL (8.3-10.6); CREATININE FOR GFR 1.01 MG/DL (0.55-1.30); GLOMERULAR FILTRATION RATE 59.5 (>45); POTASSIUM SERUM 3.7 MMOL/L (3.5-5.1)
[2023-07-16 22:00] VITALS: BP 148/67; TEMP 98.2; O2SAT 97
[2023-07-17 02:00] VITALS: BP 118/57; TEMP 97.9; O2SAT 96
[2023-07-17 06:00] VITALS: BP 155/80; TEMP 98.1; O2SAT 98
[2023-07-17 06:04] LABS: HEMATOCRIT 23.8 % (36.0-47.0); HEMOGLOBIN 7.7 g/dl (12.0-15.5); MEAN CORPUSCULAR HEMOGLOBIN 28.8 pg (27.0-33.0); MEAN CORPUSCULAR HGB CONC 32.4 g/dl (32.0-36.5); MEAN CORPUSCULAR VOLUME 89.1 fl (80.0-96.0); RED BLOOD COUNT 2.67 10^6/uL (4.00-5.40); WHITE BLOOD COUNT 7.9 10^3/uL (4.0-10.0)
[2023-07-17 06:09] LABS: PLATELET COUNT, AUTOMATED 79 10^3/uL (150-450)
[2023-07-17 06:25] LABS: CALCIUM LEVEL 8.3 MG/DL (8.3-10.6); CREATININE FOR GFR 1.11 MG/DL (0.55-1.30); GLOMERULAR FILTRATION RATE 53.4 (>45); MAGNESIUM LEVEL 1.3 MG/DL (1.8-2.4); POTASSIUM SERUM 4.1 MMOL/L (3.5-5.1)
[2023-07-17] MEDS: MAG SULF 1GM/100ML (MAG RUN) 1 GM in IV 1 EA IV SCH (07:43)
[2023-07-17 10:00] VITALS: BP 146/73; TEMP 97.9; O2SAT 97
[2023-07-17] MEDS: FUROSEMIDE 40MG/4ML VIAL IV SCH (12:05)
[2023-07-17 14:00] VITALS: BP 132/110; TEMP 98.1; O2SAT 95
[2023-07-17 18:44] LABS: BLOOD UREA NITROGEN 45 MG/DL (9-23); CALCIUM LEVEL 8.4 MG/DL (8.3-10.6); CARBON DIOXIDE LEVEL 22 MMOL/L (20-31); CHLORIDE LEVEL 98 MMOL/L (98-107); CREATININE FOR GFR 0.99 MG/DL (0.55-1.30); GLOMERULAR FILTRATION RATE > 60.0 (>45); GLUCOSE, FASTING 230 MG/DL (74-106); POTASSIUM SERUM 4.2 MMOL/L (3.5-5.1); SODIUM LEVEL 126 MMOL/L (136-145)
[2023-07-17 22:00] VITALS: BP 141/65; TEMP 98.6; O2SAT 98
[2023-07-18] VITALS (7 sets, daily range): BP systolic 122–148; BP diastolic 60–103; TEMP 97–98.4; O2SAT 93–96
[2023-07-18 05:59] LABS: HEMATOCRIT 21.7 % (36.0-47.0); HEMOGLOBIN 7.3 g/dl (12.0-15.5); MEAN CORPUSCULAR HEMOGLOBIN 29.8 pg (27.0-33.0); MEAN CORPUSCULAR HGB CONC 33.6 g/dl (32.0-36.5); MEAN CORPUSCULAR VOLUME 88.6 fl (80.0-96.0); PLATELET COUNT, AUTOMATED 81 10^3/uL (150-450); RED BLOOD COUNT 2.45 10^6/uL (4.00-5.40); WHITE BLOOD COUNT 7.1 10^3/uL (4.0-10.0)
[2023-07-18 06:30] LABS: CALCIUM LEVEL 8.2 MG/DL (8.3-10.6); CREATININE FOR GFR 1.05 MG/DL (0.55-1.30); GLOMERULAR FILTRATION RATE 56.9 (>45); MAGNESIUM LEVEL 1.6 MG/DL (1.8-2.4); POTASSIUM SERUM 4.4 MMOL/L (3.5-5.1)
[2023-07-18] MEDS: MAG SULF 1GM/100ML (MAG RUN) 1 GM in IV 1 EA IV SCH (07:51)
[2023-07-18] MEDS: MAGNESIUM OXIDE 400MG TAB (MAG-OX) PO SCH (07:52)
[2023-07-18 14:10] LABS: CHLAMYDIA PNEUMONIAE IgG <1:100 (< 1:100); CHLAMYDIA PNEUMONIAE IgM <1:10 (< 1:10); CHLAMYDIA PSITTACI IgG <1:100 (< 1:100); CHLAMYDIA PSITTACI IgM <1:10 (< 1:10); CHLAMYDIA TRACHOMATIS IgG <1:100 (< 1:100); CHLAMYDIA TRACHOMATIS IgM <1:10 (< 1:10)
[2023-07-18] MEDS: MAGNESIUM GLUCONATE 500 MG TAB PO SCH (20:42)
[2023-07-19] VITALS (9 sets, daily range): BP systolic 117–134; BP diastolic 50–62; TEMP 98.1–98.6; O2SAT 90–94
[2023-07-19 10:25] LABS: HEMATOCRIT 22.3 % (36.0-47.0); HEMOGLOBIN 7.3 g/dl (12.0-15.5); MEAN CORPUSCULAR HEMOGLOBIN 29.7 pg (27.0-33.0); MEAN CORPUSCULAR HGB CONC 32.7 g/dl (32.0-36.5); MEAN CORPUSCULAR VOLUME 90.7 fl (80.0-96.0); RED BLOOD COUNT 2.46 10^6/uL (4.00-5.40); WHITE BLOOD COUNT 5.9 10^3/uL (4.0-10.0)
[2023-07-19 10:41] LABS: PLATELET COUNT, AUTOMATED 80 10^3/uL (150-450)
[2023-07-19 10:57] LABS: CALCIUM LEVEL 8.5 MG/DL (8.3-10.6); CREATININE FOR GFR 1.07 MG/DL (0.55-1.30); GLOMERULAR FILTRATION RATE 55.7 (>45); POTASSIUM SERUM 3.9 MMOL/L (3.5-5.1)
[2023-07-19 11:02] LABS: PERCENT SATURATION 14.5 % (13.2-45.0)
[2023-07-19 11:04] LABS: FERRITIN 214.3 NG/ML (7.3-270.7)
[2023-07-19 14:38] LABS: MAGNESIUM LEVEL 1.4 MG/DL (1.8-2.4)
[2023-07-19] MEDS: MAGNESIUM GLUCONATE 500 MG TAB PO SCH (16:55)
[2023-07-19] MEDS: SPIRONOLACTONE 50 MG TAB PO SCH (21:10)
[2023-07-20 05:10] VITALS: BP 111/51; TEMP 98.1; O2SAT 93
[2023-07-20 06:46] LABS: HEMATOCRIT 22.5 % (36.0-47.0); HEMOGLOBIN 7.6 g/dl (12.0-15.5); MEAN CORPUSCULAR HEMOGLOBIN 29.7 pg (27.0-33.0); MEAN CORPUSCULAR HGB CONC 33.8 g/dl (32.0-36.5); MEAN CORPUSCULAR VOLUME 87.9 fl (80.0-96.0); RED BLOOD COUNT 2.56 10^6/uL (4.00-5.40); WHITE BLOOD COUNT 6.2 10^3/uL (4.0-10.0)
[2023-07-20 06:53] LABS: PLATELET COUNT, AUTOMATED 63 10^3/uL (150-450)
[2023-07-20 07:03] LABS: CALCIUM LEVEL 8.3 MG/DL (8.3-10.6); CREATININE FOR GFR 1.08 MG/DL (0.55-1.30); GLOMERULAR FILTRATION RATE 55.1 (>45); MAGNESIUM LEVEL 1.2 MG/DL (1.8-2.4); POTASSIUM SERUM 4.2 MMOL/L (3.5-5.1)
[2023-07-20] MEDS: LIDOCAINE 5% (LIDODERM) PATCH TD SCH (10:50)
[2023-07-20] MEDS: FERRIC CARBOXYMALTOSE INJ 750 MG, VIAL MATE ADAPTER 1 EACH in NS 250 ML IV ONE (10:50)
[2023-07-20] MEDS: MAG SULF 1GM/100ML (MAG RUN) 1 GM in IV 1 EA IV SCH (12:23)
[2023-07-20] MEDS: INSULIN LISPRO (NovoLOG) PER UNIT SC SCH (12:23)
[2023-07-20 14:00] VITALS: BP 122/59; TEMP 97.9; O2SAT 92
[2023-07-20] MEDS: SPIRONOLACTONE 50 MG TAB PO SCH (16:46)
[2023-07-20 18:00] VITALS: BP 124/60; TEMP 98.4; O2SAT 92
[2023-07-20 21:46] VITALS: BP 126/59; TEMP 98.1; O2SAT 92
[2023-07-21] VITALS (8 sets, daily range): BP systolic 119–136; BP diastolic 56–64; TEMP 97.4–98.6; O2SAT 90–93
[2023-07-21 06:44] LABS: HEMATOCRIT 24.1 % (36.0-47.0); MEAN CORPUSCULAR HEMOGLOBIN 29.5 pg (27.0-33.0); MEAN CORPUSCULAR HGB CONC 33.2 g/dl (32.0-36.5); MEAN CORPUSCULAR VOLUME 88.9 fl (80.0-96.0); RED BLOOD COUNT 2.71 10^6/uL (4.00-5.40); WHITE BLOOD COUNT 6.1 10^3/uL (4.0-10.0)
[2023-07-21 06:45] LABS: PLATELET COUNT, AUTOMATED 71 10^3/uL (150-450)
[2023-07-21 07:14] LABS: ALBUMIN 1.5 G/DL (3.2-5.2); CALCIUM LEVEL 8.4 MG/DL (8.3-10.6); CREATININE FOR GFR 1.1 MG/DL (0.55-1.30); GLOMERULAR FILTRATION RATE 53.9 (>45); MAGNESIUM LEVEL 1.5 MG/DL (1.8-2.4); POTASSIUM SERUM 4.2 MMOL/L (3.5-5.1)
[2023-07-21] MEDS: MAGNESIUM OXIDE 400MG TAB (MAG-OX) PO ONE (18:02)
[2023-07-21] MEDS ORDERED: ISOVUE-370 76% 100ML VIAL As Ordered ONE (18:56)
[2023-07-21] MEDS ORDERED: FURO40TA2 PO (19:29)
[2023-07-21] MEDS ORDERED: XIFA550T PO (19:29)
[2023-07-21] MEDS ORDERED: ALDA50TA2 PO (19:29)
[2023-07-21] MEDS: PANTOPRAZOLE 40MG VIAL IV SCH (20:44)
[2023-07-22 00:01] VITALS: BP 138/64; TEMP 97.6; O2SAT 90
[2023-07-22 04:39] VITALS: BP 136/62; TEMP 97.2; O2SAT 90
[2023-07-22 07:30] LABS: BASO % 0.3 % (0.0-1.0); EOS # 0.1 10^3/uL (0.0-0.5); EOS % 0.9 % (0.0-3.0); HEMATOCRIT 23.4 % (36.0-47.0); HEMOGLOBIN 7.6 g/dl (12.0-15.5); LYMPH # 0.8 10^3/uL (1.5-5.0); LYMPH % 8.4 % (24.0-44.0); MEAN CORPUSCULAR HEMOGLOBIN 29.2 pg (27.0-33.0); MEAN CORPUSCULAR HGB CONC 32.5 g/dl (32.0-36.5); MONO # 0.6 10^3/uL (0.0-0.8); MONO % 6.6 % (2.0-8.0); NEUTROPHILS # 7.4 10^3/uL (1.5-8.5); NEUTROPHILS % 83.2 % (36.0-66.0); WHITE BLOOD COUNT 8.9 10^3/uL (4.0-10.0)
[2023-07-22 07:34] LABS: PLATELET COUNT, AUTOMATED 86 10^3/uL (150-450)
[2023-07-22 07:43] VITALS: BP 130/57; TEMP 97.9; O2SAT 91
[2023-07-22 07:50] LABS: CALCIUM LEVEL 8.8 MG/DL (8.3-10.6); CREATININE FOR GFR 1.19 MG/DL (0.55-1.30); GLOMERULAR FILTRATION RATE 49.3 (>45); MAGNESIUM LEVEL 1.4 MG/DL (1.8-2.4); POTASSIUM SERUM 4.5 MMOL/L (3.5-5.1)
[2023-07-22 10:18] LABS: HEMATOCRIT 23.1 % (36.0-47.0); HEMOGLOBIN 7.6 g/dl (12.0-15.5)
[2023-07-22] MEDS: MAG SULF 1GM/100ML (MAG RUN) 1 GM in IV 1 EA IV SCH (10:35)
[2023-07-22 12:26] VITALS: BP 122/57; TEMP 97.6; O2SAT 90
[2023-07-22] MEDS: ESTROGENS VAGINAL CREAM 30GM PV SCH (13:47)
[2023-07-23] MEDS ORDERED: FUROSEMIDE 80 MG TAB PO SCH (09:00)
[2023-07-24 20:08] LABS: FREE KAPPA LIGHT CHAINS SERUM 364.1 mg/L (3.3-19.4); FREE LAMBDA LIGHT CHAINS SERUM 64.6 mg/L (5.7-26.3); KAPPA/LAMBDA RATIO SERUM 5.64 (0.26-1.65)
== END 2023-07-22 14:09 | disposition short-term general hospital (02) | DRG 871 ==
LOC: M ED 16:51 → EDBD 16:51 → M ED INP 21:48 → EEVIPCON 21:48 → M PCU 07-05 03:23 → M MS5PR 07-13 23:40 → M PCU 07-21 19:54
PROVIDERS: ADMIT Family Medicine; ATTEND Student in an Organized Health Care Education/Training Program
PROC: 0W993ZZ Drainage of Right Pleural Cavity, Percutaneous Approach (ICD-10-PCS; principal; 2023-07-10 16:00)
PROC: 30233N1 Transfusion of Nonautologous Red Blood Cells into Peripheral Vein, Percutaneous Approach (ICD-10-PCS; 2023-07-11)
DX: A41.51 Sepsis due to Escherichia coli [E. coli] (principal); G93.41 Metabolic encephalopathy; J96.01 Acute respiratory failure with hypoxia; J18.9 Pneumonia, unspecified organism; I50.33 Acute on chronic diastolic (congestive) heart failure; N12 Tubulo-interstitial nephritis, not specified as acute or chronic; I13.0 Hypertensive heart and chronic kidney disease with heart failure and stage 1 through stage 4 chronic kidney disease, or unspecified chronic kidney disease; E87.1 Hypo-osmolality and hyponatremia; N39.0 Urinary tract infection, site not specified; L88 Pyoderma gangrenosum; J98.11 Atelectasis; E87.20 Acidosis, unspecified; N17.9 Acute kidney failure, unspecified; J90 Pleural effusion, not elsewhere classified; E87.4 Mixed disorder of acid-base balance; I85.10 Secondary esophageal varices without bleeding; B37.0 Candidal stomatitis; K74.3 Primary biliary cirrhosis; D69.6 Thrombocytopenia, unspecified; E78.5 Hyperlipidemia, unspecified; K21.9 Gastro-esophageal reflux disease without esophagitis; E83.42 Hypomagnesemia; M19.90 Unspecified osteoarthritis, unspecified site; E11.22 Type 2 diabetes mellitus with diabetic chronic kidney disease; K76.82 Hepatic encephalopathy; N18.9 Chronic kidney disease, unspecified; E87.5 Hyperkalemia; E87.70 Fluid overload, unspecified; D63.8 Anemia in other chronic diseases classified elsewhere; E87.6 Hypokalemia; N95.2 Postmenopausal atrophic vaginitis; L40.50 Arthropathic psoriasis, unspecified; K74.60 Unspecified cirrhosis of liver; Z79.899 Other long term (current) drug therapy; Z79.52 Long term (current) use of systemic steroids; Z87.891 Personal history of nicotine dependence

== ENCOUNTER → 2023-07-04 | Outpatient (CLI) | payer MEDICARE ==
[~2023-07-04] MED LIST changes: +CONS10SO3 PO
[2023-07-04 14:39] LABS: APPEARANCE, URINE TURBID (CLEAR); BACTERIA, URINE AUTO 3+ (NEGATIVE); BILIRUBIN, URINE AUTO NEGATIVE (NEGATIVE); BLOOD, URINE BLOOD 2+ (NEGATIVE); COLOR, URINE AMBER (YELLOW); GLUCOSE, URINE (UA) AUTO NEGATIVE (NEGATIVE); KETONE, URINE AUTO NEGATIVE (NEGATIVE); LEUKOCYTE ESTERASE, URINE AUTO 3+ (NEGATIVE); MUCUS, URINE SMALL (NEGATIVE); NITRITE, URINE AUTO NEGATIVE (NEGATIVE); PROTEIN, URINE AUTO 3+ mg/dL (NEGATIVE); RBC, URINE AUTO 55 /HPF (0-3); SPECIFIC GRAVITY URINE AUTO 1.012 (1.002-1.035); SQUAMOUS EPITHELIAL CELL UR AU 5 /HPF (0-6); UROBILINOGEN, URINE AUTO 0.2 mg/dL (0.0-2.0); WBC, URINE AUTO TNTC /HPF (0-3)
[2023-07-04 14:50] LABS: BASO % 0.2 % (0.0-1.0); EOS % 0.2 % (0.0-3.0); HEMATOCRIT 27.8 % (36.0-47.0); HEMOGLOBIN 9.2 g/dl (12.0-15.5); LYMPH # 0.8 10^3/uL (1.5-5.0); LYMPH % 6.5 % (24.0-44.0); MEAN CORPUSCULAR HEMOGLOBIN 29.4 pg (27.0-33.0); MEAN CORPUSCULAR HGB CONC 33.1 g/dl (32.0-36.5); MEAN CORPUSCULAR VOLUME 88.8 fl (80.0-96.0); MONO # 1.1 10^3/uL (0.0-0.8); MONO % 8.5 % (2.0-8.0); NEUTROPHILS # 10.5 10^3/uL (1.5-8.5); NEUTROPHILS % 83.9 % (36.0-66.0); RED BLOOD COUNT 3.13 10^6/uL (4.00-5.40); WHITE BLOOD COUNT 12.5 10^3/uL (4.0-10.0)
[2023-07-04 14:52] LABS: PLATELET COUNT, AUTOMATED 72 10^3/uL (150-450)
[2023-07-04 15:24] LABS: ALBUMIN 2.5 G/DL (3.2-5.2); BILIRUBIN,TOTAL 2.9 MG/DL (0.3-1.2); CALCIUM LEVEL 8.6 MG/DL (8.3-10.6); CREATININE FOR GFR 1.74 MG/DL (0.55-1.30); GLOMERULAR FILTRATION RATE 31.8 (>45); MAGNESIUM LEVEL 1.4 MG/DL (1.8-2.4); POTASSIUM SERUM 4.5 MMOL/L (3.5-5.1); TOTAL PROTEIN 6.9 G/DL (5.7-8.2)
== END ==
LOC: M LAB 13:48
PROVIDERS: ATTEND Physician Assistant
DX: Z09 Encounter for follow-up examination after completed treatment for conditions other than malignant neoplasm (principal); K72.90 Hepatic failure, unspecified without coma; K74.60 Unspecified cirrhosis of liver; E87.5 Hyperkalemia

== ENCOUNTER 2023-07-29 20:40 | Inpatient (IN) | payer MEDICARE ==
[~2023-07-29] VITALS: Ht 160 cm; Wt 83.6 kg
[~2023-07-29 20:40] MED LIST changes: +ALDA50TA2 PO; +CONS10SO3 PO; +XIFA550T PO
[2023-07-29 22:40] LABS: HEMATOCRIT 28.5 % (36.0-47.0); HEMOGLOBIN 9.4 g/dl (12.0-15.5); MEAN CORPUSCULAR HEMOGLOBIN 31.4 pg (27.0-33.0); MEAN CORPUSCULAR VOLUME 95.3 fl (80.0-96.0); RED BLOOD COUNT 2.99 10^6/uL (4.00-5.40); WHITE BLOOD COUNT 4.8 10^3/uL (4.0-10.0)
[2023-07-29 22:52] LABS: PLATELET COUNT, AUTOMATED 52 10^3/uL (150-450)
[2023-07-29 22:54] LABS: INR 1.83; PROTHROMBIN TIME 20.5 SECONDS (12.5-14.5)
[2023-07-29 22:59] LABS: ATYPICAL LYMPH 1 % (0-5); EOSINOPHILS 2 % (0-3); LYMPHOCYTES 3 % (16-44); MONOCYTES 6 % (0-5); NEUTROPHILS 80 % (28-66)
[2023-07-29 23:00] LABS: ANISOCYTOSIS 4+; PLATELET ESTIMATE MARKED DECREASE (NORMAL); POIKILOCYTOSIS 3+
[2023-07-29 23:02] LABS: OVALOCYTES 1+; TEAR DROP CELLS 1+
[2023-07-29 23:10] LABS: ETHYL ALCOHOL (ETHANOL) 0.006 % (0.000-0.010)
[2023-07-29 23:12] LABS: ALBUMIN 1.5 G/DL (3.2-5.2); ALKALINE PHOSPHATASE 136 U/L (46-116); ALT/SGPT 24 U/L (7.0-40); AST/SGOT 42 U/L (<34); BILIRUBIN,TOTAL 3.4 MG/DL (0.3-1.2); BLOOD UREA NITROGEN 58 MG/DL (9-23); CALCIUM LEVEL 8.5 MG/DL (8.3-10.6); CARBON DIOXIDE LEVEL 21 MMOL/L (20-31); CHLORIDE LEVEL 100 MMOL/L (98-107); CK-MB VALUE MASS < 1.0 NG/ML (<3.6); CREATININE FOR GFR 1.72 MG/DL (0.55-1.30); GLOMERULAR FILTRATION RATE 32.2 (>45); GLUCOSE, FASTING 145 MG/DL (74-106); POTASSIUM SERUM 4.3 MMOL/L (3.5-5.1); SODIUM LEVEL 129 MMOL/L (136-145)
[2023-07-29 23:15] LABS: THYROID STIMULATING HORMONE 6.202 uIU/ML (0.55-4.78)
[2023-07-29] MEDS ORDERED: cefTRIAXone SOD 1 GM in D5W MINI-BAG PLUS 50 ML IV ONE (23:15)
[2023-07-29 23:19] LABS: CPK CREATINE PHOSPHOKINASE 18 U/L (34-145); MB/CK RELATIVE INDEX 5.55 (< OR =4)
[2023-07-30] VITALS (7 sets, daily range): BP systolic 108–123; BP diastolic 47–62; TEMP 97.9–99; O2SAT 90–96
[2023-07-30] MEDS: CEFEPIME HCL 2 GM in D5W MINI-BAG PLUS 50 ML IV ONE (00:04)
[2023-07-30] MEDS ORDERED: GLUCAGON INJ 1MG VIAL SC PRN (00:30)
[2023-07-30] MEDS ORDERED: GLUCOSE 4 GM CHEW PO PRN (00:30)
[2023-07-30] MEDS ORDERED: DEXTROSE 50% 50ML SYRINGE IV PRN (00:30)
[2023-07-30] MEDS: NS 1,000 ML IV SCH (02:23)
[2023-07-30] MEDS: PIPERACILLIN/TAZOBACTAM SOD 3.375 GM in D5W MINI-BAG PLUS 50 ML IV SCH (05:54)
[2023-07-30 06:23] LABS: HEMATOCRIT 27.6 % (36.0-47.0); MEAN CORPUSCULAR HEMOGLOBIN 31.3 pg (27.0-33.0); MEAN CORPUSCULAR HGB CONC 32.6 g/dl (32.0-36.5); MEAN CORPUSCULAR VOLUME 95.8 fl (80.0-96.0); RED BLOOD COUNT 2.88 10^6/uL (4.00-5.40); WHITE BLOOD COUNT 3.7 10^3/uL (4.0-10.0)
[2023-07-30 06:27] LABS: PLATELET COUNT, AUTOMATED 58 10^3/uL (150-450)
[2023-07-30 07:04] LABS: PROCALCITONIN 4.11 ng/ml
[2023-07-30 07:06] LABS: ALBUMIN 1.3 G/DL (3.2-5.2); BILIRUBIN,TOTAL 3.3 MG/DL (0.3-1.2); CALCIUM LEVEL 8.5 MG/DL (8.3-10.6); CREATININE FOR GFR 1.55 MG/DL (0.55-1.30); GLOMERULAR FILTRATION RATE 36.3 (>45); MAGNESIUM LEVEL 1.3 MG/DL (1.8-2.4); POTASSIUM SERUM 4.5 MMOL/L (3.5-5.1); TOTAL PROTEIN 5.5 G/DL (5.7-8.2)
[2023-07-30] MEDS: INSULIN LISPRO (NovoLOG) PER UNIT SC SCH ×2 (07:30→21:00)
[2023-07-30] MEDS: LACTULOSE 20GM/30ML SYRUP UDC PO SCH (08:17)
[2023-07-30] MEDS: MAG SULF 1GM/100ML (MAG RUN) 1 GM in IV 1 EA IV SCH (08:17)
[2023-07-30] MEDS: PANTOPRAZOLE 40MG TAB (PROTONIX) PO SCH (08:17)
[2023-07-30] MEDS: FUROSEMIDE 40MG/4ML VIAL IV SCH (10:55)
[2023-07-30 11:46] LABS: C REACTIVE PROTEIN QUANTITATIV 14.6 MG/DL (<1.0)
[2023-07-30 13:06] LABS: FREE T4 1.04 NG/DL (0.89-1.76)
[2023-07-30] MEDS: MAG SULF 1GM/100ML (MAG RUN) 1 GM in IV 1 EA IV ONE (13:09)
[2023-07-30] MEDS ORDERED: SPIR50TA4 PO (14:51)
[2023-07-30] MEDS ORDERED: PANT40TA29 PO (14:51)
[2023-07-30] MEDS ORDERED: CARV3.12 PO (14:51)
[2023-07-30] MEDS ORDERED: HOME MED LIST COMPLETE! XX SCH (14:55)
[2023-07-30] MEDS ORDERED: NYSTATIN 500,000U/5ML SUSP UDC SS SCH (16:00)
[2023-07-30] MEDS: ATORVASTATIN 20 MG TAB PO SCH (21:00)
[2023-07-30] MEDS: CARVedilol 3.125 MG TAB PO SCH (21:01)
[2023-07-30] MEDS: ACETAMINOPHEN TAB 650MG DOSE (2X325MG) PO PRN (23:35)
[2023-07-31 04:00] VITALS: BP 98/48; TEMP 97.7; O2SAT 91
[2023-07-31 08:00] VITALS: BP 98/52; TEMP 97.9; O2SAT 91
[2023-07-31] MEDS: LORATADINE 10 MG TAB PO SCH (08:18)
[2023-07-31 08:32] LABS: BASO % 0.2 % (0.0-1.0); EOS # 0.2 10^3/uL (0.0-0.5); EOS % 3.6 % (0.0-3.0); HEMATOCRIT 28.3 % (36.0-47.0); HEMOGLOBIN 9.2 g/dl (12.0-15.5); LYMPH # 0.6 10^3/uL (1.5-5.0); LYMPH % 13.2 % (24.0-44.0); MEAN CORPUSCULAR HEMOGLOBIN 31.1 pg (27.0-33.0); MEAN CORPUSCULAR HGB CONC 32.5 g/dl (32.0-36.5); MEAN CORPUSCULAR VOLUME 95.6 fl (80.0-96.0); MONO # 0.5 10^3/uL (0.0-0.8); MONO % 10.4 % (2.0-8.0); NEUTROPHILS # 3.4 10^3/uL (1.5-8.5); RED BLOOD COUNT 2.96 10^6/uL (4.00-5.40); WHITE BLOOD COUNT 4.7 10^3/uL (4.0-10.0)
[2023-07-31 08:36] LABS: PLATELET COUNT, AUTOMATED 61 10^3/uL (150-450)
[2023-07-31 08:53] LABS: CALCIUM LEVEL 8.7 MG/DL (8.3-10.6); CREATININE FOR GFR 1.58 MG/DL (0.55-1.30); GLOMERULAR FILTRATION RATE 35.5 (>45); MAGNESIUM LEVEL 1.6 MG/DL (1.8-2.4); POTASSIUM SERUM 4.2 MMOL/L (3.5-5.1)
[2023-07-31] MEDS ORDERED: amLODIPine 5 MG TAB PO SCH (09:00)
[2023-07-31] MEDS ORDERED: PANTOPRAZOLE 40MG TAB (PROTONIX) PO SCH (09:00)
[2023-07-31 11:01] LABS: PROCALCITONIN 2.77 ng/ml
[2023-07-31] MEDS: LIDOCAINE W/EPINEPHRINE 1% 20ML VIAL SC ONE (11:11)
[2023-07-31 11:36] VITALS: BP 114/59; TEMP 97.7; O2SAT 96
[2023-07-31] MEDS ORDERED: KETOROLAC TROMETHAMINE 10 MG TAB PO PRN (11:50)
[2023-07-31] MEDS: MAG SULF 1GM/100ML (MAG RUN) 1 GM in IV 1 EA IV SCH (12:17)
[2023-07-31 16:00] VITALS: BP 109/55; TEMP 97.9; O2SAT 89
[2023-07-31] MEDS ORDERED: PILL CUTTER 1 EACH XX PRN (17:15)
[2023-07-31] MEDS: traMADol 50 MG TAB PO PRN (17:27)
[2023-07-31 20:00] VITALS: BP 116/63; TEMP 97.3; O2SAT 90
[2023-07-31] MEDS ORDERED: VANCOMYCIN HCL 1,240 MG in IV FLUID PLACE HOLDER 1 EA IV SCH (22:50)
[2023-07-31] MEDS: DOXYCYCLINE HYCLATE 100 MG in D5W MINI-BAG PLUS 100 ML IV SCH (23:11)
[2023-08-01] VITALS (10 sets, daily range): BP systolic 106–136; BP diastolic 44–75; TEMP 97.2–98.1; O2SAT 85–97
[2023-08-01 06:19] LABS: BASO % 0.3 % (0.0-1.0); EOS # 0.2 10^3/uL (0.0-0.5); EOS % 3.2 % (0.0-3.0); HEMATOCRIT 29.1 % (36.0-47.0); HEMOGLOBIN 9.5 g/dl (12.0-15.5); LYMPH # 0.6 10^3/uL (1.5-5.0); LYMPH % 9.6 % (24.0-44.0); MEAN CORPUSCULAR HEMOGLOBIN 30.9 pg (27.0-33.0); MEAN CORPUSCULAR HGB CONC 32.6 g/dl (32.0-36.5); MEAN CORPUSCULAR VOLUME 94.8 fl (80.0-96.0); MONO # 0.5 10^3/uL (0.0-0.8); MONO % 8.1 % (2.0-8.0); NEUTROPHILS # 5.1 10^3/uL (1.5-8.5); NEUTROPHILS % 77.9 % (36.0-66.0); RED BLOOD COUNT 3.07 10^6/uL (4.00-5.40); WHITE BLOOD COUNT 6.6 10^3/uL (4.0-10.0)
[2023-08-01 06:25] LABS: PLATELET COUNT, AUTOMATED 66 10^3/uL (150-450)
[2023-08-01 06:38] LABS: CALCIUM LEVEL 8.7 MG/DL (8.3-10.6); CREATININE FOR GFR 1.64 MG/DL (0.55-1.30); MAGNESIUM LEVEL 1.5 MG/DL (1.8-2.4); POTASSIUM SERUM 3.7 MMOL/L (3.5-5.1)
[2023-08-01] MEDS: MAG SULF 1GM/100ML (MAG RUN) 1 GM in IV 1 EA IV SCH (08:22)
[2023-08-01] MEDS: DOXYCYCLINE HYCLATE 100MG TABLET PO SCH (10:31)
[2023-08-01] MEDS ORDERED: VARIBAR PUDDING 40% w/v 230ML TUBE As Ordered ONE (10:39)
[2023-08-01] MEDS ORDERED: VARIBAR NECTAR 40% w/v 240ML SUSP BTL As Ordered ONE (10:39)
[2023-08-01] MEDS ORDERED: E-Z-PAQUE 96% w/w SUSP 176GM BTL As Ordered ONE (10:39)
[2023-08-01] MEDS ORDERED: BARIUM SULFATE 700 MG TABLET (E-Z-DISK) As Ordered ONE (10:39)
[2023-08-01] MEDS: SODIUM CHLORIDE NASAL 0.65% SPRAY BTL (OCEAN) PRN (17:32)
[2023-08-02] VITALS (26 sets, daily range): BP systolic 80–139; BP diastolic 40–96; TEMP 97.3–98.1; O2SAT 79–100
[2023-08-02] MEDS: ALBUTEROL SULFATE 2.5MG/0.5ML INH NEB SOLN NEB PRN (04:36)
[2023-08-02] MEDS: MORPHINE 2 MG/ML 1ML VIAL IV PRN (04:37)
[2023-08-02 05:05] LABS: HEMATOCRIT 26.1 % (36.0-47.0); HEMOGLOBIN 8.6 g/dl (12.0-15.5); MEAN CORPUSCULAR VOLUME 94.2 fl (80.0-96.0); RED BLOOD COUNT 2.77 10^6/uL (4.00-5.40); WHITE BLOOD COUNT 10.6 10^3/uL (4.0-10.0)
[2023-08-02 05:10] LABS: PLATELET COUNT, AUTOMATED 62 10^3/uL (150-450)
[2023-08-02 05:26] LABS: CK-MB VALUE MASS < 1.0 NG/ML (<3.6)
[2023-08-02 05:27] LABS: BLOOD UREA NITROGEN 53 MG/DL (9-23); CALCIUM LEVEL 8.5 MG/DL (8.3-10.6); CARBON DIOXIDE LEVEL 24 MMOL/L (20-31); CHLORIDE LEVEL 99 MMOL/L (98-107); CREATININE FOR GFR 1.74 MG/DL (0.55-1.30); GLOMERULAR FILTRATION RATE 31.8 (>45); GLUCOSE, FASTING 92 MG/DL (74-106); MAGNESIUM LEVEL 1.9 MG/DL (1.8-2.4); POTASSIUM SERUM 3.9 MMOL/L (3.5-5.1); SODIUM LEVEL 130 MMOL/L (136-145)
[2023-08-02 05:31] LABS: CPK CREATINE PHOSPHOKINASE 16 U/L (34-145); MB/CK RELATIVE INDEX 6.25 (< OR =4)
[2023-08-02 05:41] LABS: ANISOCYTOSIS 2+; ATYPICAL LYMPH 1 % (0-5); EOSINOPHILS 2 % (0-3); LYMPHOCYTES 7 % (16-44); MONOCYTES 3 % (0-5); NEUTROPHILS 86 % (28-66); PLATELET ESTIMATE DECREASED (NORMAL); POIKILOCYTOSIS 1+
[2023-08-02 08:57] LABS: INR 2.3; PROTHROMBIN TIME 24.5 SECONDS (12.5-14.5)
[2023-08-02 09:48] LABS: LDH LACTATE DEHYDROGENASE 446 U/L (120-246)
[2023-08-02 09:49] LABS: TOTAL PROTEIN 5.5 G/DL (5.7-8.2)
[2023-08-02] MEDS ORDERED: LIDOCAINE 1% MDV 20ML VIAL As Ordered ONE (10:30)
[2023-08-02] MEDS: LR 1,000 ML IV SCH ×2 (12:01→22:33)
[2023-08-02 12:17] LABS: PH BODY FLUID 7.682 UNITS (NOT ESTABLISHED); SOURCE, BODY FLUID pH PLEURAL
[2023-08-02 12:32] LABS: PLEURAL FL COLOR PALE YELLOW (COLORLESS); SOURCE, BODY FLUID PLEURAL
[2023-08-02 12:33] LABS: APPEARANCE, BODY FLUID HAZY (CLEAR)
[2023-08-02 12:41] LABS: SOURCE, BODY FLUID ALBUMIN PLEURAL
[2023-08-02 12:47] LABS: SOURCE, BODY FLUID GLUCOSE PLEURAL
[2023-08-02 12:48] LABS: AMYLASE, BODY FLUID 33 U/L (NOT ESTABLISHED); LDH, BODY FLUID 64 U/L (NOT ESTABLISHED); SOURCE, BODY FLUID AMYLASE PLEURAL; SOURCE, BODY FLUID LDH PLEURAL
[2023-08-02 12:49] LABS: CHOLESTEROL, BODY FLUID < 25 MG/DL (NOT ESTABLISHED); SOURCE, BODY FLUID CHOL PLEURAL; SOURCE, BODY FLUID TOT PROTEIN PLEURAL; TOTAL PROTEIN, BODY FLUID < 2.0 G/DL (NOT ESTABLISHED)
[2023-08-02] MEDS: LEVALBUTEROL 1.25MG 0.5ML CONCENTRATE NEB NEB SCH (17:11)
[2023-08-02] MEDS: rifAXIMin 550 MG TAB (XIFAXAN) PO SCH (20:53)
[2023-08-02] MEDS: methylPREDNISolone 500 MG, VIAL MATE ADAPTER 1 EACH in NS 250 ML IV ONE (20:54)
[2023-08-02] MEDS ORDERED: rifAXIMin 550 MG TAB (XIFAXAN) PO SCH (21:00)
[2023-08-03] VITALS (33 sets, daily range): BP systolic 83–118; BP diastolic 45–74; TEMP 97–97.9; O2SAT 86–100
[2023-08-03 05:49] LABS: HEMATOCRIT 27.7 % (36.0-47.0); HEMOGLOBIN 8.9 g/dl (12.0-15.5); MEAN CORPUSCULAR HGB CONC 32.1 g/dl (32.0-36.5); MEAN CORPUSCULAR VOLUME 96.5 fl (80.0-96.0); RED BLOOD COUNT 2.87 10^6/uL (4.00-5.40); WHITE BLOOD COUNT 10.2 10^3/uL (4.0-10.0)
[2023-08-03 05:52] LABS: PLATELET COUNT, AUTOMATED 63 10^3/uL (150-450)
[2023-08-03 06:14] LABS: CALCIUM LEVEL 8.1 MG/DL (8.3-10.6); CREATININE FOR GFR 2.39 MG/DL (0.55-1.30); MAGNESIUM LEVEL 1.8 MG/DL (1.8-2.4); POTASSIUM SERUM 4.8 MMOL/L (3.5-5.1)
[2023-08-03 06:33] LABS: ANISOCYTOSIS 2+; LYMPHOCYTES 1 % (16-44); NEUTROPHILS 98 % (28-66); PLATELET ESTIMATE DECREASED (NORMAL)
[2023-08-03 06:34] LABS: POIKILOCYTOSIS 1+
[2023-08-03] MEDS ORDERED: methylPREDNISolone 125MG 2ML VIAL IV SCH (11:00)
[2023-08-03] MEDS: methylPREDNISolone 500 MG, VIAL MATE ADAPTER 1 EACH in NS 250 ML IV SCH (11:54)
[2023-08-03] MEDS: MIDODRINE 5 MG TAB PO SCH (15:26)
[2023-08-03] MEDS: OCTREOTIDE ACETATE 100MCG/ML VIAL **SC ADMINISTRATION ONLY SC SCH (15:27)
[2023-08-03] MEDS: LR 1,000 ML IV SCH (15:50)
[2023-08-03] MEDS: CEFEPIME HCL 1 GM in D5W MINI-BAG PLUS 50 ML IV SCH (21:00)
[2023-08-03] MEDS: NYSTATIN 100,000 UNITS/GM TOPICAL PWD 15GM TOP SCH (21:00)
[2023-08-03] MEDS: NS 1,000 ML IV SCH (21:00)
[2023-08-04] VITALS (26 sets, daily range): BP systolic 94–125; BP diastolic 52–61; TEMP 96.3–97.5; O2SAT 88–100
[2023-08-04 05:19] LABS: BASO % 0.1 % (0.0-1.0); HEMATOCRIT 23.8 % (36.0-47.0); HEMOGLOBIN 7.4 g/dl (12.0-15.5); LYMPH # 0.7 10^3/uL (1.5-5.0); LYMPH % 6.5 % (24.0-44.0); MEAN CORPUSCULAR HEMOGLOBIN 30.1 pg (27.0-33.0); MEAN CORPUSCULAR HGB CONC 31.1 g/dl (32.0-36.5); MEAN CORPUSCULAR VOLUME 96.7 fl (80.0-96.0); MONO # 0.4 10^3/uL (0.0-0.8); MONO % 3.1 % (2.0-8.0); NEUTROPHILS # 10.1 10^3/uL (1.5-8.5); NEUTROPHILS % 89.8 % (36.0-66.0); RED BLOOD COUNT 2.46 10^6/uL (4.00-5.40); WHITE BLOOD COUNT 11.3 10^3/uL (4.0-10.0)
[2023-08-04 05:24] LABS: PLATELET COUNT, AUTOMATED 49 10^3/uL (150-450)
[2023-08-04 05:50] LABS: CREATININE FOR GFR 3.19 MG/DL (0.55-1.30); GLOMERULAR FILTRATION RATE 15.8 (>45); MAGNESIUM LEVEL 1.8 MG/DL (1.8-2.4); PHOSPHORUS LEVEL 7.4 MG/DL (2.4-5.1); POTASSIUM SERUM 4.7 MMOL/L (3.5-5.1)
[2023-08-04] MEDS: LR 1,000 ML IV SCH (11:35)
[2023-08-04] MEDS: [UNRECOGNIZED DRUG - OTHER] SQ SA SCH (15:26)
[2023-08-04] MEDS: NS 1,000 ML IV SCH ×2 (15:56→21:42)
[2023-08-04] MEDS: LEVEMIR (INSULIN DETEMIR) 1 UNITS/0.01ML SC SCH (19:16)
[2023-08-04] MEDS: LEVALBUTEROL 1.25MG 0.5ML CONCENTRATE NEB NEB PRN (21:00)
[2023-08-05] VITALS (27 sets, daily range): BP systolic 100–140; BP diastolic 53–72; TEMP 97.1–98.1; O2SAT 91–98
[2023-08-05 04:55] LABS: BASO % 0.1 % (0.0-1.0); HEMATOCRIT 21.1 % (36.0-47.0); LYMPH # 0.7 10^3/uL (1.5-5.0); LYMPH % 4.9 % (24.0-44.0); MEAN CORPUSCULAR HEMOGLOBIN 30.9 pg (27.0-33.0); MEAN CORPUSCULAR HGB CONC 31.8 g/dl (32.0-36.5); MEAN CORPUSCULAR VOLUME 97.2 fl (80.0-96.0); MONO # 0.4 10^3/uL (0.0-0.8); MONO % 2.7 % (2.0-8.0); NEUTROPHILS # 12.5 10^3/uL (1.5-8.5); NEUTROPHILS % 91.8 % (36.0-66.0); RED BLOOD COUNT 2.17 10^6/uL (4.00-5.40); WHITE BLOOD COUNT 13.6 10^3/uL (4.0-10.0)
[2023-08-05 05:01] LABS: HEMOGLOBIN 6.7 g/dl (12.0-15.5)
[2023-08-05 05:02] LABS: PLATELET COUNT, AUTOMATED 50 10^3/uL (150-450)
[2023-08-05 05:17] LABS: CALCIUM LEVEL 6.1 MG/DL (8.3-10.6); CREATININE FOR GFR 3.51 MG/DL (0.55-1.30); GLOMERULAR FILTRATION RATE 14.1 (>45); MAGNESIUM LEVEL 1.7 MG/DL (1.8-2.4); POTASSIUM SERUM 4.7 MMOL/L (3.5-5.1)
[2023-08-05] MEDS: MAGNESIUM GLUCONATE 500 MG TAB PO ONE (06:03)
[2023-08-05] MEDS: MAG SULF 1GM/100ML (MAG RUN) 1 GM in IV 1 EA IV STA (08:25)
[2023-08-05 14:38] LABS: VENOUS BASE EXCESS -9.3 (-2.0-2.0); VENOUS HCO3 16.5 MMOL/L (23.0-27.0); VENOUS PARTIAL PRESSURE CO2 35.3 mmHg (38.0-50.0); VENOUS PARTIAL PRESSURE O2 122.6 mmHg (30.0-50.0); VENOUS PH 7.288 UNITS (7.330-7.430); VENOUS STANDARD HCO3 16.9 MMOL/L; VENOUS TOTAL CO2 17.6 MMOL/L (24.0-28.0)
[2023-08-05 14:45] LABS: HEMATOCRIT 23.4 % (36.0-47.0); HEMOGLOBIN 7.5 g/dl (12.0-15.5); MEAN CORPUSCULAR HEMOGLOBIN 30.1 pg (27.0-33.0); MEAN CORPUSCULAR HGB CONC 32.1 g/dl (32.0-36.5); RED BLOOD COUNT 2.49 10^6/uL (4.00-5.40); WHITE BLOOD COUNT 17.6 10^3/uL (4.0-10.0)
[2023-08-05 14:47] LABS: PLATELET COUNT, AUTOMATED 54 10^3/uL (150-450)
[2023-08-05 15:15] LABS: CALCIUM LEVEL 6.1 MG/DL (8.3-10.6); CREATININE FOR GFR 3.5 MG/DL (0.55-1.30); GLOMERULAR FILTRATION RATE 14.2 (>45); POTASSIUM SERUM 3.9 MMOL/L (3.5-5.1)
[2023-08-05] MEDS: CEFDINIR 300 MG CAP (OMNICEF) PO SCH (20:16)
[2023-08-05] MEDS: VANICREAM MOISTURIZING SKIN CREAM 113GM TUBE TOP SCH (20:29)
[2023-08-05] MEDS: SANTYL OINT 30GM TOP SCH (20:29)
[2023-08-06] VITALS (29 sets, daily range): BP systolic 106–134; BP diastolic 53–75; TEMP 97.2–98.4; O2SAT 89–100
[2023-08-06 04:57] LABS: BASO % 0.1 % (0.0-1.0); LYMPH # 0.8 10^3/uL (1.5-5.0); LYMPH % 4.7 % (24.0-44.0); MEAN CORPUSCULAR HEMOGLOBIN 31.1 pg (27.0-33.0); MEAN CORPUSCULAR HGB CONC 33.5 g/dl (32.0-36.5); MEAN CORPUSCULAR VOLUME 92.9 fl (80.0-96.0); MONO # 0.9 10^3/uL (0.0-0.8); MONO % 5.1 % (2.0-8.0); NEUTROPHILS # 14.9 10^3/uL (1.5-8.5); NEUTROPHILS % 89.3 % (36.0-66.0); RED BLOOD COUNT 2.25 10^6/uL (4.00-5.40); WHITE BLOOD COUNT 16.7 10^3/uL (4.0-10.0)
[2023-08-06 04:59] LABS: HEMATOCRIT 20.9 % (36.0-47.0); PLATELET COUNT, AUTOMATED 44 10^3/uL (150-450)
[2023-08-06 05:24] LABS: CALCIUM LEVEL 6.3 MG/DL (8.3-10.6); CREATININE FOR GFR 3.71 MG/DL (0.55-1.30); GLOMERULAR FILTRATION RATE 13.3 (>45); MAGNESIUM LEVEL 1.8 MG/DL (1.8-2.4); PHOSPHORUS LEVEL 7.6 MG/DL (2.4-5.1); POTASSIUM SERUM 4.2 MMOL/L (3.5-5.1)
[2023-08-06 06:15] LABS: INR 4.16; PROTHROMBIN TIME 38.6 SECONDS (12.5-14.5)
[2023-08-06] MEDS: LACTULOSE 20GM/30ML SYRUP UDC PO SCH (09:01)
[2023-08-07] VITALS (20 sets, daily range): BP systolic 108–158; BP diastolic 51–90; TEMP 96.8–98.6; O2SAT 92–97
[2023-08-07 01:19] LABS: HEMATOCRIT 25.4 % (36.0-47.0); HEMOGLOBIN 8.5 g/dl (12.0-15.5)
[2023-08-07 05:46] LABS: BASO % 0.1 % (0.0-1.0); HEMATOCRIT 26.4 % (36.0-47.0); HEMOGLOBIN 8.8 g/dl (12.0-15.5); LYMPH # 1.1 10^3/uL (1.5-5.0); MEAN CORPUSCULAR HEMOGLOBIN 30.6 pg (27.0-33.0); MEAN CORPUSCULAR HGB CONC 33.3 g/dl (32.0-36.5); MEAN CORPUSCULAR VOLUME 91.7 fl (80.0-96.0); MONO # 1.2 10^3/uL (0.0-0.8); MONO % 5.7 % (2.0-8.0); NEUTROPHILS % 87.8 % (36.0-66.0); RED BLOOD COUNT 2.88 10^6/uL (4.00-5.40); WHITE BLOOD COUNT 21.6 10^3/uL (4.0-10.0)
[2023-08-07 05:49] LABS: PLATELET COUNT, AUTOMATED 50 10^3/uL (150-450)
[2023-08-07 06:00] LABS: INR 3.16; PROTHROMBIN TIME 31.3 SECONDS (12.5-14.5)
[2023-08-07 06:04] LABS: VENOUS BASE EXCESS -10.5 (-2.0-2.0); VENOUS HCO3 15.3 MMOL/L (23.0-27.0); VENOUS O2 SATURATION 97.9 % (60.0-80.0); VENOUS PARTIAL PRESSURE CO2 33.8 mmHg (38.0-50.0); VENOUS PARTIAL PRESSURE O2 133.9 mmHg (30.0-50.0); VENOUS PH 7.275 UNITS (7.330-7.430); VENOUS STANDARD HCO3 16.1 MMOL/L; VENOUS TOTAL CO2 16.4 MMOL/L (24.0-28.0)
[2023-08-07 06:06] LABS: ALBUMIN 1.9 G/DL (3.2-5.2); BILIRUBIN,TOTAL 5.8 MG/DL (0.3-1.2); CALCIUM LEVEL 6.6 MG/DL (8.3-10.6); CREATININE FOR GFR 4.21 MG/DL (0.55-1.30); GLOMERULAR FILTRATION RATE 11.5 (>45); MAGNESIUM LEVEL 1.8 MG/DL (1.8-2.4); PHOSPHORUS LEVEL 7.2 MG/DL (2.4-5.1); TOTAL PROTEIN 5.2 G/DL (5.7-8.2)
== END 2023-08-07 20:08 | disposition short-term general hospital (02) | DRG 682 ==
LOC: M ED 20:40 → UNDOADMOB 07-30 00:20 → M ED INP 07-30 00:20 → M MSPAV 07-30 01:48 → M ICU 08-02 10:07
PROVIDERS: ADMIT Preventive Medicine Undersea and Hyperbaric Medicine; ATTEND Internal Medicine Pulmonary Disease
PROC: 0W993ZZ Drainage of Right Pleural Cavity, Percutaneous Approach (ICD-10-PCS; 2023-08-02)
PROC: 30233N1 Transfusion of Nonautologous Red Blood Cells into Peripheral Vein, Percutaneous Approach (ICD-10-PCS; principal; 2023-08-05)
DX: N17.9 Acute kidney failure, unspecified (principal); I50.33 Acute on chronic diastolic (congestive) heart failure; J96.01 Acute respiratory failure with hypoxia; K76.7 Hepatorenal syndrome; L89.153 Pressure ulcer of sacral region, stage 3; E87.1 Hypo-osmolality and hyponatremia; I13.0 Hypertensive heart and chronic kidney disease with heart failure and stage 1 through stage 4 chronic kidney disease, or unspecified chronic kidney disease; N39.0 Urinary tract infection, site not specified; K76.6 Portal hypertension; D68.9 Coagulation defect, unspecified; L88 Pyoderma gangrenosum; J90 Pleural effusion, not elsewhere classified; E83.42 Hypomagnesemia; N18.9 Chronic kidney disease, unspecified; K21.9 Gastro-esophageal reflux disease without esophagitis; B96.29 Other Escherichia coli [E. coli] as the cause of diseases classified elsewhere; D69.6 Thrombocytopenia, unspecified; K74.60 Unspecified cirrhosis of liver; L40.8 Other psoriasis; D64.9 Anemia, unspecified; R62.7 Adult failure to thrive; E11.9 Type 2 diabetes mellitus without complications; Z79.899 Other long term (current) drug therapy; K14.0 Glossitis; L40.50 Arthropathic psoriasis, unspecified; Z79.52 Long term (current) use of systemic steroids; Z87.891 Personal history of nicotine dependence; D63.8 Anemia in other chronic diseases classified elsewhere

== ENCOUNTER → 2023-10-24 | Outpatient (CLI) | payer MEDICARE ==
[~2023-10-24] MED LIST changes: +CARV3.12 PO; +PANT40TA29 PO
[2023-10-24 09:18] LABS: BASO # 0.1 10^3/uL (0.0-0.2); EOS # 0.1 10^3/uL (0.0-0.5); EOS % 2.1 % (0.0-3.0); HEMATOCRIT 28.8 % (36.0-47.0); HEMOGLOBIN 9.4 g/dl (12.0-15.5); LYMPH # 0.9 10^3/uL (1.5-5.0); LYMPH % 14.9 % (24.0-44.0); MEAN CORPUSCULAR HEMOGLOBIN 31.9 pg (27.0-33.0); MEAN CORPUSCULAR HGB CONC 32.6 g/dl (32.0-36.5); MEAN CORPUSCULAR VOLUME 97.6 fl (80.0-96.0); MONO # 0.3 10^3/uL (0.0-0.8); MONO % 5.6 % (2.0-8.0); NEUTROPHILS # 4.3 10^3/uL (1.5-8.5); NEUTROPHILS % 75.7 % (36.0-66.0); PLATELET COUNT, AUTOMATED 109 10^3/uL (150-450); RED BLOOD COUNT 2.95 10^6/uL (4.00-5.40); WHITE BLOOD COUNT 5.7 10^3/uL (4.0-10.0)
[2023-10-24 09:43] LABS: APPEARANCE, URINE HAZY (CLEAR); BACTERIA, URINE AUTO 1+ (NEGATIVE); BILIRUBIN, URINE AUTO NEGATIVE (NEGATIVE); BLOOD, URINE BLOOD 1+ (NEGATIVE); COLOR, URINE YELLOW (YELLOW); GLUCOSE, URINE (UA) AUTO NEGATIVE (NEGATIVE); KETONE, URINE AUTO NEGATIVE (NEGATIVE); LEUKOCYTE ESTERASE, URINE AUTO 2+ (NEGATIVE); MUCUS, URINE SMALL (NEGATIVE); NITRITE, URINE AUTO NEGATIVE (NEGATIVE); PROTEIN, URINE AUTO 1+ mg/dL (NEGATIVE); RBC, URINE AUTO 111 /HPF (0-3); SPECIFIC GRAVITY URINE AUTO 1.011 (1.002-1.035); SQUAMOUS EPITHELIAL CELL UR AU 1 /HPF (0-6); UROBILINOGEN, URINE AUTO 0.2 mg/dL (0.0-2.0); WBC, URINE AUTO 76 /HPF (0-3)
[2023-10-24 09:55] LABS: ALBUMIN 3.2 G/DL (3.2-5.2); ALKALINE PHOSPHATASE 77 U/L (46-116); ALT/SGPT 11 U/L (7.0-40); AST/SGOT 10 U/L (<34); BILIRUBIN,TOTAL 0.8 MG/DL (0.3-1.2); BLOOD UREA NITROGEN 16 MG/DL (9-23); CALCIUM LEVEL 9.5 MG/DL (8.3-10.6); CARBON DIOXIDE LEVEL 28 MMOL/L (20-31); CHLORIDE LEVEL 102 MMOL/L (98-107); GLOMERULAR FILTRATION RATE > 60.0 (>45); GLUCOSE, FASTING 76 MG/DL (74-106); MAGNESIUM LEVEL 1.2 MG/DL (1.8-2.4); POTASSIUM SERUM 4.1 MMOL/L (3.5-5.1); SODIUM LEVEL 137 MMOL/L (136-145); TOTAL PROTEIN 6.4 G/DL (5.7-8.2)
[2023-10-26 07:42] LABS: FK 506 (TACROLIMUS) 16.5 mcg/L (5.0-20.0)
[2023-10-26 21:23] LABS: CMV QUANT DNA PCR (PLASMA) Not Detected; CMV SOURCE Whole Blood; log10 CMV QN DNA P1 Not Detected log IU/mL
== END ==
LOC: M LAB 08:28
PROVIDERS: ATTEND Nurse Practitioner Family
DX: Z94.4 Liver transplant status (principal); K74.60 Unspecified cirrhosis of liver

== ENCOUNTER → 2023-11-07 | Outpatient (CLI) | payer MEDICARE ==
[2023-11-07 08:30] LABS: APPEARANCE, URINE CLEAR (CLEAR); BACTERIA, URINE AUTO NEGATIVE (NEGATIVE); BILIRUBIN, URINE AUTO NEGATIVE (NEGATIVE); BLOOD, URINE BLOOD NEGATIVE (NEGATIVE); COLOR, URINE YELLOW (YELLOW); GLUCOSE, URINE (UA) AUTO NEGATIVE (NEGATIVE); KETONE, URINE AUTO NEGATIVE (NEGATIVE); LEUKOCYTE ESTERASE, URINE AUTO TRACE (NEGATIVE); NITRITE, URINE AUTO NEGATIVE (NEGATIVE); PROTEIN, URINE AUTO NEGATIVE (NEGATIVE); RBC, URINE AUTO 1 /HPF (0-3); SQUAMOUS EPITHELIAL CELL UR AU 0 /HPF (0-6); UROBILINOGEN, URINE AUTO 0.2 mg/dL (0.0-2.0); WBC, URINE AUTO 11 /HPF (0-3)
[2023-11-07 08:34] LABS: BASO # 0.1 10^3/uL (0.0-0.2); BASO % 0.8 % (0.0-1.0); EOS # 0.1 10^3/uL (0.0-0.5); EOS % 0.9 % (0.0-3.0); HEMATOCRIT 30.1 % (36.0-47.0); HEMOGLOBIN 10.1 g/dl (12.0-15.5); LYMPH # 0.9 10^3/uL (1.5-5.0); LYMPH % 14.4 % (24.0-44.0); MEAN CORPUSCULAR HEMOGLOBIN 32.6 pg (27.0-33.0); MEAN CORPUSCULAR HGB CONC 33.6 g/dl (32.0-36.5); MEAN CORPUSCULAR VOLUME 97.1 fl (80.0-96.0); MONO # 0.4 10^3/uL (0.0-0.8); MONO % 6.3 % (2.0-8.0); NEUTROPHILS % 76.5 % (36.0-66.0); PLATELET COUNT, AUTOMATED 120 10^3/uL (150-450); WHITE BLOOD COUNT 6.5 10^3/uL (4.0-10.0)
[2023-11-07 09:04] LABS: ALBUMIN 3.2 G/DL (3.2-5.2); ALKALINE PHOSPHATASE 70 U/L (46-116); ALT/SGPT < 9 U/L (7.0-40); AST/SGOT < 8 U/L (<34); BILIRUBIN,TOTAL 0.7 MG/DL (0.3-1.2); BLOOD UREA NITROGEN 18 MG/DL (9-23); CALCIUM LEVEL 10.5 MG/DL (8.3-10.6); CARBON DIOXIDE LEVEL 28 MMOL/L (20-31); CHLORIDE LEVEL 100 MMOL/L (98-107); CREATININE FOR GFR 0.73 MG/DL (0.55-1.30); GLOMERULAR FILTRATION RATE > 60.0 (>45); GLUCOSE, FASTING 153 MG/DL (74-106); MAGNESIUM LEVEL 1.1 MG/DL (1.8-2.4); POTASSIUM SERUM 4.3 MMOL/L (3.5-5.1); SODIUM LEVEL 135 MMOL/L (136-145); TOTAL PROTEIN 6.5 G/DL (5.7-8.2)
[2023-11-10 16:57] LABS: CMV QUANT DNA PCR (PLASMA) Not Detected; CMV SOURCE Whole Blood; log10 CMV QN DNA P1 Not Detected log IU/mL
== END ==
LOC: M LAB 07:41
PROVIDERS: ATTEND Nurse Practitioner Family
DX: Z94.4 Liver transplant status (principal)

== ENCOUNTER → 2023-11-14 | Outpatient (CLI) | payer MEDICARE ==
[2023-11-14 09:29] LABS: BASO % 0.7 % (0.0-1.0); EOS % 0.7 % (0.0-3.0); HEMATOCRIT 31.2 % (36.0-47.0); HEMOGLOBIN 10.3 g/dl (12.0-15.5); LYMPH # 1.1 10^3/uL (1.5-5.0); LYMPH % 18.4 % (24.0-44.0); MEAN CORPUSCULAR HEMOGLOBIN 32.4 pg (27.0-33.0); MEAN CORPUSCULAR VOLUME 98.1 fl (80.0-96.0); MONO # 0.4 10^3/uL (0.0-0.8); MONO % 6.9 % (2.0-8.0); NEUTROPHILS # 4.2 10^3/uL (1.5-8.5); NEUTROPHILS % 72.1 % (36.0-66.0); PLATELET COUNT, AUTOMATED 120 10^3/uL (150-450); RED BLOOD COUNT 3.18 10^6/uL (4.00-5.40); WHITE BLOOD COUNT 5.8 10^3/uL (4.0-10.0)
[2023-11-14 09:31] LABS: APPEARANCE, URINE CLEAR (CLEAR); BACTERIA, URINE AUTO NEGATIVE (NEGATIVE); BILIRUBIN, URINE AUTO NEGATIVE (NEGATIVE); BLOOD, URINE BLOOD NEGATIVE (NEGATIVE); COLOR, URINE YELLOW (YELLOW); GLUCOSE, URINE (UA) AUTO NEGATIVE (NEGATIVE); KETONE, URINE AUTO NEGATIVE (NEGATIVE); LEUKOCYTE ESTERASE, URINE AUTO 2+ (NEGATIVE); NITRITE, URINE AUTO NEGATIVE (NEGATIVE); PROTEIN, URINE AUTO NEGATIVE (NEGATIVE); RBC, URINE AUTO 3 /HPF (0-3); SPECIFIC GRAVITY URINE AUTO 1.012 (1.002-1.035); SQUAMOUS EPITHELIAL CELL UR AU 1 /HPF (0-6); UROBILINOGEN, URINE AUTO 0.2 mg/dL (0.0-2.0); WBC, URINE AUTO 25 /HPF (0-3)
[2023-11-14 09:54] LABS: ALBUMIN 3.2 G/DL (3.2-5.2); ALKALINE PHOSPHATASE 66 U/L (46-116); ALT/SGPT < 9 U/L (7.0-40); AST/SGOT 10 U/L (<34); BILIRUBIN,TOTAL 0.6 MG/DL (0.3-1.2); BLOOD UREA NITROGEN 26 MG/DL (9-23); CALCIUM LEVEL 9.9 MG/DL (8.3-10.6); CARBON DIOXIDE LEVEL 28 MMOL/L (20-31); CHLORIDE LEVEL 103 MMOL/L (98-107); CREATININE FOR GFR 0.84 MG/DL (0.55-1.30); GLOMERULAR FILTRATION RATE > 60.0 (>45); GLUCOSE, FASTING 109 MG/DL (74-106); MAGNESIUM LEVEL 1.2 MG/DL (1.8-2.4); POTASSIUM SERUM 4.5 MMOL/L (3.5-5.1); SODIUM LEVEL 138 MMOL/L (136-145); TOTAL PROTEIN 6.5 G/DL (5.7-8.2)
[2023-11-17 19:43] LABS: CMV QUANT DNA PCR (PLASMA) Not Detected; CMV SOURCE Whole Blood; log10 CMV QN DNA P1 Not Detected log IU/mL
== END ==
LOC: M LAB 07:18
PROVIDERS: ATTEND Nurse Practitioner Family
DX: K74.60 Unspecified cirrhosis of liver (principal); Z94.4 Liver transplant status

== ENCOUNTER → 2023-12-05 | Outpatient (CLI) | payer MEDICARE ==
[2023-12-05 09:18] LABS: APPEARANCE, URINE CLEAR (CLEAR); BACTERIA, URINE AUTO NEGATIVE (NEGATIVE); BILIRUBIN, URINE AUTO NEGATIVE (NEGATIVE); BLOOD, URINE BLOOD NEGATIVE (NEGATIVE); COLOR, URINE YELLOW (YELLOW); GLUCOSE, URINE (UA) AUTO NEGATIVE (NEGATIVE); KETONE, URINE AUTO NEGATIVE (NEGATIVE); LEUKOCYTE ESTERASE, URINE AUTO 1+ (NEGATIVE); NITRITE, URINE AUTO NEGATIVE (NEGATIVE); PROTEIN, URINE AUTO NEGATIVE (NEGATIVE); RBC, URINE AUTO 0 /HPF (0-3); SPECIFIC GRAVITY URINE AUTO 1.011 (1.002-1.035); SQUAMOUS EPITHELIAL CELL UR AU 0 /HPF (0-6); UROBILINOGEN, URINE AUTO 0.2 mg/dL (0.0-2.0); WBC, URINE AUTO 9 /HPF (0-3)
[2023-12-05 09:32] LABS: BASO % 0.8 % (0.0-1.0); EOS # 0.1 10^3/uL (0.0-0.5); EOS % 1.9 % (0.0-3.0); HEMATOCRIT 31.3 % (36.0-47.0); HEMOGLOBIN 10.6 g/dl (12.0-15.5); LYMPH # 0.9 10^3/uL (1.5-5.0); LYMPH % 17.3 % (24.0-44.0); MEAN CORPUSCULAR HGB CONC 33.9 g/dl (32.0-36.5); MEAN CORPUSCULAR VOLUME 97.5 fl (80.0-96.0); MONO # 0.4 10^3/uL (0.0-0.8); MONO % 6.8 % (2.0-8.0); NEUTROPHILS # 3.8 10^3/uL (1.5-8.5); NEUTROPHILS % 72.6 % (36.0-66.0); PLATELET COUNT, AUTOMATED 112 10^3/uL (150-450); RED BLOOD COUNT 3.21 10^6/uL (4.00-5.40); WHITE BLOOD COUNT 5.3 10^3/uL (4.0-10.0)
[2023-12-05 09:56] LABS: ALBUMIN 3.3 G/DL (3.2-5.2); ALKALINE PHOSPHATASE 59 U/L (46-116); ALT/SGPT < 9 U/L (7.0-40); AST/SGOT < 8 U/L (<34); BILIRUBIN,TOTAL 0.8 MG/DL (0.3-1.2); BLOOD UREA NITROGEN 25 MG/DL (9-23); CALCIUM LEVEL 8.9 MG/DL (8.3-10.6); CARBON DIOXIDE LEVEL 27 MMOL/L (20-31); CHLORIDE LEVEL 105 MMOL/L (98-107); CREATININE FOR GFR 1.08 MG/DL (0.55-1.30); GLOMERULAR FILTRATION RATE 55.1 (>45); GLUCOSE, FASTING 142 MG/DL (74-106); MAGNESIUM LEVEL 1.6 MG/DL (1.8-2.4); POTASSIUM SERUM 4.2 MMOL/L (3.5-5.1); SODIUM LEVEL 137 MMOL/L (136-145); TOTAL PROTEIN 6.4 G/DL (5.7-8.2)
[2023-12-08 14:18] LABS: CMV QUANT DNA PCR (PLASMA) Not Detected; CMV SOURCE Whole Blood; log10 CMV QN DNA P1 Not Detected log IU/mL
== END ==
LOC: M LAB 08:39
PROVIDERS: ATTEND Nurse Practitioner Family
DX: Z94.4 Liver transplant status (principal)

== ENCOUNTER → 2023-12-12 | Outpatient (CLI) | payer MEDICARE ==
[2023-12-12 08:11] LABS: BASO % 0.9 % (0.0-1.0); EOS # 0.1 10^3/uL (0.0-0.5); EOS % 2.3 % (0.0-3.0); HEMATOCRIT 31.5 % (36.0-47.0); HEMOGLOBIN 10.4 g/dl (12.0-15.5); LYMPH # 0.7 10^3/uL (1.5-5.0); LYMPH % 16.4 % (24.0-44.0); MEAN CORPUSCULAR HEMOGLOBIN 33.3 pg (27.0-33.0); MONO # 0.3 10^3/uL (0.0-0.8); MONO % 6.7 % (2.0-8.0); NEUTROPHILS # 3.1 10^3/uL (1.5-8.5); NEUTROPHILS % 72.8 % (36.0-66.0); PLATELET COUNT, AUTOMATED 108 10^3/uL (150-450); RED BLOOD COUNT 3.12 10^6/uL (4.00-5.40); WHITE BLOOD COUNT 4.3 10^3/uL (4.0-10.0)
[2023-12-12 08:16] LABS: APPEARANCE, URINE CLEAR (CLEAR); BACTERIA, URINE AUTO NEGATIVE (NEGATIVE); BILIRUBIN, URINE AUTO NEGATIVE (NEGATIVE); BLOOD, URINE BLOOD NEGATIVE (NEGATIVE); COLOR, URINE YELLOW (YELLOW); GLUCOSE, URINE (UA) AUTO NEGATIVE (NEGATIVE); KETONE, URINE AUTO NEGATIVE (NEGATIVE); LEUKOCYTE ESTERASE, URINE AUTO 2+ (NEGATIVE); NITRITE, URINE AUTO NEGATIVE (NEGATIVE); PROTEIN, URINE AUTO NEGATIVE (NEGATIVE); RBC, URINE AUTO 2 /HPF (0-3); SPECIFIC GRAVITY URINE AUTO 1.011 (1.002-1.035); SQUAMOUS EPITHELIAL CELL UR AU 0 /HPF (0-6); UROBILINOGEN, URINE AUTO 0.2 mg/dL (0.0-2.0); WBC, URINE AUTO 8 /HPF (0-3)
[2023-12-12 08:35] LABS: ALBUMIN 3.1 G/DL (3.2-5.2); ALKALINE PHOSPHATASE 54 U/L (46-116); ALT/SGPT 12 U/L (7.0-40); AST/SGOT < 8 U/L (<34); BILIRUBIN,TOTAL 0.7 MG/DL (0.3-1.2); BLOOD UREA NITROGEN 26 MG/DL (9-23); CALCIUM LEVEL 8.6 MG/DL (8.3-10.6); CARBON DIOXIDE LEVEL 27 MMOL/L (20-31); CHLORIDE LEVEL 107 MMOL/L (98-107); CREATININE FOR GFR 0.97 MG/DL (0.55-1.30); GLOMERULAR FILTRATION RATE > 60.0 (>45); GLUCOSE, FASTING 158 MG/DL (74-106); MAGNESIUM LEVEL 1.7 MG/DL (1.8-2.4); SODIUM LEVEL 139 MMOL/L (136-145)
[2023-12-14 12:03] LABS: FK 506 (TACROLIMUS) 9.2 mcg/L (5.0-20.0)
[2023-12-15 05:03] LABS: CMV QUANT DNA PCR (PLASMA) Not Detected; CMV SOURCE Whole Blood; log10 CMV QN DNA P1 Not Detected log IU/mL
== END ==
LOC: M LAB 07:17
PROVIDERS: ATTEND Nurse Practitioner Family
DX: Z94.4 Liver transplant status (principal); K74.60 Unspecified cirrhosis of liver

== ENCOUNTER → 2023-12-19 | Outpatient (CLI) | payer MEDICARE ==
[2023-12-19 17:28] LABS: APPEARANCE, URINE CLEAR (CLEAR); BACTERIA, URINE AUTO NEGATIVE (NEGATIVE); BILIRUBIN, URINE AUTO NEGATIVE (NEGATIVE); BLOOD, URINE BLOOD NEGATIVE (NEGATIVE); COLOR, URINE YELLOW (YELLOW); GLUCOSE, URINE (UA) AUTO NEGATIVE (NEGATIVE); KETONE, URINE AUTO NEGATIVE (NEGATIVE); LEUKOCYTE ESTERASE, URINE AUTO 2+ (NEGATIVE); MUCUS, URINE SMALL (NEGATIVE); NITRITE, URINE AUTO NEGATIVE (NEGATIVE); PROTEIN, URINE AUTO NEGATIVE (NEGATIVE); RBC, URINE AUTO 2 /HPF (0-3); SQUAMOUS EPITHELIAL CELL UR AU 0 /HPF (0-6); UROBILINOGEN, URINE AUTO 0.2 mg/dL (0.0-2.0); WBC, URINE AUTO 9 /HPF (0-3)
[2023-12-19 17:29] LABS: EOS # 0.1 10^3/uL (0.0-0.5); EOS % 2.2 % (0.0-3.0); HEMATOCRIT 32.7 % (36.0-47.0); HEMOGLOBIN 10.7 g/dl (12.0-15.5); LYMPH # 0.6 10^3/uL (1.5-5.0); LYMPH % 15.8 % (24.0-44.0); MEAN CORPUSCULAR HEMOGLOBIN 33.3 pg (27.0-33.0); MEAN CORPUSCULAR HGB CONC 32.7 g/dl (32.0-36.5); MEAN CORPUSCULAR VOLUME 101.9 fl (80.0-96.0); MONO # 0.2 10^3/uL (0.0-0.8); MONO % 5.9 % (2.0-8.0); NEUTROPHILS % 73.6 % (36.0-66.0); PLATELET COUNT, AUTOMATED 107 10^3/uL (150-450); RED BLOOD COUNT 3.21 10^6/uL (4.00-5.40); WHITE BLOOD COUNT 4.1 10^3/uL (4.0-10.0)
[2023-12-19 18:02] LABS: ALBUMIN 3.4 G/DL (3.2-5.2); ALKALINE PHOSPHATASE 55 U/L (46-116); ALT/SGPT 9 U/L (7.0-40); AST/SGOT < 8 U/L (<34); BILIRUBIN,TOTAL 0.7 MG/DL (0.3-1.2); BLOOD UREA NITROGEN 30 MG/DL (9-23); CALCIUM LEVEL 9.1 MG/DL (8.3-10.6); CARBON DIOXIDE LEVEL 26 MMOL/L (20-31); CHLORIDE LEVEL 107 MMOL/L (98-107); CREATININE FOR GFR 1.01 MG/DL (0.55-1.30); GLOMERULAR FILTRATION RATE 59.5 (>45); GLUCOSE, FASTING 112 MG/DL (74-106); MAGNESIUM LEVEL 1.9 MG/DL (1.8-2.4); POTASSIUM SERUM 4.3 MMOL/L (3.5-5.1); SODIUM LEVEL 140 MMOL/L (136-145); TOTAL PROTEIN 6.2 G/DL (5.7-8.2)
[2023-12-24 02:27] LABS: CMV QUANT DNA PCR (PLASMA) Not Detected; CMV SOURCE Whole Blood; log10 CMV QN DNA P1 Not Detected log IU/mL
== END ==
LOC: M LRY 08:27
PROVIDERS: ATTEND Nurse Practitioner Family
DX: Z94.4 Liver transplant status (principal); K74.60 Unspecified cirrhosis of liver

== ENCOUNTER → 2024-01-02 | Outpatient (CLI) | payer MEDICARE ==
[~2024-01-02] MED LIST changes: -LACT10SO3 PO; +LACT10SO94 PO
[2024-01-02 12:21] LABS: BASO % 0.7 % (0.0-1.0); EOS # 0.1 10^3/uL (0.0-0.5); EOS % 1.9 % (0.0-3.0); HEMATOCRIT 31.8 % (36.0-47.0); LYMPH # 0.7 10^3/uL (1.5-5.0); LYMPH % 16.9 % (24.0-44.0); MEAN CORPUSCULAR HEMOGLOBIN 34.2 pg (27.0-33.0); MEAN CORPUSCULAR HGB CONC 34.6 g/dl (32.0-36.5); MEAN CORPUSCULAR VOLUME 98.8 fl (80.0-96.0); MONO # 0.3 10^3/uL (0.0-0.8); MONO % 7.9 % (2.0-8.0); NEUTROPHILS # 2.9 10^3/uL (1.5-8.5); NEUTROPHILS % 68.8 % (36.0-66.0); PLATELET COUNT, AUTOMATED 113 10^3/uL (150-450); RED BLOOD COUNT 3.22 10^6/uL (4.00-5.40); WHITE BLOOD COUNT 4.2 10^3/uL (4.0-10.0)
[2024-01-02 12:23] LABS: APPEARANCE, URINE CLEAR (CLEAR); BACTERIA, URINE AUTO NEGATIVE (NEGATIVE); BILIRUBIN, URINE AUTO NEGATIVE (NEGATIVE); BLOOD, URINE BLOOD NEGATIVE (NEGATIVE); COLOR, URINE YELLOW (YELLOW); GLUCOSE, URINE (UA) AUTO NEGATIVE (NEGATIVE); KETONE, URINE AUTO NEGATIVE (NEGATIVE); LEUKOCYTE ESTERASE, URINE AUTO TRACE (NEGATIVE); NITRITE, URINE AUTO NEGATIVE (NEGATIVE); PROTEIN, URINE AUTO NEGATIVE (NEGATIVE); RBC, URINE AUTO 0 /HPF (0-3); SPECIFIC GRAVITY URINE AUTO 1.012 (1.002-1.035); SQUAMOUS EPITHELIAL CELL UR AU 0 /HPF (0-6); UROBILINOGEN, URINE AUTO 0.2 mg/dL (0.0-2.0); WBC, URINE AUTO 7 /HPF (0-3)
[2024-01-02 12:44] LABS: ALBUMIN 3.3 G/DL (3.2-5.2); ALKALINE PHOSPHATASE 51 U/L (35-104); ALT/SGPT 18 U/L (7.0-40); AST/SGOT 8 U/L (<34); BILIRUBIN,TOTAL 0.9 MG/DL (0.3-1.2); BLOOD UREA NITROGEN 27 MG/DL (9-23); CALCIUM LEVEL 9.1 MG/DL (8.3-10.6); CARBON DIOXIDE LEVEL 24 MMOL/L (20-31); CHLORIDE LEVEL 107 MMOL/L (98-107); CREATININE FOR GFR 0.92 MG/DL (0.55-1.30); GLOMERULAR FILTRATION RATE > 60.0 (>45); GLUCOSE, FASTING 144 MG/DL (74-106); MAGNESIUM LEVEL 1.7 MG/DL (1.8-2.4); POTASSIUM SERUM 4.3 MMOL/L (3.5-5.1); SODIUM LEVEL 139 MMOL/L (136-145); TOTAL PROTEIN 6.5 G/DL (5.7-8.2)
[2024-01-06 03:28] LABS: CMV QUANT DNA PCR (PLASMA) Not Detected; CMV SOURCE Whole Blood; log10 CMV QN DNA P1 Not Detected log IU/mL
== END ==
LOC: M LRY 07:46
PROVIDERS: ATTEND Nurse Practitioner Family
DX: K74.60 Unspecified cirrhosis of liver (principal); Z94.4 Liver transplant status

== ENCOUNTER → 2024-01-09 | Outpatient (CLI) | payer MEDICARE ==
[2024-01-09 12:47] LABS: BASO # 0.1 10^3/uL (0.0-0.2); EOS # 0.1 10^3/uL (0.0-0.5); EOS % 1.3 % (0.0-3.0); HEMATOCRIT 33.2 % (36.0-47.0); HEMOGLOBIN 11.2 g/dl (12.0-15.5); LYMPH # 0.9 10^3/uL (1.5-5.0); LYMPH % 18.7 % (24.0-44.0); MEAN CORPUSCULAR HGB CONC 33.7 g/dl (32.0-36.5); MEAN CORPUSCULAR VOLUME 97.9 fl (80.0-96.0); MONO # 0.5 10^3/uL (0.0-0.8); MONO % 11.3 % (2.0-8.0); NEUTROPHILS # 3.2 10^3/uL (1.5-8.5); PLATELET COUNT, AUTOMATED 118 10^3/uL (150-450); RED BLOOD COUNT 3.39 10^6/uL (4.00-5.40); WHITE BLOOD COUNT 4.8 10^3/uL (4.0-10.0)
[2024-01-09 12:52] LABS: APPEARANCE, URINE CLEAR (CLEAR); BACTERIA, URINE AUTO NEGATIVE (NEGATIVE); BILIRUBIN, URINE AUTO NEGATIVE (NEGATIVE); BLOOD, URINE BLOOD NEGATIVE (NEGATIVE); COLOR, URINE YELLOW (YELLOW); GLUCOSE, URINE (UA) AUTO NEGATIVE (NEGATIVE); KETONE, URINE AUTO NEGATIVE (NEGATIVE); LEUKOCYTE ESTERASE, URINE AUTO TRACE (NEGATIVE); MUCUS, URINE SMALL (NEGATIVE); NITRITE, URINE AUTO NEGATIVE (NEGATIVE); PROTEIN, URINE AUTO NEGATIVE (NEGATIVE); RBC, URINE AUTO 1 /HPF (0-3); SPECIFIC GRAVITY URINE AUTO 1.015 (1.002-1.035); SQUAMOUS EPITHELIAL CELL UR AU 1 /HPF (0-6); UROBILINOGEN, URINE AUTO 0.2 mg/dL (0.0-2.0); WBC, URINE AUTO 5 /HPF (0-3)
[2024-01-09 13:04] LABS: ALBUMIN 3.4 G/DL (3.2-5.2); BILIRUBIN,TOTAL 1.1 MG/DL (0.3-1.2); CREATININE FOR GFR 1.04 MG/DL (0.55-1.30); GLOMERULAR FILTRATION RATE 57.5 (>45); MAGNESIUM LEVEL 1.8 MG/DL (1.8-2.4); POTASSIUM SERUM 4.3 MMOL/L (3.5-5.1); TOTAL PROTEIN 6.6 G/DL (5.7-8.2)
[2024-01-12 15:22] LABS: CMV QUANT DNA PCR (PLASMA) Not Detected; CMV SOURCE Whole Blood; log10 CMV QN DNA P1 Not Detected log IU/mL
== END ==
LOC: M LRY 07:39
PROVIDERS: ATTEND Nurse Practitioner Family
DX: K74.60 Unspecified cirrhosis of liver (principal); Z94.4 Liver transplant status

== ENCOUNTER → 2024-01-16 | Outpatient (CLI) | payer MEDICARE ==
[2024-01-16 12:00] LABS: BASO % 0.5 % (0.0-1.0); EOS # 0.1 10^3/uL (0.0-0.5); EOS % 1.7 % (0.0-3.0); HEMATOCRIT 35.5 % (36.0-47.0); LYMPH % 16.7 % (24.0-44.0); MEAN CORPUSCULAR HEMOGLOBIN 32.9 pg (27.0-33.0); MEAN CORPUSCULAR HGB CONC 33.8 g/dl (32.0-36.5); MEAN CORPUSCULAR VOLUME 97.3 fl (80.0-96.0); MONO # 0.5 10^3/uL (0.0-0.8); NEUTROPHILS # 4.2 10^3/uL (1.5-8.5); NEUTROPHILS % 70.6 % (36.0-66.0); PLATELET COUNT, AUTOMATED 130 10^3/uL (150-450); RED BLOOD COUNT 3.65 10^6/uL (4.00-5.40); WHITE BLOOD COUNT 5.9 10^3/uL (4.0-10.0)
[2024-01-16 12:09] LABS: APPEARANCE, URINE HAZY (CLEAR); BACTERIA, URINE AUTO NEGATIVE (NEGATIVE); BILIRUBIN, URINE AUTO NEGATIVE (NEGATIVE); BLOOD, URINE BLOOD NEGATIVE (NEGATIVE); COLOR, URINE YELLOW (YELLOW); GLUCOSE, URINE (UA) AUTO NEGATIVE (NEGATIVE); KETONE, URINE AUTO NEGATIVE (NEGATIVE); LEUKOCYTE ESTERASE, URINE AUTO NEGATIVE (NEGATIVE); MUCUS, URINE SMALL (NEGATIVE); NITRITE, URINE AUTO NEGATIVE (NEGATIVE); PROTEIN, URINE AUTO NEGATIVE (NEGATIVE); RBC, URINE AUTO 2 /HPF (0-3); SQUAMOUS EPITHELIAL CELL UR AU 1 /HPF (0-6); UROBILINOGEN, URINE AUTO 0.2 mg/dL (0.0-2.0); WBC, URINE AUTO 9 /HPF (0-3)
[2024-01-16 12:28] LABS: ALBUMIN 3.4 G/DL (3.2-5.2); BILIRUBIN,TOTAL 0.9 MG/DL (0.3-1.2); CALCIUM LEVEL 9.4 MG/DL (8.3-10.6); CREATININE FOR GFR 1.15 MG/DL (0.55-1.30); GLOMERULAR FILTRATION RATE 51.2 (>45); POTASSIUM SERUM 4.6 MMOL/L (3.5-5.1); TOTAL PROTEIN 6.5 G/DL (5.7-8.2)
[2024-01-19 13:57] LABS: FK 506 (TACROLIMUS) 4.7 mcg/L (5.0-20.0)
[2024-01-20 02:19] LABS: CMV QUANT DNA PCR (PLASMA) Not Detected; CMV SOURCE Whole Blood; log10 CMV QN DNA P1 Not Detected log IU/mL
== END ==
LOC: M LRY 08:22
PROVIDERS: ATTEND Nurse Practitioner Family
DX: K74.60 Unspecified cirrhosis of liver (principal); Z94.4 Liver transplant status

== ENCOUNTER → 2024-01-24 | Outpatient (CLI) | payer MEDICARE ==
[2024-01-24 09:21] LABS: BASO % 0.3 % (0.0-1.0); EOS # 0.1 10^3/uL (0.0-0.5); EOS % 1.7 % (0.0-3.0); HEMATOCRIT 34.6 % (36.0-47.0); HEMOGLOBIN 11.8 g/dl (12.0-15.5); LYMPH # 1.1 10^3/uL (1.5-5.0); LYMPH % 18.9 % (24.0-44.0); MEAN CORPUSCULAR HEMOGLOBIN 33.1 pg (27.0-33.0); MEAN CORPUSCULAR HGB CONC 34.1 g/dl (32.0-36.5); MEAN CORPUSCULAR VOLUME 96.9 fl (80.0-96.0); MONO # 0.5 10^3/uL (0.0-0.8); MONO % 7.9 % (2.0-8.0); NEUTROPHILS # 4.2 10^3/uL (1.5-8.5); NEUTROPHILS % 70.7 % (36.0-66.0); PLATELET COUNT, AUTOMATED 112 10^3/uL (150-450); RED BLOOD COUNT 3.57 10^6/uL (4.00-5.40); WHITE BLOOD COUNT 5.9 10^3/uL (4.0-10.0)
[2024-01-24 09:25] LABS: APPEARANCE, URINE CLEAR (CLEAR); BACTERIA, URINE AUTO NEGATIVE (NEGATIVE); BILIRUBIN, URINE AUTO NEGATIVE (NEGATIVE); BLOOD, URINE BLOOD NEGATIVE (NEGATIVE); COLOR, URINE STRAW (YELLOW); GLUCOSE, URINE (UA) AUTO NEGATIVE (NEGATIVE); KETONE, URINE AUTO NEGATIVE (NEGATIVE); LEUKOCYTE ESTERASE, URINE AUTO TRACE (NEGATIVE); NITRITE, URINE AUTO NEGATIVE (NEGATIVE); PROTEIN, URINE AUTO NEGATIVE (NEGATIVE); RBC, URINE AUTO 1 /HPF (0-3); SQUAMOUS EPITHELIAL CELL UR AU 0 /HPF (0-6); UROBILINOGEN, URINE AUTO 0.2 mg/dL (0.0-2.0); WBC, URINE AUTO 4 /HPF (0-3)
[2024-01-24 09:52] LABS: ALBUMIN 3.6 G/DL (3.2-5.2); BILIRUBIN,TOTAL 1.1 MG/DL (0.3-1.2); CALCIUM LEVEL 9.3 MG/DL (8.3-10.6); CREATININE FOR GFR 1.31 MG/DL (0.55-1.30); GLOMERULAR FILTRATION RATE 44.1 (>45); MAGNESIUM LEVEL 2.1 MG/DL (1.8-2.4); POTASSIUM SERUM 4.5 MMOL/L (3.5-5.1); TOTAL PROTEIN 6.8 G/DL (5.7-8.2)
[2024-01-28 08:38] LABS: FK 506 (TACROLIMUS) 4.8 mcg/L (5.0-20.0)
[2024-01-28 10:43] LABS: CMV QUANT DNA PCR (PLASMA) Not Detected; CMV SOURCE Whole Blood; log10 CMV QN DNA P1 Not Detected log IU/mL
== END ==
LOC: M LAB 08:35
PROVIDERS: ATTEND Nurse Practitioner Family
DX: Z94.4 Liver transplant status (principal); K74.60 Unspecified cirrhosis of liver

== ENCOUNTER → 2024-01-30 | Outpatient (CLI) | payer MEDICARE ==
[2024-01-30 17:31] LABS: BASO % 0.5 % (0.0-1.0); EOS # 0.1 10^3/uL (0.0-0.5); EOS % 1.8 % (0.0-3.0); HEMATOCRIT 35.8 % (36.0-47.0); HEMOGLOBIN 12.1 g/dl (12.0-15.5); LYMPH # 0.9 10^3/uL (1.5-5.0); LYMPH % 16.4 % (24.0-44.0); MEAN CORPUSCULAR HEMOGLOBIN 33.4 pg (27.0-33.0); MEAN CORPUSCULAR HGB CONC 33.8 g/dl (32.0-36.5); MEAN CORPUSCULAR VOLUME 98.9 fl (80.0-96.0); MONO # 0.5 10^3/uL (0.0-0.8); NEUTROPHILS # 4.1 10^3/uL (1.5-8.5); NEUTROPHILS % 72.9 % (36.0-66.0); PLATELET COUNT, AUTOMATED 121 10^3/uL (150-450); RED BLOOD COUNT 3.62 10^6/uL (4.00-5.40); WHITE BLOOD COUNT 5.7 10^3/uL (4.0-10.0)
[2024-01-30 17:42] LABS: APPEARANCE, URINE HAZY (CLEAR); BACTERIA, URINE AUTO NEGATIVE (NEGATIVE); BILIRUBIN, URINE AUTO NEGATIVE (NEGATIVE); BLOOD, URINE BLOOD NEGATIVE (NEGATIVE); COLOR, URINE AMBER (YELLOW); GLUCOSE, URINE (UA) AUTO NEGATIVE (NEGATIVE); KETONE, URINE AUTO NEGATIVE (NEGATIVE); LEUKOCYTE ESTERASE, URINE AUTO 2+ (NEGATIVE); MUCUS, URINE SMALL (NEGATIVE); NITRITE, URINE AUTO NEGATIVE (NEGATIVE); PROTEIN, URINE AUTO 1+ mg/dL (NEGATIVE); RBC, URINE AUTO 2 /HPF (0-3); SQUAMOUS EPITHELIAL CELL UR AU 1 /HPF (0-6); UROBILINOGEN, URINE AUTO 0.2 mg/dL (0.0-2.0); WBC, URINE AUTO 32 /HPF (0-3)
[2024-01-30 18:06] LABS: ALBUMIN 3.7 G/DL (3.2-5.2); ALKALINE PHOSPHATASE 57 U/L (35-104); ALT/SGPT 18 U/L (7.0-40); AST/SGOT < 8 U/L (<34); BILIRUBIN,TOTAL 0.6 MG/DL (0.3-1.2); BLOOD UREA NITROGEN 32 MG/DL (9-23); CALCIUM LEVEL 9.9 MG/DL (8.3-10.6); CARBON DIOXIDE LEVEL 26 MMOL/L (20-31); CHLORIDE LEVEL 105 MMOL/L (98-107); CREATININE FOR GFR 1.17 MG/DL (0.55-1.30); GLOMERULAR FILTRATION RATE 50.2 (>45); GLUCOSE, FASTING 128 MG/DL (74-106); POTASSIUM SERUM 4.9 MMOL/L (3.5-5.1); SODIUM LEVEL 141 MMOL/L (136-145); TOTAL PROTEIN 6.9 G/DL (5.7-8.2)
[2024-02-04 08:57] LABS: FK 506 (TACROLIMUS) 6.4 mcg/L (5.0-20.0)
[2024-02-04 20:01] LABS: CMV QUANT DNA PCR (PLASMA) Not Detected; CMV SOURCE Whole Blood; log10 CMV QN DNA P1 Not Detected log IU/mL
== END ==
LOC: M LRY 08:39
PROVIDERS: ATTEND Nurse Practitioner Family
DX: K74.60 Unspecified cirrhosis of liver (principal); Z94.4 Liver transplant status

== ENCOUNTER → 2024-02-13 | Outpatient (CLI) | payer MEDICARE ==
[2024-02-13 12:04] LABS: APPEARANCE, URINE CLEAR (CLEAR); BACTERIA, URINE AUTO NEGATIVE (NEGATIVE); BILIRUBIN, URINE AUTO NEGATIVE (NEGATIVE); BLOOD, URINE BLOOD NEGATIVE (NEGATIVE); COLOR, URINE YELLOW (YELLOW); GLUCOSE, URINE (UA) AUTO NEGATIVE (NEGATIVE); KETONE, URINE AUTO NEGATIVE (NEGATIVE); LEUKOCYTE ESTERASE, URINE AUTO NEGATIVE (NEGATIVE); NITRITE, URINE AUTO NEGATIVE (NEGATIVE); PROTEIN, URINE AUTO NEGATIVE (NEGATIVE); RBC, URINE AUTO 1 /HPF (0-3); SPECIFIC GRAVITY URINE AUTO 1.012 (1.002-1.035); SQUAMOUS EPITHELIAL CELL UR AU 0 /HPF (0-6); UROBILINOGEN, URINE AUTO 0.2 mg/dL (0.0-2.0); WBC, URINE AUTO 2 /HPF (0-3)
[2024-02-13 12:08] LABS: BASO % 0.3 % (0.0-1.0); EOS # 0.1 10^3/uL (0.0-0.5); EOS % 3.2 % (0.0-3.0); HEMATOCRIT 34.9 % (36.0-47.0); HEMOGLOBIN 11.5 g/dl (12.0-15.5); LYMPH # 0.5 10^3/uL (1.5-5.0); LYMPH % 14.5 % (24.0-44.0); MEAN CORPUSCULAR VOLUME 97.2 fl (80.0-96.0); MONO # 0.4 10^3/uL (0.0-0.8); MONO % 10.2 % (2.0-8.0); NEUTROPHILS # 2.7 10^3/uL (1.5-8.5); NEUTROPHILS % 71.5 % (36.0-66.0); PLATELET COUNT, AUTOMATED 100 10^3/uL (150-450); RED BLOOD COUNT 3.59 10^6/uL (4.00-5.40); WHITE BLOOD COUNT 3.7 10^3/uL (4.0-10.0)
[2024-02-13 12:36] LABS: ALBUMIN 3.3 G/DL (3.2-5.2); BILIRUBIN,TOTAL 0.8 MG/DL (0.3-1.2); CALCIUM LEVEL 8.9 MG/DL (8.3-10.6); CREATININE FOR GFR 1.11 MG/DL (0.55-1.30); GLOMERULAR FILTRATION RATE 53.4 (>45); MAGNESIUM LEVEL 1.6 MG/DL (1.8-2.4); POTASSIUM SERUM 4.4 MMOL/L (3.5-5.1); TOTAL PROTEIN 6.6 G/DL (5.7-8.2)
[2024-02-15 11:57] LABS: FK 506 (TACROLIMUS) 8.2 mcg/L (5.0-20.0)
[2024-02-17 22:59] LABS: CMV QUANT DNA PCR (PLASMA) 249 IU/mL; CMV SOURCE Whole Blood
== END ==
LOC: M LRY 08:10
PROVIDERS: ATTEND Nurse Practitioner Family
DX: K74.60 Unspecified cirrhosis of liver (principal); Z94.4 Liver transplant status

== ENCOUNTER → 2024-02-13 | Outpatient (REF) | payer MEDICARE ==
[2024-02-13 12:10] LABS: BASO % 0.3 % (0.0-1.0); EOS # 0.1 10^3/uL (0.0-0.5); EOS % 2.8 % (0.0-3.0); HEMATOCRIT 34.6 % (36.0-47.0); HEMOGLOBIN 11.6 g/dl (12.0-15.5); LYMPH # 0.6 10^3/uL (1.5-5.0); LYMPH % 14.2 % (24.0-44.0); MEAN CORPUSCULAR HEMOGLOBIN 32.6 pg (27.0-33.0); MEAN CORPUSCULAR HGB CONC 33.5 g/dl (32.0-36.5); MEAN CORPUSCULAR VOLUME 97.2 fl (80.0-96.0); MONO # 0.4 10^3/uL (0.0-0.8); MONO % 9.8 % (2.0-8.0); NEUTROPHILS # 2.8 10^3/uL (1.5-8.5); NEUTROPHILS % 72.6 % (36.0-66.0); PLATELET COUNT, AUTOMATED 110 10^3/uL (150-450); RED BLOOD COUNT 3.56 10^6/uL (4.00-5.40); WHITE BLOOD COUNT 3.9 10^3/uL (4.0-10.0)
[2024-02-13 12:18] LABS: HEMOGLOBIN A1c 5.4 % (4.0-6.0)
[2024-02-13 12:37] LABS: CREATININE, URINE 80.1 MG/DL; MALB URINE SIEMENS < 3.0 MG/L
[2024-02-13 12:38] LABS: ALBUMIN 3.3 G/DL (3.2-5.2); BILIRUBIN,TOTAL 0.8 MG/DL (0.3-1.2); CREATININE FOR GFR 1.12 MG/DL (0.55-1.30); GLOMERULAR FILTRATION RATE 52.8 (>45); POTASSIUM SERUM 4.5 MMOL/L (3.5-5.1); TOTAL PROTEIN 6.6 G/DL (5.7-8.2)
[2024-02-13 12:39] LABS: TOTAL 25(OH) VITAMIN D 55.6 NG/ML (20.0-100.0)
== END ==
LOC: M SFHCLERA 08:03
DX: E78.2 Mixed hyperlipidemia (principal); E11.9 Type 2 diabetes mellitus without complications; E55.9 Vitamin D deficiency, unspecified